=== PATIENT | female | born 1960 | race Asian ===

== ENCOUNTER 2016-08-25 12:58 | Emergency (ER) | payer OTHER ==
[2016-08-25] MEDS ORDERED: CEPHALEXIN 250 MG CAPSULE PO STA (17:08)
[2016-08-25] MEDS ORDERED: FUROSEMIDE 20 MG TABLET PO STA (17:08)
[2016-08-25] MEDS ORDERED: FUROSEMIDE 20 MG TABLET ONE (17:15)
[2016-08-25] MEDS ORDERED: CEPHALEXIN 250 MG CAPSULE PO ONE (17:15)
== END 2016-08-25 17:25 | disposition home or self-care (01) ==
DX: R60.0 Localized edema (principal); L03.116 Cellulitis of left lower limb; I10 Essential (primary) hypertension; E11.9 Type 2 diabetes mellitus without complications; Z79.84 Long term (current) use of oral hypoglycemic drugs; F17.200 Nicotine dependence, unspecified, uncomplicated; E78.00 Pure hypercholesterolemia, unspecified
CPT/HCPCS: 36415; 80048; 85025; 93005; 93010; 99283; 99284; A9270

== ENCOUNTER 2017-08-19 11:49 | Outpatient (CLI) | payer OTHER | END 2017-08-19 11:50 | disposition EMS.NT | LOC: EMS 11:49 | PROVIDERS: ATTEND Surgery | DX: M25.552 Pain in left hip (principal); W01.0XXA Fall on same level from slipping, tripping and stumbling without subsequent striking against object, initial encounter; Y92.511 Restaurant or cafe as the place of occurrence of the external cause ==

== ENCOUNTER 2017-08-19 12:34 | Emergency (ER) | payer OTHER ==
--- NOTE | 2017-08-19 14:49 | ED Physician Documentation ---
PD HPI BACK INJURY - Stated complaint Stated Complaint: BACK PAIN - History obtained from History obtained from: Patient (slipped and fell on floor going into local store and landed on her buttocks, with pain in upper lumbar area. Pain with ROM. No weakness nor numbness in legs. No abd pain. Did not strike head.), Friend - History of Present Illness Location: Lower Type of injury: Fall Where injury occurred: Other (local store) Timing - onset: Today Timing - details: Abrupt onset, Still present Quality: Pain, Aching. No: Spasm Worsened by: Moving. No: Palpating Associated symptoms: No: Weakness, Numbness, Incontinent of urine Contributing factors: No: Work related Similar symptoms before: Has not had sx before Recently seen: Not recently seen Review of Systems Constitutional: denies: Fever, Chills Nose: denies: Rhinorrhea / runny nose, Congestion Throat: denies: Sore throat Respiratory: denies: Cough GI: denies: Abdominal Pain, Nausea, Vomiting : denies: Incontinent Neurologic: denies: Focal weakness, Numbness, Headache, Head injury PD PAST MEDICAL HISTORY - Past Medical History Cardiovascular: Hypertension, High cholesterol Endocrine/Autoimmune: Type 2 diabetes - Past Surgical History Past Surgical History: No - Present Medications Home Medications: Ambulatory Orders Medication Instructions Recorded Confirmed Simvastatin 40 mg PO DAILY 08/25/16 08/19/17 Telmisartan 20 mg PO DAILY 08/25/16 08/19/17 hydroCHLOROthiazide 25 mg PO DAILY 08/25/16 08/19/17 [Hydrochlorothiazide] metFORMIN [Glucophage] 1,000 mg PO DAILY 08/25/16 08/19/17 Calcitonin [Fortical] 1 sprays BRAULIO DAILY #1 bottle 08/19/17 Docusate Sodium 100 mg PO DAILY #30 capsule 08/19/17 HYDROcod/ACETAM 5/325 [[place] 5/325] 1 tab PO Q6H PRN #25 tablet 08/19/17 Naproxen 375 mg PO BID #20 tablet 08/19/17 - Allergies Allergies/Adverse Reactions: Allergies Allergy/AdvReac Type Severity Reaction Status Date / Time No Known Drug Allergies Allergy Verified 08/25/16 13:12 - Social History Does the pt smoke?: Yes Smoking Status: Current every day smoker Does the pt drink ETOH?: No Does the pt have substance abuse?: No PD ED PE NORMAL - Vitals Vital signs reviewed: Yes - General General: Alert and oriented X 3, Well developed/nourished, Other (appears uncomfortable with ROM of the lower back. ) - HEENT HEENT: Atraumatic - Neck Neck: Supple, no meningeal sign, No bony TTP, No adenopathy - Cardiac Cardiac: RRR, No murmur - Respiratory Respiratory: Clear bilaterally - Abdomen Abdomen: Soft, Non tender - Back Back: No CVA TTP, Other (tenderness over thoracolumbar area of spine to percussion and palpation. Mild gluteal area tenderness of soft tissue. Not tender at coccyx itself. ) - Derm Derm: Normal color, Warm and dry - Extremities Extremities: No tenderness to palpate, Normal ROM s pain - Neuro Neuro: Alert and oriented X 3, No motor deficit, No sensory deficit, Other ( normal reflexes at the knees. ) Eye Opening: Spontaneous Motor: Obeys Commands Verbal: Oriented GCS Score: 15 - Psych Psych: Normal mood, Normal affect Results - Vitals Vitals: Oxygen O2 Source Room air - Rads (name of study) lumbar CT Radiology: Prelim report reviewed (new 2 column burst fracture at T 12 with mild posterior displacement and about 20% loss of height. Old compressive deformity L1.) PD MEDICAL DECISION MAKING - ED course Complexity details: reviewed results ([facility] reading as 2 column burst fracture with mild posterior displacement. I felt Spine consult appropriate. Some prolonging of ER visit for report initially, pushing images then getting Spine consult. Pateint kept updated on delays.), re-evaluated patient (improved pain with meds in ED. ), considered differential, d/w patient, d/w advertising consultant (Spine surgeon accountant controller at [facility] - characterized it as compression fracture and said no need for TLSO brace or such. Symptoms treatment and primary care follow up. ) Departure - Departure Disposition: 01 Home, Self Care Clinical Impression: Compression fracture of body of thoracic vertebra Fall from slip, trip, or stumble Qualifiers: Encounter type: initial encounter Qualified Code(s): W01.0XXA - Fall on same level from slipping, tripping and stumbling without subsequent striking against object, initial encounter Condition: Stable Record reviewed to determine appropriate education?: Yes Instructions: ED Fx Comp Vertebral Prescriptions: Calcitonin [Fortical] 1 sprays BRAULIO DAILY #1 bottle Docusate Sodium 100 mg PO DAILY #30 capsule HYDROcod/ACETAM 5/325 [[place] 5/325] 1 tab PO Q6H PRN #25 tablet PRN Reason: Pain Naproxen 375 mg PO BID #20 tablet Comments: Very light lifting and limited bending for the first 10 days or so. Then progress lifting and bending as tolerated based on comfort. This will likely take about a month to heal up. Use the calcitonin nasal spray daily in alternating nostrils to help speed the healing of this. Naproxen twice daily for 10 days for inflammation. Add Tylenol or hydrocodone if needed for pain. Use a daily stool softener for the next month to prevent constipation from the medications and from the injury. Drink lots of fluids. Follow-up with your primary care in about 2 weeks to assess the progression of healing and motion. Forms: Activity restrictions Discharge Date/Time: 08/19/17 18:23
[2017-08-19] MEDS ORDERED: IBUPROFEN 600 MG TABLET PO STA (15:04)
[2017-08-19] MEDS ORDERED: traMADol 50 MG TABLET PO STA (15:04)
[2017-08-19] MEDS ORDERED: METHOCARBAMOL 500 MG TABLET PO STA (15:04)
--- NOTE | 2017-08-19 16:52 | CT Report ---
EXAM: CT LUMBAR SPINE WITHOUT CONTRAST EXAM DATE: 08/19/2017 04:19 PM. CLINICAL HISTORY: Low back pain. Fall on slippery floor. Landed on buttock/side. COMPARISONS: None. TECHNIQUE: Thin-section axial images were acquired of the lumbar spine from T12 to S1 without contras t. Post-processing: Coronal and sagittal reformats. Other: None. In accordance with CT protocol optimization, one or more of the following dose reduction techniques w ere utilized for this exam: automated exposure control, adjustment of mA and/or KV based on patient s ize, or use of iterative reconstructive technique. FINDINGS: Alignment: No scoliosis or spondylolisthesis. Bones: Five [id number] lumbar vertebral bodies are present. 2 column burst fracture at T12 with roughly 20% loss of height anteriorly and minimal loss of height posteriorly with minimal retropulsio n. Similar to colon burst fracture at L1 with roughly 50% loss of height anteriorly and minimal loss of height posteriorly with minimal retropulsion. Disk Levels/Facets: T12-L1: Unremarkable. L1-L2: Unremarkable. L2-L3: Unremarkable. L3-L4: Unremarkable. L4-L5: Advanced degenerative disk space narrowing, right worse than left, with endplate spurring. Mil d posterior disk/osteophyte protrusion. L5-S1: Unremarkable. Musculature: Normal. No fatty atrophy. Other: There are degenerative changes of both sacroiliac joints. IMPRESSION: 1. 2 column burst fractures with mild anterior wedging and minimal superior endplate retropulsion at T12 and L1. 2. Advanced degenerative disk disease at L4-L5. [facility] Referring Provider Line: [phone] SITE ID: [id number]
[2017-08-19 17:37] VITALS: BP 153/87
== END 2017-08-19 18:23 | disposition home or self-care (01) ==
LOC: ED 12:34
DX: S22.081A Stable burst fracture of T11-T12 vertebra, initial encounter for closed fracture (principal); W01.0XXA Fall on same level from slipping, tripping and stumbling without subsequent striking against object, initial encounter; Y92.512 Supermarket, store or market as the place of occurrence of the external cause; E78.00 Pure hypercholesterolemia, unspecified; E11.9 Type 2 diabetes mellitus without complications; I10 Essential (primary) hypertension; F17.200 Nicotine dependence, unspecified, uncomplicated; Z79.84 Long term (current) use of oral hypoglycemic drugs
CPT/HCPCS: 72131; 99283; 99284; A9270

== ENCOUNTER 2019-06-25 09:40 | Emergency (ER) | payer OTHER ==
[2019-06-25 09:50] VITALS: BP 148/79
--- NOTE | 2019-06-25 11:20 | ED Physician Documentation ---
PD HPI WOUND RECHECK - Stated complaint Stated Complaint: LT LEG PX - Chief complaint Chief Complaint: Wound - Histroy obtained from History obtained from: Patient - History of Present Illness Location: Right Lower Extremity Timing - onset: How many weeks ago (4) Pain level max: 0 Pain level now: 0 Associated symptoms: Redness, Swelling, Drainage Recently seen: Not recently seen - Additional information Additional information: states wound to the R bryant for 1 month. Now draining purulent material. Has been followed by her PCP for this. Review of Systems Constitutional: denies: Fever, Chills Respiratory: denies: Cough Skin: denies: Rash Musculoskeletal: denies: Neck pain, Back pain Neurologic: denies: Headache PD PAST MEDICAL HISTORY - Past Medical History Cardiovascular: Hypertension, High cholesterol Endocrine/Autoimmune: Type 2 diabetes - Past Surgical History Past Surgical History: No - Present Medications Home Medications: Ambulatory Orders Medication Instructions Recorded Confirmed Simvastatin 20 mg PO DAILY 08/25/16 09/07/18 Telmisartan 40 mg PO DAILY 08/25/16 09/07/18 hydroCHLOROthiazide 25 mg PO DAILY 08/25/16 09/07/18 [Hydrochlorothiazide] metFORMIN [Glucophage] 1,000 mg PO DAILY 08/25/16 09/07/18 Calcium Carbonate/Vitamin D3 1 tab PO DAILY 09/07/18 09/07/18 [Calcium 250-D Tablet] Multivitamin [Multiple Vitamins] 1 tab PO DAILY 09/07/18 09/07/18 Clindamycin HCl [Clindamycin 300MG 300 mg PO Q6H #28 capsule 06/25/19 CAP] - Allergies Allergies/Adverse Reactions: Allergies Allergy/AdvReac Type Severity Reaction Status Date / Time No Known Drug Allergies Allergy Verified 09/07/18 13:14 - Social History Does the pt smoke?: Yes Smoking Status: Current every day smoker Does the pt drink ETOH?: No Does the pt have substance abuse?: No - Immunizations Immunizations are current?: Yes PD ED PE NORMAL - Vitals Vital signs reviewed: Yes - General General: Alert and oriented X 3, No acute distress - HEENT HEENT: Moist mucous membranes - Derm Derm: Warm and dry - Extremities Extremities: Other (RLE - 1x3m open wound with drainage. minimal surrounding erythema. NVI.) Results - Vitals Vitals: Vital Signs - 24 hr 06/25/19 09:47 Temperature 37 C Heart Rate 99 Respiratory 18 Rate Blood Pressure 148/79 H O2 Saturation 99 Oxygen O2 Source Room air PD MEDICAL DECISION MAKING - ED course Complexity details: considered differential, d/w patient ED course: Wound culture obtained. We will place on antibiotics for home. She is well- appearing, nontoxic. Afebrile. No evidence of osteomyelitis. Patient counseled regarding signs and symptoms for which I believe and urgent re- evaluation would be necessary. Patient with good understanding of and agreement to plan and is comfortable going home at this time This document was made in part using voice recognition software. While efforts are made to proofread this document, sound alike and grammatical errors may occur. Departure - Departure Disposition: 01 Home, Self Care Clinical Impression: Cellulitis Qualifiers: Site of cellulitis: extremity Site of cellulitis of extremity: lower extremity Laterality: right Qualified Code(s): L03.115 - Cellulitis of right lower limb Condition: Good Instructions: ED Infec Skin Cellulitis Follow-Up: JUSTIN GLOVER [Primary Care Provider] - Within 1 week Prescriptions: Clindamycin HCl [Clindamycin 300MG CAP] 300 mg PO Q6H #28 capsule Comments: Take all antibiotics until gone. Your doctor may refer you to wound care to help this wound heal. Return if you worsen.
== END 2019-06-25 12:26 | disposition home or self-care (01) ==
LOC: ED 09:40
DX: L03.115 Cellulitis of right lower limb (principal); S81.801A Unspecified open wound, right lower leg, initial encounter; W19.XXXA Unspecified fall, initial encounter; I10 Essential (primary) hypertension; E11.9 Type 2 diabetes mellitus without complications; Z79.84 Long term (current) use of oral hypoglycemic drugs; F17.200 Nicotine dependence, unspecified, uncomplicated
CPT/HCPCS: 87070; 87077; 87181; 87205; 99283

== ENCOUNTER 2019-08-06 15:50 | Outpatient (CLI) | payer OTHER | END 2019-08-06 15:51 | disposition critical access hospital (66) | LOC: EMS 15:50 | PROVIDERS: ATTEND Surgery | DX: R53.1 Weakness (principal); R53.81 Other malaise; R22.0 Localized swelling, mass and lump, head; R00.8 Other abnormalities of heart beat | CPT/HCPCS: A0425; A0429 ==

== ENCOUNTER 2019-08-06 16:05 | Inpatient (IN) | payer OTHER ==
--- NOTE | 2019-08-06 16:36 | ED Physician Documentation ---
History of Present Illness - Stated complaint Stated Complaint: MATY CELAYA - Chief complaint Chief Complaint: Neuro - History obtained from History obtained from: Patient, EMS - History of Present Illness Timing: Today Pain level max: 0 Pain level now: 0 - Additonal information Additional information: 58-year-old female states that she feels generally weak today. No focal neurological deficit. She states that her arms and legs are weak. She could not get up off the toilet today at the grocery store. No injuries. She states she recently increased her blood pressure medication, telmisartan. No blood in the stool. No chest pain. No shortness of breath. No fevers. No illness. Review of Systems Ten Systems: 10 systems reviewed and negative Constitutional: denies: Fever, Chills Throat: denies: Sore throat Cardiac: denies: Chest pain / pressure, Palpitations Respiratory: denies: Dyspnea, Cough GI: denies: Abdominal Pain, Nausea, Vomiting, Diarrhea Skin: denies: Rash Musculoskeletal: denies: Neck pain, Back pain Neurologic: denies: Headache PD PAST MEDICAL HISTORY - Past Medical History Cardiovascular: Hypertension, High cholesterol Endocrine/Autoimmune: Type 2 diabetes - Past Surgical History Past Surgical History: No - Present Medications Home Medications: Ambulatory Orders Medication Instructions Recorded Confirmed Simvastatin 20 mg PO DAILY 08/25/16 07/23/19 Telmisartan 40 mg PO DAILY 08/25/16 07/23/19 hydroCHLOROthiazide 25 mg PO DAILY 08/25/16 07/23/19 [Hydrochlorothiazide] metFORMIN [Glucophage] 1,000 mg PO DAILY 08/25/16 07/23/19 - Allergies Allergies/Adverse Reactions: Allergies Allergy/AdvReac Type Severity Reaction Status Date / Time No Known Drug Allergies Allergy Verified 07/23/19 11:29 - Social History Does the pt smoke?: Yes Smoking Status: Current every day smoker Does the pt drink ETOH?: No Does the pt have substance abuse?: No - Immunizations Immunizations are current?: Yes PD ED PE NORMAL - Vitals Vital signs reviewed: Yes - General General: Alert and oriented X 3, No acute distress, Well developed/nourished - HEENT HEENT: Moist mucous membranes - Neck Neck: Supple, no meningeal sign - Cardiac Cardiac: RRR, Strong equal pulses - Respiratory Respiratory: No respiratory distress, Clear bilaterally - Abdomen Abdomen: Soft, Non tender, Non distended - Derm Derm: Warm and dry - Extremities Extremities: No edema, No calf tenderness / cord - Neuro Neuro: Alert and oriented X 3, 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 2-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, No motor deficit, No sensory deficit, Normal speech - Psych Psych: Normal mood, Normal affect Results - Vitals Vitals: Vital Signs - 24 hr 08/06/19 16:12 Temperature 36.8 C Heart Rate 93 Respiratory 18 Rate Blood Pressure 146/82 H O2 Saturation 99 Oxygen O2 Source Room air - Labs Labs: Laboratory Tests 08/06/19 08/06/19 08/06/19 16:34 16:34 16:34 WBC 6.7 RBC 3.40 L Hgb 6.3 L* Hct 23.9 L MCV 70.3 L MCH 18.5 L MCHC 26.4 L RDW 21.1 H Plt Count 420 MPV 8.6 Neut # (Auto) 5.3 Lymph # (Auto) 0.8 L [place] # (Auto) 0.4 Eos # (Auto) 0.0 Baso # (Auto) 0.0 Absolute Nucleated RBC 0.04 Nucleated RBC % 0.6 Manual Slide Review Indicated WBC Morphology NORMAL APPEARANCE Platelet Estimate INCREASED (>450,000) Platelet Morphology NORMAL APPEARANCE RBC Morph Micro Appear 1+ POLYCHROMASIA Sodium 142 Potassium 3.1 L Chloride 105 Carbon Dioxide 29 Anion Gap 8.0 BUN 36 H Creatinine 0.4 Estimated GFR (MDRD) 165 Glucose 204 H Glycated Hemoglobin Estim Average Glucose Calcium 8.3 L Phosphorus 3.1 Magnesium 2.0 Iron 10 L TIBC 385 % Saturation 3 L Transferrin 275 Total Bilirubin 0.4 AST 35 ALT 50 Alkaline Phosphatase 69 Total Creatine Kinase 83 Total Protein 5.3 L Albumin 3.1 L Globulin 2.2 Albumin/Globulin Ratio 1.4 Lipase 40 Blood Type Blood Type Recheck Antibody Screen Crossmatch IS Only 08/06/19 08/06/19 08/06/19 16:34 16:34 16:34 WBC RBC Hgb Hct MCV MCH MCHC RDW Plt Count MPV Neut # (Auto) Lymph # (Auto) [place] # (Auto) Eos # (Auto) Baso # (Auto) Absolute Nucleated RBC Nucleated RBC % Manual Slide Review WBC Morphology Platelet Estimate Platelet Morphology RBC Morph Micro Appear Sodium Potassium Chloride Carbon Dioxide Anion Gap BUN Creatinine Estimated GFR (MDRD) Glucose Glycated Hemoglobin 8.6 H Estim Average Glucose 200 H Calcium Phosphorus Magnesium Iron TIBC % Saturation Transferrin Total Bilirubin AST ALT Alkaline Phosphatase Total Creatine Kinase Total Protein Albumin Globulin Albumin/Globulin Ratio Lipase Blood Type Blood Type Recheck Cancelled B POSITIVE Antibody Screen Crossmatch IS Only 08/06/19 08/06/19 17:04 17:04 WBC RBC Hgb Hct MCV MCH MCHC RDW Plt Count MPV Neut # (Auto) Lymph # (Auto) [place] # (Auto) Eos # (Auto) Baso # (Auto) Absolute Nucleated RBC Nucleated RBC % Manual Slide Review WBC Morphology Platelet Estimate Platelet Morphology RBC Morph Micro Appear Sodium Potassium Chloride Carbon Dioxide Anion Gap BUN Creatinine Estimated GFR (MDRD) Glucose Glycated Hemoglobin Estim Average Glucose Calcium Phosphorus Magnesium Iron TIBC % Saturation Transferrin Total Bilirubin AST ALT Alkaline Phosphatase Total Creatine Kinase Total Protein Albumin Globulin Albumin/Globulin Ratio Lipase Blood Type Cancelled B POSITIVE Blood Type Recheck Antibody Screen Cancelled NEGATIVE Crossmatch IS Only See Detail PD MEDICAL DECISION MAKING - ED course Complexity details: reviewed results, re-evaluated patient, considered differential, d/w patient, d/w financial services consultant ED course: Patient with significant weakness. Likely secondary to anemia. She is very iron deficient. A rectal exam was unable to be performed in the emergency department as she was in a hallway bed. Discussed this with the hospitalist and they will perform the rectal exam when she is on the med surg floor. She has had a colonoscopy several years ago. She has not noted any rectal bleeding. As she was too weak to get off of the toilet today, she is symptomatic and will need a blood transfusion and further evaluation. Discussed the case with Dr. Mckee, hospitalist who accepts This document was made in part using voice recognition software. While efforts are made to proofread this document, sound alike and grammatical errors may occur. Departure - Departure Disposition: [facility] DC/[facility] Clinical Impression: Symptomatic anemia Condition: Stable Discharge Date/Time: 08/06/19 17:49
[2019-08-06 16:45] LABS: BASOPHILS % (AUTO) 0.6 %; EOSINOPHILS % (AUTO) 0.4 %; LYMPHOCYTES # (AUTO) 0.8 10^3/uL (1.5-3.5); LYMPHOCYTES % (AUTO) 12.5 %; MEAN CORPUSCULAR HEMOGLOBIN 18.5 pg (27.0-31.0); MEAN CORPUSCULAR HGB CONC 26.4 g/dL (32.0-36.0); MEAN CORPUSCULAR VOLUME 70.3 fL (81.0-99.0); MEAN PLATELET VOLUME 8.6 fL (7.9-10.8); MONOCYTES # (AUTO) 0.4 10^3/uL (0.0-1.0); MONOCYTES % (AUTO) 5.6 %; NEUTROPHILS # (AUTO) 5.3 10^3/uL (1.5-6.6); NEUTROPHILS % (AUTO) 78.8 %; PLT - PLATELET COUNT 420 10^3/uL (130-450); RED CELL DISTRIBUTION WIDTH 21.1 % (12.0-15.0); WHITE BLOOD COUNT 6.7 x10^3/uL (4.8-10.8)
[2019-08-06 16:51] LABS: HGB - HEMOGLOBIN 6.3 g/dL (12.0-16.0)
[2019-08-06 16:58] LABS: ALBUMIN 3.1 g/dL (3.2-5.5); ALBUMIN/GLOBULIN RATIO 1.4 (1.0-2.2); BILIRUBIN,TOTAL 0.4 mg/dL (0.2-1.0); CALCIUM 8.3 mg/dL (8.5-10.3); CREATININE 0.4 mg/dL (0.4-1.0); PHOSPHORUS 3.1 mg/dL (2.5-4.6); TOTAL PROTEIN 5.3 g/dL (6.7-8.2)
[2019-08-06 17:00] LABS: PLATELET ESTIMATE, MANUAL INCREASED (>450,000) (NORMAL); PLATELET MORPHOLOGY NORMAL APPEARANCE (NORMAL)
[2019-08-06] MEDS ORDERED: ACETAMINOPHEN 325 MG TABLET PO PRN (17:21)
[2019-08-06] MEDS ORDERED: ZOLPIDEM 5 MG TABLET PO PRN (17:21)
[2019-08-06] MEDS ORDERED: ONDANSETRON 4 MG/2 ML VIAL IVP PRN (17:21)
[2019-08-06 17:28] LABS: % IRON SATURATION 3 % (20-50); IRON 10 ug/dL (28-170); TOTAL IRON BINDING CAPACITY 385 ug/dL (250-450); TRANSFERRIN 275 mg/dL (192-382)
[2019-08-06] MEDS ORDERED: POTASSIUM CHLORIDE 20 MEQ TABLET PO STA (17:31)
[2019-08-06] MEDS ORDERED: hydrALAZINE INJ 20 MG/ML VIAL IVP PRN (17:35)
[2019-08-06] MEDS ORDERED: FERRIC GLUCONATE 125 MG in SODIUM CHLORIDE 0.9% 100ML 100 ML IV ONE (17:38)
--- NOTE | 2019-08-06 17:47 | HISTORY & PHYSICAL EXAMINATION ---
Chief Complaint - Chief Complaint Chief Complaint: weakness History of Present Illness - History of Present Illness HPI Comment/Other: Pt is a 58-year-old female with a PMH significant for DM2, HTN, HLD, who present ER states that she feels generally weak today. She state she is so weak today even she can not stand up from toilet at the grocery store. She states that her arms and legs are weak. she report she never had like this before. she denies p re-syncope or syncope or fall. She denies chest pain, fever, chill, shortness of breath, abdominal pain, nausea, vomiting or diarrhea. She also denies focal neurological deficit, vision change, headache. she denies bloody or dark stool. she report she had colonoscopy about 7 yrs ago which was normal. She denies taking any blood thinner or NSAIDs. In route lab test in ER, pt has HGB 6.3, it was normal about two yrs ago. Pt is afebrile and hemodynamic stable. pt is admitted in observation unit for above medical reason. History - Past Medical History Cardiovascular: reports: Hypertension, High cholesterol Endocrine/Autoimmune: reports: Type 2 diabetes MRSA Hx?: No - Family & Social History Family History: Mother: (both were no siginificant medical problem), Father: Family History Comment/Other: pt report her parents both did not have significant medical problem. Social History Notes: pt report she is current cigarette smoker, denies alcohol and drug issue. she is living at [facility] Status: Full Code Meds/Allgy - Home Medications Home Medications: Ambulatory Orders Medication Instructions Recorded Confirmed Simvastatin 20 mg PO DAILY 08/25/16 07/23/19 Telmisartan 40 mg PO DAILY 08/25/16 07/23/19 hydroCHLOROthiazide 25 mg PO DAILY 08/25/16 07/23/19 [Hydrochlorothiazide] metFORMIN [Glucophage] 1,000 mg PO DAILY 08/25/16 07/23/19 - Allergies Allergies/Adverse Reactions: Allergies Allergy/AdvReac Type Severity Reaction Status Date / Time No Known Drug Allergies Allergy Verified 07/23/19 11:29 Review of Systems - Constitutional Constitutional: reports: Weakness. denies: Fatigue, Fever, Chills, Malaise, Poor appetite, Diaphoresis, Night sweats - Eyes Eyes: denies: Pain, Irritation, Amaurosis, Blurred vision, Spots in vision, Field loss, Vision loss, Dipolpia - Ears, Nose & Throat Ears, Nose & Throat: denies: Ear pain, Hearing loss, Hearing aids, Tinnitus, Vertigo, Nasal pain, Nasal discharge, Nosebleeds, Nasal obstruction, Postnasal drainage, Dentures, Sore throat, Hoarseness, Mouth lesions, Bleeding gums - Cardiovascular Cariovascular: denies: Irregular heart rate, Palpitations, Chest pain, Edema, Lightheadedness, Syncope, Exertional dyspnea, Decr. exercise tolerance - Respiratory Respiratory: denies: Cough, Sputum production, Wheezing, Snoring, Hemoptysis, Orthopnea, SOB at rest, SOB with exertion, Apnea - Gastrointestinal Gastrointestinal: denies: Abdominal pain, Abdominal distention, Constipation, Diarrhea, Change in bowel habits, Rectal bleeding, Black stools, Bloody stools, Nausea, Vomiting, Bile emesis, Isra blood emesis, Coffee grounds emesis, Reflux/heartburn - Genitourinary Genitourinary: denies: Dysuria, Frequency, Urgency, Hematuria, Incontinence, Flank pain, Nocturia, Urethral discharge - Musculoskeletal Musculoskeletal: denies: Muscle pain, Back pain, Muscle aches, Stiffness, Limited range of motion, Muscle weakness, Gout, Joint pain - Integumentary Integumentary: denies: Rash, Lesions, Dryness, Lumps, Acne, Pigment changes, Nail changes - Neurological Neurological: reports: General weakness. denies: Focal weakness, Headache, Dizziness, Numbness, Memory problems, Pre-existing deficit, Abnormal gait, Seizures, Incoordination, Slurred speech - Psychiatric Psychiatric: denies: Depression, Anxiety, Suicidal, Delusions, Hallucinations, Homicidal - Endocrine Endocrine: denies: Polyuria, Polydypsia, Polyphagia, Intolerance to cold - Hematologic/Lymphatic Hematologic/Lymphatic: denies: Anemia, Bruising, Petechiae, Blood clots, Lymphadenopathy, Bleeding tendencies Exam - Vital Signs Reviewed Vital Signs: Yes Vital Signs: Vital Signs x48h Temp Pulse Resp BP Pulse Ox 08/06/19 16:12 36.8 C 93 18 146/82 H 99 - Physical Exam General Appearance: positive: No acute distress, Alert. negative: Lethargic Eyes Bilateral: positive: Normal inspection, PERRL, EOMI, No lid inflammation ENT: positive: ENT inspection nml, Pharynx nml, No signs of dehydration. negative: Purulent nasal drainage Neck: positive: Nml inspection, Thyroid nml, No JVD, Trachea midline. negative: Thyromegaly, Lymphadenopathy (R), Lymphadenopathy (L), Stiff neck, Tracheal deviation Respiratory: positive: Chest non-tender, No respiratory distress, Breath sounds nml. negative: Wheezes, Rales, Rhonchi Cardiovascular: positive: Regular rate & rhythm, No murmur, No gallop. negative: Irregularly irregular, Extrasystoles, Tachycardia, Bradycardia, JVD present, Systolic murmur, Diastolic murmur Peripheral Pulses: positive: 2+ Abdomen: positive: Non-tender, No organomegaly, Nml bowel sounds, No distention. negative: Tenderness, Guarding, Rebound Back: positive: Nml inspection. negative: CVA tenderness (R), CVA tenderness (L) Skin: positive: Color nml, No rash, Warm, Dry. negative: Cyanosis, Diaphoresis, Pallor, Skin rash Extremities: positive: Non-tender, Full ROM, Nml appearance. negative: Calf tenderness, Lizzeth's sign/cords Neurologic/Psychiatric: positive: Oriented x3, Motor nml, Sensation nml, Mood/affect nml. negative: Weakness, Sensory loss, Facial droop, Slurred/abnml speech, Depressed mood/affect Sepsis Event Note (H) - Evaluation Current Stage of Sepsis: Ruled out Conclusion/Plan - Problem List (1) Symptomatic anemia Conclusion/Plan: pt has HGB 6.3, she can not standup from toilet. but pt denies black or bloody stool. ER did not finish occult test, it is unknown if pt has GI bleed. but iron study reveals pt has significant iron deficiency, and MCV at 70. transfusion two unit blood, recheck CBC order occult blood test, if positive, pt need consulted with GI surgeon pt present iron deficiency anemia, order IVF of ferric glycognate and PO iron (2) Weakness generalized Conclusion/Plan: pt report she can not standup from toilet, report generalized weakness. pt has significant anemia now. we will transfuse blood for pt's anemia consult with PT/OT (3) Diabetes Conclusion/Plan: pt has hx of DM2, glucose is 204. pt took metformin at home order slide scale, ACHS and start hypoglycemia protocol and check A1C (4) Hypertension Conclusion/Plan: stable now, will resume home after verification, add PRN hydralazine Qualifiers: Hypertension type: essential hypertension Qualified Code(s): I10 - Essential (primary) hypertension (5) Hypokalemia Conclusion/Plan: potassium is 3.1 today, replacement, and lab recheck (6) Dehydration Conclusion/Plan: pt has elevated BUN which could be caused by upper GI bleeding but pt has no test to be confirmed for GI bleed yet. order IV of protonic, and occult stool test. It can also be caused dehydration. pt clinic present some dehydration as well. Start IVF of NS, and lab monitor (7) Full code status Conclusion/Plan: pt request full code - Lab Results Fish Bones: 08/06/19 16:34 08/06/19 16:34 Core Measures - Anticipated LOS I expect patient to be DC'd or transferred within 96 hours.: Yes - DVT/VTE - Prophylaxis VTE/DVT Device ordered at admit?: Yes VTE/DVT Prophylaxis med ordered at admit?: Yes
--- NOTE | 2019-08-06 17:50 | PHARMACY PROGRESS NOTE ---
- Best Possible Medication History Admit Date and Time: 08/06/19 1721 Processed by: Pharmacy Medication History completed: In progress (patient not yet available for interview) Secondary Source(s): Previous admit records (med list confirmed 2 weeks ago) As the person ultimately responsible for medication therapy, providers are able to order a medication from an existing home medication list in [facility] via the "Reconcile Routine" prior to Confirmation of that medication by business support specialist. Such practice is discouraged except when the physician, in their clinical judgment, deems that a medical need exists for a medication without regard to previous use.
[2019-08-06 18:18] LABS: HB2 TOTAL 6.4 g/dL; HEMOGLOBIN A1C 0.45 g/dL; HEMOGLOBIN A1C % 8.6 % (4.6-6.2)
[2019-08-06] MEDS: SODIUM CHLORIDE FLUSH 0.9% 10 ML SYRINGE IVP PRN (18:19)
[2019-08-06] MEDS ORDERED: SODIUM CHLORIDE 0.9% 1,000 ML IV SCH (19:00)
[2019-08-06] MEDS: PANTOPRAZOLE 40 MG VIAL IVP SCH (20:05)
[2019-08-06] MEDS ORDERED: INSULIN ASPART 300 UNIT/3 ML PEN SUBQ SCH (21:00)
[2019-08-06] MEDS ORDERED: FUROSEMIDE 40 MG/4 ML VIAL IVP STA (23:54)
[2019-08-07] MEDS ORDERED: IPRATROPIUM/ALBUTEROL 3 ML NEB INH STA (00:07)
--- NOTE | 2019-08-07 00:12 | XRAY Report ---
Reason: Hypoxia. Blood tranfusion. Procedure Date: 08/06/2019 Accession Number: [id number] / [id number] Procedure: XR - Chest 1 View X-Ray CPT Code: 39180 Final Report FULL RESULT: EXAM: CHEST RADIOGRAPHY EXAM DATE: 08/06/2019 11:59 PM. CLINICAL HISTORY: Hypoxia. Blood transfusion. COMPARISON: None. TECHNIQUE: 1 view. FINDINGS: Lungs/Pleura: Perihilar opacities and interstitial thickening in the lungs bilaterally. No pleural effusion or pneumothorax. Mediastinum: Mild enlargement of cardiac silhouette. Other: None. IMPRESSION: 1. Perihilar opacities and interstitial thickening. In the setting of recent blood transfusion, consider transfusion-related acute lung injury or transfusion-associated circulatory overload. Other etiologies are not excluded. 2. Mild cardiomegaly. RADIA
[2019-08-07 00:15] LABS: ABG PH 7.21 (7.35-7.45)
[2019-08-07 00:16] LABS: ABG HCO3 23.1 mmol/L (22.0-26.0); ABG PCO2 57 mmHg (34-45); ABG PO2 63 mmHg (80-100); ALLEN TEST POSITIVE
[2019-08-07 00:20] LABS: ABG OXYGEN SATURATION 86 % (94-98)
[2019-08-07 00:23] LABS: BASOPHILS # (AUTO) 0.1 10^3/uL (0.0-0.1); BASOPHILS % (AUTO) 0.7 %; EOSINOPHILS # (AUTO) 0.1 10^3/uL (0.0-0.7); EOSINOPHILS % (AUTO) 0.5 %; HGB - HEMOGLOBIN 11.2 g/dL (12.0-16.0); LYMPHOCYTES # (AUTO) 4.6 10^3/uL (1.5-3.5); LYMPHOCYTES % (AUTO) 42.1 %; MEAN CORPUSCULAR HEMOGLOBIN 21.1 pg (27.0-31.0); MEAN CORPUSCULAR HGB CONC 27.7 g/dL (32.0-36.0); MEAN CORPUSCULAR VOLUME 76.1 fL (81.0-99.0); MEAN PLATELET VOLUME 9.5 fL (7.9-10.8); NEUTROPHILS % (AUTO) 46.3 %; PLT - PLATELET COUNT 481 10^3/uL (130-450); RED BLOOD COUNT 5.32 10^6/uL (4.20-5.40); RED CELL DISTRIBUTION WIDTH 23.2 % (12.0-15.0); WHITE BLOOD COUNT 10.8 x10^3/uL (4.8-10.8)
[2019-08-07] MEDS ORDERED: PROPOFOL 200 MG/20 ML VIAL IVP ONE (00:34)
[2019-08-07 00:41] LABS: BILIRUBIN,DIRECT 0.2 mg/dL (0.1-0.5); BILIRUBIN,INDIRECT 0.9 mg/dL; BILIRUBIN,TOTAL 1.1 mg/dL (0.2-1.0); CALCIUM 8.1 mg/dL (8.5-10.3); CREATININE 0.4 mg/dL (0.4-1.0); MAGNESIUM 2.5 mg/dL (1.7-2.8); PHOSPHORUS 4.7 mg/dL (2.5-4.6)
[2019-08-07] MEDS ORDERED: fentaNYL 100 MCG/2 ML VIAL IVP PRN (00:47)
[2019-08-07 01:01] LABS: PLATELET ESTIMATE, MANUAL INCREASED (>450,000) (NORMAL); PLATELET MORPHOLOGY NORMAL APPEARANCE (NORMAL)
[2019-08-07] MEDS ORDERED: SODIUM CHLORIDE 0.9% 500 ML ONE (01:07)
[2019-08-07] MEDS: PROPOFOL 1000 MG/100 ML 100 ML IV SCH ×4 (01:09→08:51)
--- NOTE | 2019-08-07 01:27 | PROVIDER PROGRESS NOTE ---
Commissions Coordinator Note - Commissions Coordinator Note Commissions Coordinator Note: Was called to bedside at around 11:30 PM as the patient was complaining of worsening shortness of breath about assisted through her second blood transfusion. Her blood transfusion was stopped and upon assessment at bedside, the patient was found to be tachycardic with a heart rate in the 130s and hypoxic saturating low 80s on 10 L oxygen via nasal cannula. She was afebrile with a temperature of 36.3 and hypertensive with a systolic blood pressure of 203 a diastolic blood pressure of 140. She did appear diaphoretic and cyanotic. She had crackles present bilaterally on lung auscultation. She was switched to a nonrebreather mask at 15 L/min but her oxygen saturations remained in the low 80s. Given the concern for TRALI/TACO, a chest x-ray was immediately obtained. She does appear to have bilateral infiltrates. There is no recent chest x-ray to compare to. She was given 40 mg of Lasix intravenously without improvement in her hypoxia or symptoms. An ABG was obtained which showed a pH 7.21 along with a PCO2 of 57 and a PO2 of 63 on 15 L nonrebreather. A decision was made to transfer the patient to the intensive care unit for intubation. Repeat blood work has been drawn including CBC, BMP, troponin, lactic acid, direct Ree, haptoglobin, bilirubin. The blood bank was notified of the reaction to transfusion. I did attempt to call the patient's but there was no answer. The patient is now in the intensive care unit and she is saturating 93% on SIMV with an FiO2 of 100% and a PEEP of 10. We will repeat an ABG 1 hour after intubation.
[2019-08-07] MEDS: SODIUM CHLORIDE FLUSH 0.9% 10 ML SYRINGE IVP SCH ×2 (01:37→10:05)
[2019-08-07] MEDS ORDERED: SODIUM CHLORIDE 0.9% 500 ML IV PRN (01:38)
--- NOTE | 2019-08-07 01:59 | XRAY Report ---
Reason: Hypoxia. Post intubation. Procedure Date: 08/07/2019 Accession Number: [id number] / [id number] Procedure: XR - Chest for Line Placement CPT Code: Final Report FULL RESULT: EXAM: CHEST RADIOGRAPHY EXAM DATE: 08/07/2019 01:50 AM. CLINICAL HISTORY: Hypoxia. Post intubation. COMPARISON: CHEST 1 VIEW 08/06/2019 11:38 PM. TECHNIQUE: 1 view. FINDINGS: Lungs/Pleura: Persistent bilateral pulmonary opacities. Small right pleural effusion. No pneumothorax. Mediastinum: Within exam limitations, heart size is normal to upper normal. Other: Endotracheal tube is in place with the tip 6.2 cm above the andrea. Enteric tube extends beyond the gastroesophageal junction. IMPRESSION: 1. Bilateral pulmonary opacities and small right pleural effusion. 2. ETT 6.2 cm above the andrea. Enteric tube extends into the stomach. RADIA
[2019-08-07 02:03] LABS: BILIRUBIN,URINE NEGATIVE (NEGATIVE); GLUCOSE, URINE (UA) NEGATIVE (NEGATIVE); KETONES,URINE (UA) NEGATIVE (NEGATIVE); LEUKOCYTE ESTERASE, URINE NEGATIVE (NEGATIVE); NITRITE,URINE NEGATIVE (NEGATIVE); OCCULT BLOOD,URINE NEGATIVE (NEGATIVE); PH,URINE 6.5 PH (5.0-7.5); PROTEIN,URINE NEGATIVE (NEGATIVE); UROBILINOGEN,URINE 0.2 (NORMAL) E.U./dL (NORMAL)
[2019-08-07 02:04] LABS: CLARITY,URINE CLEAR (CLEAR)
[2019-08-07 02:15] LABS: ABG BASE EXCESS 0.5 mmol/L (-2.0-3.0); ABG HCO3 24.8 mmol/L (22.0-26.0); ABG OXYGEN SATURATION 98 % (94-98); ABG PCO2 39 mmHg (34-45); ABG PH 7.42 (7.35-7.45); ALLEN TEST POSITIVE
[2019-08-07 02:16] LABS: ABG PO2 153 mmHg (80-100)
--- NOTE | 2019-08-07 02:21 | MISCELLANEOUS PROVIDER NOTE ---
Miscellaneous Provider Note - - Note: I was called to the ICU to help with intubation for patient in acute respiratory distress. She had a facemask on with oxygenation prior to my arrival. She is able to follow commands and open her mouth widely and stick her tongue out well. There are no dentures seen. IV access was in place. The patient did not have any known allergies. Her blood pressure was adequate if somewhat elevated. Respiratory therapy was present and appropriate preprocedure oxygenation was being done. Suction and a bag valve mask were present at bedside. Using the glide scope I was able to place a 7.5 endotracheal tube through the vocal cords in good position without any complications. It was placed at 24 cm at the teeth. Breath sounds were symmetric though coarse as they had been prior to the intubation. The end-tidal CO2 monitor was showing proper location. Chest x-ray will be obtained. The tube was secured in place by RT. Care was continued by Dr. Salazar in the ICU.
[2019-08-07 05:33] LABS: BASOPHILS % (AUTO) 0.3 %; EOSINOPHILS % (AUTO) 0.1 %; HGB - HEMOGLOBIN 9.8 g/dL (12.0-16.0); LYMPHOCYTES # (AUTO) 0.7 10^3/uL (1.5-3.5); LYMPHOCYTES % (AUTO) 5.4 %; MEAN CORPUSCULAR HEMOGLOBIN 20.8 pg (27.0-31.0); MEAN CORPUSCULAR HGB CONC 29.2 g/dL (32.0-36.0); MEAN CORPUSCULAR VOLUME 71.3 fL (81.0-99.0); MEAN PLATELET VOLUME 8.9 fL (7.9-10.8); MONOCYTES # (AUTO) 0.5 10^3/uL (0.0-1.0); MONOCYTES % (AUTO) 4.2 %; NEUTROPHILS # (AUTO) 10.7 10^3/uL (1.5-6.6); NEUTROPHILS % (AUTO) 89.2 %; PLT - PLATELET COUNT 422 10^3/uL (130-450); RED BLOOD COUNT 4.71 10^6/uL (4.20-5.40); RED CELL DISTRIBUTION WIDTH 22.5 % (12.0-15.0); WHITE BLOOD COUNT 11.9 x10^3/uL (4.8-10.8)
[2019-08-07 05:46] LABS: CALCIUM 7.7 mg/dL (8.5-10.3); CREATININE 0.3 mg/dL (0.4-1.0); MAGNESIUM 1.9 mg/dL (1.7-2.8)
[2019-08-07] MEDS ORDERED: POTASSIUM CHLOR 10 MEQ/100 ML 10 MEQ/100 ML BAG IV SCH (06:00)
[2019-08-07] MEDS ORDERED: ASPIRIN CHEW 81 MG TABLET NG STA (06:06)
[2019-08-07] MEDS: INSULIN REGULAR HUMAN 300 UNIT/3 ML VIAL SUBQ SCH ×2 (06:20→12:10)
[2019-08-07] MEDS: PANTOPRAZOLE 40 MG VIAL IVP SCH (06:30)
[2019-08-07] MEDS: SODIUM CHLORIDE FLUSH 0.9% 10 ML SYRINGE IVP PRN (06:30)
[2019-08-07] MEDS: POTASSIUM CHLOR 10 MEQ/100 ML 10 MEQ/100 ML BAG IV SCH ×4 (06:31→09:54)
[2019-08-07] MEDS ORDERED: POTASSIUM CHLORIDE 20 MEQ/15 ML UDC NG SCH (07:00)
[2019-08-07 07:31] LABS: ABG HCO3 26.8 mmol/L (22.0-26.0); ABG PCO2 35 mmHg (34-45); ABG PH 7.51 (7.35-7.45); ABG TCO2 27.8 MMOL/L (21.0-29.0)
[2019-08-07 07:32] LABS: ABG BASE EXCESS 3.8 mmol/L (-2.0-3.0); ABG OXYGEN SATURATION 98 % (94-98); ALLEN TEST POSITIVE
[2019-08-07 07:35] LABS: ABG PO2 202 mmHg (80-100)
[2019-08-07] MEDS ORDERED: FERROUS SULFATE 325 MG TABLET PO SCH (08:00)
[2019-08-07] MEDS ORDERED: INSULIN GLARGINE 300 UNIT/3 ML PEN SUBQ SCH (08:00)
[2019-08-07] MEDS ORDERED: FERROUS SULFATE 300 MG/5 ML UDC NG SCH (08:00)
[2019-08-07] MEDS ORDERED: ENOXAPARIN 80 MG/0.8 ML SYRINGE SUBQ SCH (09:00)
[2019-08-07] MEDS ORDERED: FUROSEMIDE 40 MG/4 ML VIAL IVP SCH (09:00)
[2019-08-07] MEDS ORDERED: LOSARTAN 50 MG TABLET PO SCH (09:00)
[2019-08-07] MEDS ORDERED: METOPROLOL 5 MG/5 ML VIAL IVP SCH (10:20)
[2019-08-07] MEDS ORDERED: NITROGLYCERIN 2% PASTE TOP SCH (11:00)
--- NOTE | 2019-08-07 11:04 | Discharge Plan ---
Discharge Plan Problem Reviewed?: Yes Disposition: 02 Transfer Acute Care Hosp Condition: Serious No Smoking: If you smoke, Please STOP! Call for help. Follow-up with: MARÍA PERRY MD [Primary Care Provider] -
--- NOTE | 2019-08-07 11:06 | DISCHARGE SUMMARY ---
Discharge Summary Admit Date: 08/06/19 Discharge Date: 08/07/19 Discharging Provider: Dr Love Mckee Primary Care Provider: Dr Luís Mcmullen, [place] Code Status: Attempt Resuscitation Condition at Discharge: Serious Discharge Disposition: 02 Transfer Acute Care Hosp Discharge Facility [facility]: [facility] - DIAGNOSES Admission Diagnoses: 1) Iron deficiency anemia 2) Near-syncope 3) NIDDM 4) Smoker 5) Hx HTN 6) Hx Hyperlipidemia Discharge Diagnoses with Status of Each Condition: See below - HPI History of Present Illness: From the admission H&P of Ted Lau NP: Pt is a 58-year-old female with a PMH significant for NIDDM, HTN, Hyperlipidemia, is a smoker, who presented to the ER stating that she feels gen erally weak today. She stated she is so weak today she can not even stand up from the toilet. She stated that her arms and legs are weak and reported she has never had symptoms like this before. She denied pre-syncope or syncope or fall. She denied chest pain, fever, chills, shortness of breath, abdominal pain, nausea, vomiting or diarrhea. She also denied focal neurological deficit, vision change, or headache. She denied bloody or dark stools and reported she had a colonoscopy about 7 yrs ago which was normal. She denied taking any blood thinner, aspirin or NSAIDs. Lab test in ER: pt had Hgb of 6.3, it was normal about two yrs ago. She is afebrile and hemodynamically stable. A rectal exam was unable to be performed in the emergency department as she was in a hallway bed, with no privacy. She is being placed in Observation status for blood transfusion due to symptomatic anemia. - HOSPITAL COURSE Hospital Course: 1) Falsh pulmonary edema Patient started to get blood transfusions. On unit #2, she got suddenly short of breath and was noted to have severe air hunger. Her BP kerry to 204/140 and HR 120-140. She required supplemental oxygen, ABG showed pH 7.21/PCO2 57/PO2 63 and she needed intubation. She was admitted to Inpatient status, placed on a ventilator, moved into the ICU, started on a Propofol drip for sedation. The blood transfusion was stopped, the blood bank was contacted, a Pathologist was made aware in order to check the donors HLA etc, in case this was transient acute lung injury. STAT labs were checked that showed rising troponins (see below) and a BNP of 1555 (there was no prior BNP for comparison). A chest x-ray showed new bilateral opacities, suggestive of pulmonary edema. She received Lasix 40 mg iv and had a diuresis and O2 settings could be decreased from an FIO2 of 100% to 50% on the vent. 2) Acute NSTEMI Her high sensitivity-troponin at time of transfer into the ICU was 48. The next hs-troponins increased to 274 then 410. An EKG during the event showed sinus tachycardia at 144, QS waves were present in V2 and V3. There was no prior EKG available for comparison. A f/u EKG the next morning showed NSR at 97, prolonged QTc of 512, and new diffuse T wave flattening. She was started on aspirin and statin per ng tube, Lovenox 1 mg/kg sq q12h, iv Metoprolol and topical NTPaste. Her VS improved: BP 115/75 , HR 90. Her arrived and gave more history: the patient has been trying high-fat, low-carb diets on her own, she continues to chain-smoke despite years of being urged to stop, she has never had a cardiac history, never needed an EKG or any stress testing that he new of. Because of ruling in for an NSTEMI, this Hospitalist reached out to have her transferred to a hospital with higher level of care and a [employer] Worker, and she was kindly accepted by the Content Publisher at the [facility] ICU, where she was transferred by ambulance. 3) Iron deficiency anemia Her admission hemoglobin/Hct was 6.3/23.9, with MCV of 70. A rectal exam was unable to be performed in the emergency department as she was in a hallway bed. A stool sample occult blood test was positive, the stool color was brown. Iron studies the next morning showed low serum Iron of 10, low %sat of 3, normal TIBC of 385 and Transferrin of 275. After the 1 and 1/2 units of blood transfused, the hemoglobin increased to 11.2 with hematocrit 40. The Lovenox was dosed x1 as above, since the acute benefit outweighed the risk. 4) Near-syncope The presumed etiology was her marked anemia. Orthostatic VS were not done however. There was no significant dysrhythmia, except sinus tachycardia, noted on telemetry while she was here. An Echo was ordered but not done (we do not have Echo available currently at this critical access hospital until 08/12/2019). 5) NIDDM She was only on Metformin at home and was trying various diets for diabetic control, according to the . The A1c at admission was 8.6. The Metformin was not used while here, she was on sliding scale Regular Insulin coverage. 6) Hx HTN She apparently had a recent increase in her Telmisartan dose according to records. 7) Smoker He was apparently a heavy smoker, according to the history we received from the . 8) Hyperlipidemia She was on a statin before admission. Compliance is unknown; the said he and the "co-habitate" but live their own lives, and do not really communicate, so he does not know specifics. 9) Hypokalemia She presented with a serum potassium of 3.1, follow-up potassium was 3.4, the next morning K was 2.1 and she received IV potassium runners for replacement. - ALLERGIES Allergies/Adverse Reactions: Allergies Allergy/AdvReac Type Severity Reaction Status Date / Time No Known Drug Allergies Allergy Verified 07/23/19 11:29 - MEDICATIONS Home Medications: Ambulatory Orders Medication Instructions Recorded Confirmed Simvastatin 20 mg PO DAILY 08/25/16 08/07/19 Telmisartan 40 mg PO DAILY 08/25/16 08/07/19 hydroCHLOROthiazide 25 mg PO DAILY 08/25/16 08/07/19 [Hydrochlorothiazide] metFORMIN [Glucophage] 1,000 mg PO DAILY 08/25/16 07/23/19 - PHYSICAL EXAM AT DISCHARGE General Appearance: positive: Other (Sedated) ENT: positive: Other (ET tube intubated) Neck: positive: No JVD Respiratory: positive: Other (On the vent) Cardiovascular: positive: Regular rate & rhythm Abdomen: positive: No distention Skin: positive: Color nml, Warm Neurologic/Psychiatric: positive: Other (Sedated) - LABS Result Diagrams: 08/07/19 05:15 08/07/19 12:09 - DIAGNOSTIC IMAGING Diagnostic Imaging Results: Final report reviewed - FOLLOW UP Follow Up: This will be determined after her hospitalization at [facility]. - TIME SPENT Time Spent in Discharge (Minutes): 60
[2019-08-07 12:25] LABS: CALCIUM 7.8 mg/dL (8.5-10.3); CREATININE 0.4 mg/dL (0.4-1.0)
[2019-08-07] MEDS ORDERED: ATORVASTATIN 40 MG TABLET NG ONE (12:41)
[2019-08-07 14:42] VITALS: BP 112/78
[2019-08-07] MEDS ORDERED: ATORVASTATIN 40 MG TABLET PO SCH (21:00)
== END 2019-08-07 13:10 | disposition short-term general hospital (02) | DRG 208 ==
LOC: EDUNIT# → ED 16:05 → MS2 17:21 → ICU 08-07 00:30 → OBSVTOIN 08-07 08:14
PROVIDERS: ADMIT Nurse Practitioner Gerontology; ATTEND Internal Medicine
PROC: 5A1935Z Respiratory Ventilation, Less than 24 Consecutive Hours (ICD-10-PCS; principal; 2019-08-07)
DX: J95.84 Transfusion-related acute lung injury (TRALI) (principal); J96.01 Acute respiratory failure with hypoxia; J81.0 Acute pulmonary edema; I21.4 Non-ST elevation (NSTEMI) myocardial infarction; E87.71 Transfusion associated circulatory overload; Y84.8 Other medical procedures as the cause of abnormal reaction of the patient, or of later complication, without mention of misadventure at the time of the procedure; Y92.230 Patient room in hospital as the place of occurrence of the external cause; D50.9 Iron deficiency anemia, unspecified; R55 Syncope and collapse; E87.6 Hypokalemia; E86.0 Dehydration; E11.9 Type 2 diabetes mellitus without complications; I10 Essential (primary) hypertension; E78.5 Hyperlipidemia, unspecified; F17.210 Nicotine dependence, cigarettes, uncomplicated; Z78.1 Physical restraint status; Z79.84 Long term (current) use of oral hypoglycemic drugs; Z79.899 Other long term (current) drug therapy
CPT/HCPCS: 36415; 36600; 71045; 80048; 80053; 81003; 82040; 82247; 82248; 82274; 82550; 82607; 82746; 82803; 83010; 83036; 83540; 83605; 83690; 83735; 83880; 84100; 84466; 84484; 85025; 86850; 86880; 86900; 86901; 86920; 87150; 93005; 94002; 94640; A9270; G0378; J1650; J1815; J2916; P9016; 31500; 36430; 81001; 87086; 99284

== ENCOUNTER 2019-09-14 07:38 | Outpatient (CLI) | payer OTHER | END 2019-09-14 07:39 | disposition home or self-care (01) | LOC: DI 07:38 | PROVIDERS: ATTEND Internal Medicine Hematology & Oncology | DX: C16.9 Malignant neoplasm of stomach, unspecified (principal); I51.7 Cardiomegaly; I34.0 Nonrheumatic mitral (valve) insufficiency | CPT/HCPCS: 93306 ==

== ENCOUNTER 2019-09-18 11:44 | Outpatient (CLI) | payer OTHER ==
[2019-09-18 12:05] LABS: INR 1.1 (0.8-1.2)
[2019-09-18 12:13] LABS: PARTIAL THROMBOPLASTIN TIME 26.2 secs (24.9-33.3)
== END 2019-09-18 11:45 | disposition home or self-care (01) ==
LOC: LAB 11:44
PROVIDERS: ATTEND Internal Medicine Hematology & Oncology
DX: C16.9 Malignant neoplasm of stomach, unspecified (principal); E11.9 Type 2 diabetes mellitus without complications
CPT/HCPCS: 36415; 85610; 85730

== ENCOUNTER 2019-09-21 07:06 | Day surgery (SDC) | payer OTHER ==
[2019-09-21] MEDS ORDERED: MIDAZOLAM 2 MG/2 ML VIAL IVP ONE (07:07)
[2019-09-21] MEDS ORDERED: KETAMINE 500 MG/10 ML VIAL IVP ONE (07:07)
[2019-09-21] MEDS ORDERED: fentaNYL 100 MCG/2 ML VIAL IVP ONE (07:07)
[2019-09-21] MEDS ORDERED: LIDOCAINE-MPF 2% 5 ML VIAL IM ONE (07:07)
[2019-09-21] MEDS ORDERED: PROPOFOL 200 MG/20 ML VIAL IVP ONE (07:07)
--- NOTE | 2019-09-21 07:23 | ANESTHESIA ---
Pre-Anesthesia VS, & Labs - Diagnosis Gastric cancer - Procedure Portacath placement Height 5 ft 8 in Body Mass Index 20.9 - NPO Other (Water at 0530) - Is Patient ?: No - Lab Results Lab results reviewed: Yes Home Medications and Allergies metFORMIN [Glucophage] 1,000 mg PO BID 08/25/16 Atorvastatin [Lipitor] 40 mg PO DAILY 09/06/19 Carvedilol 6.25 mg PO BID 09/06/19 Ferrous Sulfate 325 mg PO DAILY 09/06/19 Pantoprazole [Protonix] 40 mg PO DAILY 09/06/19 Potassium Chloride 20 meq PO BID 09/06/19 Spironolactone 25 mg PO DAILY 09/06/19 Telmisartan 40 mg PO DAILY 09/06/19 Allergies/Adverse Reactions: Allergies Allergy/AdvReac Type Severity Reaction Status Date / Time No Known Drug Allergies Allergy Verified 07/23/19 11:29 Anes History & Medical History - Anesthetic History Anesthesia Complications: reports: No previous complications Family history of Anesthesia Complications: Denies Family history of Malignant Hyperthermia: Denies (Exercise tolerance limited) - Medical History Cardiovascular: reports: Congestive heart failure, Hypertension, High cholesterol, IA, Other Pulmonary: reports: None Gastrointestinal: reports: Hepatitis, Other (Gastric cancer) Urinary: reports: None Neuro: reports: None Musculoskeletal: reports: None Endocrine/Autoimmune: reports: Type 2 diabetes Blood Disorders: reports: None Skin: reports: None Smoking Status: Former smoker Psychosocial: reports: No issues indicated - Surgical History General: Colonoscopy, EGD Results - EKG Results EKG Comparison: Reviewed EKG - Echo Results Echo Results: Report reviewed Exam General: Alert, Oriented x3, Cooperative Dental: WNL Mouth Opening: Greater than 4 Fingerbreadths Neck Mobility: Normal Mallampati classification: I Thyromental Distance: greater than 6 cm Respiratory: Lungs clear Cardiovascular: Regular rate Neurological: Normal speech Mental/Cognitive Status: Alert/Oriented X3 Cognitive Status: Within normal limits Plan Anesthesia Type: MAC Consent for Procedure(s) Verified and Reviewed: Yes Code Status: Attempt Resuscitation ASA classification: 3-Severe systemic disease Is this case an emergency?: No
[2019-09-21] MEDS ORDERED: BUPIVACAINE 0.25% PF 30 ML VIAL ONE (07:31)
[2019-09-21] MEDS ORDERED: LACTATED RINGERS 1,000 ML IV ONE (07:32)
[2019-09-21] MEDS ORDERED: LIDOCAINE 1%-EPI 1:100000 20 ML MDV ONE (07:32)
[2019-09-21] MEDS ORDERED: HYDROmorphone 0.5 MG/0.5 ML SYRINGE IVP PRN (08:31)
[2019-09-21] MEDS ORDERED: ONDANSETRON 4 MG/2 ML VIAL IVP PRN (08:31)
[2019-09-21] MEDS ORDERED: oxyCODONE 5 MG TABLET PO PRN (08:31)
[2019-09-21] MEDS ORDERED: BUPIVACAINE 0.25% PF 30 ML VIAL SUBQ ONE ×2 (08:54)
[2019-09-21] MEDS ORDERED: LIDOCAINE 1%-EPI 1:100000 20 ML MDV SUBQ ONE ×2 (08:55)
[2019-09-21 10:25] VITALS: BP 153/95
--- NOTE | 2019-09-21 12:29 | XRAY Report ---
Reason: portacath placement Procedure Date: 09/21/2019 Accession Number: [id number] / [id number] Procedure: FL - OR C-Arm Procedure CPT Code: Final Report FULL RESULT: EXAM: FLUOROSCOPIC GUIDANCE EXAM DATE: 09/21/2019 09:17 AM. CLINICAL HISTORY: Portacath placement. COMPARISON: CHEST 1 VIEW 08/07/2019 1:17 AM. FINDINGS: A single fluoroscopic spot image shows a right IJ implanted central venous catheter with tip in the lower third of the SVC. Please see operative report for details. IMPRESSION: Fluoroscopic guidance provided for Dr. Allie Pascual. Total fluoroscopy time: 3 minutes. Number of images: 1. RADIA
--- NOTE | 2019-09-21 14:26 | OPERATIVE REPORT ---
Operative Report - General Procedure Date: 09/21/19 Pre-Op Diagnosis: Gastric Cancer Procedure Performed: 1. Port-a-cath placement using fluoroscopic guidance 2. Ultrasound guided access of right internal jugular vein Post Op Diagnosis: same - Procedure Note Primary Surgeon: Tristian Pascual MD Anesthesia Provider: MONICA Anesthesia Technique: MAC Estimated Blood Loss (mL): 10 Indications: 59yo F with gastric adenocarcinoma and need for urgent chemotherapy. Informed consent discussed and pt wishes to proceed. Findings: flushes and draws readily Complications: none - Other Other Information/Narrative: The patient was taken to the operating room and placed in the on the operating table in supine position. Anesthesia was induced without complications. The right neck and chest was prepped and draped in the usual sterile fashion. Using ultrasound guidance, the right internal jugular vein was accessed with an 18 gauge access needle. The guidewire was then placed through the needle and advanced under fluoroscopic guidance; it had a tendency to curling at the level of the clavicle and several attempts were needed to get appropriate positioning. Using an 11 blade scalpel, a small incision was made in the skin over the needle and the needle was removed. At this point, we turned our attention to creation of a subcutaneous pocket for the port. This was done over the deltopectoral groove on the right chest. The catheter was then attached to the tunneling device and this was tunneled from the port site to the access site. The tunneling device was removed. The sheath and inner dilator were placed over the guidewire and advanced under fluoroscopic guidance. The wire was removed. The catheter was then placed in the sheath and advanced under fluoroscopic guidance until it appeared to sit near the atriocaval junction. The sheath was then removed. The catheter was then attached to the port and secured into place. Two 2-Prolene sutures were placed through the deep subcutaneous tissues and the port sat nicely in place in the subcutaneous pocket. One last picture was taken with fluoroscopy which showed the catheter to be in good position above the atriocaval junction. The catheter was checked to ensure that it flushes and draws readily. It is heparin-locked. 3-0 Vicryl was used to re-approximate the deep subcutaneous tissues in an interrupted fashion. The skin was closed using 4-0 Monocryl in a running subcuticular fashion. The area was cleaned and dried. Dermabond was placed over the incision and the access site. The patient tolerated the procedure well. The patient was awakened and extubated and taken to the PACU in stable condition. All counts were correct at the end of the procedure. An xray was ordered to be performed in the PACU prior to discharge.
--- NOTE | 2019-09-22 08:08 | XRAY Report ---
Reason: post port placement Procedure Date: 09/21/2019 Accession Number: [id number] / [id number] Procedure: XR - Post Port Placement 1V CXR CPT Code: 00173 Final Report FULL RESULT: EXAM: CHEST RADIOGRAPHY EXAM DATE: 09/21/2019 09:37 AM. CLINICAL HISTORY: Post port placement. COMPARISON: CHEST 1 VIEW 08/07/2019 1:17 AM. TECHNIQUE: 1 view. FINDINGS: Lungs/Pleura: No focal opacities evident. No pleural effusion. No pneumothorax. Mediastinum: There is cardiomegaly. Other: None. IMPRESSION: 1. Right Port-A-Cath tip projects over the mid SVC. 2. There is cardiomegaly. 3. No evidence of focal infiltrate or pneumothorax. RADIA
== END 2019-09-21 07:07 | disposition home or self-care (01) ==
LOC: SDS 07:06
PROVIDERS: ATTEND Surgery
DX: C16.9 Malignant neoplasm of stomach, unspecified (principal); E11.9 Type 2 diabetes mellitus without complications; Z79.84 Long term (current) use of oral hypoglycemic drugs; I11.0 Hypertensive heart disease with heart failure; I50.9 Heart failure, unspecified; D64.9 Anemia, unspecified; Z87.891 Personal history of nicotine dependence
CPT/HCPCS: 36561; C1788; J7120; 71045

== ENCOUNTER 2019-10-10 04:30 | Emergency (ER) | payer OTHER ==
[2019-10-10] MEDS ORDERED: ASPIRIN CHEW 81 MG TABLET PO STA (04:43)
[2019-10-10] MEDS ORDERED: ASPIRIN CHEW 81 MG TABLET ONE (04:45)
--- NOTE | 2019-10-10 04:59 | XRAY Report ---
Reason: Chest pain Procedure Date: 10/10/2019 Accession Number: [id number] / [id number] Procedure: XR - Chest 1 View X-Ray CPT Code: 05229 Final Report FULL RESULT: EXAM: CHEST RADIOGRAPHY EXAM DATE: 10/10/2019 04:35 AM. CLINICAL HISTORY: Chest pain. COMPARISON: POST PORT PLACEMENT 1V CXR 09/21/2019 9:37 AM. TECHNIQUE: 1 view. FINDINGS: Lungs/Pleura: Compared to the prior study bilateral pulmonary vascular congestion and early interstitial edema has developed. There are no pleural effusions. Mediastinum: The heart is borderline enlarged. Right-sided central line is unchanged with the tip in the superior vena cava. Other: None. IMPRESSION: 1. Pulmonary vascular congestion and early interstitial edema/fluid overload. RADIA
[2019-10-10 05:12] LABS: BASOPHILS % (AUTO) 0.2 %; HGB - HEMOGLOBIN 10.3 g/dL (12.0-16.0); LYMPHOCYTES % (AUTO) 4.4 %; MEAN CORPUSCULAR HEMOGLOBIN 26.8 pg (27.0-31.0); MEAN CORPUSCULAR HGB CONC 29.6 g/dL (32.0-36.0); MEAN CORPUSCULAR VOLUME 90.6 fL (81.0-99.0); MEAN PLATELET VOLUME 10.2 fL (7.9-10.8); MONOCYTES % (AUTO) 3.4 %; NEUTROPHILS % (AUTO) 84.6 %; PLT - PLATELET COUNT 163 10^3/uL (130-450); RED BLOOD COUNT 3.84 10^6/uL (4.20-5.40); RED CELL DISTRIBUTION WIDTH 20.5 % (12.0-15.0); WHITE BLOOD COUNT 23.7 x10^3/uL (4.8-10.8)
--- NOTE | 2019-10-10 05:19 | ED Physician Documentation ---
History of Present Illness - Stated complaint Stated Complaint: CP/PORT - Chief complaint Chief Complaint: Cardiac - History obtained from History obtained from: Patient, Family - History of Present Illness Timing: Last night - Additonal information Additional information: Patient comes emergency department complaining of shortness of breath and a substernal chest pain which started around 2300 tonight. Patient states that she was feeling reasonably well yesterday, though she has been tired. Pt reports she did not sleep the night before. Patient states she really has not been able to sleep tonight, secondary to the discomfort. She states it feels worse if she lays down and that she has to lean forward sitting up in order to previous. Patient denies any fevers or chills. She states she has noticed swelling in her left lower extremity that she did not notice before today. She has a diabetic ulcer on the other leg, But no swelling. Patient is currently being treated for gastric cancer. She does not have any lung metastases from this. She has gone through 1 round of chemotherapy and recently had a PET scan demonstrating according to the , gastric cancer with some localized lymph node involvement. Patient states that right now, her chest pain is about the same as when it first started. She states that she feels mildly short of breath sitting in the bed. Review of Systems Ten Systems: 10 systems reviewed and negative Constitutional: reports: Reviewed and negative Eyes: reports: Reviewed and negative Ears: reports: Reviewed and negative Nose: reports: Reviewed and negative Throat: reports: Reviewed and negative Cardiac: reports: Chest pain / pressure, Pedal edema Respiratory: reports: Dyspnea, Cough GI: reports: Reviewed and negative : reports: Reviewed and negative Skin: reports: Reviewed and negative Musculoskeletal: reports: Reviewed and negative Neurologic: reports: Generalized weakness Psychiatric: reports: Reviewed and negative Endocrine: reports: Reviewed and negative Immunocompromised: reports: Reviewed and negative PD PAST MEDICAL HISTORY - Past Medical History Cardiovascular: Congestive heart failure, Hypertension, High cholesterol, MT, Other Respiratory: None Neuro: None Endocrine/Autoimmune: Type 2 diabetes GI: Hepatitis, Other (Gastric cancer) : None HEENT: Chronic vision loss Psych: None Musculoskeletal: None Derm: None - Past Surgical History Past Surgical History: No General: Colonoscopy, EGD - Present Medications Home Medications: Ambulatory Orders Medication Instructions Recorded Confirmed metFORMIN [Glucophage] 1,000 mg PO BID 08/25/16 10/04/19 Atorvastatin [Lipitor] 40 mg PO DAILY 09/06/19 10/04/19 Carvedilol 6.25 mg PO BID 09/06/19 10/04/19 Ferrous Sulfate 325 mg PO DAILY 09/06/19 10/04/19 Pantoprazole [Protonix] 40 mg PO DAILY 09/06/19 10/04/19 Potassium Chloride 20 meq PO BID 09/06/19 10/04/19 Spironolactone 25 mg PO DAILY 09/06/19 10/04/19 Telmisartan 40 mg PO DAILY 09/06/19 10/04/19 Ondansetron HCl [Zofran] 8 mg PO Q8HR PRN 09/23/19 10/04/19 Prochlorperazine Maleate 10 mg PO Q6HR PRN 09/23/19 10/04/19 [Compazine] - Allergies Allergies/Adverse Reactions: Allergies Allergy/AdvReac Type Severity Reaction Status Date / Time No Known Drug Allergies Allergy Verified 10/04/19 15:42 - Social History Does the pt smoke?: Yes Smoking Status: Former smoker Does the pt drink ETOH?: No Does the pt have substance abuse?: No - Immunizations Immunizations are current?: Yes - POLST POLST Status: Full Code PD ED PE NORMAL - Vitals Vital signs reviewed: Yes - General General: Alert and oriented X 3, Other (Patient is in very mild respiratory distress sitting in the bed.) - HEENT HEENT: PERRL - Neck Neck: Supple, no meningeal sign - Cardiac Cardiac: RRR, No murmur - Respiratory Respiratory: Clear bilaterally, Other (Patient is able to speak without difficulty, but in between, she is noted to breathe through pursed lips.) - Abdomen Abdomen: Soft, Non tender, Non distended - Back Back: No CVA TTP - Derm Derm: Warm and dry, Other (Patient has mild cyanosis of her lips.) - Extremities Extremities: No deformity, Other (Patient has marked pitting edema of the left lower extremity compared to the right.) - Neuro Neuro: Alert and oriented X 3 - Psych Psych: Normal mood, Normal affect Results - Vitals Vitals: Vital Signs - 24 hr 10/10/19 10/10/19 10/10/19 04:35 04:40 05:02 Temperature 36.4 C L Heart Rate 102 H Respiratory 22 Rate Blood Pressure 174/117 H Blood Pressure 174/117 H [Left] Blood Pressure 170/115 H [Right] O2 Saturation 92 79 L 10/10/19 10/10/19 10/10/19 05:31 06:50 07:20 Temperature Heart Rate 84 87 Respiratory 18 Rate Blood Pressure 109/74 Blood Pressure [Left] Blood Pressure [Right] O2 Saturation 98 96 10/10/19 10/10/19 10/10/19 07:25 07:30 07:35 Temperature Heart Rate 86 85 83 Respiratory 18 18 18 Rate Blood Pressure 106/74 97/71 97/70 Blood Pressure [Left] Blood Pressure [Right] O2 Saturation 96 96 96 10/10/19 10/10/19 10/10/19 07:40 07:45 08:05 Temperature Heart Rate 82 80 74 Respiratory 18 18 18 Rate Blood Pressure 93/68 87/67 L 84/64 L Blood Pressure [Left] Blood Pressure [Right] O2 Saturation 97 97 98 10/10/19 10/10/19 10/10/19 08:14 08:15 08:35 Temperature Heart Rate 74 71 72 Respiratory 18 18 Rate Blood Pressure 84/63 L 94/68 Blood Pressure [Left] Blood Pressure [Right] O2 Saturation 98 98 Oxygen O2 Source Mechanical ventilator - EKG (time done) 0437 Rate: Rate (enter#) (95) Rhythm: NSR, LAE [place]: Normal Intervals: Normal [place] QRS: LVH Ischemia: Normal ST segments - Labs Labs: Laboratory Tests 10/10/19 10/10/19 10/10/19 04:55 04:55 04:55 WBC 23.7 H RBC 3.84 L Hgb 10.3 L Hct 34.8 L MCV 90.6 MCH 26.8 L MCHC 29.6 L RDW 20.5 H Plt Count 163 MPV 10.2 Neut # (Auto) Not Reportable Lymph # (Auto) Not Reportable [place] # (Auto) Not Reportable Eos # (Auto) Not Reportable Baso # (Auto) Not Reportable Absolute Nucleated RBC Not Reportable Total Counted 100 Band Neuts % (Manual) 11 H Abnorm Lymph % (Manual) 0 Myelocytes % 10 H Nucleated RBC % Not Reportable Neutrophils # (Manual) 18.7 H Lymphocytes # (Manual) 1.4 L Monocytes # (Manual) 0.9 Eosinophils # (Manual) 0.0 Basophils # (Manual) 0.2 H Differential Comment MANUAL DIFFERENTIAL WBC Morphology NORMAL APPEARANCE Platelet Estimate NORMAL (130-450,000) Platelet Morphology NORMAL APPEARANCE RBC Morph Micro Appear 1+ POLYCHROMASIA PT INR D-Dimer Bld Gas Analysis Time Sample Site ABG pH ABG pCO2 ABG pO2 ABG HCO3 ABG Total CO2 ABG O2 Saturation ABG Base Excess [place] Test Respiration Rate O2 Delivery Device FiO2 Tidal Volume PEEP Pressure Support Vent Sodium 142 Potassium 3.6 Chloride 110 Carbon Dioxide 22 Anion Gap 10.0 BUN 29 H Creatinine 0.4 Estimated GFR (MDRD) 164 Glucose 204 H Calcium 8.4 L Total Bilirubin 0.6 AST 63 H ALT 78 H Alkaline Phosphatase 112 Troponin I High Sens 19.1 H* B-Natriuretic Peptide Total Protein 6.4 L Albumin 3.8 Globulin 2.6 Albumin/Globulin Ratio 1.5 Lipase 37 Urine Color Urine Clarity Urine pH Ur Specific [place] Urine Protein Urine Glucose (UA) Urine Ketones Urine Occult Blood Urine Nitrite Urine Bilirubin Urine Urobilinogen Ur Leukocyte Esterase Ur Microscopic Review Urine Culture Comments 10/10/19 10/10/19 10/10/19 04:55 04:55 05:00 WBC RBC Hgb Hct MCV MCH MCHC RDW Plt Count MPV Neut # (Auto) Lymph # (Auto) [place] # (Auto) Eos # (Auto) Baso # (Auto) Absolute Nucleated RBC Total Counted Band Neuts % (Manual) Abnorm Lymph % (Manual) Myelocytes % Nucleated RBC % Neutrophils # (Manual) Lymphocytes # (Manual) Monocytes # (Manual) Eosinophils # (Manual) Basophils # (Manual) Differential Comment WBC Morphology Platelet Estimate Platelet Morphology RBC Morph Micro Appear PT 11.6 INR 1.0 D-Dimer 435.8 H Bld Gas Analysis Time Sample Site ABG pH ABG pCO2 ABG pO2 ABG HCO3 ABG Total CO2 ABG O2 Saturation ABG Base Excess [place] Test Respiration Rate O2 Delivery Device FiO2 Tidal Volume PEEP Pressure Support Vent Sodium Potassium Chloride Carbon Dioxide Anion Gap BUN Creatinine Estimated GFR (MDRD) Glucose Calcium Total Bilirubin AST ALT Alkaline Phosphatase Troponin I High Sens B-Natriuretic Peptide 1820 H Total Protein Albumin Globulin Albumin/Globulin Ratio Lipase Urine Color Urine Clarity Urine pH Ur Specific [place] Urine Protein Urine Glucose (UA) Urine Ketones Urine Occult Blood Urine Nitrite Urine Bilirubin Urine Urobilinogen Ur Leukocyte Esterase Ur Microscopic Review Urine Culture Comments 10/10/19 10/10/19 06:35 07:04 WBC RBC Hgb Hct MCV MCH MCHC RDW Plt Count MPV Neut # (Auto) Lymph # (Auto) [place] # (Auto) Eos # (Auto) Baso # (Auto) Absolute Nucleated RBC Total Counted Band Neuts % (Manual) Abnorm Lymph % (Manual) Myelocytes % Nucleated RBC % Neutrophils # (Manual) Lymphocytes # (Manual) Monocytes # (Manual) Eosinophils # (Manual) Basophils # (Manual) Differential Comment WBC Morphology Platelet Estimate Platelet Morphology RBC Morph Micro Appear PT INR D-Dimer Bld Gas Analysis Time 0711 Sample Site RIGHT RADIAL ABG pH 7.17 L* ABG pCO2 63 H* ABG pO2 73 L ABG HCO3 22.7 ABG Total CO2 24.7 ABG O2 Saturation 88 L ABG Base Excess -6.4 L [place] Test POSITIVE Respiration Rate 12 O2 Delivery Device VENTILATOR FiO2 100.00 Tidal Volume 500 PEEP 8 Pressure Support Vent 10 Sodium Potassium Chloride Carbon Dioxide Anion Gap BUN Creatinine Estimated GFR (MDRD) Glucose Calcium Total Bilirubin AST ALT Alkaline Phosphatase Troponin I High Sens B-Natriuretic Peptide Total Protein Albumin Globulin Albumin/Globulin Ratio Lipase Urine Color YELLOW Urine Clarity CLEAR Urine pH 5.5 Ur Specific [place] 1.015 Urine Protein TRACE Urine Glucose (UA) NEGATIVE Urine Ketones NEGATIVE Urine Occult Blood TRACE-INTA Urine Nitrite NEGATIVE Urine Bilirubin NEGATIVE Urine Urobilinogen 0.2 (NORMAL) Ur Leukocyte Esterase NEGATIVE Ur Microscopic Review NOT INDICATED Urine Culture Comments NOT INDICATED Procedures - Intubation Provider: Emergency physician Medications: Etomidate, Succinylcholine Blade: [place] (3) Tube: Size-enter number (7.5), Cuffed, Marked at lips-enter cm (23) Route: Oral Confirmation: Direct visualization, Bilateral breath sounds, No abdominal breath sound, End tidal CO2, Pulse ox, Chest xray Complications: No compications PD MEDICAL DECISION MAKING - ED course Complexity details: reviewed old records, reviewed results, re-evaluated patient, considered differential, d/w patient, d/w family, d/w senior analytic consultant ED course: Patient was placed on oxygen immediately upon arrival in the emergency department, as her oxygen saturation was found to be in the 70s. She was worked up with labs, EKG, chest x-ray, ultrasound of the left lower extremity and ultimately, CT angiogram of the chest.The patient initially was in mild respiratory distress, but was able to maintain his oxygen saturation in the mid to upper 90s on 2 to 4 L of oxygen per nasal cannula. Just prior to going to CT scan, she was found to desaturate slightly, and so was switched to a Ventimask. She was given Lasix 80mg IV. The patient underwent CT angiogram of the chest, but upon completion of the procedure, was found to be becoming increasingly agitated and increasingly in respiratory distress. The patient was also found to be desaturating into the upper 80s, so was placed on a nonrebreather mask 100%. The patient then became severely agitated, gasping and trying to tear the mask off her face. Respiratory therapist had been called for a stat intubation and preparations were made to intubate the patient, who was rapidly deteriorating. We did assist respirations with the Ambu bag and intubation was performed as noted above, with success. The patient's oxygen saturation was found to immediately come up to 100% on FiO2 100% with bagging and patient's heart rate did begin to come down. However, patient was noted to have very high blood pressure at 270/130. She was given etomidate 20 mg and started on a propofol drip, which was titrated. She was also given morphine 10 mg IV in addition to the Lasix 80 mg IV she had received before intubation. 2 inches of nitroglycerin paste were placed on her chest, and she was given Cardizem 25 mg IV. BP did improve greatly after these interventions. The patient's oxygen saturation on the vent later was found to drop into the low 90s to upper 80s with ventilator settings of tidal volume 500, SIMV, PEEP 5, FiO2 60% and respiratory rate of 12. We did titrate her FiO2 back up, ultimately, to 100%, but sats improved only mildly. The patient's ABG initially showed a pH of 7.172, PCO2 of 63.4, and PO2 of 73.3. We did adjust her settings to a PEEP of 8 and respiratory rate of 18, at continued FiO2 of 100%. The patient was found to have a drop in her CO2 on the monitor from 50 to 34. Her blood pressure ultimately improved to the low 100s/70s. Her heart rate also improved to the 80s to 90s. O2 saturation did improve to the mid-90's. The patient did show slight movement voluntarily, and so her propofol drip did continue to be titrated. She also had received several doses of rocuronium to keep her relaxed and from fighting the vent until we were able to get her sedation up. The patient's repeat chest x-ray had shown good placement of the endotracheal tube, with significant increase intervally in her pulmonary edema. She was now, however, putting out urine from her Trammell catheter, with a total of 750 cc out. Her lung sounds did demonstrate mild improvement with change of ventilator settings and Lasix.The patient had previously been seen At [facility] in [place] for her anemia, MT, and cancer diagnosis, and I felt this would be the most appropriate place for her to be transferred. We did first attempt to get a hold of food service aide at [facility] at 0710. However, the food service aide was unavailable and at this time, at 0858, I still have not been able to talk to her. The patient will be signed out to Dr. Ojeda pending accepting physician in transfer to intensive care unit at [facility].We have been assured by nursing melter supervisor oxygen furnace there that the patient has been assigned a bed pending acceptance by on-call food service aide. - Critical Care Time(min): 90 Comments: Critical care time was necessary secondary to hypertensive emergency, flash pulmonary edema, and respiratory failure with hypoxia and hypercapnia. Critical care was necessary to prevent imminent life-threatening decline and . Time Includes: Direct patient care, Review records, Reassess patient, Document care, Coordinate care, Medical consult, Family consult for tx dec, See progress note Data interpretation: Labs, Pulse ox, ABG, CXR, Prior EKG, Cardiac output, See progress note Procedures included in critical care time: Ventilator mgmt, See progress note Procedures excluded from critical care time: Intubation, EKG, See progress note Departure - Departure Disposition: 02 Transfer Acute Care Hosp Clinical Impression: Flash pulmonary edema, Hypertensive emergency Respiratory failure Qualifiers: Chronicity: acute Respiratory failure complication: hypoxia and hypercapnia Qualified Code(s): J96.01 - Acute respiratory failure with hypoxia Congestive heart failure Qualifiers: Heart failure type: unspecified Heart failure chronicity: acute Qualified Code(s): I50.9 - Heart failure, unspecified
[2019-10-10 05:21] LABS: ABNORMAL LYMPHS % (MANUAL) 0 %; ALBUMIN 3.8 g/dL (3.2-5.5); ALBUMIN/GLOBULIN RATIO 1.5 (1.0-2.2); BILIRUBIN,TOTAL 0.6 mg/dL (0.2-1.0); CALCIUM 8.4 mg/dL (8.5-10.3); CREATININE 0.4 mg/dL (0.4-1.0); TOTAL PROTEIN 6.4 g/dL (6.7-8.2)
[2019-10-10] MEDS ORDERED: IOVERSOL 320 100 ML VIAL IVP ONE ×2 (05:30→06:00)
[2019-10-10] MEDS ORDERED: FUROSEMIDE 40 MG/4 ML VIAL IVP STA (05:58)
[2019-10-10 06:07] LABS: PT - PROTHROMBIN TIME 11.6 secs (9.9-12.6)
[2019-10-10] MEDS ORDERED: SUCCINYLCHOLINE 200 MG/10 ML VIAL ONE (06:09)
[2019-10-10] MEDS ORDERED: MIDAZOLAM 2 MG/2 ML VIAL ONE (06:15)
[2019-10-10] MEDS ORDERED: ETOMIDATE 40 MG/20 ML VIAL IVP ONE (06:15)
[2019-10-10] MEDS ORDERED: KETAMINE 500 MG/10 ML VIAL ONE (06:15)
--- NOTE | 2019-10-10 06:15 | CT Report ---
Reason: chest pain/SOB/hypoxia Procedure Date: 10/10/2019 Accession Number: [id number] / [id number] Procedure: CT - ANGIO CHEST W/WO CPT Code: Final Report FULL RESULT: EXAM: CT ANGIOGRAM CHEST EXAM DATE: 10/10/2019 05:57 AM. CLINICAL HISTORY: Chest pain/SOB/hypoxia. COMPARISON: None. TECHNIQUE: Routine helical imaging was performed through the chest in the pulmonary arterial phase. IV Contrast: OPTIRAY 320. Reconstructions: Coronal 3-D MIP reconstructions. Sagittal and coronal. In accordance with CT protocol optimization, one or more of the following dose reduction techniques were utilized for this exam: automated exposure control, adjustment of mA and/or KV based on patient size, or use of iterative reconstructive technique. FINDINGS: Pulmonary Arteries: Diagnostic quality: Adequate through the segmental arteries. No evidence for acute or chronic pulmonary emboli. RV/LV is within normal limits. There is no interventricular septal bowing. There is no reflux of contrast material in the IVC. Lungs/Pleura: There are patchy bilateral subsegmental infiltrates scattered throughout the lungs including interstitial infiltration. There is also peribronchial cuffing bilaterally. There is small bilateral pleural effusions. Mediastinum: The heart is enlarged. There is no mediastinal or hilar lymphadenopathy. Thoracic Aorta: Unremarkable. Upper Abdomen: Unremarkable. Other: None. IMPRESSION: 1. No evidence for pulmonary emboli. 2. Very prominent bilateral patchy subsegmental infiltrates throughout the lungs as well as interstitial infiltration. Very prominent bilateral peribronchial cuffing. 3. Small bibasilar pleural effusions. 4. Cardiomegaly. RADIA
[2019-10-10] MEDS ORDERED: ROCURONIUM 50 MG/5 ML VIAL IVP ONE (06:16)
[2019-10-10] MEDS ORDERED: PROPOFOL 1000 MG/100 ML 100 ML IV ONE (06:16)
[2019-10-10] MEDS ORDERED: PROPOFOL 200 MG/20 ML VIAL IVP ONE (06:16)
[2019-10-10 06:25] LABS: BAND NEUTROPHILS % (MANUAL) 11 %; BASOPHILS # (MANUAL) 0.2 10^3/uL (0-0.1); BASOPHILS % (MANUAL) 1 %; LYMPHOCYTES # (MANUAL) 1.4 10^3/uL (1.5-3.5); LYMPHOCYTES % (MANUAL) 6 %; MONOCYTES # (MANUAL) 0.9 10^3/uL (0.0-1.0); MYELOCYTES % (MANUAL) 10 %
[2019-10-10 06:29] LABS: DIFFERENTIAL COMMENT MANUAL DIFFERENTIAL; PLATELET ESTIMATE, MANUAL NORMAL (130-450,000) (NORMAL); PLATELET MORPHOLOGY NORMAL APPEARANCE (NORMAL)
[2019-10-10] MEDS ORDERED: PROPOFOL 1000 MG/100 ML 100 ML IV STA ×2 (06:33→06:42)
[2019-10-10] MEDS ORDERED: ETOMIDATE 40 MG/20 ML VIAL IVP STA (06:33)
[2019-10-10] MEDS ORDERED: SUCCINYLCHOLINE 200 MG/10 ML VIAL IVP STA (06:33)
[2019-10-10] MEDS ORDERED: ROCURONIUM 50 MG/5 ML VIAL IVP STA ×2 (06:33→06:50)
[2019-10-10] MEDS ORDERED: MORPHINE 10 MG/ML VIAL IVP STA (06:41)
[2019-10-10] MEDS ORDERED: NITROGLYCERIN 2% PASTE TOP STA (06:41)
[2019-10-10] MEDS ORDERED: diltiaZEM INJ 5 MG/ML VIAL IVP STA (06:43)
[2019-10-10 07:00] LABS: BILIRUBIN,URINE NEGATIVE (NEGATIVE); GLUCOSE, URINE (UA) NEGATIVE (NEGATIVE); KETONES,URINE (UA) NEGATIVE (NEGATIVE); LEUKOCYTE ESTERASE, URINE NEGATIVE (NEGATIVE); NITRITE,URINE NEGATIVE (NEGATIVE); OCCULT BLOOD,URINE TRACE-INTA (NEGATIVE); PH,URINE 5.5 PH (5.0-7.5); PROTEIN,URINE TRACE mg/dL (NEGATIVE); UROBILINOGEN,URINE 0.2 (NORMAL) E.U./dL (NORMAL)
[2019-10-10 07:03] LABS: CLARITY,URINE CLEAR (CLEAR)
--- NOTE | 2019-10-10 07:07 | XRAY Report ---
Reason: line placement/intubation Procedure Date: 10/10/2019 Accession Number: [id number] / [id number] Procedure: XR - Chest for Line Placement CPT Code: Final Report FULL RESULT: EXAM: CHEST RADIOGRAPHY EXAM DATE: 10/10/2019 06:58 AM. CLINICAL HISTORY: Line placement/intubation. COMPARISON: CHEST 1 VIEW 10/10/2019 4:35 AM CHEST ANGIO 10/10/2019 5:52 AM. TECHNIQUE: 1 view. FINDINGS: Lines/Tubes: Endotracheal tube tip 3.4 cm above andrea in satisfactory position. Enteric tube courses below the diaphragm into the region of the stomach with tip off the confines of the film. Stable right chest Port-A-Cath with tip in SVC. Lungs/Pleura: Increasing opacities throughout the bilateral lungs, most prominent in right mid and lower lung. Suspect small pleural effusions. No pneumothorax. Mediastinum: Mild enlargement of cardiac silhouette, similar to prior. Other: None. IMPRESSION: 1. Interval intubation with satisfactory position of ETT. 2. Enteric tube courses below diaphragm, tip not included on image. 3. Prominent bilateral airspace opacities and suspected small pleural effusions. Findings could represent pulmonary edema and/or infection. Correlate clinically. 4. Mild cardiac silhouette enlargement. RADIA
[2019-10-10] MEDS ORDERED: SODIUM CHLORIDE FLUSH 0.9% 10 ML SYRINGE IVP PRN (07:13)
[2019-10-10 07:14] LABS: ABG BASE EXCESS -6.4 mmol/L (-2.0-3.0); ABG HCO3 22.7 mmol/L (22.0-26.0); ABG PO2 73 mmHg (80-100); ABG TCO2 24.7 MMOL/L (21.0-29.0)
[2019-10-10 07:15] LABS: ABG OXYGEN SATURATION 88 % (94-98); ALLEN TEST POSITIVE
[2019-10-10 07:16] LABS: ABG PCO2 63 mmHg (34-45); ABG PH 7.17 (7.35-7.45)
[2019-10-10] MEDS ORDERED: cefTRIAXone 2 GM in SODIUM CHLORIDE 0.9% MINIBAG 100 ML IV STA (08:42)
--- NOTE | 2019-10-10 10:12 | Ultrasound Report ---
Reason: swelling, cancer Procedure Date: 10/10/2019 Accession Number: [id number] / [id number] Procedure: US - Duplex Ext Veins Bilateral CPT Code: Final Report FULL RESULT: EXAM: BILATERAL LOWER EXTREMITY VENOUS ULTRASOUND EXAM DATE: 10/10/2019 09:30 AM. CLINICAL HISTORY: Swelling and pain, cancer. COMPARISON: None. TECHNIQUE: Real-time sonographic vascular imaging was performed by the fingerprint classifier through the lower extremities utilizing both color-flow and Doppler spectral analysis. Multiple retail field representative static images were saved for review. FINDINGS: Right: Common Femoral Vein (CFV): Normal. CFV-GSV Junction: Normal. Profunda Femoral Vein (PFV): Normal. Femoral Vein (FV) Prox: Normal. Femoral Vein (FV) Mid: Normal. Femoral Vein (FV) Dist: Normal. Popliteal Vein: Normal. Posterior Tibial Veins: Limited assessment, although no definite acute DVT. Peroneal Veins: Limited assessment, although no definite acute DVT. Left: Common Femoral Vein (CFV): Normal. CFV-GSV Junction: Normal. Profunda Femoral Vein (PFV): Normal. Femoral Vein (FV) Prox: Normal. Femoral Vein (FV) Mid: Normal. Femoral Vein (FV) Dist: Normal. Popliteal Vein: Normal. Posterior Tibial Veins: Limited assessment, although no definite acute DVT. Peroneal Veins: Limited assessment, although no definite acute DVT. Possible small amount of eccentric, chronic appearing, and possibly calcified nonocclusive thrombus. Other: None. IMPRESSION: 1. Limited assessment of the posterior tibial and peroneal veins bilaterally. Although, no definite acute DVT identified bilaterally in the lower extremities. 2. Possible small amount of chronic appearing, eccentric and possibly partially calcified nonocclusive thrombus at the left peroneal vein. RADIA
[2019-10-10 10:15] VITALS: BP 105/73
== END 2019-10-10 10:09 | disposition short-term general hospital (02) ==
LOC: ED 04:30
DX: J96.01 Acute respiratory failure with hypoxia (principal); J96.02 Acute respiratory failure with hypercapnia; I11.0 Hypertensive heart disease with heart failure; I50.1 Left ventricular failure, unspecified; C16.9 Malignant neoplasm of stomach, unspecified; C77.2 Secondary and unspecified malignant neoplasm of intra-abdominal lymph nodes; E11.622 Type 2 diabetes mellitus with other skin ulcer; L98.499 Non-pressure chronic ulcer of skin of other sites with unspecified severity; Z79.84 Long term (current) use of oral hypoglycemic drugs; D64.9 Anemia, unspecified; I25.2 Old myocardial infarction; Z87.891 Personal history of nicotine dependence
CPT/HCPCS: 31500; 36415; 71045; 71275; 80053; 81003; 82803; 83690; 83880; 84484; 85025; 85379; 85610; 93005; 93970; 96374; 96375; 99291; 99292; A9270; J0330; Q9967; 81001; 87086; 94770

== ENCOUNTER 2019-10-22 11:01 | Outpatient (CLI) | payer OTHER ==
--- NOTE | 2019-10-22 12:42 | CONSULTATION NOTE ---
Palliative Care Follow Up - Referral Referring Provider: Dr. Gayle Ashley Time of Visit: Referral setting: [facility] [place] Reason: Gastric Cancer - Information Sources Records reviewed: Previous records reviewed History/Review of Systems obtained from: Patient, Family Exam limitations: No limitations - History of Present Illness Update Brief HPI Update: This is a [place] 59-year-old woman, who presented with worsening weakness to the emergency room at [facility] on 08/06 2019. 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 On admit to the hospital, during a transfusion she had acute flash pulmonary edema, and a stay in ICU. She was transferred to [facility] in [place], for an acute non-ST elevated myocardial infarction. She was found at that time to have severe global LV dysfunction ejection fraction of 30%. She also had a CT scan of the abdomen and pelvis, that revealed bilateral moderate pleural effusion without liver, spleen pancreas or kidney abnormalities, but in work-up for her anemia was found on 08/10, to have moderately differentiated adenocarcinoma. She was discharged from [facility] on 08/15/2019. She She was then referred to [facility] in [place], with a another biopsy confirming moderately differentiated adenocarcinoma expanding into the lamina propria, she was also noted to have a left adrenal mass,. She did see Dr. Gresham on 09/06/2019, with the goal for neoadjuvant chemotherapy, followed by surgery, and then follow-up with chemotherapy. They were trying to complete staging, and unfortunately yesterday they were only able to get a fine-needle aspiration of the adrenal gland, they are hoping it will still be enough to inform her treatment plan. She would not be a candidate for surgery if she were presenting with metastatic disease stage IV. She did receive chemotherapy on 09/27, with Taxol 5-FU and leucovorin. On 1 she had another episode of pulmonary flash edema, and presented with chest pain, and was transferred again up to [facility], during this admission her echocardiogram showed an EF that dropped to 15 to 20%, and had actually been intubated. She did see Dr. Laquita Youssef MD of palliative care at [facility], they did have a goals of care discussion at that point in time, where Janett had expressed she would like to be treated aggressively as long as the doctors felt it would be of benefit, including surgery, and chemotherapy. They did come to an agreement though they would accept a pulsed saying DNR, but would alban full treatment as she would want intubation short-term but not long-term, as well as antibiotics prolong life and tube feeding to be decided on a [id number] basis. They do not have a copy of the POLST with him, but will bring it in on their next visit. Patient's past medical history includes diabetes, cardiomyopathy, acute respiratory failure with hypoxia, has had an EGD 08/10/2019, cardiac catheterization 08/10/2019, and repeat EGD 08/12/2019 She is here today to establish with palliative care, though she does not have high symptom burden, she still is awaiting final staging of her cancer. Her does present with caregiver fatigue and being somewhat overwhelmed, patient herself is quite delightful and easy to engage. Family history includes her father who is 90+ still in [facility], going quite strong. He is planning to participate and attend the [employer]. Her mother 82 of a stroke. Her sister is age 54 and has stomach cancer, but was treated with surgery and continues to do well. Patient does not drink, she was a smoker previously, is currently not smoking. Social History - Living Situation Living arrangement: At home Living Situation: With spouse/s.o., With family Support System: Patient is to Leonardo, her of 31 years. They met in [facility], Leonardo has been in the most of that time, they have 2 children Jake who lives with them, and a daughter Queta who lives in [place]. 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 She is hoping to return back to work, but did initiate conversation regarding possible SSI disability.They are stressed financially, that is currently retired, and has his own health issues. Medications/Allergies - Medications Home Medications: Ambulatory Orders Medication Instructions Recorded Confirmed metFORMIN [Glucophage] 1,000 mg PO BID 08/25/16 10/24/19 Atorvastatin [Lipitor] 40 mg PO DAILY 09/06/19 10/24/19 Carvedilol 12.5 mg PO BID 09/06/19 10/24/19 Ferrous Sulfate 325 mg PO DAILY 09/06/19 10/24/19 Pantoprazole [Protonix] 40 mg PO BID 09/06/19 10/24/19 Potassium Chloride 20 meq PO DAILY 09/06/19 10/24/19 Spironolactone 50 mg PO DAILY 09/06/19 10/24/19 Ondansetron HCl [Zofran] 8 mg PO Q8HR PRN 09/23/19 10/24/19 Prochlorperazine Maleate 10 mg PO Q6HR PRN 09/23/19 10/24/19 [Compazine] Ascorbic Acid [Vitamin C with Maria G 1,000 mg PO DAILY 10/24/19 10/24/19 Hips] Aspirin [Adult Aspirin Regimen] 81 mg PO DAILY 10/24/19 10/24/19 Furosemide 20 mg PO DAILY 10/24/19 10/24/19 Sacubitril/Valsartan [Entresto 49 1 tab PO BID 10/24/19 10/24/19 mg-51 mg Tablet] - Allergies Allergies/Adverse Reactions: Allergies Allergy/AdvReac Type Severity Reaction Status Date / Time No Known Drug Allergies Allergy Verified 10/04/19 15:42 Review of Systems - Constitutional Constitutional: reports: Fatigue (improved), Weakness, Weight stable. denies: Fever, Chills - Cardiovascular Cardiovascular: reports: Decr. exercise tolerance. denies: Palpitations, Chest pain, Edema, Lightheadedness - Respiratory Respiratory: denies: Cough, SOB at rest - Gastrointestinal Gastrointestinal: reports: Good appetite. denies: Constipation, Nausea, Reflux/heartburn - Genitourinary Genitourinary: reports: Frequency - Musculoskeletal Musculoskeletal: reports: Muscle weakness - Integumentary Integumentary: reports: Dryness - Neurological Neurological: reports: General weakness - Psychiatric Psychiatric: denies: Depression, Anxiety - Endocrine Endocrine: reports: Diabetes type 2 - Hematologic/Lymphatic Hematologic/Lymphatic: reports: Anemia - All Other Systems All Other Systems: reports: Reviewed and negative Physical Exam - Vital Signs Temperature: 36.6 C Pulse Rate: 73 Respiratory Rate: 18 Blood Pressure: 127/53 - Physical Exam General Appearance: positive: No acute distress, Alert Eyes Bilateral: positive: Normal inspection ENT: positive: No signs of dehydration Neck: positive: No JVD, Trachea midline Cardiovascular: positive: Regular rate & rhythm Respiratory: positive: No respiratory distress, Diminished in bases. negative: Wheezes, Rales, Rhonchi Abdomen: positive: Non-tender, Soft, Nml bowel sounds. negative: Distended, Taut Skin: positive: Pallor, Dryness Extremities: positive: Pedal edema (trace pedal edema; has compression stockings on) Neurologic/Psychiatric: positive: Oriented x3, Mood/affect nml Palliative Care - POLST Patient has POLST: Yes POLST Status: DNR (Full treatment; would accept intubation short term; has had with pulmonary edema) Pain: Location (at port site from procedure yesterday) Tiredness/Fatigue: None Drowsiness/Sedation: None Nausea: None Anorexia: None Dyspnea: None Depression: None Anxiety: None Feelings of wellbeing/Perceived Quality of Life: Good, Acceptable, Improved Sleep: Sleeps well Constipation: No Performance Status: Patient does feel she has improved as far as her functional status she is independent in her ADLs. She is feeling less fatigued, though she is not driving at this point. She does purposely walk around her house, and is doing laps. She does small weights, she is focused on getting better. - Palliative Care Discussion: Who is present, patient myself and . We did discuss at this point, the hope is that she does not have stage IV cancer, has been was quite frustrated possibility of not having a good specimen is stage for her gastric cancer. They did do a fine-needle aspirate of her adrenal gland, but was unable to go through her lung. This is a long day for them, has been multiple and fragmented care, she has received some care at [facility], some at [facility], at [place] with [facility]. She is due to see Dr. Davenport the hardboard press operator on 10/25. We discussed in the context of not having this available, as well is pending cardiac appointment given her worsening cardiomyopathy, it would make sense to await all the pieces of information before meeting with oncology. Did reach out to Dr. Davis, he is in agreement, patient has been rescheduled for the , and is if to continue therapy, chemo is scheduled for . This was much more helpful for them as they have are trying to manage her care. They are also remodeling, house and disarray, multiple pressures particular around finances. Did introduce the concept of possibly assess I disagree ability, as patient is still up working age. 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 feels like patient "hates change", and this is been somewhat of their issues between the 2 of them, that she likes to do things her way. She is experiencing some side effects from the chemo, hair loss, dry and itchy skin, but otherwise has done fairly well. Leonardo does share though it was quite upsetting for the son who found patient in severe respiratory distress the second time. There has been a long time of uncertainty, it does sound like they do have the application in for DSHS, but patient not only has the fragility of her gastric cancer, but also concern regarding her nonischemic cardiomyopathy. Results - Lab Results Lab results reviewed: Yes Impression and Recommendations - Palliative Care Impression: This is a 59-year-old woman who presents with newly diagnosed gastric cancer status post first chemotherapy 09/27, now being worked up for adrenal mets, recently admitted for second round of flash pulmonary edema, this time requiring intubation. She does have nonischemic cardiomyopathy with a decline in her ejection fraction down to 15 to 20% on discharge from [facility]. Patient presents to establish with palliative care, in the setting of rapport, patient at this point in time has low symptom burden and has completed most of advanced care planning documents that are now reflective of her current wishes Recommendations/Counseling Done: 1. Gastric cancer, moderately differentiated. Currently on sarah-adjuvant FL OT chemotherapy, awaiting outcome of adrenal biopsy for staging. Coordination with oncologist, regarding follow-up visit, does see cardiology 10/25 and awaiting outcome of fine-needle biopsy. Will reschedule for 10/[address] Davis, Update given regarding most recent hospitalization and pending biopsy. 2. Fatigue. This is multifactorial in origin, patient is doing much better, encouraged to continue with her current activity program program. She is walking short distances, and doing light weights. Patient has been somewhat sedentary, but is feeling better and wanting to increase activity. Counseling provided regarding energy conservation balance with improving endurance. Patient may benefit from cardiac rehab at some point after the acuity of her current situation is resolved. 3. Caregiver fatigue. Patient does have somewhat fragmented care, with multiple referrals and specialists in different systems. Has been somewhat overwhelming to keep it all together, did encourage help and support for himself, and follow-up on medical concerns. Offered palliative care social group worker, declined at this point in time. 4. Advanced care planning. Patient does have D POA established with her 's primary, and son secondary. Patient also has a POLST with DNA R and full treatment as is willing to be intubated short-term. Requested copy of this for MarinaDavidson as she would be coming here for stabilization first most likely. They are awaiting outcome of her staging, recognizing this will impact her prognosis and treatment plan in the future. Patient long-term goal is to return back to work, and her "normal life". Counseling provided regarding the role of palliative care as a layer of support, patient with low symptom burden currently, will await outcome of biopsy and provide support accordingly. Time Spent: 75 minutes with greater than 50% of this done in counseling regarding anticipatory guidance, advanced care planning, coordination of care and role of palliative care as well as establishing rapport
== END 2019-10-22 11:02 | disposition home or self-care (01) ==
LOC: PC 11:01
PROVIDERS: ATTEND Nurse Practitioner Adult Health
DX: Z51.5 Encounter for palliative care (principal); C16.9 Malignant neoplasm of stomach, unspecified; R53.83 Other fatigue; I42.8 Other cardiomyopathies; Z79.899 Other long term (current) drug therapy; Z66 Do not resuscitate
CPT/HCPCS: 99205

== ENCOUNTER 2019-12-15 07:46 | Outpatient (CLI) | payer OTHER | END 2019-12-15 07:47 | disposition home or self-care (01) | LOC: DI 07:46 | PROVIDERS: ATTEND Nurse Practitioner | DX: C16.9 Malignant neoplasm of stomach, unspecified (principal); R18.8 Other ascites; I11.9 Hypertensive heart disease without heart failure | CPT/HCPCS: 93306 ==

== ENCOUNTER 2020-01-14 15:27 | Outpatient (CLI) | payer OTHER | END 2020-01-14 15:28 | disposition home or self-care (01) | LOC: LAB 15:27 | PROVIDERS: ATTEND Surgery | DX: C16.2 Malignant neoplasm of body of stomach (principal); Z11.59 Encounter for screening for other viral diseases | CPT/HCPCS: 81599 ==

== ENCOUNTER 2020-02-11 08:32 | Outpatient (CLI) | payer OTHER | END 2020-02-11 08:33 | disposition home or self-care (01) | LOC: LAB 08:32 | PROVIDERS: ATTEND Surgery | DX: Z01.812 Encounter for preprocedural laboratory examination (principal); Z20.828 Contact with and (suspected) exposure to other viral communicable diseases | CPT/HCPCS: 81599 ==

== ENCOUNTER 2020-03-01 10:29 | Outpatient (CLI) | payer OTHER ==
[2020-03-01 10:47] LABS: HGB - HEMOGLOBIN 10.8 g/dL (12.0-16.0); MEAN CORPUSCULAR HEMOGLOBIN 29.6 pg (27.0-31.0); MEAN CORPUSCULAR HGB CONC 30.6 g/dL (32.0-36.0); MEAN CORPUSCULAR VOLUME 96.7 fL (81.0-99.0); MEAN PLATELET VOLUME 8.6 fL (7.9-10.8); RED BLOOD COUNT 3.65 10^6/uL (4.20-5.40); RED CELL DISTRIBUTION WIDTH 23.5 % (12.0-15.0); WHITE BLOOD COUNT 14.1 x10^3/uL (4.8-10.8)
[2020-03-01 11:05] LABS: CALCIUM 9.3 mg/dL (8.5-10.3); CREATININE 0.5 mg/dL (0.4-1.0); MAGNESIUM 2.4 mg/dL (1.7-2.8); PHOSPHORUS 5.9 mg/dL (2.5-4.6)
== END 2020-03-01 10:30 | disposition home or self-care (01) ==
LOC: LAB 10:29
PROVIDERS: ATTEND Surgery
DX: C16.9 Malignant neoplasm of stomach, unspecified (principal)
CPT/HCPCS: 36415; 80048; 83735; 84100; 85027

== ENCOUNTER 2020-03-01 15:18 | Outpatient (CLI) | payer OTHER ==
--- NOTE | 2020-03-01 17:08 | XRAY Report ---
PROCEDURE: Chest 2 View X-Ray INDICATIONS: STOMACH CA TECHNIQUE: 2 view(s) of the chest. COMPARISON: Chest x-ray 10/10/2019 FINDINGS: Surgical changes and devices: Right Port-A-Cath is present with distal tip projecting over the proxim al SVC. Upper abdomen clips are noted. Lungs and pleura: Mild left effusion. Previous areas of interstitial opacity on prior exam have reso lved. Mediastinum: Mediastinal contours are normal. Heart size is normal. Bones and chest wall: No suspicious bony abnormalities. Soft tissues appear unremarkable. IMPRESSION: Mild left effusion. Recommend continued interval follow-up as underlying area of mass le linwood of noninfectious or noninflammatory etiology cannot be excluded. Reviewed by: Yelena Lim MD on 03/01/2020 5:07 PM PDT Approved by: Yelena Lim MD on 03/01/2020 5:07 PM PDT Station ID: [id number]
== END 2020-03-01 15:19 | disposition home or self-care (01) ==
LOC: DI 15:18
PROVIDERS: ATTEND Registered Nurse
DX: J90 Pleural effusion, not elsewhere classified (principal); C16.9 Malignant neoplasm of stomach, unspecified
CPT/HCPCS: 36415; 71046; 80048; 83735; 84100; 85027

== ENCOUNTER 2020-03-22 08:54 | Outpatient (CLI) | payer OTHER ==
[2020-03-22 09:33] LABS: CREATININE 0.7 mg/dL (0.4-1.0)
== END 2020-03-22 08:55 | disposition home or self-care (01) ==
LOC: LAB 08:54
PROVIDERS: ATTEND Internal Medicine
DX: I50.22 Chronic systolic (congestive) heart failure (principal)
CPT/HCPCS: 36415; 80048

== ENCOUNTER 2020-03-22 11:15 | Observation (INO) | payer OTHER ==
--- NOTE | 2020-03-22 11:39 | ED Physician Documentation ---
History of Present Illness - Stated complaint Stated Complaint: ABNORMAL LABS - Chief complaint Chief Complaint: General - History obtained from History obtained from: Patient - History of Present Illness Timing: How many weeks ago (The patient was noted to have an elevated calcium level. First noted on a blood test a week ago and then rechecked 2 days ago and today showed it to be elevated more at 12.0. Referred to the ER for further evaluation by oncology Dr. Davis) Quality: she has had feling of general weakness. No numbness nor cramps. No new abd cramps. Review of Systems Constitutional: reports: Fatigue, Weight Loss. denies: Fever, Myalgias Nose: denies: Rhinorrhea / runny nose, Congestion Throat: denies: Sore throat Respiratory: denies: Cough GI: denies: Abdominal Pain, Vomiting, Diarrhea : denies: Dysuria Skin: denies: Rash Neurologic: reports: Generalized weakness. denies: Focal weakness, Numbness, Difficulty speaking, Altered mental status, Headache, Head injury PD PAST MEDICAL HISTORY - Past Medical History Cardiovascular: Congestive heart failure, Hypertension, High cholesterol, [place], Other Respiratory: None Neuro: None Endocrine/Autoimmune: Type 2 diabetes GI: Hepatitis, Other : None HEENT: Chronic vision loss Psych: None Musculoskeletal: None Derm: None - Past Surgical History Past Surgical History: No General: Colonoscopy, EGD - Present Medications Home Medications: Ambulatory Orders Medication Instructions Recorded Confirmed metFORMIN [Glucophage] 1,000 mg PO BID 08/25/16 03/20/20 Atorvastatin [Lipitor] 40 mg PO DAILY 09/06/19 03/20/20 Carvedilol 18 mg PO BID 09/06/19 03/20/20 Ferrous Sulfate 325 mg PO DAILY 09/06/19 03/20/20 Pantoprazole [Protonix] 40 mg PO BID 09/06/19 03/20/20 Spironolactone 50 mg PO DAILY 09/06/19 03/20/20 Ondansetron HCl [Zofran] 8 mg PO Q8HR PRN 09/23/19 03/20/20 Prochlorperazine Maleate 10 mg PO Q6HR PRN 09/23/19 03/20/20 [Compazine] Ascorbic Acid [Vitamin C with Maria G 1,000 mg PO DAILY 10/24/19 03/20/20 Hips] Furosemide 20 mg PO DAILY 10/24/19 03/20/20 Sacubitril/Valsartan [Entresto 49 1 tab PO BID 10/24/19 03/20/20 mg-51 mg Tablet] - Allergies Allergies/Adverse Reactions: Allergies Allergy/AdvReac Type Severity Reaction Status Date / Time No Known Drug Allergies Allergy Verified 03/22/20 11:35 - Social History Does the pt smoke?: Yes Smoking Status: Current every day smoker Does the pt drink ETOH?: No Does the pt have substance abuse?: No - Immunizations Immunizations are current?: Yes - POLST Patient has POLST: Yes POLST Status: Full Code PD ED PE NORMAL - Vitals Vital signs reviewed: Yes - General General: Alert and oriented X 3, No acute distress, Well developed/nourished - HEENT HEENT: Pharynx benign. No: Moist mucous membranes - Neck Neck: Supple, no meningeal sign, No adenopathy - Cardiac Cardiac: RRR, No murmur - Respiratory Respiratory: No respiratory distress, Clear bilaterally - Abdomen Abdomen: Soft, Non tender, Other (healing abd surgery scar without infection. Feeding tube site without infection. ). No: Normal bowel sounds (diminished) - Female Female : Deferred - Rectal Rectal: Deferred - Back Back: No CVA TTP - Derm Derm: Normal color, Warm and dry - Extremities Extremities: No tenderness to palpate, Normal ROM s pain, No edema, No calf tenderness / cord - Neuro Neuro: Alert and oriented X 3, dryer feeder 2-12 intact, No motor deficit Eye Opening: Spontaneous Motor: Obeys Commands Verbal: Oriented GCS Score: 15 - Psych Psych: Normal mood Results - Vitals Vitals: Vital Signs - 24 hr 03/22/20 03/22/20 03/22/20 11:31 13:38 15:00 Temperature 35.9 C L 36.7 C Heart Rate 78 76 77 Respiratory 18 16 18 Rate Blood Pressure 110/55 L 114/71 127/67 O2 Saturation 99 94 99 Oxygen O2 Source Room air - Labs Labs: Laboratory Tests 03/22/20 03/22/20 03/22/20 12:37 12:37 12:37 WBC 7.6 RBC 3.36 L Hgb 10.1 L Hct 31.8 L MCV 94.6 MCH 30.1 MCHC 31.8 L RDW 19.6 H Plt Count 305 MPV 10.2 Neut # (Auto) 6.0 Lymph # (Auto) 1.0 L [place] # (Auto) 0.4 Eos # (Auto) 0.1 Baso # (Auto) 0.0 Absolute Nucleated RBC 0.00 Nucleated RBC % 0.0 VBG pH 7.378 Ionized Calcium 1.39 H Sodium 133 L Potassium 4.1 Chloride 95 L Carbon Dioxide 27 Anion Gap 11.0 BUN 33 H Creatinine 0.6 Estimated GFR (MDRD) 103 Glucose 156 H Calcium 11.5 H Phosphorus 4.8 H Magnesium 1.9 Total Bilirubin 0.4 AST 35 ALT 36 Alkaline Phosphatase 103 Total Protein 6.7 Albumin 3.5 Globulin 3.2 Albumin/Globulin Ratio 1.1 Lipase 39 PTH Intact 03/22/20 12:37 WBC RBC Hgb Hct MCV MCH MCHC RDW Plt Count MPV Neut # (Auto) Lymph # (Auto) [place] # (Auto) Eos # (Auto) Baso # (Auto) Absolute Nucleated RBC Nucleated RBC % VBG pH Ionized Calcium Sodium Potassium Chloride Carbon Dioxide Anion Gap BUN Creatinine Estimated GFR (MDRD) Glucose Calcium Phosphorus Magnesium Total Bilirubin AST ALT Alkaline Phosphatase Total Protein Albumin Globulin Albumin/Globulin Ratio Lipase PTH Intact 5 L - Rads (name of study) chest xray Radiology: Prelim report reviewed (small left effusion. No infiltrates. ), See rad report PD MEDICAL DECISION MAKING - ED course Complexity details: reviewed old records, reviewed results, considered differen tial (elevated calcium - consider dietary but no supplements nor Vit D. Getting feedings per J-tube so eval Ca amount in feedings. Otherwise get PTH and eval for Ca, bone lesions, other causes. ), d/w patient, d/w family (spouse), d/w client consultant (Dr. Davis, Oncology, who felt pt to be treated for elevated calcium with fluids/diuretics and eval for causes. Refers to our Hospitalist.) Departure - Departure Disposition: ED Place in Observation Clinical Impression: Hypercalcemia Condition: Stable Record reviewed to determine appropriate education?: Yes Discharge Date/Time: 03/22/20 17:51
[2020-03-22] MEDS ORDERED: SODIUM CHLORIDE 0.9% 1,000 ML IV STA ×2 (12:13→14:08)
[2020-03-22 12:47] LABS: VBG PH 7.378 (7.31-7.41)
[2020-03-22 12:49] LABS: BASOPHILS % (AUTO) 0.5 %; EOSINOPHILS # (AUTO) 0.1 10^3/uL (0.0-0.7); EOSINOPHILS % (AUTO) 1.9 %; HGB - HEMOGLOBIN 10.1 g/dL (12.0-16.0); LYMPHOCYTES % (AUTO) 12.6 %; MEAN CORPUSCULAR HEMOGLOBIN 30.1 pg (27.0-31.0); MEAN CORPUSCULAR HGB CONC 31.8 g/dL (32.0-36.0); MEAN CORPUSCULAR VOLUME 94.6 fL (81.0-99.0); MEAN PLATELET VOLUME 10.2 fL (7.9-10.8); MONOCYTES # (AUTO) 0.4 10^3/uL (0.0-1.0); MONOCYTES % (AUTO) 5.3 %; NEUTROPHILS % (AUTO) 78.8 %; PLT - PLATELET COUNT 305 10^3/uL (130-450); RED BLOOD COUNT 3.36 10^6/uL (4.20-5.40); RED CELL DISTRIBUTION WIDTH 19.6 % (12.0-15.0); WHITE BLOOD COUNT 7.6 x10^3/uL (4.8-10.8)
[2020-03-22 13:00] LABS: ALBUMIN 3.5 g/dL (3.2-5.5); ALBUMIN/GLOBULIN RATIO 1.1 (1.0-2.2); BILIRUBIN,TOTAL 0.4 mg/dL (0.2-1.0); CALCIUM 11.5 mg/dL (8.5-10.3); CREATININE 0.6 mg/dL (0.4-1.0); MAGNESIUM 1.9 mg/dL (1.7-2.8); PHOSPHORUS 4.8 mg/dL (2.5-4.6); TOTAL PROTEIN 6.7 g/dL (6.7-8.2)
[2020-03-22] MEDS ORDERED: FUROSEMIDE 20 MG/2 ML VIAL IVP STA (14:09)
[2020-03-22] MEDS ORDERED: SODIUM CHLORIDE FLUSH 0.9% 10 ML SYRINGE IVP PRN (16:25)
[2020-03-22] MEDS ORDERED: SODIUM CHLORIDE 0.9% 1,000 ML IV SCH (17:00)
--- NOTE | 2020-03-22 17:13 | XRAY Report ---
PROCEDURE: Chest 1 View X-Ray INDICATIONS: Hx CHF, fluid bolused TECHNIQUE: One view of the chest was acquired. COMPARISON: 03/01/2020 FINDINGS: Surgical changes and devices: Right chest wall Port-A-Cath tip is in SVC. Lungs and pleura: There is blunting of left costophrenic angle consistent with small left pleural eff usion. No definite focal infiltrate. No gross pneumothorax. Mediastinum: Mediastinal contours appear normal. Heart size is normal. Bones and chest wall: No suspicious bony lesions. Overlying soft tissues appear unremarkable. IMPRESSION: Small left pleural effusion. No focal infiltrate or pneumothorax. Reviewed by: Gabriel Bolivar MD on 03/22/2020 4:12 PM AKDT Approved by: Gabriel Bolivar MD on 03/22/2020 4:12 PM AKDT Station ID: [id number]
[2020-03-22] MEDS ORDERED: PROCHLORPERAZINE 5 MG TABLET PO PRN (17:25)
--- NOTE | 2020-03-22 19:53 | HISTORY & PHYSICAL EXAMINATION ---
Chief Complaint - Chief Complaint Chief Complaint: Abnormal labs: Hypercalcemia History of Present Illness - Admitted From Admitted From:: [facility] ED - History Obtained From Records Reviewed: yes History obtained from: patient - History of Present Illness HPI Comment/Other: Patient is a 59-year-old female with history of stomach cancer on chemotherapy managed by Dr. Davis's. She underwent surgery about 2 months ago for the stomach cancer and currently has a G-tube for feeding at night while she attempts eating by mouth during the day. She also had a left adrenalectomy at the time of that surgery. She presented to the ED today after she got a call from Dr. Davis's office.She had routine labs done the previous day and her calcium level was found to be 11.1. Previous lab draw on March 18, 2020 showed a calcium level of 12. Patient was at her baseline at home prior to the call. She denied any chest pain, palpitations, dyspnea, abdominal pain, nausea, vomiting, fever or chills. History - Past Medical History Cardiovascular: reports: Congestive heart failure, Hypertension, High cholesterol, CT, Other Respiratory: reports: None Neuro: reports: None Endocrine/Autoimmune: reports: Type 2 diabetes GI: reports: Hepatitis, Other : reports: None HEENT: reports: Chronic vision loss Psych: reports: None Musculoskeletal: reports: None Derm: reports: None MRSA Hx?: No Other Past Medical History: J tube to R abdomen, stomach cancer - Past Surgical History General: reports: Gastric surgery, Colonoscopy, EGD, Other (Left adrenalectomy) - Family & Social History Family History: Mother: (both were no siginificant medical problem), Father: Family History Comment/Other: pt reports her parents both did not have any significant medical problem. Social History Notes: According to records, the patient reports current cigarette smoking, denies alcohol and drug issue. she lives in [facility] on [facility] - POLST Patient has POLST: Yes POLST Status: Full Code Meds/Allgy - Home Medications Home Medications: Ambulatory Orders Medication Instructions Recorded Confirmed metFORMIN [Glucophage] 1,000 mg PO BID 08/25/16 03/20/20 Atorvastatin [Lipitor] 40 mg PO DAILY 09/06/19 03/20/20 Carvedilol 18 mg PO BID 09/06/19 03/20/20 Ferrous Sulfate 325 mg PO DAILY 09/06/19 03/20/20 Pantoprazole [Protonix] 40 mg PO BID 09/06/19 03/20/20 Spironolactone 50 mg PO DAILY 09/06/19 03/20/20 Ondansetron HCl [Zofran] 8 mg PO Q8HR PRN 09/23/19 03/20/20 Prochlorperazine Maleate 10 mg PO Q6HR PRN 09/23/19 03/20/20 [Compazine] Ascorbic Acid [Vitamin C with Maria G 1,000 mg PO DAILY 10/24/19 03/20/20 Hips] Furosemide 20 mg PO DAILY 10/24/19 03/20/20 Sacubitril/Valsartan [Entresto 49 1 tab PO BID 10/24/19 03/20/20 mg-51 mg Tablet] - Allergies Allergies/Adverse Reactions: Allergies Allergy/AdvReac Type Severity Reaction Status Date / Time No Known Drug Allergies Allergy Verified 03/22/20 11:35 Review of Systems - Constitutional Constitutional: denies: Fatigue, Fever, Chills - Eyes Eyes: denies: Pain - Ears, Nose & Throat Ears, Nose & Throat: denies: Ear pain - Cardiovascular Cariovascular: denies: Irregular heart rate, Palpitations, Chest pain, Edema, Lightheadedness, Syncope, Exertional dyspnea - Respiratory Respiratory: denies: Cough, Sputum production, Wheezing, SOB at rest, SOB with exertion - Gastrointestinal Gastrointestinal: denies: Abdominal pain, Abdominal distention, Nausea, Coffee grounds emesis, Reflux/heartburn - Genitourinary Genitourinary: denies: Dysuria, Frequency, Urgency - Musculoskeletal Musculoskeletal: denies: Muscle pain, Back pain - Integumentary Integumentary: denies: Rash, Pruritis, Lesions - Neurological Neurological: denies: Focal weakness - Psychiatric Psychiatric: denies: Depression, Anxiety - Endocrine Endocrine: denies: Polyuria, Polydypsia - Hematologic/Lymphatic Hematologic/Lymphatic: denies: Anemia, Bruising Prior Level of Functionality: Patient is independent of activities of daily living Exam - Vital Signs Vital Signs: Vital Signs x48h Temp Pulse Resp BP Pulse Ox 03/22/20 17:40 70 18 132/74 H 94 03/22/20 17:00 75 17 125/52 L 95 03/22/20 15:00 77 18 127/67 99 03/22/20 13:38 36.7 C 76 16 114/71 94 - Physical Exam General Appearance: positive: No acute distress, Alert Eyes Bilateral: positive: PERRL, EOMI ENT: positive: No signs of dehydration Neck: positive: No JVD, Trachea midline Respiratory: positive: Chest non-tender, No respiratory distress, Breath sounds nml. negative: Wheezes, Rales, Rhonchi Cardiovascular: positive: Regular rate & rhythm Abdomen: positive: Non-tender, No distention, Other (J tube on right side of abdomen). negative: Guarding, Rebound Back: positive: Nml inspection Skin: positive: Color nml, No rash, Warm, Dry Extremities: positive: Non-tender, Full ROM, Pedal edema (trace edema) Neurologic/Psychiatric: positive: Oriented x3, Mood/affect nml Conclusion/Plan - Problem List (1) Hypercalcemia Conclusion/Plan: Patient given 2 L of normal saline and lasix 20mg IV X1 in the ED . Gentle IV hydration at 60 mils per hour only due to Hx of HF Will recheck calcium level in the morning. If worsening levels, will consider calcitonin (2) Congestive heart failure Conclusion/Plan: Not in exacerbation. We will continue metoprolol succinate 25 mg every morning, baby aspirin. Patient may use her own Entresto once verified by pharmacy Qualifiers: Heart failure type: unspecified Heart failure chronicity: acute Qualified Code(s): I50.9 - Heart failure, unspecified (3) Coronary artery disease Conclusion/Plan: Patient is on baby aspirin, metoprolol succinate, atorvastatin and Entresto (4) Hyperlipidemia Conclusion/Plan: On atorvastatin (5) Diabetes Conclusion/Plan: On glimepiride Qualifiers: Diabetes mellitus type: type 2 - Lab Results Fish Bones: 03/22/20 12:37 03/22/20 12:37 Core Measures - Anticipated LOS I expect patient to be DC'd or transferred within 96 hours.: Yes - DVT/VTE - Prophylaxis VTE/DVT Device ordered at admit?: Yes
[2020-03-22] MEDS: SODIUM CHLORIDE FLUSH 0.9% 10 ML SYRINGE IVP SCH (20:30)
[2020-03-22] MEDS ORDERED: ATORVASTATIN 40 MG TABLET PO SCH (21:00)
[2020-03-22] MEDS ORDERED: carvediloL 3.125 MG TABLET PO SCH (21:00)
[2020-03-22] MEDS ORDERED: carvediloL 12.5 MG TABLET PO SCH (21:00)
[2020-03-22] MEDS: VALSARTAN PO SCH (21:19)
[2020-03-22] MEDS: SACUBITRIL PO SCH (21:19)
[2020-03-23] MEDS: SODIUM CHLORIDE FLUSH 0.9% 10 ML SYRINGE IVP SCH ×2 (00:12→08:41)
[2020-03-23 05:35] LABS: BASOPHILS # (AUTO) 0.1 10^3/uL (0.0-0.1); EOSINOPHILS # (AUTO) 0.2 10^3/uL (0.0-0.7); EOSINOPHILS % (AUTO) 4.6 %; HGB - HEMOGLOBIN 9.2 g/dL (12.0-16.0); LYMPHOCYTES # (AUTO) 1.3 10^3/uL (1.5-3.5); LYMPHOCYTES % (AUTO) 24.4 %; MEAN CORPUSCULAR HEMOGLOBIN 29.8 pg (27.0-31.0); MEAN CORPUSCULAR HGB CONC 31.5 g/dL (32.0-36.0); MEAN CORPUSCULAR VOLUME 94.5 fL (81.0-99.0); MEAN PLATELET VOLUME 9.9 fL (7.9-10.8); MONOCYTES # (AUTO) 0.5 10^3/uL (0.0-1.0); MONOCYTES % (AUTO) 9.5 %; NEUTROPHILS # (AUTO) 3.1 10^3/uL (1.5-6.6); NEUTROPHILS % (AUTO) 59.5 %; PLT - PLATELET COUNT 269 10^3/uL (130-450); RED BLOOD COUNT 3.09 10^6/uL (4.20-5.40); RED CELL DISTRIBUTION WIDTH 19.7 % (12.0-15.0); WHITE BLOOD COUNT 5.2 x10^3/uL (4.8-10.8)
[2020-03-23 05:42] LABS: CREATININE 0.5 mg/dL (0.4-1.0)
[2020-03-23 06:18] LABS: CALCIUM 11.1 mg/dL (8.5-10.3)
[2020-03-23] MEDS ORDERED: PANTOPRAZOLE 40 MG VIAL IVP SCH (07:00)
[2020-03-23] MEDS: POTASSIUM CHLOR 10 MEQ/100 ML 10 MEQ/100 ML BAG IV SCH ×4 (07:48→11:45)
[2020-03-23] MEDS: SACUBITRIL PO SCH (08:40)
[2020-03-23] MEDS: VALSARTAN PO SCH (08:40)
[2020-03-23] MEDS ORDERED: FERROUS SULFATE 325 MG TABLET PO SCH (09:00)
[2020-03-23] MEDS ORDERED: METOPROLOL SUCCINATE 25 MG TABLET PO SCH (09:00)
[2020-03-23] MEDS ORDERED: SPIRONOLACTONE 25 MG TABLET PO SCH (09:00)
[2020-03-23 09:32] VITALS: BP 113/62
[2020-03-23] MEDS ORDERED: HYDROCORTISONE 10 MG TABLET PO SCH (11:37)
--- NOTE | 2020-03-23 11:46 | Discharge Plan ---
Discharge Plan Problem Reviewed?: Yes Disposition: 06 Home Health Service Condition: Stable Diet: Low Sodium (Low calcium diet and nutrition infusions should continue, but the type needs to be changed.) Activity Restrictions: Activity as Tolerated Shower Restrictions: No Instruction Topics: Hypercalcemia Dc Health Concerns: You were in Observation status to manage the high blood calcium level with giving you iv fluids, while preventing fluid overload, since you have heart disease. I spoke to both your Oncologist, Dr Davis, and Corporate General Manager, Dr Hale. You are being discharged and need follow-up soon with Oncology, Dr Davis, for getting more outpatient work-up of the high calcium level. No new medications for this are being ordered yet. Please resume all your pre-hospital medications at the same doses you were taking. Stay well hydrated with fluids like Gatorade. Eat a diet that has low calcium. Plan of Treatment: As above. Keep the [facility] Oncology appointment on 03/27/20. Care Goals: Improvement in symptoms and stabilization are the goals. Assessment: The instructions were given to the patient and . No Smoking: If you smoke, Please STOP! Call for help. Follow-up with: JUSTIN GLOVER [Primary Care Provider] -
--- NOTE | 2020-03-23 12:01 | DISCHARGE SUMMARY ---
Discharge Summary Admit Date: 03/22/20 Discharge Date: 03/23/20 Discharging Provider: Dr Love Mckee Primary Care Provider: Dr Gayle Ashley Code Status: Attempt Resuscitation Condition at Discharge: Stable Discharge Disposition: [facility] History of Present Illness: From the admission H&P of Dr Jeni Roman: Patient is a 59-year-old female with history of CAD, systolic heart failure, diabetes mellitus, adrenal insufficiency and stomach cancer on chemotherapy managed by Dr. Davis's. She underwent abdominal surgery (gastrectomy and hemicolectomy) at [facility] about 2 months ago for the stomach cancer and currently has a J-tube for feeding at night while she attempts eating by mouth during the day. She also had a left adrenalectomy at the time of that surgery. She presented to the ED today after she got a call from Dr. Davis's office. She had routine labs done the previous day and her calcium level was found to be 12. Previous lab draw on March 18, 2020 showed a calcium level of 11.7. In the ER today, the calcium level is 12. Patient was at her baseline at home prior to the call. She denied any chest pain, palpitations, dyspnea, abdominal pain, nausea, vomiting, fever or chills. She is being placed in Observation status to manage the high calcium with iv saline and to watch for pulmonary edema. - HOSPITAL COURSE Hospital Course: (1) Hypercalcemia Patient was given a total 2 L of normal saline and also Lasix 20mg IV X1 in the ED. Gentle IV hydration was continued at 60 ml per hour only, due to history of CHF. The serum calcium level was followed and dropped to 11.5 and on repeat it remained 11.1. Our RD motor patrol operator evaluated her nutrition infusion which does contain calcium and phosphorus, and it will need changes and management with the clinical specialist vascular of the [employer] infusion [facility]pper. Her PTH level returned low at 5, ruling out hyperparathyroidism as the cause. I spoke to her Household Appliances Salesperson, Dr Hale, who advised that the Hydrocortisone dose could be unchanged. I spoke to her Oncologist, Dr Davis, who advised getting a blood PTH-RP level, to determine if it is abnormal from malignancy and that an outpatient nuclear bone scan would be arranged. She was discharged and advised a low calcium-containing diet and hydration with Gatorade. (2) Congestive heart failure She was in Observation status to watch for pulmonary edema, since she was requiring iv fluids to manage the hypercalcemia. She did not have an exacerbation. She is to continue all her usual cardiac meds. (3) Coronary artery disease Continue on baby aspirin, Metoprolol succinate, Atorvastatin, Spironolactone and Entresto. (4) Hyperlipidemia She was continued on Atorvastatin. (5) Diabetes She may continue her previous management. (6) Adrenal insufficiency after adrenalectomy. As above in #1. (7) S/P gastrectomy She needs some meds adjusted since she has no stomach for absorption (like B12), or needs F/U with GI surgery for management. At the [facility], a referral to Nutrionist would also be helpful. - ALLERGIES Allergies/Adverse Reactions: Allergies Allergy/AdvReac Type Severity Reaction Status Date / Time No Known Drug Allergies Allergy Verified 03/22/20 11:35 - MEDICATIONS Home Medications: Ambulatory Orders Medication Instructions Recorded Confirmed metFORMIN [Glucophage] 1,000 mg PO BID 08/25/16 03/20/20 Atorvastatin [Lipitor] 40 mg PO DAILY 09/06/19 03/20/20 Carvedilol 18 mg PO BID 09/06/19 03/20/20 Ferrous Sulfate 325 mg PO DAILY 09/06/19 03/20/20 Pantoprazole [Protonix] 40 mg PO BID 09/06/19 03/20/20 Spironolactone 50 mg PO DAILY 09/06/19 03/20/20 Ondansetron HCl [Zofran] 8 mg PO Q8HR PRN 09/23/19 03/20/20 Prochlorperazine Maleate 10 mg PO Q6HR PRN 09/23/19 03/20/20 [Compazine] Ascorbic Acid [Vitamin C with Maria G 1,000 mg PO DAILY 10/24/19 03/20/20 Hips] Furosemide 20 mg PO DAILY 10/24/19 03/20/20 Sacubitril/Valsartan [Entresto 49 1 tab PO BID 10/24/19 03/20/20 mg-51 mg Tablet] Cyanocobalamin (Vitamin B-12) 1,000 mcg PO DAILY 03/23/20 [Vitamin B-12] Glimepiride [Amaryl] 2 mg PO DAILY 03/23/20 Hydrocortisone 15 mg PO DAILY #0 03/23/20 Potassium Chloride 10 meq PO DAILY 03/23/20 - PHYSICAL EXAM AT DISCHARGE General Appearance: positive: No acute distress, Alert Eyes Bilateral: positive: Normal inspection, EOMI ENT: positive: ENT inspection nml, No signs of dehydration Neck: positive: Nml inspection Respiratory: positive: No respiratory distress Cardiovascular: positive: Regular rate & rhythm Abdomen: positive: Non-tender Skin: positive: Color nml Extremities: positive: No pedal edema Neurologic/Psychiatric: positive: Oriented x3, Other (Grossly intact) - LABS Result Diagrams: 03/23/20 04:55 03/23/20 04:55 - DIAGNOSTIC IMAGING Diagnostic Imaging Results: Final report reviewed - FOLLOW UP Follow Up: [facility] Oncology appointment on 03/27/20. - TIME SPENT Time Spent in Discharge (Minutes): 45
[2020-03-23 13:31] LABS: CALCIUM 11.1 mg/dL (8.5-10.3)
== END 2020-03-23 14:27 | disposition home health service (06) ==
LOC: ED 11:15 → MS2 16:23
PROVIDERS: ADMIT Internal Medicine; ATTEND Internal Medicine
DX: E83.52 Hypercalcemia (principal); C16.9 Malignant neoplasm of stomach, unspecified; I50.20 Unspecified systolic (congestive) heart failure; E11.9 Type 2 diabetes mellitus without complications; F17.210 Nicotine dependence, cigarettes, uncomplicated; Z93.4 Other artificial openings of gastrointestinal tract status; E78.5 Hyperlipidemia, unspecified; I25.10 Atherosclerotic heart disease of native coronary artery without angina pectoris; H54.7 Unspecified visual loss; Z90.3 Acquired absence of stomach [part of]; Z90.49 Acquired absence of other specified parts of digestive tract; E89.6 Postprocedural adrenocortical (-medullary) hypofunction; Z79.84 Long term (current) use of oral hypoglycemic drugs; Z79.899 Other long term (current) drug therapy; I25.2 Old myocardial infarction
CPT/HCPCS: 36415; 71045; 80048; 80053; 82310; 82330; 83519; 83690; 83735; 83970; 84100; 84132; 85025; 96361; 96365; 96366; 96375; 99284; 99285; A9270; G0378

== ENCOUNTER 2020-04-05 08:37 | Outpatient (CLI) | payer OTHER ==
[2020-04-05 09:37] LABS: CALCIUM 9.6 mg/dL (8.5-10.3); CREATININE 0.5 mg/dL (0.4-1.0)
== END 2020-04-05 08:38 | disposition home or self-care (01) ==
LOC: LAB 08:37
PROVIDERS: ATTEND Internal Medicine
DX: I50.22 Chronic systolic (congestive) heart failure (principal)
CPT/HCPCS: 36415; 80048

== ENCOUNTER 2020-04-19 09:01 | Outpatient (CLI) | payer OTHER ==
[2020-04-19 09:50] LABS: CALCIUM 8.9 mg/dL (8.5-10.3); CREATININE 0.5 mg/dL (0.4-1.0)
== END 2020-04-19 09:02 | disposition home or self-care (01) ==
LOC: LAB 09:01
PROVIDERS: ATTEND Internal Medicine
DX: I50.22 Chronic systolic (congestive) heart failure (principal)
CPT/HCPCS: 36415; 80048

== ENCOUNTER 2020-05-03 09:37 | Outpatient (CLI) | payer OTHER ==
[2020-05-03 09:59] LABS: CALCIUM 8.7 mg/dL (8.5-10.3); CREATININE 0.6 mg/dL (0.4-1.0)
== END 2020-05-03 09:38 | disposition home or self-care (01) ==
LOC: LAB 09:37
PROVIDERS: ATTEND Internal Medicine
DX: I50.22 Chronic systolic (congestive) heart failure (principal)
CPT/HCPCS: 36415; 80048

== ENCOUNTER 2020-05-05 11:57 | Outpatient (CLI) | payer OTHER ==
[2020-05-05 12:15] LABS: CALCIUM 8.9 mg/dL (8.5-10.3); CREATININE 0.6 mg/dL (0.4-1.0)
== END 2020-05-05 11:58 | disposition home or self-care (01) ==
LOC: LAB 11:57
PROVIDERS: ATTEND Internal Medicine
DX: I50.22 Chronic systolic (congestive) heart failure (principal)
CPT/HCPCS: 36415; 80048

== ENCOUNTER 2020-05-17 09:50 | Outpatient (CLI) | payer OTHER ==
[2020-05-17 10:17] LABS: CREATININE 0.5 mg/dL (0.4-1.0)
== END 2020-05-17 09:51 | disposition home or self-care (01) ==
LOC: LAB 09:50
PROVIDERS: ATTEND Internal Medicine
DX: I50.22 Chronic systolic (congestive) heart failure (principal)
CPT/HCPCS: 36415; 80048

== ENCOUNTER 2020-05-31 10:46 | Outpatient (CLI) | payer OTHER ==
[2020-05-31 11:17] LABS: CALCIUM 8.7 mg/dL (8.5-10.3); CREATININE 0.5 mg/dL (0.4-1.0)
== END 2020-05-31 10:47 | disposition home or self-care (01) ==
LOC: LAB 10:46
PROVIDERS: ATTEND Internal Medicine
DX: I50.22 Chronic systolic (congestive) heart failure (principal)
CPT/HCPCS: 36415; 80048

== ENCOUNTER 2020-06-12 11:00 | Outpatient (CLI) | payer OTHER ==
[2020-06-12] MEDS ORDERED: IOVERSOL 320 100 ML VIAL IVP ONE ×2 (11:12→16:01)
[2020-06-12] MEDS ORDERED: IOVERSOL 320 50 ML VIAL ONE (11:12)
[2020-06-12] MEDS ORDERED: IOVERSOL 320 50 ML VIAL PO ONE (16:01)
--- NOTE | 2020-06-12 16:48 | CT Report ---
PROCEDURE: Abdomen/Pelvis W INDICATIONS: STOMACH CA CONTRAST: IV CONTRAST: Optiray 320 ml: 100 PO CONTRAST: Optiray 320 ml50 TECHNIQUE: After the administration of contrast, 5 mm thick sections acquired from the diaphragms to the sym physis. 5 mm thick coronal and sagittal reformats were acquired. For radiation dose reduction, the following was used: automated exposure control, adjustment of mA and/or kV according to patient size . COMPARISON: 03/22/2020 chest plain film, 10/10/[address] FINDINGS: Image quality: Excellent. ABDOMEN: Lung bases: Lung bases are clear except for compressive atelectasis associated with bilateral pleura l effusions, slightly greater on the left than the right.. Heart size is normal. Solid organs: Liver and spleen are normal in size and enhancement except for the presence of several small hypodensities within the liver parenchyma near the liver dome which are subcentimeter in size and not accurately evaluated by CT scanning due to volume averaging. More inferiorly in the right pos terior hepatic segment a small hemangioma or cyst is present, seen on CT series 3 image 19. No solid hepatic mass lesion is found. Note is made of a lentiform hypodensity at the splenic capsule border s uperiorly, possibly a small splenic infarction. No solid mass lesion within the spleen is seen.. Gal lbladder appears normal Biliary system is non dilated. Pancreas enhances normally. No adrenal nodu les. Kidneys demonstrate normal size and enhancement, without hydronephrosis. Peritoneum and bowel: Bowel loops demonstrate normal wall thickness and caliber. No free fluid or a ir. Postsurgical changes of what appears to be complete gastrectomy are noted, without operative com plication. What appears to be a enteric feeding tube traverses from the right upper quadrant body wal l into small bowel and thereafter more distally in the small bowel lumen. No intestinal obstruction i s found. Nodes and vessels: No retroperitoneal or mesenteric adenopathy by size criteria. Aorta and inferior vena cava are normal in size. Miscellaneous: No ventral hernias. PELVIS: Genitourinary: Bladder wall thickness is normal. Miscellaneous: No inguinal hernias or adenopathy. Bones: No suspicious bony lesions. No vertebral body compression fractures. IMPRESSION: 1. Pleural fluid bilaterally with compressive atelectasis is mild to moderate in overall severity at the lung bases. No definite pulmonary masses are found. 2. Several scattered hepatic hypodensities are present 2 small to accurately characterize but likely cysts. A slightly larger right posterior hepatic segment hypodensity could represent a cyst or germain ioma but does not appear to represent a solid mass. 3. Hypodensity at the subcapsular margin of the superior spleen, near the operative bed. A small sple david infarction likely explains this appearance. 4. Expected postoperative appearance of gastrectomy. Enteric feeding tube in place, no operative comp lication seen. No adenopathy found, no distant metastatic disease is identified. Reviewed by: Terrance Mehta MD on 06/12/2020 4:46 PM PST Approved by: Terrance Mehta MD on 06/12/2020 4:46 PM PST Station ID: [id number]
--- NOTE | 2020-06-12 16:52 | CT Report ---
PROCEDURE: CHEST W INDICATIONS: STOMACH CA CONTRAST: IV CONTRAST: Optiray 320 ml: 100 PO CONTRAST: Optiray 320 ml50 TECHNIQUE: After the administration of intravenous contrast, 5 mm thick sections acquired from the pulmonary api ramiro to the posterior costophrenic angles. 7 mm thick coronal MIP reformats were acquired. For radia tion dose reduction, the following was used: automated exposure control, adjustment of mA and/or kV according to patient size. COMPARISON: Abdomen/pelvis same day reviewed. Prior chest CT dated 10/10/2019 reviewed. FINDINGS: Image quality: Excellent. Lungs and pleura: No acute air space opacities are seen but there is compressive atelectasis associa gutierrez with small to moderate asymmetric left greater than right pleural effusions. These effusions show no definite associated mass lesions within. They appear transudative in etiology.. No pleural effus ions or pneumothorax. Central and peripheral airways are patent and normal in caliber. Mediastinum: Heart size is normal. No pericardial effusion. No mediastinal or hilar adenopathy by size criteria. Thoracic aorta and central pulmonary arteries are normal in size. Esophagus is sammi l in caliber. No hiatal hernia. Port-A-Cath from a right-sided approach extends into the superior v reji cava near the azygos arch level. Bones and chest wall: No suspicious bony lesions. No vertebral body compression fractures. No axil mitchell or supraclavicular adenopathy by size criteria. Thyroid gland appears normal where well seen. Abdomen: Visualized upper abdominal solid organs appear normal. Upper abdominal bowel loops are nor mal in caliber. Postoperative changes of gastrectomy appear present, no adenopathy is found. A previ ously identified subcapsular hypodensity within the superior medial border of the spleen is likely a small focus of splenic infarction. IMPRESSION: Expected postsurgical appearance after complete gastrectomy. No pulmonary metastatic disease is seen. Bilateral water density pleural effusions are present with secondary atelectasis involving each lung , left greater than right. These pleural effusions likely are transudative rather than exudative give n the absence of identifiable mass lesion within. Reviewed by: Terrance Mehta MD on 06/12/2020 4:50 PM PST Approved by: Terrance Mehta MD on 06/12/2020 4:50 PM PST Station ID: [id number]
== END 2020-06-12 11:01 | disposition home or self-care (01) ==
LOC: DI 11:00
PROVIDERS: ATTEND Internal Medicine Hematology & Oncology
DX: Z08 Encounter for follow-up examination after completed treatment for malignant neoplasm (principal); J90 Pleural effusion, not elsewhere classified; J98.11 Atelectasis; R93.2 Abnormal findings on diagnostic imaging of liver and biliary tract; R93.5 Abnormal findings on diagnostic imaging of other abdominal regions, including retroperitoneum; Z85.028 Personal history of other malignant neoplasm of stomach; Z90.3 Acquired absence of stomach [part of]; Z93.1 Gastrostomy status
CPT/HCPCS: 71260; 74177; Q9967

== ENCOUNTER 2020-06-14 09:17 | Outpatient (CLI) | payer OTHER ==
[2020-06-14 09:59] LABS: CALCIUM 8.4 mg/dL (8.5-10.3); CREATININE 0.7 mg/dL (0.4-1.0)
== END 2020-06-14 09:18 | disposition home or self-care (01) ==
LOC: LAB 09:17
PROVIDERS: ATTEND Internal Medicine
DX: I50.22 Chronic systolic (congestive) heart failure (principal)
CPT/HCPCS: 36415; 80048

== ENCOUNTER 2020-06-28 14:15 | Outpatient (CLI) | payer OTHER ==
[2020-06-28 15:14] LABS: CALCIUM 9.1 mg/dL (8.5-10.3); CREATININE 0.5 mg/dL (0.4-1.0)
== END 2020-06-28 14:16 | disposition home or self-care (01) ==
LOC: LAB 14:15
PROVIDERS: ATTEND Internal Medicine
DX: I50.22 Chronic systolic (congestive) heart failure (principal)
CPT/HCPCS: 36415; 80048

== ENCOUNTER 2020-07-12 10:32 | Outpatient (CLI) | payer OTHER ==
[2020-07-12 11:14] LABS: CALCIUM 9.1 mg/dL (8.5-10.3); CREATININE 0.6 mg/dL (0.4-1.0)
== END 2020-07-12 10:33 | disposition home or self-care (01) ==
LOC: LAB 10:32
PROVIDERS: ATTEND Internal Medicine
DX: I50.22 Chronic systolic (congestive) heart failure (principal)
CPT/HCPCS: 36415; 80048

== ENCOUNTER 2020-07-26 10:37 | Outpatient (CLI) | payer OTHER ==
[2020-07-26 11:03] LABS: CREATININE 0.6 mg/dL (0.4-1.0)
== END 2020-07-26 10:38 | disposition home or self-care (01) ==
LOC: LAB 10:37
PROVIDERS: ATTEND Internal Medicine
DX: I50.22 Chronic systolic (congestive) heart failure (principal)
CPT/HCPCS: 36415; 80048

== ENCOUNTER 2020-08-09 12:06 | Outpatient (CLI) | payer OTHER ==
[2020-08-09 12:46] LABS: CALCIUM 9.2 mg/dL (8.5-10.3); CREATININE 0.7 mg/dL (0.4-1.0)
== END 2020-08-09 12:07 | disposition home or self-care (01) ==
LOC: LAB 12:06
PROVIDERS: ATTEND Internal Medicine
DX: I50.22 Chronic systolic (congestive) heart failure (principal)
CPT/HCPCS: 36415; 80048

== ENCOUNTER 2020-08-23 11:31 | Outpatient (CLI) | payer OTHER ==
--- OUTSIDE RECORDS SUMMARY | 2020-08-23 11:34 | EXTERNAL MEDICAL SUMMARY RPT | Continuity of Care Document ---
:1960 Demographics Phone Unavailable Preferred Language Malay Marital Status Unknown Jewish Affiliation Unknown Race Unknown Ethnic Group Unknown Author Organization [place] Address [address] [phone] Phone Care Team Providers Name Role Phone ADALBERTO Unavailable Unavailable Unavailable Unavailable JOSE Unavailable Unavailable Problems date description facility 2020-02-15 10:05 MALIGNANT NEOPLASM OF STOMACH, [facility] UNSPECIFIED 2020-02-15 10:05 BENIGN NEOPLASM OF LEFT ADRENAL [facility]AND 2020-02-15 10:05 IRON DEFICIENCY ANEMIA, [facility] UNSPECIFIED 2020-02-15 10:05 ELEVATED WHITE BLOOD CELL COUNT, [facility] UNSPECIFIED 2020-02-15 10:05 DRUG-INDUCED POLYNEUROPATHY [facility] 2020-02-15 10:05 HYPERTENSIVE HEART DISEASE WITH [facility] HEART FAILURE 2020-02-15 10:05 CARDIOMYOPATHY, UNSPECIFIED [facility] 2020-02-15 10:05 HEART FAILURE, UNSPECIFIED [facility] 2020-02-15 10:05 ADVERSE EFFECT OF ANTINEOPLASTIC [facility] AND IMMUNOSUP DRUGS, INIT 2020-02-15 10:05 ENCOUNTER FOR ANTINEOPLASTIC [facility] CHEMOTHERAPY 2020-02-15 10:05 OTHER JAIL (CURRENT) DRUG [facility] THERAPY 2020-02-15 10:05 FAMILY HISTORY OF MALIGNANT [facility] NEOPLASM OF DIGESTIVE ORGANS 2020-02-15 10:05 PRSNL HISTORY OF DIS OF THE [facility] BLD/BLD-FORM ORG/IMMUN MECHNSM 2020-02-15 10:05 PERSONAL HISTORY OF OTHER DISEASES [facility] OF THE RESPIRATORY SYSTEM 2020-02-15 10:05 PRESENCE OF OTHER VASCULAR [facility] IMPLANTS AND GRAFTS 2020-05-23 11:00 MALIGNANT NEOPLASM OF STOMACH, [facility] UNSPECIFIED 2020-05-23 11:00 IRON DEFICIENCY ANEMIA, [facility] UNSPECIFIED 2020-05-23 11:00 ELEVATED WHITE BLOOD CELL COUNT, [facility] UNSPECIFIED 2020-05-23 11:00 DEFICIENCY OF OTHER SPECIFIED B [facility] GROUP VITAMINS 2020-05-23 11:00 OTHER DISORDERS OF PHOSPHORUS [facility] METABOLISM 2020-05-23 11:00 HYPERCALCEMIA [facility] 2020-05-23 11:00 HYPERKALEMIA [facility] 2020-05-23 11:00 POSTPROCEDURAL ADRENOCORTICAL [facility] HYPOFUNCTION 2020-05-23 11:00 HYPERTENSIVE HEART DISEASE WITH [facility] HEART FAILURE 2020-05-23 11:00 OLD MYOCARDIAL INFARCTION [facility] 2020-05-23 11:00 CARDIOMYOPATHY, UNSPECIFIED [facility] 2020-05-23 11:00 HEART FAILURE, UNSPECIFIED [facility] 2020-05-23 11:00 HYPOTENSION, UNSPECIFIED [facility] 2020-05-23 11:00 NAUSEA [facility] 2020-05-23 11:00 WEAKNESS [facility] 2020-05-23 11:00 OTHER FATIGUE [facility] 2020-05-23 11:00 ANOREXIA [facility] 2020-05-23 11:00 ADVERSE EFFECT OF ANTINEOPLASTIC [facility] AND IMMUNOSUP DRUGS, INIT 2020-05-23 11:00 ENCOUNTER FOR ANTINEOPLASTIC [facility] CHEMOTHERAPY 2020-05-23 11:00 VEGETABLE INSPECTOR (CURRENT) USE OF [facility] SYSTEMIC STEROIDS 2020-05-23 11:00 VEGETABLE INSPECTOR (CURRENT) USE OF OPIATE [facility] ANALGESIC 2020-05-23 11:00 OTHER JAIL (CURRENT) DRUG [facility] THERAPY 2020-05-23 11:00 FAMILY HISTORY OF MALIGNANT [facility] NEOPLASM OF DIGESTIVE ORGANS 2020-05-23 11:00 PRSNL HISTORY OF DIS OF THE [facility] BLD/BLD-FORM ORG/IMMUN MECHNSM 2020-05-23 11:00 PERSONAL HISTORY OF OTHER DISEASES i [facility] OF THE RESPIRATORY SYSTEM 2020-05-23 11:00 ACQUIRED ABSENCE OF STOMACH [PART [facility] OF] 2020-05-23 11:00 ACQUIRED ABSENCE OF OTHER [facility] SPECIFIED PARTS OF DIGESTIVE TRACT 2020-05-23 11:00 GASTROSTOMY STATUS [facility] 2020-05-23 11:00 PRESENCE OF OTHER VASCULAR [facility] IMPLANTS AND GRAFTS 2020-05-31 10:46 CHRONIC SYSTOLIC (CONGESTIVE) [facility] HEART FAILURE 2020-06-19 00:00 CHRONIC SYSTOLIC (CONGESTIVE) [facility] HEART FAILURE 2020-06-19 11:06 MALIGNANT NEOPLASM OF STOMACH, [facility] UNSPECIFIED 2020-06-19 11:06 IRON DEFICIENCY ANEMIA, [facility] UNSPECIFIED 2020-06-19 11:06 ELEVATED WHITE BLOOD CELL COUNT, [facility] UNSPECIFIED 2020-06-19 11:06 UNSPECIFIED ADRENOCORTICAL [facility] INSUFFICIENCY 2020-06-19 11:06 DEFICIENCY OF OTHER SPECIFIED B [facility] GROUP VITAMINS 2020-06-19 11:06 OTHER DISORDERS OF PHOSPHORUS [facility] METABOLISM 2020-06-19 11:06 HYPERCALCEMIA [facility] 2020-06-19 11:06 HYPERKALEMIA [facility] 2020-06-19 11:06 POSTPROCEDURAL ADRENOCORTICAL [facility]) HYPOFUNCTION 2020-06-19 11:06 ESSENTIAL (PRIMARY) HYPERTENSION [facility] 2020-06-19 11:06 HYPERTENSIVE HEART DISEASE WITH [facility] HEART FAILURE 2020-06-19 11:06 OLD MYOCARDIAL INFARCTION [facility] 2020-06-19 11:06 CARDIOMYOPATHY, UNSPECIFIED [facility] 2020-06-19 11:06 HEART FAILURE, UNSPECIFIED [facility] 2020-06-19 11:06 HYPOTENSION, UNSPECIFIED [facility] 2020-06-19 11:06 PLEURAL EFFUSION, NOT ELSEWHERE [facility] CLASSIFIED 2020-06-19 11:06 NAUSEA [facility] 2020-06-19 11:06 WEAKNESS [facility] 2020-06-19 11:06 OTHER FATIGUE [facility] 2020-06-19 11:06 ANOREXIA [facility] 2020-06-19 11:06 ADVERSE EFFECT OF ANTINEOPLASTIC [facility] AND IMMUNOSUP DRUGS, INIT 2020-06-19 11:06 ENCOUNTER FOR ANTINEOPLASTIC [facility] CHEMOTHERAPY 2020-06-19 11:06 JAIL (CURRENT) USE OF [facility] SYSTEMIC STEROIDS 2020-06-19 11:06 VEGETABLE INSPECTOR (CURRENT) USE OF OPI[facility] ANALGESIC 2020-06-19 11:06 OTHER JAIL (CURRENT) DRUG [facility] THERAPY 2020-06-19 11:06 FAMILY HISTORY OF MALIGNANT [facility] NEOPLASM OF DIGESTIVE ORGANS 2020-06-19 11:06 PRSNL HISTORY OF DIS OF THE [facility] BLD/BLD-FORM ORG/IMMUN MECHNSM 2020-06-19 11:06 PERSONAL HISTORY OF OTHER DISEASES [facility] OF THE RESPIRATORY SYSTEM 2020-06-19 11:06 ACQUIRED ABSENCE OF STOMACH [PART [facility] OF] 2020-06-19 11:06 ACQUIRED ABSENCE OF OTHER [facility] SPECIFIED PARTS OF DIGESTIVE TRACT 2020-06-19 11:06 PERSONAL HISTORY OF ANTINEOPLASTIC [facility] CHEMOTHERAPY 2020-06-19 11:06 GASTROSTOMY STATUS [facility] 2020-06-19 11:06 PRESENCE OF OTHER VASCULAR [facility] IMPLANTS AND GRAFTS 2020-06-19 14:00 MALIGNANT NEOPLASM OF STOMACH, [facility] UNSPECIFIED 2020-06-19 14:00 IRON DEFICIENCY ANEMIA, [facility] UNSPECIFIED 2020-06-19 14:00 ELEVATED WHITE BLOOD CELL COUNT, [facility] UNSPECIFIED 2020-06-19 14:00 DEFICIENCY OF OTHER SPECIFIED B [facility] GROUP VITAMINS 2020-06-19 14:00 OTHER DISORDERS OF PHOSPHORUS [facility] METABOLISM 2020-06-19 14:00 HYPERCALCEMIA [facility] 2020-06-19 14:00 HYPERKALEMIA [facility] 2020-06-19 14:00 POSTPROCEDURAL ADRENOCORTICAL [facility]) HYPOFUNCTION 2020-06-19 14:00 HYPERTENSIVE HEART DISEASE WITH [facility] HEART FAILURE 2020-06-19 14:00 OLD MYOCARDIAL INFARCTION [facility] 2020-06-19 14:00 CARDIOMYOPATHY, UNSPECIFIED [facility] 2020-06-19 14:00 HEART FAILURE, UNSPECIFIED [facility] 2020-06-19 14:00 HYPOTENSION, UNSPECIFIED [facility] 2020-06-19 14:00 NAUSEA [facility] 2020-06-19 14:00 WEAKNESS [facility] 2020-06-19 14:00 OTHER FATIGUE [facility] 2020-06-19 14:00 ANOREXIA [facility] 2020-06-19 14:00 ADVERSE EFFECT OF ANTINEOPLASTIC [facility] AND IMMUNOSUP DRUGS, INIT 2020-06-19 14:00 ENCOUNTER FOR ANTINEOPLASTIC [facility] CHEMOTHERAPY 2020-06-19 14:00 VEGETABLE INSPECTOR (CURRENT) USE OF [facility] SYSTEMIC STEROIDS 2020-06-19 14:00 JAIL (CURRENT) USE OF OPIATE [facility] ANALGESIC 2020-06-19 14:00 OTHER VEGETABLE INSPECTOR (CURRENT) DRUG [facility] THERAPY 2020-06-19 14:00 FAMILY HISTORY OF MALIGNANT [facility] NEOPLASM OF DIGESTIVE ORGANS 2020-06-19 14:00 PRSNL HISTORY OF DIS OF THE [facility] BLD/BLD-FORM ORG/IMMUN MECHNSM 2020-06-19 14:00 PERSONAL HISTORY OF OTHER DISEASES [facility] OF THE RESPIRATORY SYSTEM 2020-06-19 14:00 ACQUIRED ABSENCE OF STOMACH [PART [facility] OF] 2020-06-19 14:00 ACQUIRED ABSENCE OF OTHER [facility] SPECIFIED PARTS OF DIGESTIVE TRACT 2020-06-19 14:00 GASTROSTOMY STATUS [facility] 2020-06-19 14:00 PRESENCE OF OTHER VASCULAR [facility] IMPLANTS AND GRAFTS 2020-06-28 14:15 CHRONIC SYSTOLIC (CONGESTIVE) [facility] HEART FAILURE 2020-07-17 14:15 MALIGNANT NEOPLASM OF STOMACH, [facility] UNSPECIFIED 2020-07-17 14:15 UNSPECIFIED ADRENOCORTICAL [facility] INSUFFICIENCY 2020-07-17 14:15 DEFICIENCY OF OTHER SPECIFIED B [facility] GROUP VITAMINS 2020-07-17 14:15 ESSENTIAL (PRIMARY) HYPERTENSION [facility] 2020-07-17 14:15 CARDIOMYOPATHY, UNSPECIFIED [facility] 2020-07-17 14:15 PLEURAL EFFUSION, NOT ELSEWHERE [facility] CLASSIFIED 2020-07-17 14:15 VEGETABLE INSPECTOR (CURRENT) USE OF [facility] SYSTEMIC STEROIDS 2020-07-17 14:15 OTHER JAIL (CURRENT) DRUG [facility] THERAPY 2020-07-17 14:15 FAMILY HISTORY OF MALIGNANT [facility] NEOPLASM OF DIGESTIVE ORGANS 2020-07-17 14:15 PRSNL HISTORY OF DIS OF THE [facility] BLD/BLD-FORM ORG/IMMUN MECHNSM 2020-07-17 14:15 PERSONAL HISTORY OF OTHER DISEASES [facility] OF THE RESPIRATORY SYSTEM 2020-07-17 14:15 ACQUIRED ABSENCE OF STOMACH [PART [facility] OF] 2020-07-17 14:15 ACQUIRED ABSENCE OF OTHER [facility] SPECIFIED PARTS OF DIGESTIVE TRACT 2020-07-17 14:15 PERSONAL HISTORY OF ANTINEOPLASTIC [facility] CHEMOTHERAPY 2020-07-17 14:15 GASTROSTOMY STATUS [facility] 2020-07-17 14:15 PRESENCE OF OTHER VASCULAR [facility] IMPLANTS AND GRAFTS 2020-08-14 14:00 MALIGNANT NEOPLASM OF STOMACH, [facility] UNSPECIFIED 2020-08-14 14:00 UNSPECIFIED ADRENOCORTICAL [facility] INSUFFICIENCY 2020-08-14 14:00 DEFICIENCY OF OTHER SPECIFIED B [facility] GROUP VITAMINS 2020-08-14 14:00 ESSENTIAL (PRIMARY) HYPERTENSION [facility] 2020-08-14 14:00 CARDIOMYOPATHY, UNSPECIFIED [facility] 2020-08-14 14:00 PLEURAL EFFUSION, NOT ELSEWHERE [facility] CLASSIFIED 2020-08-14 14:00 VEGETABLE INSPECTOR (CURRENT) USE OF [facility] SYSTEMIC STEROIDS 2020-08-14 14:00 OTHER JAIL (CURRENT) DRUG [facility] THERAPY 2020-08-14 14:00 FAMILY HISTORY OF MALIGNANT [facility] NEOPLASM OF DIGESTIVE ORGANS 2020-08-14 14:00 PRSNL HISTORY OF DIS OF THE [facility] BLD/BLD-FORM ORG/IMMUN MECHNSM 2020-08-14 14:00 PERSONAL HISTORY OF OTHER DISEASES [facility] OF THE RESPIRATORY SYSTEM 2020-08-14 14:00 ACQUIRED ABSENCE OF STOMACH [PART [facility] OF] 2020-08-14 14:00 ACQUIRED ABSENCE OF OTHER [facility] SPECIFIED PARTS OF DIGESTIVE TRACT 2020-08-14 14:00 PERSONAL HISTORY OF ANTINEOPLASTIC [facility] CHEMOTHERAPY 2020-08-14 14:00 GASTROSTOMY STATUS [facility] 2020-08-14 14:00 PRESENCE OF OTHER VASCULAR [facility] IMPLANTS AND GRAFTS 2020-08-14 14:12 MALIGNANT NEOPLASM OF STOMACH, [facility] UNSPECIFIED 2020-08-14 14:12 UNSPECIFIED ADRENOCORTICAL [facility] INSUFFICIENCY 2020-08-14 14:12 DEFICIENCY OF OTHER SPECIFIED B [facility] GROUP VITAMINS 2020-08-14 14:12 ESSENTIAL (PRIMARY) HYPERTENSION [facility] 2020-08-14 14:12 CARDIOMYOPATHY, UNSPECIFIED [facility] 2020-08-14 14:12 PLEURAL EFFUSION, NOT ELSEWHERE [facility] CLASSIFIED 2020-08-14 14:12 JAIL (CURRENT) USE OF [facility] SYSTEMIC STEROIDS 2020-08-14 14:12 OTHER VEGETABLE INSPECTOR (CURRENT) DRUG [facility] THERAPY 2020-08-14 14:12 FAMILY HISTORY OF MALIGNANT [facility] NEOPLASM OF DIGESTIVE ORGANS 2020-08-14 14:12 PRSNL HISTORY OF DIS OF THE [facility] BLD/BLD-FORM ORG/IMMUN MECHNSM 2020-08-14 14:12 PERSONAL HISTORY OF OTHER DISEASES [facility] OF THE RESPIRATORY SYSTEM 2020-08-14 14:12 ACQUIRED ABSENCE OF STOMACH [PART [facility] OF] 2020-08-14 14:12 ACQUIRED ABSENCE OF OTHER [facility] SPECIFIED PARTS OF DIGESTIVE TRACT 2020-08-14 14:12 PERSONAL HISTORY OF ANTINEOPLASTIC [facility] CHEMOTHERAPY 2020-08-14 14:12 GASTROSTOMY STATUS [facility] 2020-08-14 14:12 PRESENCE OF OTHER VASCULAR [facility] IMPLANTS AND GRAFTS Allergies date description facility ADHESIVE \T\ TAPE [facility] AMIT[facility]IPTYLINE HCL [facility] CODEINE SULFATE [facility] EPINEPHRINE [facility] GABAPENTIN [facility] DABIGATRAN ETEXILATE MESYLATE [facility] NO KNOWN ENVIRONMENTAL ALLERGIES [facility] SULFA ANTIBIOTICS [facility] NO KNOWN ALLERGIES [facility] No Known Drug Allergies [facility] NO KNOWN ENVIRONMENTAL ALLERGIES [facility] ADHESIVE \T\ TAPE [facility] CODEINE [facility] FL[facility]CONAZOLE [facility] HYDROCODONE [facility] LEVOFLOXACIN [facility] LOSARTAN [facility] MORPHINE [facility] OXYCODONE [facility] PRAVASTATIN [facility] TRAMADOL [facility] TRAZODONE [facility] HYDROCODONE-ACETAMINOPHEN [facility] NO KNOWN ALLERGIES [facility] ROSUVASTATIN CALCIUM [facility] NO KNOWN ENVIRONMENTAL ALLERGIES idb [facility] PENICILLINS [facility] STATINS [facility] SULFA ANTIBIOTICS [facility] Statin Drugs [facility] OTHER [facility] CLINDAMYCIN [facility] CODEINE-GUAIFENESIN [facility] GLIPIZIDE [facility] LIDOCAINE [facility] OXYCODONE (BULK) [facility] PENICILLIN [facility] PENICILLINS [facility] SPIRONOLACTONE [facility] SULFACETAMIDE SODIUM [facility] SULFANILAMIDE [facility] NO KNOWN ALLERGIES [facility] IODINE AND IODIDE CONTAINING PRODUCTS [facility] GLUTEN PROTEIN [facility] PENICILLINS [facility] SULFA (SULFONAMIDE ANTIBIOTICS) [facility] [place] LATEX, NATURAL RUBBER [facility] MILK CONTAINING PRODUCTS [facility] FISH OIL [facility] LACTASE [facility] VARENICLINE [facility] MORPHINE [facility] CODEINE [facility] ACETAMINOPHEN [facility] METHOCARBAMOL [facility] METOCLOPRAMIDE HCL [facility] HYDROCORTISONE [facility] IBUPROFEN [facility] POLLEN EXTRACTS [facility] TRAMADOL [facility] ENOXAPARIN [facility] METFORMIN [facility] PROCAINE [facility] VANCOMYCIN [facility] CELIS FLAVOR [facility] RASPBERRY [facility] STRAWBERRY [facility] sulfa drugs [facility] No Known Drug Allergies [facility] [place] naproxen [facility] bee pollen [facility] Procedures date description facility 2020-07-05 00:00:00 [place] [facility] date description facility 2020-07-05 00:00:00 [facility] Results Social History date description facility [id number]
[2020-08-23 11:52] LABS: CALCIUM 9.2 mg/dL (8.5-10.3); CREATININE 0.6 mg/dL (0.4-1.0)
== END 2020-08-23 11:32 | disposition home or self-care (01) ==
LOC: LAB 11:31
PROVIDERS: ATTEND Internal Medicine
DX: I50.22 Chronic systolic (congestive) heart failure (principal)
CPT/HCPCS: 36415; 80048

== ENCOUNTER 2020-09-06 11:32 | Outpatient (CLI) | payer OTHER ==
[2020-09-06 12:24] LABS: CALCIUM 9.1 mg/dL (8.5-10.3); CREATININE 0.5 mg/dL (0.4-1.0)
== END 2020-09-06 11:33 | disposition home or self-care (01) ==
LOC: LAB 11:32
PROVIDERS: ATTEND Internal Medicine
DX: I50.22 Chronic systolic (congestive) heart failure (principal)
CPT/HCPCS: 36415; 80048

== ENCOUNTER 2020-10-04 13:28 | Outpatient (CLI) | payer OTHER ==
[2020-10-04 13:49] LABS: CALCIUM 9.1 mg/dL (8.5-10.3); CREATININE 0.6 mg/dL (0.4-1.0)
== END 2020-10-04 13:29 | disposition home or self-care (01) ==
LOC: LAB 13:28
PROVIDERS: ATTEND Internal Medicine
DX: I50.22 Chronic systolic (congestive) heart failure (principal)
CPT/HCPCS: 36415; 80048

== ENCOUNTER 2020-10-11 11:22 | Outpatient (CLI) | payer OTHER ==
[2020-10-11 11:48] LABS: CALCIUM 9.4 mg/dL (8.5-10.3); CREATININE 0.6 mg/dL (0.4-1.0); POTASSIUM 4.2 mmol/L (3.5-5.0)
== END 2020-10-11 11:23 | disposition home or self-care (01) ==
LOC: LAB 11:22
PROVIDERS: ATTEND Internal Medicine
DX: I50.22 Chronic systolic (congestive) heart failure (principal)
CPT/HCPCS: 36415; 80048

== ENCOUNTER 2020-10-24 08:46 | Emergency (ER) | payer OTHER ==
[2020-10-24] MEDS ORDERED: ONDANSETRON 4 MG/2 ML VIAL IVP STA ×2 (09:03→15:52)
[2020-10-24] MEDS ORDERED: SODIUM CHLORIDE 0.9% 1,000 ML IV STA (09:03)
[2020-10-24] MEDS ORDERED: HYDROCORTISONE SUCCINATE 100 MG/2 ML VIAL IVP STA (09:03)
[2020-10-24] MEDS ORDERED: HYDROmorphone 1 MG/ML CARPUJECT IVP STA (09:03)
--- NOTE | 2020-10-24 09:06 | ED Physician Documentation ---
PD HPI ABD PAIN - Stated complaint Stated Complaint: ABD PX - Chief complaint Chief Complaint: Abd Pain - History obtained from History obtained from: Patient - Additional information Additional information: 60-year-old woman with history of gastric cancer status post total gastrectomy, partial colectomy, left adrenalectomy in February 2020. Subsequent completion of chemotherapy in May 2020 and had a port and PEG tube which were subsequently removed. She has had 4 to 5 days of epigastric and right lower quadrant pain worse after eating. She has had nausea. States her bowel movements have been normal. She still has her gallbladder and appendix. Denies fevers. She has adrenal insufficiency and recent change in hydrocortisone dosing from 15 mg twice daily to 10 mg twice daily. Review of Systems Ten Systems: 10 systems reviewed and negative Constitutional: denies: Fever, Chills Eyes: reports: Reviewed and negative Ears: reports: Reviewed and negative Nose: reports: Reviewed and negative Throat: reports: Reviewed and negative Cardiac: reports: Reviewed and negative Respiratory: reports: Reviewed and negative PD PAST MEDICAL HISTORY - Past Medical History Cardiovascular: Congestive heart failure, Hypertension, High cholesterol, MS, Other Respiratory: None Neuro: None Endocrine/Autoimmune: Type 2 diabetes GI: Hepatitis, Other : None HEENT: Chronic vision loss Psych: None Musculoskeletal: None Derm: None - Past Surgical History Past Surgical History: No General: Gastric surgery, Colonoscopy, EGD, Other (Left adrenalectomy) - Present Medications Home Medications: Ambulatory Orders Medication Instructions Recorded Confirmed Atorvastatin [Lipitor] 40 mg PO DAILY 09/06/19 10/24/20 Ferrous Sulfate 325 mg PO DAILY 09/06/19 10/24/20 Furosemide 20 mg PO DAILY 10/24/19 10/24/20 Sacubitril/Valsartan [Entresto 49 1 tab PO BID 10/24/19 10/24/20 mg-51 mg Tablet] Metoprolol Tartrate 25 mg PO DAILY 04/25/20 10/24/20 Potassium Chloride 20 ml PO DAILY 05/09/20 10/24/20 Aspirin [Aspirin EC] 1 tab PO DAILY 05/24/20 10/24/20 Hydrocortisone 5 - 10 mg PO DAILY 05/24/20 09/18/20 - Allergies Allergies/Adverse Reactions: Allergies Allergy/AdvReac Type Severity Reaction Status Date / Time No Known Drug Allergies Allergy Verified 10/24/20 08:49 - Social History Does the pt smoke?: Yes Smoking Status: Current every day smoker Does the pt drink ETOH?: No Does the pt have substance abuse?: No - Immunizations Immunizations are current?: Yes - POLST Patient has POLST: Yes POLST Status: Full Code PD ED PE NORMAL - Vitals Vital signs reviewed: Yes - General General: Alert and oriented X 3, Other (Appears uncomfortable) - HEENT HEENT: PERRL, EOMI - Neck Neck: Supple, no meningeal sign, No bony TTP - Cardiac Cardiac: RRR, No murmur - Respiratory Respiratory: No respiratory distress, Clear bilaterally - Abdomen Abdomen: Other (Thin, hyperactive bowel tones, tender in the right mid abdomen without surgical signs.) - Back Back: No CVA TTP, No spinal TTP - Derm Derm: Normal color, Warm and dry - Extremities Extremities: No edema, No calf tenderness / cord - Neuro Neuro: Alert and oriented X 3, Normal speech Results - Vitals Vitals: Vital Signs - 24 hr 10/24/20 10/24/20 10/24/20 08:49 10:47 12:08 Temperature 37.4 C 36.4 C L Heart Rate 86 72 77 Respiratory 22 14 16 Rate Blood Pressure 105/61 115/58 L 96/56 L O2 Saturation 97 98 98 10/24/20 14:03 Temperature Heart Rate Respiratory 15 Rate Blood Pressure 97/61 O2 Saturation 97 Oxygen O2 Source Room air - Labs Labs: Laboratory Tests 10/24/20 10/24/20 10/24/20 09:20 09:20 11:48 WBC 5.4 RBC 3.88 L Hgb 12.2 Hct 37.2 MCV 95.9 MCH 31.4 H MCHC 32.8 RDW 14.4 Plt Count 203 MPV 10.0 Neut # (Auto) 3.7 Lymph # (Auto) 1.2 L [place] # (Auto) 0.4 Eos # (Auto) 0.1 Baso # (Auto) 0.0 Absolute Nucleated RBC 0.00 Nucleated RBC % 0.0 Sodium 132 L Potassium 3.9 Chloride 94 L Carbon Dioxide 24 Anion Gap 14.0 H BUN 22 H Creatinine 0.8 Estimated GFR (MDRD) 73 L Glucose 135 H Calcium 9.2 Total Bilirubin 1.2 H AST 135 H ALT 109 H Alkaline Phosphatase 113 Total Protein 7.0 Albumin 3.8 Globulin 3.2 Albumin/Globulin Ratio 1.2 Lipase 32 Urine Color YELLOW Urine Clarity CLEAR Urine pH 6.0 Ur Specific [place] 1.010 Urine Protein NEGATIVE Urine Glucose (UA) NEGATIVE Urine Ketones NEGATIVE Urine Occult Blood TRACE-INTA Urine Nitrite NEGATIVE Urine Bilirubin NEGATIVE Urine Urobilinogen 0.2 (NORMAL) Ur Leukocyte Esterase NEGATIVE Ur Microscopic Review NOT INDICATED Urine Culture Comments NOT INDICATED - Rads (name of study) Ct Chest Radiology: EMP read contemporaneously (unchanged) CT A/P Radiology: EMP read contemporaneously (Distended GB with thick wall.) PD MEDICAL DECISION MAKING - ED course ED course: 60-year-old woman with extensive abdominal surgery history presents with right- sided abdominal pain and work-up is suggestive of cholecystitis. She was feeling better but not pain-free after some IV Dilaudid. Spoke with Dr. Bradley our surgeon who will see her after his current operative case. Agrees with Mariana in the interim. However, after Dr. Bradley evaluated the patient, looked at her history and examined her felt she should probably go back to [facility] [place] feeling that if there was a complication with the bile duct, only few places could handle that and [facility] [place] is 1, he also felt that they may wish to temporize her with cholecystostomy instead of cholecystectomy. She was accepted by Dr Suman Kilpatrick to [facility] at 1409 and [place] are completed. Departure - Departure Disposition: 02 Transfer Acute Care Hosp Clinical Impression: Cholecystitis, Adrenal insufficiency Condition: Stable
[2020-10-24] MEDS ORDERED: IOVERSOL 320 100 ML VIAL IVP ONE ×2 (09:30→12:21)
[2020-10-24] MEDS ORDERED: IOPAMIDOL-300 50 ML VIAL ONE (09:30)
[2020-10-24 09:31] LABS: BASOPHILS % (AUTO) 0.4 %; EOSINOPHILS # (AUTO) 0.1 10^3/uL (0.0-0.7); EOSINOPHILS % (AUTO) 1.1 %; HCT - HEMATOCRIT 37.2 % (37.0-47.0); HGB - HEMOGLOBIN 12.2 g/dL (12.0-16.0); LYMPHOCYTES # (AUTO) 1.2 10^3/uL (1.5-3.5); LYMPHOCYTES % (AUTO) 22.4 %; MEAN CORPUSCULAR HEMOGLOBIN 31.4 pg (27.0-31.0); MEAN CORPUSCULAR HGB CONC 32.8 g/dL (32.0-36.0); MEAN CORPUSCULAR VOLUME 95.9 fL (81.0-99.0); MONOCYTES # (AUTO) 0.4 10^3/uL (0.0-1.0); MONOCYTES % (AUTO) 6.5 %; NEUTROPHILS # (AUTO) 3.7 10^3/uL (1.5-6.6); NEUTROPHILS % (AUTO) 69.2 %; PLT - PLATELET COUNT 203 10^3/uL (130-450); RED BLOOD COUNT 3.88 10^6/uL (4.20-5.40); RED CELL DISTRIBUTION WIDTH 14.4 % (12.0-15.0); WHITE BLOOD COUNT 5.4 x10^3/uL (4.8-10.8)
[2020-10-24 09:48] LABS: ALBUMIN 3.8 g/dL (3.2-5.5); ALBUMIN/GLOBULIN RATIO 1.2 (1.0-2.2); BILIRUBIN,TOTAL 1.2 mg/dL (0.2-1.0); CALCIUM 9.2 mg/dL (8.5-10.3); CREATININE 0.8 mg/dL (0.4-1.0); POTASSIUM 3.9 mmol/L (3.5-5.0)
--- NOTE | 2020-10-24 11:30 | CT Report ---
PROCEDURE: Abdomen/Pelvis W INDICATIONS: IV and PO, R abd pain CONTRAST: IV CONTRAST: Isovue 370 ml: 100 PO CONTRAST: Isovue 300 ml50 TECHNIQUE: After the administration of IV contrast, 5 mm thick sections acquired from the diaphragms to the symp hysis. 5 mm thick coronal and sagittal reformats were acquired. For radiation dose reduction, the f ollowing was used: automated exposure control, adjustment of mA and/or kV according to patient size. COMPARISON: 06/30/2020 CT abdomen pelvis FINDINGS: Image quality: Excellent. ABDOMEN: Lung bases: Lung bases are clear. Heart size is normal. Solid organs: Spleen unremarkable except for a nonspecific 5 mm hypodensity in the posterior segment. Hepatic foci statistically representing cysts although technically indeterminate due to small size. These appear unchanged.. Gallbladder appears dilated, and there is diffuse gallbladder wall thickeni ng. No radiopaque calculi seen. No pericholecystic inflammation identified. Biliary system is non dilated. Pancreas enhances normally. No adrenal nodules. Kidneys demonstr ate normal size and enhancement, without hydronephrosis. Peritoneum and bowel: Postsurgical changes related to partial gastrectomy. No evidence of bowel obst ruction or specific transition point. The appendix is not clearly identified however no suspicious in flammatory changes in the right lower quadrant. No free fluid or air. Nodes and vessels: No retroperitoneal or mesenteric adenopathy by size criteria. Aorta and inferior vena cava are normal in size. Miscellaneous: No ventral hernias. PELVIS: Genitourinary: Bladder wall thickness is normal. Miscellaneous: No inguinal hernias or adenopathy. T12-L1 compression fracture although grossly unchanged appearance since 06-30. IMPRESSION: Distended appearance of the gallbladder with gallbladder wall thickening. However no other pericholec ystic inflammatory changes. No radiopaque calculi. Recommend close clinical correlation and with LFTs to exclude acute cholecystitis. Differential includes chronic/acalculous cholecystitis. If needed, d edicated ultrasound and/or HIDA scan could be considered. Elsewhere, no acute abnormality Additional chronic and incidental findings as above. Reviewed by: Cam Aguayo MD on 10/24/2020 11:28 AM PDT Approved by: Cam Aguayo MD on 10/24/2020 11:28 AM PDT Station ID: [id number]
--- NOTE | 2020-10-24 11:42 | CT Report ---
PROCEDURE: CHEST W INDICATIONS: Gastric cancer CONTRAST: IV CONTRAST: Optiray 320 ml: 100 PO CONTRAST: Isovue 300 ml50 TECHNIQUE: After the administration of intravenous contrast, 5 mm thick sections acquired from the pulmonary api ramiro to the posterior costophrenic angles. 7 mm thick coronal MIP reformats were acquired. For radia tion dose reduction, the following was used: automated exposure control, adjustment of mA and/or kV according to patient size. COMPARISON: CT chest 10/10/2019, 06/12/2020 FINDINGS: Image quality: Excellent. Lungs and pleura: No acute air space opacities. No pleural effusions or pneumothorax. Central and peripheral airways are patent and normal in caliber. Unchanged 2 mm nodular opacity posterior to the right major fissure on series 3 image 150. Mediastinum: Heart size is normal. No pericardial effusion. No mediastinal or hilar adenopathy by size criteria. Thoracic aorta and central pulmonary arteries are normal in size. Esophagus is fluid -filled with contrast extending to the thoracic esophagus. Postsurgical changes reflecting gastrectom y. Bones and chest wall: No suspicious bony lesions. No vertebral body compression fractures. No axil mitchell or supraclavicular adenopathy by size criteria. Thyroid gland is unremarkable. Abdomen: There are scattered low-attenuation hepatic and splenic foci, unchanged. There is a hyperde nse lesion in the lateral aspect of the right hepatic lobe on series 2 image 50, also unchanged. Gall bladder demonstrates an appearance of thickened wall versus pericholecystic fluid. No stones are iden tified. IMPRESSION: 1. Nonspecific, unchanged 2 mm nodular opacity within the right lower lobe as above. 2. Surgical gastrectomy changes with fluid-filled esophagus. 3. Unchanged hepatic and splenic hypoattenuation foci. Reviewed by: Yelena Lim MD on 10/24/2020 11:41 AM PDT Approved by: Yelena Lim MD on 10/24/2020 11:41 AM PDT Station ID: [id number]
[2020-10-24] MEDS ORDERED: PIPERACILLIN/TAZOBACTAM 3.375 GM in SODIUM CHLORIDE 0.9% MINIBAG 100 ML IV STA (11:56)
[2020-10-24 11:58] LABS: BILIRUBIN,URINE NEGATIVE (NEGATIVE); GLUCOSE, URINE (UA) NEGATIVE (NEGATIVE); KETONES,URINE (UA) NEGATIVE (NEGATIVE); LEUKOCYTE ESTERASE, URINE NEGATIVE (NEGATIVE); NITRITE,URINE NEGATIVE (NEGATIVE); OCCULT BLOOD,URINE TRACE-INTA (NEGATIVE); PROTEIN,URINE NEGATIVE (NEGATIVE); UROBILINOGEN,URINE 0.2 (NORMAL) E.U./dL (NORMAL)
[2020-10-24 12:01] LABS: CLARITY,URINE CLEAR (CLEAR)
--- NOTE | 2020-10-24 13:35 | PROVIDER PROGRESS NOTE ---
Progress Note 60-year-old female with admission for abdominal pain who is notable for history of gastric cancer, unknown stage, status post total laparoscopic gastrectomy with presumptive Tennille-en-Y reconstruction in February 2020. Patient completed chemotherapy in May 2020. At that time the patient had already undergone above-stated gastrectomy, with presumptive Tennille-en-Y reconstruction, at which time she also went partial colectomy by report as well as left adrenalectomy. Patient is adrenally suppressed with the insufficient function in the remnant right adrenal gland and the is on steroid supplementation. Patient also is notable for a history of, per , "cardiac arrest" in July 2019 at which time she was transferred from [facility] to [place] where she was ultimately diagnosed with gastric mass in the setting of known anemia. There are multiple concerns here as it relates to the patient's presenting symptomatology however with regard to her need for higher level of care these are my thoughts: 1. If this were to be concerning for a recurrence we are not suited to either temporarily drain through percutaneous transhepatic cholecystostomy or any other intervention. 2. The patient does have elevated bilirubin and we are unable able to perform MRCP and if necessary for ERCP this is an exceedingly difficult candidate for endoscopic decompression given her postoperative anatomy. 3. We neither have cardiology nor endocrinology in-house given the patient's known comorbid states. 4. Even if we were to have all the records for review, the extent of her historic resection and its recency behooves us to defer to the historic operating team as far as insight input and decision making as this will nonetheless be a challenging case. I have discussed this at length with the patient and with Dr. Mays from the emergency room and we have agreed that the patient would be best served returning to [facility] where she has had all her care which is best for this patient at this time. Please note that voice recognition software was used to transcribe this note and inadvertent errors might persist in spite of review and editing. I am obliged to you for your attention. I am thankful to you for allowing me to participate with you in this care of this patient.
[2020-10-24] MEDS ORDERED: HYDROCORTISONE SUCCINATE 100 MG/2 ML VIAL IVP SCH (14:00)
[2020-10-24] MEDS ORDERED: DEXTROSE 5%-LACTATED RINGERS 1,000 ML IV SCH (15:00)
[2020-10-24 15:20] LABS: B. PARAPERTUSSIS- RESP PCR PAN NOT DETECTED; B. PERTUSSIS- RESP PCR PANEL NOT DETECTED; C. PNEUMONIAE- RESP PCR PANEL NOT DETECTED; CORONAVIRUS 229E-RESP PCR NOT DETECTED; CORONAVIRUS HKU1-RESP PCR NOT DETECTED; CORONAVIRUS NL63-RESP PCR NOT DETECTED; CORONAVIRUS OC43-RESP PCR NOT DETECTED; HUMAN METAPNEUMOVIRUS NOT DETECTED; INFLUENZA A- RESP PCR PANEL NOT DETECTED; INFLUENZA B - RESP PCR PANEL NOT DETECTED; M. PNEUMONIAE- RESP PCR PANEL NOT DETECTED; PARAINFLUENZA VIRUS 1 NOT DETECTED; PARAINFLUENZA VIRUS 2 NOT DETECTED; PARAINFLUENZA VIRUS 3 NOT DETECTED; PARAINFLUENZA VIRUS 4 NOT DETECTED; RHINOVIRUS/ENTEROVIRUS NOT DETECTED; RSV- RESP PCR PANEL NOT DETECTED; SARS-CoV-2 -RESP PCR PANEL NOT DETECTED
[2020-10-24 16:13] VITALS: BP 91/58
== END 2020-10-24 16:12 | disposition short-term general hospital (02) ==
LOC: ED 08:46
DX: K81.9 Cholecystitis, unspecified (principal); E27.40 Unspecified adrenocortical insufficiency; Z85.028 Personal history of other malignant neoplasm of stomach; Z90.3 Acquired absence of stomach [part of]; Z90.49 Acquired absence of other specified parts of digestive tract; Z20.822 Contact with and (suspected) exposure to COVID-19; I10 Essential (primary) hypertension; E11.9 Type 2 diabetes mellitus without complications; Z79.82 Long term (current) use of aspirin; F17.200 Nicotine dependence, unspecified, uncomplicated
CPT/HCPCS: 0202U; 36415; 71260; 74177; 80053; 81003; 83690; 85025; 96361; 96365; 96375; 96376; 99285; J1170; Q9967; 81001; 87086

== ENCOUNTER 2020-10-24 16:06 | Outpatient (CLI) | payer OTHER | END 2020-10-24 16:07 | disposition short-term general hospital (02) | LOC: EMS 16:06 | PROVIDERS: ATTEND Emergency Medicine | DX: K81.9 Cholecystitis, unspecified (principal); E27.40 Unspecified adrenocortical insufficiency | CPT/HCPCS: A0425; A0426 ==

== ENCOUNTER 2020-11-08 08:00 | Outpatient (CLI) | payer OTHER ==
[2020-11-08 15:03] LABS: CALCIUM 9.5 mg/dL (8.5-10.3); CREATININE 0.6 mg/dL (0.4-1.0); POTASSIUM 4.4 mmol/L (3.5-5.0)
== END 2020-11-08 23:59 | disposition home or self-care (01) ==
LOC: LAB 08:00
PROVIDERS: ATTEND Internal Medicine
DX: I50.22 Chronic systolic (congestive) heart failure (principal)
CPT/HCPCS: 36415; 80048

== ENCOUNTER 2020-11-22 13:03 | Outpatient (CLI) | payer OTHER ==
[2020-11-22 13:25] LABS: CREATININE 0.6 mg/dL (0.4-1.0); POTASSIUM 4.1 mmol/L (3.5-5.0)
== END 2020-11-22 13:04 | disposition home or self-care (01) ==
LOC: LAB 13:03
PROVIDERS: ATTEND Internal Medicine
DX: I50.22 Chronic systolic (congestive) heart failure (principal)
CPT/HCPCS: 36415; 80048

== ENCOUNTER 2020-12-06 13:29 | Outpatient (CLI) | payer OTHER ==
[2020-12-06 14:02] LABS: CREATININE 0.6 mg/dL (0.4-1.0); POTASSIUM 4.7 mmol/L (3.5-5.0)
== END 2020-12-06 13:30 | disposition home or self-care (01) ==
LOC: LAB 13:29
PROVIDERS: ATTEND Internal Medicine
DX: I50.22 Chronic systolic (congestive) heart failure (principal)
CPT/HCPCS: 36415; 80048

== ENCOUNTER 2020-12-13 12:30 | Inpatient (IN) | payer OTHER ==
--- OUTSIDE RECORDS SUMMARY | 2020-12-13 12:33 | EXTERNAL MEDICAL SUMMARY RPT | Continuity of Care Document ---
:1960 Demographics Phone Unavailable Preferred Language Unknown Marital Status Unknown Taoism Affiliation Unknown Race Unknown Ethnic Group Unknown Author Organization [facility] Address [address] [phone] Phone Problems date description facility [id number] Cholecystit[facility]
--- OUTSIDE RECORDS SUMMARY | 2020-12-13 13:08 | EXTERNAL MEDICAL SUMMARY RPT | Continuity of Care Document ---
:1960 Demographics Phone Unavailable Preferred Language Unknown Marital Status Unknown Protestant Affiliation Unknown Race Unknown Ethnic Group Unknown Author Organization [facility] Address [address] [phone] Phone Problems date description facility [id number] Cholecystitis [facility]
[2020-12-13] MEDS ORDERED: HYDROCORTISONE SUCCINATE 100 MG/2 ML VIAL IVP STA (13:10)
[2020-12-13] MEDS ORDERED: SODIUM CHLORIDE 0.9% 1,000 ML IV STA ×2 (13:10→14:18)
--- NOTE | 2020-12-13 13:23 | ED Physician Documentation ---
History of Present Illness - Stated complaint Stated Complaint: COLD, WEAK, VOMITING - Chief complaint Chief Complaint: Neuro - History obtained from History obtained from: Patient, Family - History of Present Illness Timing: Today Pain level max: 3 Pain level now: 3 Improved by: nothing Worsened by: eating - Additonal information Additional information: Patient is a 60-year-old female who presents to the emergency department with abdominal pain and vomiting this morning. History of gastric cancer that was resected in February 2020. Had 4 sessions of chemotherapy and was told that she is "cancer free". 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 She is on hydrocortisone daily. She did not take it this morning. She is approximately 2 months status post a cholecystectomy. Has had no complications from this. She does occasionally get abdominal cramping, but the vomiting is unusual. She also felt cold to the touch. No fevers. No urinary symptoms. No diarrhea. No headache. No Covid exposure. Has not had her Covid vaccination. Review of Systems Ten Systems: 10 systems reviewed and negative Constitutional: reports: Chills. denies: Fever Nose: denies: Rhinorrhea / runny nose, Congestion Respiratory: denies: Cough GI: reports: Abdominal Pain, Vomiting Musculoskeletal: denies: Neck pain, Back pain Neurologic: denies: Headache PD PAST MEDICAL HISTORY - Past Medical History Past Medical History: Yes Cardiovascular: Congestive heart failure, Hypertension, High cholesterol, DE, Other Respiratory: None Neuro: None Endocrine/Autoimmune: Type 2 diabetes GI: Hepatitis, Other : None HEENT: Chronic vision loss Psych: None Musculoskeletal: None Derm: None - Past Surgical History Past Surgical History: Yes General: Cholecystectomy, Gastric surgery, Colonoscopy, EGD, Other - Present Medications Home Medications: Ambulatory Orders Medication Instructions Recorded Confirmed Atorvastatin [Lipitor] 40 mg PO DAILY 09/06/19 10/24/20 Ferrous Sulfate 325 mg PO DAILY 09/06/19 10/24/20 Furosemide 20 mg PO DAILY 10/24/19 10/24/20 Sacubitril/Valsartan [Entresto 49 1 tab PO BID 10/24/19 10/24/20 mg-51 mg Tablet] Metoprolol Tartrate 25 mg PO DAILY 04/25/20 10/24/20 Potassium Chloride 20 ml PO DAILY 05/09/20 10/24/20 Aspirin [Aspirin EC] 1 tab PO DAILY 05/24/20 10/24/20 Hydrocortisone 5 - 10 mg PO DAILY 05/24/20 09/18/20 - Allergies Allergies/Adverse Reactions: Allergies Allergy/AdvReac Type Severity Reaction Status Date / Time No Known Drug Allergies Allergy Verified 12/13/20 12:49 - Social History Does the pt smoke?: Yes Smoking Status: Current every day smoker Does the pt drink ETOH?: No Does the pt have substance abuse?: No - Immunizations Immunizations are current?: Yes - POLST Patient has POLST: Yes POLST Status: Full Code PD ED PE NORMAL - Vitals Vital signs reviewed: Yes - General General: Alert and oriented X 3, No acute distress, Well developed/nourished - HEENT HEENT: PERRL, Moist mucous membranes - Neck Neck: Supple, no meningeal sign - Cardiac Cardiac: RRR, Strong equal pulses - Respiratory Respiratory: No respiratory distress, Clear bilaterally - Abdomen Abdomen: Soft, Non tender, Non distended, Other (incisions are CDI) - Derm Derm: Warm and dry - Extremities Extremities: No edema, No calf tenderness / cord - Neuro Neuro: Alert and oriented X 3 - Psych Psych: Normal mood, Normal affect Results - Vitals Vitals: Vital Signs - 24 hr 12/13/20 12/13/20 12/13/20 12:45 13:11 13:34 Temperature 34.2 C L Heart Rate 69 62 69 Respiratory 19 11 L 16 Rate Blood Pressure 85/42 L 102/67 96/60 O2 Saturation 100 100 100 12/13/20 12/13/20 12/13/20 14:05 14:39 15:13 Temperature 36.4 C L Heart Rate 58 L 61 66 Respiratory 14 13 16 Rate Blood Pressure 95/61 109/60 118/60 O2 Saturation 100 100 100 12/13/20 12/13/20 12/13/20 15:52 16:10 16:33 Temperature Heart Rate 77 76 78 Respiratory 139 H 15 14 Rate Blood Pressure 98/61 97/64 101/62 O2 Saturation 99 99 97 12/13/20 16:50 Temperature 36.2 C L Heart Rate 78 Respiratory 13 Rate Blood Pressure 103/63 O2 Saturation 96 Oxygen O2 Source Room air - Labs Labs: Laboratory Tests 12/13/20 12/13/20 12/13/20 13:40 13:40 16:02 WBC 4.1 L RBC 5.76 H Hgb 17.8 H Hct 56.6 H MCV 98.3 MCH 30.9 MCHC 31.4 L RDW 14.1 Plt Count 113 L MPV 9.8 Neut # (Auto) 2.8 Lymph # (Auto) 1.1 L [place] # (Auto) 0.1 Eos # (Auto) 0.1 Baso # (Auto) 0.0 Absolute Nucleated RBC 0.00 Nucleated RBC % 0.0 Sodium 138 Potassium 4.2 Chloride 102 Carbon Dioxide 23 Anion Gap 13.0 BUN 29 H Creatinine 0.8 Estimated GFR (MDRD) 73 L Glucose 151 H Calcium 9.6 Total Bilirubin 0.7 AST 618 H ALT 525 H Alkaline Phosphatase 168 H Total Protein 7.3 Albumin 4.4 Globulin 2.9 Albumin/Globulin Ratio 1.5 Lipase 48 Nasal Adenovirus (PCR) NOT DETECTED Nasal B. parapertussis DNA (PCR) NOT DETECTED Nasal Coronavir 229E PCR NOT DETECTED Nasal Coronavir HKU1 PCR NOT DETECTED Nasal Coronavir NL63 PCR NOT DETECTED Nasal Coronavir OC43 PCR NOT DETECTED Nasal Enterovir/Rhinovir PCR NOT DETECTED Nasal Influenza B PCR NOT DETECTED Nasal Influenza A PCR NOT DETECTED Nasal Parainfluen 1 PCR NOT DETECTED Nasal Parainfluen 2 PCR NOT DETECTED Nasal Parainfluen 3 PCR NOT DETECTED Nasal Parainfluen 4 PCR NOT DETECTED Nasal RSV (PCR) NOT DETECTED Nasal B.pertussis DNA PCR NOT DETECTED Nasal C.pneumoniae (PCR) NOT DETECTED Bharat Human Metapneumo PCR NOT DETECTED Nasal M.pneumoniae (PCR) NOT DETECTED Nasal SARS-CoV-2 (PCR) NOT DETECTED - Rads (name of study) CT abd/pelvis Radiology: Prelim report reviewed, EMP read contemporaneously, See rad report PD MEDICAL DECISION MAKING - ED course Complexity details: reviewed results, re-evaluated patient, considered differential, d/w patient ED course: 60-year-old female with abdominal pain for pain improved. No abnormal fluid collection in the gallbladder fossa on CT. She does have a small bowel obstruction, transition zone is not definitively identified on CT. She has elevations of her LFTs as well, though no ductal dilatation or evidence of retained stone. Normal bilirubin. As she is not vomiting and pain is well controlled, we will hold an NG tube at this time. Discussed the case with Dr. Fischer, general surgery on-call who will follow along as consult. Discussed the case with Dr. Roman, hospitalist who accepts. This document was made in part using voice recognition software. While efforts are made to proofread this document, sound alike and grammatical errors may occur. IMPRESSION: 1. Interval cholecystectomy with surgical clips seen in gallbladder fossa. No abnormal fluid collection seen within gallbladder fossa. 2. Extensive postsurgical changes from prior partial bowel resection and gastrectomy. Fluid distended small bowel loops throughout abdomen suggestive of high-grade distal small bowel obstruction. Exact zone of transition is not definitively identified. No peritoneal free air is seen. No significant abdominal or pelvic fluid. 3. Mild bibasilar dependent atelectasis. Departure - Departure Disposition: 66 [facility] DC/Xfer Clinical Impression: Small bowel obstruction, Elevated LFTs, Adrenal insufficiency Condition: Stable
[2020-12-13 14:09] LABS: HCT - HEMATOCRIT 56.6 % (37.0-47.0); HGB - HEMOGLOBIN 17.8 g/dL (12.0-16.0); RED BLOOD COUNT 5.76 10^6/uL (4.20-5.40); WHITE BLOOD COUNT 4.1 x10^3/uL (4.8-10.8)
[2020-12-13 14:10] LABS: BASOPHILS % (AUTO) 0.2 %; EOSINOPHILS % (AUTO) 2.2 %; LYMPHOCYTES % (AUTO) 25.6 %; MEAN CORPUSCULAR HEMOGLOBIN 30.9 pg (27.0-31.0); MEAN CORPUSCULAR HGB CONC 31.4 g/dL (32.0-36.0); MEAN CORPUSCULAR VOLUME 98.3 fL (81.0-99.0); MEAN PLATELET VOLUME 9.8 fL (7.9-10.8); MONOCYTES % (AUTO) 2.9 %; NEUTROPHILS % (AUTO) 68.4 %; PLT - PLATELET COUNT 113 10^3/uL (130-450); RED CELL DISTRIBUTION WIDTH 14.1 % (12.0-15.0)
[2020-12-13 14:11] LABS: EOSINOPHILS # (AUTO) 0.1 10^3/uL (0.0-0.7); LYMPHOCYTES # (AUTO) 1.1 10^3/uL (1.5-3.5); MONOCYTES # (AUTO) 0.1 10^3/uL (0.0-1.0); NEUTROPHILS # (AUTO) 2.8 10^3/uL (1.5-6.6)
[2020-12-13 14:15] LABS: POTASSIUM 4.2 mmol/L (3.5-5.0)
[2020-12-13 14:33] LABS: ALBUMIN 4.4 g/dL (3.2-5.5); ALBUMIN/GLOBULIN RATIO 1.5 (1.0-2.2); BILIRUBIN,TOTAL 0.7 mg/dL (0.2-1.0); CALCIUM 9.6 mg/dL (8.5-10.3); CREATININE 0.8 mg/dL (0.4-1.0); TOTAL PROTEIN 7.3 g/dL (6.7-8.2)
[2020-12-13] MEDS ORDERED: IOPAMIDOL-300 100 ML VIAL ONE (14:46)
--- NOTE | 2020-12-13 15:44 | CT Report ---
PROCEDURE: Abdomen/Pelvis W INDICATIONS: RUQ abd pain, 2 months s/p CCY CONTRAST: IV CONTRAST: Isovue 300 ml: 80 PO CONTRAST: *NO PO CONTRAST TECHNIQUE: After the administration of IV contrast, 5 mm thick sections acquired from the diaphragms to the symp hysis. 5 mm thick coronal and sagittal reformats were acquired. For radiation dose reduction, the f ollowing was used: automated exposure control, adjustment of mA and/or kV according to patient size. COMPARISON: 10/24/2020. FINDINGS: Image quality: Excellent. ABDOMEN: Lung bases: Bibasilar dependent atelectasis is seen posteriorly. Heart size is normal. Solid organs: Liver and spleen are normal in size and enhancement. Gallbladder is surgically absent . Biliary system is non dilated. Pancreas enhances normally. No adrenal nodules. Kidneys demonstr ate normal size and enhancement, without hydronephrosis. Peritoneum and bowel: Again noted is prior gastrectomy with postsurgical changes seen in epigastric r egion. There is also suggestion of partial bowel resection in right side of abdomen with surgical cli ps and sutures seen. Similar postsurgical changes are also noted in left upper quadrant abdomen. Flui d distended small bowel loops are noted throughout abdomen with a few air-fluid levels measures up to 3.9 cm in diameter. Transverse colon and proximal descending colon is decompressed with fecal matter distending mid to distal descending colon and sigmoid colon extending to the rectum. There is no abs cess collection. No obvious bowel wall thickening or gross peritoneal free air. No peritoneal free fl uid. No definite zone of transition is identified on this study. Nodes and vessels: No retroperitoneal or mesenteric adenopathy by size criteria. Aorta and inferior vena cava are normal in size. Miscellaneous: No ventral hernias. PELVIS: Genitourinary: Bladder wall thickness is normal. Miscellaneous: No inguinal hernias or adenopathy. Bones: No suspicious bony lesions. No vertebral body compression fractures. IMPRESSION: 1. Interval cholecystectomy with surgical clips seen in gallbladder fossa. No abnormal fluid collecti on seen within gallbladder fossa. 2. Extensive postsurgical changes from prior partial bowel resection and gastrectomy. Fluid distended small bowel loops throughout abdomen suggestive of high-grade distal small bowel obstruction. Exact zone of transition is not definitively identified. No peritoneal free air is seen. No significant abd ominal or pelvic fluid. 3. Mild bibasilar dependent atelectasis. Reviewed by: Gabriel Bolivar MD on 12/13/2020 3:42 PM PDT Approved by: Gabriel Bolivar MD on 12/13/2020 3:42 PM PDT Station ID: [id number]
[2020-12-13] MEDS ORDERED: SODIUM CHLORIDE FLUSH 0.9% 10 ML SYRINGE IVP PRN (16:59)
[2020-12-13] MEDS ORDERED: ONDANSETRON 4 MG/2 ML VIAL IVP PRN (16:59)
[2020-12-13] MEDS ORDERED: HYDROmorphone 0.5 MG/0.5 ML SYRINGE IVP PRN (16:59)
[2020-12-13 17:02] LABS: B. PARAPERTUSSIS- RESP PCR PAN NOT DETECTED; B. PERTUSSIS- RESP PCR PANEL NOT DETECTED; C. PNEUMONIAE- RESP PCR PANEL NOT DETECTED; CORONAVIRUS 229E-RESP PCR NOT DETECTED; CORONAVIRUS HKU1-RESP PCR NOT DETECTED; CORONAVIRUS NL63-RESP PCR NOT DETECTED; CORONAVIRUS OC43-RESP PCR NOT DETECTED; HUMAN METAPNEUMOVIRUS NOT DETECTED; INFLUENZA A- RESP PCR PANEL NOT DETECTED; INFLUENZA B - RESP PCR PANEL NOT DETECTED; M. PNEUMONIAE- RESP PCR PANEL NOT DETECTED; PARAINFLUENZA VIRUS 1 NOT DETECTED; PARAINFLUENZA VIRUS 2 NOT DETECTED; PARAINFLUENZA VIRUS 3 NOT DETECTED; PARAINFLUENZA VIRUS 4 NOT DETECTED; RHINOVIRUS/ENTEROVIRUS NOT DETECTED; RSV- RESP PCR PANEL NOT DETECTED; SARS-CoV-2 -RESP PCR PANEL NOT DETECTED
[2020-12-13] MEDS ORDERED: IOPAMIDOL-300 100 ML VIAL IVP ONE (17:05)
--- NOTE | 2020-12-13 17:07 | HISTORY & PHYSICAL EXAMINATION ---
Chief Complaint - Chief Complaint Chief Complaint: nausea, vomiting, abdominal pain History of Present Illness - Admitted From Admitted From:: [facility] ED - History Obtained From Records Reviewed: yes History obtained from: patient - History of Present Illness HPI Comment/Other: Patient is a 60-year-old female with history of stomach cancer s/p gastric surgery and chemotherapy which was managed by Dr. Davis. She has since then also undergone a cholecystectomy. She presented to the ED today with complaint of abdominal pain, nausea and vomiting which started today after breakfast. She had strawberry jelly sandwich, broccoli, yogurt, miso soup and sweet potatoes for breakfast. At the worse her abdominal pain was 8 out of 10. At the time of my evaluation she denied any abdominal pain. She denies chest pain, dyspnea, fever. However it appears she was very cold and had several blankets on. Work-up in the ED included a CT of the abdomen/pelvis which showed a bowel obstruction. As a result she was presented for admission for further management. History - Past Medical History Cardiovascular: reports: Congestive heart failure, Hypertension, High cholesterol, [place], Other Respiratory: reports: None Neuro: reports: None Endocrine/Autoimmune: reports: Type 2 diabetes GI: reports: Hepatitis, Other : reports: None HEENT: reports: Chronic vision loss Psych: reports: None Musculoskeletal: reports: None Derm: reports: None MRSA Hx?: No - Past Surgical History General: reports: Cholecystectomy, Gastric surgery, Colonoscopy, EGD, Other - Family & Social History Family History: Mother: (both were no siginificant medical problem), Father: Family History Comment/Other: pt reports her parents both did not have any significant medical problem. Social History Notes: According to records, the patient reports current cigarette smoking, denies alcohol and drug issue. she lives in [facility] - POLST Patient has POLST: Yes POLST Status: Full Code Meds/Allgy - Home Medications Home Medications: Ambulatory Orders Medication Instructions Recorded Confirmed Atorvastatin [Lipitor] 40 mg PO DAILY 09/06/19 10/24/20 Ferrous Sulfate 325 mg PO DAILY 09/06/19 10/24/20 Furosemide 20 mg PO DAILY 10/24/19 10/24/20 Sacubitril/Valsartan [Entresto 49 1 tab PO BID 10/24/19 10/24/20 mg-51 mg Tablet] Metoprolol Tartrate 25 mg PO DAILY 04/25/20 10/24/20 Potassium Chloride 20 ml PO DAILY 05/09/20 10/24/20 Aspirin [Aspirin EC] 1 tab PO DAILY 05/24/20 10/24/20 Hydrocortisone 5 - 10 mg PO DAILY 05/24/20 09/18/20 - Allergies Allergies/Adverse Reactions: Allergies Allergy/AdvReac Type Severity Reaction Status Date / Time No Known Drug Allergies Allergy Verified 12/13/20 12:49 Review of Systems - Constitutional Constitutional: reports: Chills. denies: Fatigue, Fever - Eyes Eyes: denies: Pain, Dipolpia - Ears, Nose & Throat Ears, Nose & Throat: denies: Ear pain - Cardiovascular Cariovascular: denies: Irregular heart rate, Palpitations, Chest pain, Edema, Lightheadedness, Syncope, Exertional dyspnea - Respiratory Respiratory: denies: Wheezing, SOB at rest, SOB with exertion - Gastrointestinal Gastrointestinal: reports: Abdominal pain, Nausea, Vomiting, Bloating. denies: Constipation, Coffee grounds emesis, Reflux/heartburn - Genitourinary Genitourinary: denies: Dysuria, Frequency, Urgency, Incontinence, Flank pain - Musculoskeletal Musculoskeletal: denies: Muscle pain, Back pain, Muscle aches - Integumentary Integumentary: denies: Rash, Pruritis - Neurological Neurological: denies: General weakness, Headache, Dizziness - Psychiatric Psychiatric: denies: Depression, Anxiety - Endocrine Endocrine: denies: Polyuria, Polydypsia - Hematologic/Lymphatic Hematologic/Lymphatic: denies: Anemia, Bruising, Petechiae Prior Level of Functionality: She is normally independent of activities of daily living Exam - Vital Signs Vital Signs: Vital Signs x48h Temp Pulse Resp BP Pulse Ox 12/13/20 16:50 36.2 C L 78 13 103/63 96 12/13/20 16:33 78 14 101/62 97 12/13/20 16:10 76 15 97/64 99 12/13/20 15:52 77 139 H 98/61 99 12/13/20 15:13 66 16 118/60 100 12/13/20 14:39 36.4 C L 61 13 109/60 100 12/13/20 14:05 58 L 14 95/61 100 12/13/20 13:34 69 16 96/60 100 12/13/20 13:11 62 11 L 102/67 100 12/13/20 12:45 34.2 C L 69 19 85/42 L 100 - Physical Exam General Appearance: positive: No acute distress, Alert Eyes Bilateral: positive: PERRL, EOMI ENT: positive: Dry mucous membranes Neck: positive: No JVD, Trachea midline Respiratory: positive: Chest non-tender, No respiratory distress, Breath sounds nml. negative: Wheezes, Rales, Rhonchi Cardiovascular: positive: Regular rate & rhythm, No murmur Abdomen: positive: Non-tender, No distention, Abnml bowel sounds (decreased), Other. negative: Guarding, Rebound Back: positive: Nml inspection Skin: positive: Color nml, No rash, Warm, Dry. negative: Cyanosis Extremities: positive: Non-tender, Full ROM, No pedal edema Neurologic/Psychiatric: positive: Oriented x3, Mood/affect nml Conclusion/Plan - Problem List (1) Small bowel obstruction Conclusion/Plan: Patient made n.p.o. except for meds. Patient currently does not have any abdominal pain and is not actively vomiting. Consequently we would hold off on an NG placement. IV hydration with normal saline 125ml/hr. Zofran ordered as needed for nausea. Dr. Fischer with general surgery consulted. He was also contacted by the ED and is aware of the patient's presence in the hospital. (2) Elevated LFTs Conclusion/Plan: Etiology undetermined ?2/2 (ischemic hepatopathy)low blood pressure. Will also check acetaminophen and salicylates IV hydration. Trend LFTS (3) Congestive heart failure Conclusion/Plan: We will continue patient's metoprolol tartrate and Entresto. We will hold patient's furosemide while hydrating the patient with normal saline. Qualifiers: Heart failure type: unspecified Heart failure chronicity: acute Qualified Code(s): I50.9 - Heart failure, unspecified (4) Coronary artery disease Conclusion/Plan: On a baby aspirin daily. On atorvastatin 10 mg p.o. nightly. On metoprolol tartrate. (5) Hyperlipidemia Conclusion/Plan: On atorvastatin 10 mg p.o. nightly. (6) Adrenal insufficiency Conclusion/Plan: Was given a dose of hydrocortisone IV in the ED. We will continue patient's hydrocortisone at home dose of 5 mg po once verified. - Lab Results Fish Bones: 12/13/20 13:40 12/13/20 13:40 Core Measures - Anticipated LOS I expect patient to be DC'd or transferred within 96 hours.: Yes - DVT/VTE - Prophylaxis VTE/DVT Device ordered at admit?: Yes VTE/DVT Prophylaxis med ordered at admit?: Yes
--- OUTSIDE RECORDS SUMMARY | 2020-12-13 17:23 | EXTERNAL MEDICAL SUMMARY RPT | Continuity of Care Document ---
:1960 Demographics Phone Unavailable Preferred Language Unknown Marital Status Unknown Confucianism Affiliation Unknown Race Unknown Ethnic Group Unknown Author Organization [place] Address [address] [place] [address] Phone Problems date description facility [id number] Cholecystitis [facility]
[2020-12-13] MEDS: SODIUM CHLORIDE FLUSH 0.9% 10 ML SYRINGE IVP SCH (18:46)
[2020-12-13 22:54] LABS: BILIRUBIN,URINE NEGATIVE (NEGATIVE); GLUCOSE, URINE (UA) NEGATIVE (NEGATIVE); KETONES,URINE (UA) TRACE mg/dL (NEGATIVE); LEUKOCYTE ESTERASE, URINE NEGATIVE (NEGATIVE); NITRITE,URINE NEGATIVE (NEGATIVE); OCCULT BLOOD,URINE NEGATIVE (NEGATIVE); PROTEIN,URINE NEGATIVE (NEGATIVE); UROBILINOGEN,URINE 0.2 (NORMAL) E.U./dL (NORMAL)
[2020-12-13 22:55] LABS: CLARITY,URINE CLEAR (CLEAR)
[2020-12-13] MEDS: SODIUM CHLORIDE 0.9% 1,000 ML IV SCH (23:04)
[2020-12-14 05:17] LABS: BASOPHILS % (AUTO) 0.5 %; EOSINOPHILS % (AUTO) 1.1 %; HCT - HEMATOCRIT 28.4 % (37.0-47.0); HGB - HEMOGLOBIN 9.1 g/dL (12.0-16.0); LYMPHOCYTES # (AUTO) 1.2 10^3/uL (1.5-3.5); LYMPHOCYTES % (AUTO) 32.3 %; MEAN CORPUSCULAR HEMOGLOBIN 31.2 pg (27.0-31.0); MEAN CORPUSCULAR VOLUME 97.3 fL (81.0-99.0); MEAN PLATELET VOLUME 9.4 fL (7.9-10.8); MONOCYTES # (AUTO) 0.3 10^3/uL (0.0-1.0); NEUTROPHILS # (AUTO) 2.2 10^3/uL (1.5-6.6); NEUTROPHILS % (AUTO) 58.8 %; PLT - PLATELET COUNT 164 10^3/uL (130-450); RED BLOOD COUNT 2.92 10^6/uL (4.20-5.40); RED CELL DISTRIBUTION WIDTH 14.3 % (12.0-15.0); WHITE BLOOD COUNT 3.7 x10^3/uL (4.8-10.8)
[2020-12-14 05:28] LABS: ALBUMIN/GLOBULIN RATIO 1.4 (1.0-2.2); BILIRUBIN,TOTAL 0.8 mg/dL (0.2-1.0); CALCIUM 8.6 mg/dL (8.5-10.3); CREATININE 0.5 mg/dL (0.4-1.0); TOTAL PROTEIN 5.2 g/dL (6.7-8.2)
[2020-12-14] MEDS: SODIUM CHLORIDE FLUSH 0.9% 10 ML SYRINGE IVP SCH ×4 (06:19→23:36)
[2020-12-14] MEDS: SODIUM CHLORIDE 0.9% 1,000 ML IV SCH ×4 (06:37→23:35)
--- NOTE | 2020-12-14 08:01 | PROVIDER PROGRESS NOTE ---
Assessment/Plan - Problem List (1) Small bowel obstruction Assessment/Plan: Patient's diet advanced to clear liquids. Continue IV hydration with normal saline. Pain management and nausea management as indicated General surgery following. (2) Elevated LFTs Assessment/Plan: Likely due to low blood pressure. Patient's liver function tests has significantly improved today compared to the previous day. We will continue to trend. (3) Congestive heart failure Qualifiers: Heart failure type: unspecified Heart failure chronicity: acute Qualified Code(s): I50.9 - Heart failure, unspecified Assessment/Plan: On metoprolol tartrate and Entresto. We will continue to hold furosemide. (4) Coronary artery disease Assessment/Plan: On a baby aspirin daily. On atorvastatin 10 mg p.o. nightly. On metoprolol tartrate. (5) Hyperlipidemia Assessment/Plan: On atorvastatin 10 mg p.o. nightly. (6) Adrenal insufficiency Assessment/Plan: On hydrocortisone 5 mg p.o. daily. - Current Meds Current Meds: Current Medications Generic Name Dose Route Start Last Admin Trade Name Freq PRN Reason Stop Dose Admin Sodium Chloride 1,000 mls @ 125 mls/hr 12/13/20 17:00 12/14/20 06:37 Normal Saline 0.9% IV 125 mls/hr .Q8H DILAN Administration Sodium Chloride 10 ml 12/13/20 17:00 12/14/20 06:19 Sodium Chloride Flush 0.9% 10 Ml Syringe IVP Not Given 0100,0900,1700 DILAN - Lab Result Fish Bone Diagrams: 12/14/20 04:25 12/14/20 04:25 - Additional Planning My Orders: My Active Orders 12/13/20 16:59 Activity Orders [RC] Q2HR IO [RC] IOSHIFT Initiate Bowel Care Protocol [RC] .protocol Initiate Line Care Protocol [RC] QSHIFT Initiate Personal Care Protoco [RC] .protocol Telemetry- [RC] Q4HR Vital Signs [RC] Q4H HYDROmorphone 0.5MG SYRINGE [Dilaudid Inj Syringe] 0.5 mg IVP Q2H PRN Ondansetron Inj [Zofran Inj] 4 mg IVP Q6HR PRN Sodium Chloride Flush 0.9% [Normal Saline Flush 0.9%] 10 ml IVP PRN PRN Code Status [OTHERS] Routine Condition of Patient [OTHERS] Routine DVT Prophylaxis [OTHERS] Routine 12/13/20 17:00 Sodium Chloride 0.9% [Normal Saline 0.9%] 1,000 ml IV 125 mls/hr Sodium Chloride Flush 0.9% [Normal Saline Flush 0.9%] 10 ml IVP 0100,0900,1700 12/13/20 17:04 NPO except Meds [DIET] 12/13/20 17:05 SCDs [RC] QSHIFT 12/13/20 17:06 General Surgery Consult [CONS] Routine 12/14/20 09:00 Enoxaparin [Lovenox] 40 mg SUBQ DAILY 12/15/20 05:00 CBC - COMP BLD CT W/AUTO DIFF [HEME] DAILYLAB COMPREHENSIVE METABOLIC PANEL [CHEM] DAILYLAB 12/16/20 05:00 CBC - COMP BLD CT W/AUTO DIFF [HEME] DAILYLAB COMPREHENSIVE METABOLIC PANEL [CHEM] DAILYLAB 12/17/20 05:00 CBC - COMP BLD CT W/AUTO DIFF [HEME] DAILYLAB 12/18/20 05:00 CBC - COMP BLD CT W/AUTO DIFF [HEME] DAILYLAB Subjective - Subjective Patient Reports: Other (Resting comfortably in bed. She denied abdominal pain, nausea or vomiting. She has not yet had a bowel movement. Reported smallflatulence) Objective Vital Signs: Vital Signs - 24 hr 12/13/20 12/13/20 12/13/20 12:45 13:11 13:34 Temperature 34.2 C L Heart Rate 69 62 69 Heart Rate [ Monitoring electrodes] Respiratory 19 11 L 16 Rate Blood Pressure 85/42 L 102/67 96/60 Blood Pressure [Left Brachial artery] O2 Saturation 100 100 100 12/13/20 12/13/20 12/13/20 14:05 14:39 15:13 Temperature 36.4 C L Heart Rate 58 L 61 66 Heart Rate [ Monitoring electrodes] Respiratory 14 13 16 Rate Blood Pressure 95/61 109/60 118/60 Blood Pressure [Left Brachial artery] O2 Saturation 100 100 100 12/13/20 12/13/20 12/13/20 15:52 16:10 16:33 Temperature Heart Rate 77 76 78 Heart Rate [ Monitoring electrodes] Respiratory 139 H 15 14 Rate Blood Pressure 98/61 97/64 101/62 Blood Pressure [Left Brachial artery] O2 Saturation 99 99 97 12/13/20 12/13/20 12/13/20 16:50 17:50 18:00 Temperature 36.2 C L 37.3 C Heart Rate 78 78 76 Heart Rate [ Monitoring electrodes] Respiratory 13 13 11 L Rate Blood Pressure 103/63 104/64 99/62 Blood Pressure [Left Brachial artery] O2 Saturation 96 96 98 12/13/20 12/13/20 12/14/20 18:15 23:15 03:00 Temperature 37.3 C 37.1 C 36.9 C Heart Rate Heart Rate [ 81 63 72 Monitoring electrodes] Respiratory 18 16 18 Rate Blood Pressure Blood Pressure 109/31 L 107/58 L 123/60 [Left Brachial artery] O2 Saturation 94 97 98 12/14/20 07:21 Temperature 37.1 C Heart Rate Heart Rate [ 69 Monitoring electrodes] Respiratory 17 Rate Blood Pressure Blood Pressure 127/54 L [Left Brachial artery] O2 Saturation 97 Oxygen O2 Source Room air I&O (Last 24 Hrs): Intake and Output Totals x24h 12/12/20 12/13/20 12/14/20 23:59 23:59 23:59 Intake Total 1999 943.75 Balance 1999 943.75 General: Alert, Oriented x3, Cooperative, No acute distress HEENT: Atraumatic, PERRLA, EOMI Neck: Supple, No JVD Neuro: Alert, Non Focal, Oriented Times 3 Cardiovascular: Regular rate Respiratory: Chest non-tender, No respiratory distress, Breath sounds nml Abdomen: Normal bowel sounds, Soft, No tenderness Extremities: No clubbing, No cyanosis, No edema Skin: No rashes, No breakdown, No significant lesion - Results Results: Laboratory Results WBC 3.7 x10^3/uL (4.8-10.8) L 12/14/20 04:25 RBC 2.92 10^6/uL (4.20-5.40) L 12/14/20 04:25 Hgb 9.1 g/dL (12.0-16.0) L 12/14/20 04:25 Hct 28.4 % (37.0-47.0) L 12/14/20 04:25 MCV 97.3 fL (81.0-99.0) 12/14/20 04:25 MCH 31.2 pg (27.0-31.0) H 12/14/20 04:25 MCHC 32.0 g/dL (32.0-36.0) 12/14/20 04:25 RDW 14.3 % (12.0-15.0) 12/14/20 04:25 Plt Count 164 10^3/uL (130-450) 12/14/20 04:25 MPV 9.4 fL (7.9-10.8) 12/14/20 04:25 Neut # (Auto) 2.2 10^3/uL (1.5-6.6) 12/14/20 04:25 Lymph # (Auto) 1.2 10^3/uL (1.5-3.5) L 12/14/20 04:25 [place] # (Auto) 0.3 10^3/uL (0.0-1.0) 12/14/20 04:25 Eos # (Auto) 0.0 10^3/uL (0.0-0.7) 12/14/20 04:25 Baso # (Auto) 0.0 10^3/uL (0.0-0.1) 12/14/20 04:25 Absolute Nucleated RBC 0.00 x10^3/uL 12/14/20 04:25 Nucleated RBC % 0.0 /100WBC 12/14/20 04:25 Sodium 140 mmol/L (135-145) 12/14/20 04:25 Potassium 4.0 mmol/L (3.5-5.0) 12/14/20 04:25 Chloride 109 mmol/L (101-111) 12/14/20 04:25 Carbon Dioxide 24 mmol/L (21-32) 12/14/20 04:25 Anion Gap 7.0 (6-13) 12/14/20 04:25 BUN 18 mg/dL (6-20) 12/14/20 04:25 Creatinine 0.5 mg/dL (0.4-1.0) 12/14/20 04:25 Estimated GFR (MDRD) 126 (>89) 12/14/20 04:25 Glucose 91 mg/dL (70-100) 12/14/20 04:25 Calcium 8.6 mg/dL (8.5-10.3) 12/14/20 04:25 Total Bilirubin 0.8 mg/dL (0.2-1.0) 12/14/20 04:25 AST 190 IU/L (10-42) H 12/14/20 04:25 ALT 267 IU/L (10-60) H 12/14/20 04:25 Alkaline Phosphatase 115 IU/L (42-121) 12/14/20 04:25 Total Protein 5.2 g/dL (6.7-8.2) L 12/14/20 04:25 Albumin 3.0 g/dL (3.2-5.5) L 12/14/20 04:25 Globulin 2.2 g/dL (2.1-4.2) 12/14/20 04:25 Albumin/Globulin Ratio 1.4 (1.0-2.2) 12/14/20 04:25 Lipase 48 U/L (22-51) 12/13/20 13:40 Urine Color YELLOW 12/13/20 21:00 Urine Clarity CLEAR (CLEAR) 12/13/20 21:00 Urine pH 5.0 PH (5.0-7.5) 12/13/20 21:00 Ur Specific [place] 1.015 (1.002-1.030) 12/13/20 21:00 Urine Protein NEGATIVE mg/dL (NEGATIVE) 12/13/20 21:00 Urine Glucose (UA) NEGATIVE mg/dL (NEGATIVE) 12/13/20 21:00 Urine Ketones TRACE mg/dL (NEGATIVE) 12/13/20 21:00 Urine Occult Blood NEGATIVE (NEGATIVE) 12/13/20 21:00 Urine Nitrite NEGATIVE (NEGATIVE) 12/13/20 21:00 Urine Bilirubin NEGATIVE (NEGATIVE) 12/13/20 21:00 Urine Urobilinogen 0.2 (NORMAL) E.U./dL (NORMAL) 12/13/20 21:00 Ur Leukocyte Esterase NEGATIVE (NEGATIVE) 12/13/20 21:00 Ur Microscopic Review NOT INDICATED 12/13/20 21:00 Urine Culture Comments NOT INDICATED 12/13/20 21:00 Nasal Adenovirus (PCR) NOT DETECTED 12/13/20 16:02 Nasal B. parapertussis DNA (PCR) NOT DETECTED 12/13/20 16:02 Nasal Coronavir 229E PCR NOT DETECTED 12/13/20 16:02 Nasal Coronavir HKU1 PCR NOT DETECTED 12/13/20 16:02 Nasal Coronavir NL63 PCR NOT DETECTED 12/13/20 16:02 Nasal Coronavir OC43 PCR NOT DETECTED 12/13/20 16:02 Nasal Enterovir/Rhinovir PCR NOT DETECTED 12/13/20 16:02 Nasal Influenza B PCR NOT DETECTED 12/13/20 16:02 Nasal Influenza A PCR NOT DETECTED 12/13/20 16:02 Nasal Parainfluen 1 PCR NOT DETECTED 12/13/20 16:02 Nasal Parainfluen 2 PCR NOT DETECTED 12/13/20 16:02 Nasal Parainfluen 3 PCR NOT DETECTED 12/13/20 16:02 Nasal Parainfluen 4 PCR NOT DETECTED 12/13/20 16:02 Nasal RSV (PCR) NOT DETECTED 12/13/20 16:02 Nasal B.pertussis DNA PCR NOT DETECTED 12/13/20 16:02 Nasal C.pneumoniae (PCR) NOT DETECTED 12/13/20 16:02 Bharat Human Metapneumo PCR NOT DETECTED 12/13/20 16:02 Nasal M.pneumoniae (PCR) NOT DETECTED 12/13/20 16:02 Nasal SARS-CoV-2 (PCR) NOT DETECTED 12/13/20 16:02 Salicylates < 6.0 mg/dL 12/13/20 13:40 Acetaminophen < 10 ug/mL (10-30) L 12/13/20 13:40 - Procedures Procedures: Procedures RESPIRATORY VENTILATION, LESS THAN 24 CONSECUTIVE HOURS (08/07/19) ABX Reporting Has patient been on IV antibiotics over the past 48 hours?: No
--- NOTE | 2020-12-14 08:42 | HISTORY & PHYSICAL EXAMINATION ---
Chief Complaint - Chief Complaint Chief Complaint: Nausea, vomiting, abdominal pain yesterday History of Present Illness - History Obtained From Records Reviewed: yes History obtained from: Pt Exam Limitations: none - History of Present Illness HPI Comment/Other: She has history total gastrectomy and chemotherapy for gastric cancer. This was followed by cholecystectomy for gallstones and biliary cholic. Yesterday she had nausea and vomiting and abdominal pain and was admitted through the ED. Work up revealed diffusely distended small bowel and elevated ast and alt. She denies abdominal pain and nausea this am. She feels she could drink liquids well and is hopeful she can go home later today or tomorrow. History - Past Medical History Cardiovascular: reports: Congestive heart failure, Hypertension, High cholesterol, [place], Other Respiratory: reports: None Neuro: reports: None Endocrine/Autoimmune: reports: Type 2 diabetes GI: reports: Hepatitis, Other : reports: None HEENT: reports: Chronic vision loss Psych: reports: None Musculoskeletal: reports: None Derm: reports: None MRSA Hx?: No - Past Surgical History General: reports: Cholecystectomy, Gastric surgery, Colonoscopy, EGD, Other - Family & Social History Family History: Mother: (both were no siginificant medical problem), Father: Family History Comment/Other: pt reports her parents both did not have any significant medical problem. Social History Notes: According to records, the patient reports current cigarette smoking, denies alcohol and drug issue. she lives in [facility] - POLST Patient has POLST: Yes POLST Status: Full Code Meds/Allgy - Home Medications Home Medications: Ambulatory Orders Medication Instructions Recorded Confirmed Atorvastatin [Lipitor] 40 mg PO DAILY 09/06/19 10/24/20 Ferrous Sulfate 325 mg PO DAILY 09/06/19 10/24/20 Furosemide 20 mg PO DAILY 10/24/19 10/24/20 Sacubitril/Valsartan [Entresto 49 1 tab PO BID 10/24/19 10/24/20 mg-51 mg Tablet] Potassium Chloride 20 ml PO DAILY 05/09/20 10/24/20 Aspirin [Aspirin EC] 1 tab PO DAILY 05/24/20 10/24/20 Hydrocortisone 5 - 10 mg PO DAILY 05/24/20 09/18/20 Metoprolol Succinate [Toprol Xl] 25 mg PO DAILY 12/14/20 - Allergies Allergies/Adverse Reactions: Allergies Allergy/AdvReac Type Severity Reaction Status Date / Time No Known Drug Allergies Allergy Verified 12/13/20 12:49 Review of Systems - Constitutional Constitutional: reports: Fatigue (10 pt ros as above otherwise unremarkable) Exam - Vital Signs Vital Signs: Vital Signs x48h Temp Pulse Resp BP Pulse Ox 12/14/20 07:21 37.1 C 69 17 127/54 L 97 12/14/20 03:00 36.9 C 72 18 123/60 98 - Physical Exam General Appearance: positive: No acute distress, Alert Eyes Bilateral: positive: EOMI ENT: positive: No signs of dehydration Neck: positive: No JVD Respiratory: positive: No respiratory distress Abdomen: positive: Non-tender, No distention Neurologic/Psychiatric: positive: Oriented x3 Conclusion/Plan - Problem List (1) Elevated LFTs Conclusion/Plan: Abdominal pain and nausea and vomiting yesterday. She is much improved today. ? passed common bile duct stone and had ileus. She feels she can take liquids this am and is hopeful she will be able to go home soon. She had a total gastrectomy. May advance to 5 small meals per day as tolerated with head of bed elevated or up in chair. - Lab Results Fish Bones: 12/14/20 04:25 12/14/20 04:25
[2020-12-14] MEDS: ENOXAPARIN 40 MG/0.4 ML SYRINGE SUBQ SCH (09:52)
--- NOTE | 2020-12-14 11:08 | PHARMACY PROGRESS NOTE ---
- Best Possible Medication History Admit Date and Time: 12/13/20 6591 Processed by: Pharmacy Medication History completed: Yes Patient Interview: Completed Secondary Source(s): Spouse/Significant other, Insurance records, Previous admit records Patient called her while I was in the room with her since he is more familiar with her medications. Both participated in the medication history interview. Patient reports taking a probiotic, vitamin D and calcium daily but is unsure of specific strengths of these supplements. As the person ultimately responsible for medication therapy, providers are able to order a medication from an existing home medication list in [facility] via the "Reconcile Routine" prior to Confirmation of that medication by behavior support specialist. Such practice is discouraged except when the physician, in their clinical judg ment, deems that a medical need exists for a medication without regard to previous use.
[2020-12-14] MEDS ORDERED: CYANOCOBALAMIN 1,000 MCG/ML VIAL IM SCH (19:00)
[2020-12-14] MEDS ORDERED: ATORVASTATIN 40 MG TABLET PO SCH (21:00)
[2020-12-15 05:02] LABS: BASOPHILS % (AUTO) 0.7 %; EOSINOPHILS % (AUTO) 4.4 %; HCT - HEMATOCRIT 29.8 % (37.0-47.0); HGB - HEMOGLOBIN 9.5 g/dL (12.0-16.0); LYMPHOCYTES % (AUTO) 40.1 %; MEAN CORPUSCULAR HEMOGLOBIN 31.3 pg (27.0-31.0); MEAN CORPUSCULAR HGB CONC 31.9 g/dL (32.0-36.0); MEAN PLATELET VOLUME 9.6 fL (7.9-10.8); MONOCYTES % (AUTO) 7.1 %; NEUTROPHILS % (AUTO) 47.7 %; PLT - PLATELET COUNT 148 10^3/uL (130-450); RED BLOOD COUNT 3.04 10^6/uL (4.20-5.40); RED CELL DISTRIBUTION WIDTH 14.1 % (12.0-15.0)
[2020-12-15 05:08] LABS: ABNORMAL LYMPHS % (MANUAL) 0 %; BAND NEUTROPHILS % (MANUAL) 0 %
[2020-12-15 05:17] LABS: ALBUMIN 3.1 g/dL (3.2-5.5); ALBUMIN/GLOBULIN RATIO 1.6 (1.0-2.2); BILIRUBIN,TOTAL 0.8 mg/dL (0.2-1.0); CALCIUM 8.5 mg/dL (8.5-10.3); CREATININE 0.5 mg/dL (0.4-1.0); POTASSIUM 3.5 mmol/L (3.5-5.0); TOTAL PROTEIN 5.1 g/dL (6.7-8.2)
[2020-12-15 05:53] LABS: EOSINOPHILS # (MANUAL) 0.1 10^3/uL (0-0.7); LYMPHOCYTES # (MANUAL) 1.2 10^3/uL (1.5-3.5); LYMPHOCYTES % (MANUAL) 39 %; MONOCYTES # (MANUAL) 0.2 10^3/uL (0.0-1.0); NEUTROPHILS # (MANUAL) 1.5 10^3/uL (1.5-6.6)
[2020-12-15 05:54] LABS: DIFFERENTIAL COMMENT MANUAL DIFFERENTIAL; PLATELET ESTIMATE, MANUAL NORMAL (130-450,000) (NORMAL); PLATELET MORPHOLOGY NORMAL APPEARANCE (NORMAL); RBC MORPHOLOGY (MULTIPLE) NORMAL APPEARANCE (NORMAL); WBC MORPHOLOGY (MULTIPLE) NORMAL APPEARANCE (NORMAL)
[2020-12-15] MEDS: ENOXAPARIN 40 MG/0.4 ML SYRINGE SUBQ SCH (08:24)
[2020-12-15] MEDS: SODIUM CHLORIDE FLUSH 0.9% 10 ML SYRINGE IVP SCH (08:25)
[2020-12-15] MEDS ORDERED: ASPIRIN EC 81 MG TABLET PO SCH (09:00)
[2020-12-15] MEDS ORDERED: FERROUS SULFATE 325 MG TABLET PO SCH (09:00)
[2020-12-15] MEDS ORDERED: CALCIUM CARBONATE CHEW 500 MG TABLET PO SCH (09:00)
[2020-12-15] MEDS ORDERED: CHOLECALCIFEROL 25 MCG TABLET PO SCH (09:00)
[2020-12-15] MEDS ORDERED: HYDROCORTISONE 10 MG TABLET PO SCH ×2 (10:00→14:00)
--- NOTE | 2020-12-15 11:05 | PROVIDER PROGRESS NOTE ---
Assessment/Plan - Problem List (1) Small bowel obstruction Assessment/Plan: Patient reports flatulence but no bowel movement yet. She tolerated a clear liquid diet well so she was advanced to full liquid diet which she tolerated well. She is currently on a mechanical soft diet. She was seen by nutrition and advised to do small frequent soft meals. She was also given prune juice. Patient could potentially be discharged later today after bowel movement. (2) Elevated LFTs Assessment/Plan: Likely due to low blood pressure. Patient's liver function tests continue to improve daily. (3) Congestive heart failure Qualifiers: Heart failure type: unspecified Heart failure chronicity: acute Qualified Code(s): I50.9 - Heart failure, unspecified Assessment/Plan: On metoprolol tartrate and Entresto. We will continue to hold furosemide. (4) Coronary artery disease Assessment/Plan: On a baby aspirin daily. On atorvastatin 10 mg p.o. nightly. On metoprolol tartrate. (5) Hyperlipidemia Assessment/Plan: On atorvastatin 10 mg p.o. nightly. (6) Adrenal insufficiency Assessment/Plan: On hydrocortisone 5 mg p.o. daily. - Current Meds Current Meds: Current Medications Generic Name Dose Route Start Last Admin Trade Name Freq PRN Reason Stop Dose Admin Aspirin 81 mg 12/15/20 09:00 12/15/20 08:24 Aspirin Ec 81 Mg Tablet PO 81 mg DAILY DILAN Administration Atorvastatin Calcium 40 mg 12/14/20 21:00 12/14/20 21:09 Atorvastatin 40 Mg Tablet PO 40 mg QPM DILAN Administration Calcium Carbonate/Glycine 500 mg 12/15/20 09:00 12/15/20 08:24 Calcium Carbonate Chew 500 Mg Tablet PO 500 mg DAILY DILAN Administration Cholecalciferol 25 mcg 12/15/20 09:00 12/15/20 08:24 Cholecalciferol 25 Mcg Tablet PO 25 mcg DAILY DILAN Administration Enoxaparin Sodium 40 mg 12/14/20 09:00 12/15/20 08:24 Enoxaparin 40 Mg/0.4 Ml Syringe SUBQ 40 mg DAILY DILAN Administration Ferrous Sulfate 325 mg 12/15/20 09:00 12/15/20 08:24 Ferrous Sulfate 325 Mg Tablet PO 325 mg DAILY DILAN Administration Hydrocortisone 10 mg 12/15/20 10:00 12/15/20 10:35 Hydrocortisone 10 Mg Tablet PO 10 mg 1000 DILAN Administration Sodium Chloride 10 ml 12/13/20 17:00 12/15/20 08:25 Sodium Chloride Flush 0.9% 10 Ml Syringe IVP 10 ml 0100,0900,1700 DILAN Administration - Lab Result Fish Bone Diagrams: 12/15/20 04:10 12/15/20 04:10 - Additional Planning My Orders: My Active Orders 12/14/20 21:00 Atorvastatin [Lipitor] 40 mg PO QPM 12/15/20 Breakfast Full Liquid Diet [DIET] 12/15/20 09:00 Aspirin EC [Ecotrin] 81 mg PO DAILY Calcium Carbonate [Tums] 500 mg PO DAILY Cholecalciferol [Vitamin D3] 25 mcg PO DAILY Ferrous Sulfate [Feosol] 325 mg PO DAILY 12/15/20 10:00 Hydrocortisone [Cortef] 10 mg PO 1000 12/15/20 Lunch Soft Mechanical Diet [DIET] 12/15/20 14:00 Hydrocortisone [Cortef] 5 mg PO 1400 12/16/20 05:00 CBC - COMP BLD CT W/AUTO DIFF [HEME] DAILYLAB COMPREHENSIVE METABOLIC PANEL [CHEM] DAILYLAB 12/17/20 05:00 CBC - COMP BLD CT W/AUTO DIFF [HEME] DAILYLAB 12/18/20 05:00 CBC - COMP BLD CT W/AUTO DIFF [HEME] DAILYLAB Subjective - Subjective Patient Reports: Other (Patient seated in bedside chair at time of exam. She appears comfortable. She has been ambulating around the [facility] floor without any difficulties. She tolerated a liquid diet well.) Objective Vital Signs: Vital Signs - 24 hr 12/14/20 12/14/20 12/14/20 15:00 19:00 23:32 Temperature 36.4 C L 36.6 C 36.5 C Heart Rate [ 62 64 56 L Monitoring electrodes] Respiratory 17 18 16 Rate Blood Pressure 129/56 L 124/68 138/66 H [Left Brachial artery] O2 Saturation 100 99 99 12/15/20 12/15/20 03:28 07:50 Temperature 36.9 C 36.9 C Heart Rate [ 60 58 L Monitoring electrodes] Respiratory 16 18 Rate Blood Pressure 147/65 H 135/67 H [Left Brachial artery] O2 Saturation 97 100 Oxygen O2 Source Room air I&O (Last 24 Hrs): Intake and Output Totals x24h 12/13/20 12/14/2012/15/21 23:59 23:59 23:59 Intake Total 1999 4215.833 1500 Balance 1999 4215.833 1500 General: Alert, Oriented x3, Cooperative, No acute distress HEENT: PERRLA, EOMI Neck: Supple, No JVD Neuro: Alert, Non Focal Cardiovascular: Regular rate, No murmurs Respiratory: Chest non-tender, No respiratory distress, Breath sounds nml Abdomen: Normal bowel sounds, Soft, No tenderness Extremities: No clubbing, No cyanosis, No edema Skin: No rashes, No breakdown - Results Results: Laboratory Results WBC 3.0 x10^3/uL (4.8-10.8) L 12/15/20 04:10 RBC 3.04 10^6/uL (4.20-5.40) L 12/15/20 04:10 Hgb 9.5 g/dL (12.0-16.0) L 12/15/20 04:10 Hct 29.8 % (37.0-47.0) L 12/15/20 04:10 MCV 98.0 fL (81.0-99.0) 12/15/20 04:10 MCH 31.3 pg (27.0-31.0) H 12/15/20 04:10 MCHC 31.9 g/dL (32.0-36.0) L 12/15/20 04:10 RDW 14.1 % (12.0-15.0) 12/15/20 04:10 Plt Count 148 10^3/uL (130-450) 12/15/20 04:10 MPV 9.6 fL (7.9-10.8) 12/15/20 04:10 Neut # (Auto) Not Reportable 12/15/20 04:10 Lymph # (Auto) Not Reportable 12/15/20 04:10 [place] # (Auto) Not Reportable 12/15/20 04:10 Eos # (Auto) Not Reportable 12/15/20 04:10 Baso # (Auto) Not Reportable 12/15/20 04:10 Absolute Nucleated RBC Not Reportable 12/15/20 04:10 Total Counted 100 12/15/20 04:10 Band Neuts % (Manual) 0 % (0-10) 12/15/20 04:10 Abnorm Lymph % (Manual) 0 % 12/15/20 04:10 Nucleated RBC % Not Reportable 12/15/20 04:10 Neutrophils # (Manual) 1.5 10^3/uL (1.5-6.6) 12/15/20 04:10 Lymphocytes # (Manual) 1.2 10^3/uL (1.5-3.5) L 12/15/20 04:10 Monocytes # (Manual) 0.2 10^3/uL (0.0-1.0) 12/15/20 04:10 Eosinophils # (Manual) 0.1 10^3/uL (0-0.7) 12/15/20 04:10 Basophils # (Manual) 0.0 10^3/uL (0-0.1) 12/15/20 04:10 Differential Comment MANUAL DIFFERENTIAL 12/15/20 04:10 WBC Morphology NORMAL APPEARANCE (NORMAL) 12/15/20 04:10 Platelet Estimate NORMAL (130-450,000) (NORMAL) 12/15/20 04:10 Platelet Morphology NORMAL APPEARANCE (NORMAL) 12/15/20 04:10 RBC Morph Micro Appear NORMAL APPEARANCE (NORMAL) 12/15/20 04:10 Sodium 142 mmol/L (135-145) 12/15/20 04:10 Potassium 3.5 mmol/L (3.5-5.0) 12/15/20 04:10 Chloride 112 mmol/L (101-111) H 12/15/20 04:10 Carbon Dioxide 23 mmol/L (21-32) 12/15/20 04:10 Anion Gap 7.0 (6-13) 12/15/20 04:10 BUN 11 mg/dL (6-20) 12/15/20 04:10 Creatinine 0.5 mg/dL (0.4-1.0) 12/15/20 04:10 Estimated GFR (MDRD) 126 (>89) 12/15/20 04:10 Glucose 83 mg/dL (70-100) 12/15/20 04:10 Calcium 8.5 mg/dL (8.5-10.3) 12/15/20 04:10 Total Bilirubin 0.8 mg/dL (0.2-1.0) 12/15/20 04:10 AST 104 IU/L (10-42) H 12/15/20 04:10 ALT 193 IU/L (10-60) H 12/15/20 04:10 Alkaline Phosphatase 105 IU/L (42-121) 12/15/20 04:10 Total Protein 5.1 g/dL (6.7-8.2) L 12/15/20 04:10 Albumin 3.1 g/dL (3.2-5.5) L 12/15/20 04:10 Globulin 2.0 g/dL (2.1-4.2) L 12/15/20 04:10 Albumin/Globulin Ratio 1.6 (1.0-2.2) 12/15/20 04:10 Lipase 48 U/L (22-51) 12/13/20 13:40 Urine Color YELLOW 12/13/20 21:00 Urine Clarity CLEAR (CLEAR) 12/13/20 21:00 Urine pH 5.0 PH (5.0-7.5) 12/13/20 21:00 Ur Specific [place] 1.015 (1.002-1.030) 12/13/20 21:00 Urine Protein NEGATIVE mg/dL (NEGATIVE) 12/13/20 21:00 Urine Glucose (UA) NEGATIVE mg/dL (NEGATIVE) 12/13/20 21:00 Urine Ketones TRACE mg/dL (NEGATIVE) 12/13/20 21:00 Urine Occult Blood NEGATIVE (NEGATIVE) 12/13/20 21:00 Urine Nitrite NEGATIVE (NEGATIVE) 12/13/20 21:00 Urine Bilirubin NEGATIVE (NEGATIVE) 12/13/20 21:00 Urine Urobilinogen 0.2 (NORMAL) E.U./dL (NORMAL) 12/13/20 21:00 Ur Leukocyte Esterase NEGATIVE (NEGATIVE) 12/13/20 21:00 Ur Microscopic Review NOT INDICATED 12/13/20 21:00 Urine Culture Comments NOT INDICATED 12/13/20 21:00 Nasal Adenovirus (PCR) NOT DETECTED 12/13/20 16:02 Nasal B. parapertussis DNA (PCR) NOT DETECTED 12/13/20 16:02 Nasal Coronavir 229E PCR NOT DETECTED 12/13/20 16:02 Nasal Coronavir HKU1 PCR NOT DETECTED 12/13/20 16:02 Nasal Coronavir NL63 PCR NOT DETECTED 12/13/20 16:02 Nasal Coronavir OC43 PCR NOT DETECTED 12/13/20 16:02 Nasal Enterovir/Rhinovir PCR NOT DETECTED 12/13/20 16:02 Nasal Influenza B PCR NOT DETECTED 12/13/20 16:02 Nasal Influenza A PCR NOT DETECTED 12/13/20 16:02 Nasal Parainfluen 1 PCR NOT DETECTED 12/13/20 16:02 Nasal Parainfluen 2 PCR NOT DETECTED 12/13/20 16:02 Nasal Parainfluen 3 PCR NOT DETECTED 12/13/20 16:02 Nasal Parainfluen 4 PCR NOT DETECTED 12/13/20 16:02 Nasal RSV (PCR) NOT DETECTED 12/13/20 16:02 Nasal B.pertussis DNA PCR NOT DETECTED 12/13/20 16:02 Nasal C.pneumoniae (PCR) NOT DETECTED 12/13/20 16:02 Bharat Human Metapneumo PCR NOT DETECTED 12/13/20 16:02 Nasal M.pneumoniae (PCR) NOT DETECTED 12/13/20 16:02 Nasal SARS-CoV-2 (PCR) NOT DETECTED 12/13/20 16:02 Salicylates < 6.0 mg/dL 12/13/20 13:40 Acetaminophen < 10 ug/mL (10-30) L 12/13/20 13:40 - Procedures Procedures: Procedures RESPIRATORY VENTILATION, LESS THAN 24 CONSECUTIVE HOURS (08/07/19) ABX Reporting Has patient been on IV antibiotics over the past 48 hours?: No
--- NOTE | 2020-12-15 15:22 | DISCHARGE SUMMARY ---
Discharge Summary Admit Date: 12/13/20 Discharge Date: 12/15/20 Discharging Provider: Jeni Roman Primary Care Provider: Alisa Ro Code Status: Attempt Resuscitation Condition at Discharge: Stable Discharge Disposition: 01 Home, Self Care - DIAGNOSES Admission Diagnoses: Small Bowel obstruction Elevated LFTs Congestive heart failure Coronary disease Hyperlipidemia Adrenal insufficiency Discharge Diagnoses with Status of Each Condition: Small Bowel obstruction: Acute. Resolved Elevated LFTs: Acute. Imroving/ Resolved Congestive heart failure: Chronic. Stable Coronary artery disease: Chronic. Stable Hyperlipidemia: Chronic Stable Adrenal insufficiency: Chronic - HPI History of Present Illness: Patient is a 60-year-old female with history of stomach cancer s/p gastric sharon hazle and chemotherapy which was managed by Dr. Davis. She has since then also undergone a cholecystectomy. She presented to the ED today with complaint of abdominal pain, nausea and vomiting which started today after breakfast. She had strawberry jelly sandwich, broccoli, yogurt, miso soup and sweet potatoes for breakfast. At the worse her abdominal pain was 8 out of 10. At the time of my evaluation she denied any abdominal pain. She denies chest pain, dyspnea, fever. However it appears she was very cold and had several blankets on. Work-up in the ED included a CT of the abdomen/pelvis which showed a bowel obstruction. As a result she was presented for admission for further management. Conservative management was initiated. The patient was made n.p.o. with IV hydration. By the second day she reported flatulence as a result she was started on clear liquid diet. This was advanced as tolerated to a soft mechanical diet. She also ambulated significantly around the hospital floor. She tolerated soft diet well and had a bowel movement. As a result she was discharged shortly after. She was seen by nutrition. She was educated on eating small amounts of soft meals more frequently. She was advised to avoid hard foods but to chew them well if she was to have hard food. Her liver function this is a Test which was elevated at time of admission with thought to be due to low blood pressure. This steadily improved to resolution by the time of discharge. The patient's white blood cell count was 3.0 at the time of discharge. However she has not been febrile and there is no notable source of infection. She may follow-up with her primary care physician within 1 week or as needed. - ALLERGIES Allergies/Adverse Reactions: Allergies Allergy/AdvReac Type Severity Reaction Status Date / Time No Known Drug Allergies Allergy Verified 12/13/20 12:49 - MEDICATIONS Home Medications: Ambulatory Orders Medication Instructions Recorded Confirmed Atorvastatin [Lipitor] 40 mg PO QPM 09/06/19 12/14/20 Ferrous Sulfate 325 mg PO DAILY 09/06/19 12/14/20 Furosemide 20 mg PO .QOD 10/24/19 12/14/20 Sacubitril/Valsartan [Entresto 49 0.5 tab PO BID 10/24/19 12/14/20 mg-51 mg Tablet] Potassium Chloride 20 meq PO DAILY 05/09/20 12/14/20 Aspirin [Aspirin EC] 1 tab PO DAILY 05/24/20 12/14/20 Hydrocortisone 5 - 10 mg PO BID 05/24/20 12/14/20 Calcium Carbonate 1 tab PO DAILY 12/14/20 12/14/20 Cholecalciferol [Vitamin D3] 1 tab PO DAILY 12/14/20 12/14/20 Cyanocobalamin [Vitamin B-12] 1,000 mcg IM .MONTHLY 12/14/20 12/14/20 L.acid/L.casei/B.bif/B.taniya/Fos 1 cap PO DAILY 12/14/20 12/14/20 [Probiotic Blend Capsule] Metoprolol Succinate [Toprol Xl] 25 mg PO DAILY 12/14/20 12/14/20 - PHYSICAL EXAM AT DISCHARGE General Appearance: positive: No acute distress, Alert Eyes Bilateral: positive: PERRL, EOMI ENT: positive: No signs of dehydration Neck: positive: No JVD, Trachea midline Respiratory: positive: Chest non-tender, No respiratory distress, Breath sounds nml. negative: Wheezes, Rales, Rhonchi Cardiovascular: positive: Regular rate & rhythm, No murmur Abdomen: positive: Non-tender, Nml bowel sounds, No distention. negative: Guarding, Rebound Back: positive: Nml inspection Skin: positive: Color nml, No rash, Warm, Dry Neurologic/Psychiatric: positive: Oriented x3, Mood/affect nml - LABS Result Diagrams: 12/15/20 04:10 12/15/20 04:10 - TIME SPENT Time Spent in Discharge (Minutes): 20
--- NOTE | 2020-12-15 15:24 | Discharge Plan ---
Discharge Plan Problem Reviewed?: Yes Disposition: 01 Home, Self Care Condition: Stable Diet: Soft Activity Restrictions: Activity as Tolerated Health Concerns: You presented to the hospital with abdominal pain, nausea and vomiting. Work-up in the ED included CT of the abdomen which showed that you had small bowel obstruction. You were admitted and conservative management was initiated. This involved keeping you n.p.o. and giving you IV hydration. Your nausea vomiting and abdominal pain improved during your hospital stay. You with started on a clear liquid diet which was advanced to a mechanical soft diet as tolerated. You continue to tolerate this well. You have been able to pass gas and have a bowel movement while in the hospital here. As a result you are being discharged home. You have been advised to mainly have soft foods. Also to eat small amounts and more frequently. If you are to eat something hard then remember to chew it very well and drink fluids with it. You expressed understanding to this instructions thus you are being discharged home in stable condition. Plan of Treatment: You presented to the hospital with abdominal pain, nausea and vomiting. Work-up in the ED included CT of the abdomen which showed that you had small bowel obstruction. You were admitted and conservative management was initiated. This involved keeping you n.p.o. and giving you IV hydration. Your nausea vomiting and abdominal pain improved during your hospital stay. You with started on a clear liquid diet which was advanced to a mechanical soft diet as tolerated. You continue to tolerate this well. You have been able to pass gas and have a bowel movement while in the hospital here. As a result you are being discharged home. You have been advised to mainly have soft foods. Also to eat small amounts and more frequently. If you are to eat something hard then remember to chew it very well and drink fluids with it. You expressed understanding to this instructions thus you are being discharged home in stable condition. Care Goals: You presented to the hospital with abdominal pain, nausea and vomiting. Work-up in the ED included CT of the abdomen which showed that you had small bowel obstruction. You were admitted and conservative management was initiated. This involved keeping you n.p.o. and giving you IV hydration. Your nausea vomiting and abdominal pain improved during your hospital stay. You with started on a clear liquid diet which was advanced to a mechanical soft diet as tolerated. You continue to tolerate this well. You have been able to pass gas and have a bowel movement while in the hospital here. As a result you are being discharged home. You have been advised to mainly have soft foods. Also to eat small amounts and more frequently. If you are to eat something hard then remember to chew it very well and drink fluids with it. You expressed understanding to this instructions thus you are being discharged home in stable condition. Assessment: You presented to the hospital with abdominal pain, nausea and vomiting. Work-up in the ED included CT of the abdomen which showed that you had small bowel obstruction. You were admitted and conservative management was initiated. This involved keeping you n.p.o. and giving you IV hydration. Your nausea vomiting and abdominal pain improved during your hospital stay. You with started on a clear liquid diet which was advanced to a mechanical soft diet as tolerated. You continue to tolerate this well. You have been able to pass gas and have a bowel movement while in the hospital here. As a result you are being discharged home. You have been advised to mainly have soft foods. Also to eat small amounts and more frequently. If you are to eat something hard then remember to chew it very well and drink fluids with it. You expressed understanding to this instructions thus you are being discharged home in stable condition. No Smoking: If you smoke, Please STOP! Call for help. Follow-up with: Alisa Ro MD [Primary Care Provider] -
[2020-12-15 15:58] VITALS: BP 137/80
== END 2020-12-15 16:30 | disposition home or self-care (01) | DRG 389 ==
LOC: ED 12:30 → MS3 16:59
PROVIDERS: ADMIT Internal Medicine; ATTEND Internal Medicine
DX: K56.609 Unspecified intestinal obstruction, unspecified as to partial versus complete obstruction (principal); E27.40 Unspecified adrenocortical insufficiency; E89.6 Postprocedural adrenocortical (-medullary) hypofunction; R79.89 Other specified abnormal findings of blood chemistry; I50.9 Heart failure, unspecified; I25.10 Atherosclerotic heart disease of native coronary artery without angina pectoris; E78.5 Hyperlipidemia, unspecified; Z85.028 Personal history of other malignant neoplasm of stomach; Z90.49 Acquired absence of other specified parts of digestive tract; Z79.899 Other long term (current) drug therapy; Z92.21 Personal history of antineoplastic chemotherapy; F17.210 Nicotine dependence, cigarettes, uncomplicated; I25.2 Old myocardial infarction; E11.9 Type 2 diabetes mellitus without complications; Z90.3 Acquired absence of stomach [part of]; Z79.82 Long term (current) use of aspirin; Z20.822 Contact with and (suspected) exposure to COVID-19
CPT/HCPCS: 0202U; 36415; 74177; 80053; 80307; 80329; 81003; 83690; 85025; 96361; 96374; 99284; 99285; A9270; J1650; Q9967; 81001; 87086

== ENCOUNTER 2020-12-27 14:17 | Outpatient (CLI) | payer OTHER ==
[2020-12-27 14:47] LABS: CALCIUM 8.8 mg/dL (8.5-10.3); CREATININE 0.6 mg/dL (0.4-1.0); POTASSIUM 4.2 mmol/L (3.5-5.0)
== END 2020-12-27 14:18 | disposition home or self-care (01) ==
LOC: LAB 14:17
PROVIDERS: ATTEND Internal Medicine
DX: I50.22 Chronic systolic (congestive) heart failure (principal)
CPT/HCPCS: 36415; 80048

== ENCOUNTER 2021-01-17 10:23 | Outpatient (CLI) | payer OTHER ==
[2021-01-17 11:00] LABS: CREATININE 0.5 mg/dL (0.4-1.0); POTASSIUM 4.3 mmol/L (3.5-5.0)
== END 2021-01-17 10:24 | disposition home or self-care (01) ==
LOC: LAB 10:23
PROVIDERS: ATTEND Internal Medicine
DX: I50.22 Chronic systolic (congestive) heart failure (principal)
CPT/HCPCS: 36415; 80048

== ENCOUNTER 2021-01-31 10:51 | Outpatient (CLI) | payer OTHER ==
[2021-01-31 11:36] LABS: CALCIUM 8.7 mg/dL (8.5-10.3); CREATININE 0.7 mg/dL (0.4-1.0); POTASSIUM 3.7 mmol/L (3.5-5.0)
== END 2021-01-31 10:52 | disposition home or self-care (01) ==
LOC: LAB 10:51
PROVIDERS: ATTEND Internal Medicine
DX: I50.22 Chronic systolic (congestive) heart failure (principal)
CPT/HCPCS: 36415; 80048

== ENCOUNTER 2021-02-14 10:54 | Outpatient (CLI) | payer OTHER ==
[2021-02-14 11:28] LABS: CALCIUM 8.8 mg/dL (8.5-10.3); CREATININE 0.7 mg/dL (0.4-1.0); POTASSIUM 3.9 mmol/L (3.5-5.0)
== END 2021-02-14 10:55 | disposition home or self-care (01) ==
LOC: LAB 10:54
PROVIDERS: ATTEND Internal Medicine
DX: I50.22 Chronic systolic (congestive) heart failure (principal)
CPT/HCPCS: 36415; 80048

== ENCOUNTER 2021-02-28 12:07 | Outpatient (CLI) | payer OTHER ==
[2021-02-28 12:47] LABS: CALCIUM 8.6 mg/dL (8.5-10.3); CREATININE 0.6 mg/dL (0.4-1.0)
== END 2021-02-28 12:08 | disposition home or self-care (01) ==
LOC: LAB 12:07
PROVIDERS: ATTEND Internal Medicine
DX: I50.22 Chronic systolic (congestive) heart failure (principal)
CPT/HCPCS: 36415; 80048

== ENCOUNTER 2021-03-14 11:06 | Outpatient (CLI) | payer OTHER ==
[2021-03-14 11:44] LABS: CALCIUM 8.8 mg/dL (8.5-10.3); CREATININE 0.6 mg/dL (0.4-1.0); POTASSIUM 3.2 mmol/L (3.5-5.0)
--- NOTE | 2021-03-15 12:49 | Mammography Report ---
BILATERAL DIGITAL SCREENING MAMMOGRAM 3D/2D: 03/14/2021 CLINICAL: Routine screening. Comparison is made to exams dated: 08/24/2015 mammogram, 08/16/2014 mammogram, and 07/21/2013 mammogram - [facility]. There are scattered fibroglandular elements in both breasts. No significant masses, calcifications, or other findings are seen in either breast. There has been no significant interval change. IMPRESSION: NEGATIVE There is no mammographic evidence of malignancy. A 1 year screening mammogram is recommended. This exam was interpreted at Station ID: [id number]. NOTE: For mammograms, a report in lay terms will be sent to the patient. Approximately 15% of breast malignancies will not be visualized mammographically. In the management of a palpable breast mass, a negative mammogram must not discourage biopsy of a clinically suspicious lesion. Electronically Signed By: Avtar Lowry M.D. aty/penrad:03/14/2021 17:14:36 ACR BI-RADS Category 1: Negative [id number] PARENCHYMAL PATTERN: (A) - The breast(s) demonstrate(s) scattered fibroglandular densities. BI-RADS CATEGORY: (1) - 1 RECOMMENDATION: (ANNUAL) - Recommend routine annual screening mammography. [id number] 1 year screening LATERALITY: (B)
== END 2021-03-14 11:07 | disposition home or self-care (01) ==
LOC: DI 11:06
DX: Z12.31 Encounter for screening mammogram for malignant neoplasm of breast (principal); I50.22 Chronic systolic (congestive) heart failure
CPT/HCPCS: 36415; 80048

== ENCOUNTER 2021-03-22 17:47 | Inpatient (IN) | payer OTHER ==
[2021-03-22 18:50] LABS: BASOPHILS % (AUTO) 0.5 %; EOSINOPHILS # (AUTO) 0.1 10^3/uL (0.0-0.7); EOSINOPHILS % (AUTO) 1.4 %; HCT - HEMATOCRIT 36.3 % (37.0-47.0); HGB - HEMOGLOBIN 12.1 g/dL (12.0-16.0); LYMPHOCYTES # (AUTO) 1.6 10^3/uL (1.5-3.5); LYMPHOCYTES % (AUTO) 24.9 %; MEAN CORPUSCULAR HEMOGLOBIN 31.7 pg (27.0-31.0); MEAN CORPUSCULAR HGB CONC 33.3 g/dL (32.0-36.0); MEAN PLATELET VOLUME 9.5 fL (7.9-10.8); MONOCYTES # (AUTO) 0.3 10^3/uL (0.0-1.0); NEUTROPHILS # (AUTO) 4.4 10^3/uL (1.5-6.6); NEUTROPHILS % (AUTO) 67.7 %; PLT - PLATELET COUNT 208 10^3/uL (130-450); RED BLOOD COUNT 3.82 10^6/uL (4.20-5.40); RED CELL DISTRIBUTION WIDTH 12.9 % (12.0-15.0); WHITE BLOOD COUNT 6.4 x10^3/uL (4.8-10.8)
[2021-03-22 19:21] LABS: ALBUMIN 4.5 g/dL (3.2-5.5); ALBUMIN/GLOBULIN RATIO 1.6 (1.0-2.2); BILIRUBIN,TOTAL 1.1 mg/dL (0.2-1.0); CALCIUM 9.7 mg/dL (8.5-10.3); CREATININE 0.7 mg/dL (0.4-1.0); POTASSIUM 3.7 mmol/L (3.5-5.0); TOTAL PROTEIN 7.4 g/dL (6.7-8.2)
[2021-03-22] MEDS ORDERED: HYDROmorphone 1 MG/ML CARPUJECT IVP STA ×2 (21:01→22:55)
[2021-03-22] MEDS ORDERED: ONDANSETRON 4 MG/2 ML VIAL IVP STA (21:01)
--- NOTE | 2021-03-22 21:05 | ED Physician Documentation ---
PD HPI ABD PAIN - Stated complaint Stated Complaint: ABD PX - Chief complaint Chief Complaint: Abd Pain - History obtained from History obtained from: Patient, Family - Additional information Additional information: 60-year-old woman with history of gastric cancer status post total gastrectomy, right hemicolectomy, left adrenalectomy in February 2020 with adjuvant chemotherapy with poor tolerance. Had a PET/CT preop that was negative. Subsequently had a small bowel obstruction in December of this year with conservative management and had her gallbladder out at [facility] earlier this year. She presents with severe epigastric pain radiating to the mid back starting after a light breakfast of eggs and miso soup this morning. She has been burping but no vomiting. No fevers. They do state that this pain is similar to when she had a bowel obstruction in December of this year. Review of Systems Ten Systems: 10 systems reviewed and negative Constitutional: reports: Reviewed and negative Eyes: reports: Reviewed and negative Ears: reports: Reviewed and negative PD PAST MEDICAL HISTORY - Past Medical History Past Medical History: Yes Cardiovascular: Congestive heart failure, Hypertension, High cholesterol, [place], Other Respiratory: None Neuro: None Endocrine/Autoimmune: Type 2 diabetes GI: Hepatitis, Other : None HEENT: Chronic vision loss Psych: None Musculoskeletal: None Derm: None - Past Surgical History Past Surgical History: Yes General: Cholecystectomy, Gastric surgery, Colonoscopy, EGD, Other - Present Medications Home Medications: Ambulatory Orders Medication Instructions Recorded Confirmed Atorvastatin [Lipitor] 40 mg PO QPM 09/06/19 03/22/21 Ferrous Sulfate 325 mg PO DAILY 09/06/19 03/22/21 Furosemide 20 mg PO .QOD 10/24/19 03/22/21 Sacubitril/Valsartan [Entresto 49 0.5 tab PO BID 10/24/19 03/22/21 mg-51 mg Tablet] Potassium Chloride 20 meq PO DAILY 05/09/20 03/22/21 Aspirin [Aspirin EC] 1 tab PO DAILY 05/24/20 03/22/21 Hydrocortisone 5 - 10 mg PO BID 05/24/20 03/22/21 Calcium Carbonate 1 tab PO DAILY 12/14/20 03/22/21 Cholecalciferol [Vitamin D3] 1 tab PO DAILY 12/14/20 03/22/21 Cyanocobalamin [Vitamin B-12] 1,000 mcg IM .MONTHLY 12/14/20 03/22/21 L.acid/L.casei/B.bif/B.taniya/Fos 1 cap PO DAILY 12/14/20 03/22/21 [Probiotic Blend Capsule] Metoprolol Succinate [Toprol Xl] 25 mg PO DAILY 12/14/20 03/22/21 - Allergies Allergies/Adverse Reactions: Allergies Allergy/AdvReac Type Severity Reaction Status Date / Time No Known Drug Allergies Allergy Verified 03/22/21 18:13 - Social History Does the pt smoke?: Yes Smoking Status: Current every day smoker Does the pt drink ETOH?: No Does the pt have substance abuse?: No - Immunizations Immunizations are current?: Yes - POLST Patient has POLST: Yes POLST Status: Full Code PD ED PE NORMAL - Vitals Vital signs reviewed: Yes - General General: Alert and oriented X 3 (Appears uncomfortable and is clutching her upper abdomen.) - HEENT HEENT: PERRL, EOMI - Neck Neck: Supple, no meningeal sign, No bony TTP - Cardiac Cardiac: RRR, No murmur - Respiratory Respiratory: No respiratory distress, Clear bilaterally - Abdomen Abdomen: Soft, Non tender - Back Back: No CVA TTP, No spinal TTP - Derm Derm: Normal color, Warm and dry - Extremities Extremities: No edema, No calf tenderness / cord - Neuro Neuro: Alert and oriented X 3, Normal speech Results - Vitals Vitals: Vital Signs - 24 hr 03/22/21 03/22/21 03/22/21 18:09 20:51 21:32 Temperature 36.8 C 97.7 C H Heart Rate 78 69 60 Respiratory 15 18 15 Rate Blood Pressure 131/74 H 138/76 H 152/78 H O2 Saturation 99 100 99 03/22/21 22:18 Temperature 36.5 C Heart Rate 59 L Respiratory 15 Rate Blood Pressure 167/93 H O2 Saturation 100 Oxygen O2 Source Room air - Labs Labs: Laboratory Tests 03/22/21 03/22/21 03/22/21 18:39 18:39 22:20 WBC 6.4 RBC 3.82 L Hgb 12.1 Hct 36.3 L MCV 95.0 MCH 31.7 H MCHC 33.3 RDW 12.9 Plt Count 208 MPV 9.5 Neut # (Auto) 4.4 Lymph # (Auto) 1.6 [place] # (Auto) 0.3 Eos # (Auto) 0.1 Baso # (Auto) 0.0 Absolute Nucleated RBC 0.00 Nucleated RBC % 0.0 Sodium 142 Potassium 3.7 Chloride 103 Carbon Dioxide 26 Anion Gap 13.0 BUN 18 Creatinine 0.7 Estimated GFR (MDRD) 86 L Glucose 121 H Calcium 9.7 Total Bilirubin 1.1 H AST 69 H ALT 96 H Alkaline Phosphatase 109 Total Protein 7.4 Albumin 4.5 Globulin 2.9 Albumin/Globulin Ratio 1.6 Lipase 564 H Nasal Adenovirus (PCR) NOT DETECTED Nasal B. parapertussis DNA (PCR) NOT DETECTED Nasal Coronavir 229E PCR NOT DETECTED Nasal Coronavir HKU1 PCR NOT DETECTED Nasal Coronavir NL63 PCR NOT DETECTED Nasal Coronavir OC43 PCR NOT DETECTED Nasal Enterovir/Rhinovir PCR NOT DETECTED Nasal Influenza B PCR NOT DETECTED Nasal Influenza A PCR NOT DETECTED Nasal Parainfluen 1 PCR NOT DETECTED Nasal Parainfluen 2 PCR NOT DETECTED Nasal Parainfluen 3 PCR NOT DETECTED Nasal Parainfluen 4 PCR NOT DETECTED Nasal RSV (PCR) NOT DETECTED Nasal B.pertussis DNA PCR NOT DETECTED Nasal C.pneumoniae (PCR) NOT DETECTED Bharat Human Metapneumo PCR NOT DETECTED Nasal M.pneumoniae (PCR) NOT DETECTED Nasal SARS-CoV-2 (PCR) NOT DETECTED - Rads (name of study) CT abdomen pelvis with IV and some oral contrast demonstrates likely bowel obstruction with transition point in the right lower abdomen Radiology: EMP read contemporaneously PD MEDICAL DECISION MAKING - ED course ED course: Labs notable for elevated liver enzymes and lipase. Looks like in the past her liver enzymes have been modestly elevated in frankly the same range or sometimes even higher, that said the lipase elevation is new. CT with oral and IV contrast ordered. Patient was unable to tolerate oral contrast more than about 100 mL or so, so notified lawn and garden technician to scan with just IV contrast. 60-year-old woman has had extensive gastric surgery in the past presents with upper abdominal pain after breakfast this morning with vomiting and burping. This is similar to CT and presentation done in early December of this year with bowel obstruction which was treated conservatively and went home relatively rapidly. Discussed case by phone with Dr. Ken Fischer our on-call general surgeon who agrees with current management and will consult and spoke with Dr. Roman for admission. Departure - Departure Disposition: 66 [facility] DC/Xfer Clinical Impression: Small bowel obstruction, Pancreatitis Condition: Serious Discharge Date/Time: 03/22/21 23:10
[2021-03-22] MEDS ORDERED: IOVERSOL 320 50 ML VIAL ONE (21:10)
[2021-03-22] MEDS ORDERED: IOPAMIDOL-300 100 ML VIAL ONE (21:10)
[2021-03-22] MEDS ORDERED: METOCLOPRAMIDE 10 MG/2 ML VIAL IVP STA (22:25)
[2021-03-22] MEDS ORDERED: IOPAMIDOL-300 100 ML VIAL IVP ONE (22:27)
[2021-03-22] MEDS ORDERED: IOVERSOL 320 50 ML VIAL PO ONE (22:28)
[2021-03-22] MEDS ORDERED: SODIUM CHLORIDE FLUSH 0.9% 10 ML SYRINGE IVP PRN (22:39)
--- NOTE | 2021-03-22 22:45 | HISTORY & PHYSICAL EXAMINATION ---
Chief Complaint - Chief Complaint Chief Complaint: nausea, vomiting, abdominal pain History of Present Illness - Admitted From Admitted From:: [facility] ED - History Obtained From Records Reviewed: yes History obtained from: patient - History of Present Illness HPI Comment/Other: Patient is a 60-year-old female with history of stomach cancer status post gastric surgery and chemotherapy which was managed by Dr. Davis. She has since undergone cholecystectomy. She presented to the ED with complaint of abdominal pain which started this morning shortly after having breakfast. She had some oatmeal, eggs and a cup of fruit. She also reported experiencing nausea and vomiting. Currently at bedside she rates her pain 0 out of 10. She was given pain medication in the ED. She was last admitted in December 2020 for same reason. Work-up in the ED included a CT of the abdomen pelvis which showed small bowel obstruction. Further work-up included lipase which was 500. There was no evidence of pancreatitis on CT of the abdomen/pelvis. She reports flatulence. Her last bowel movement was this morning. She denies feeling bloated, abdominal distention, chest pain, dyspnea, fever or chills. She is being admitted for further management. History - Past Medical History Cardiovascular: reports: Congestive heart failure, Hypertension, High cholesterol, [place], Other Respiratory: reports: None Neuro: reports: None Endocrine/Autoimmune: reports: Type 2 diabetes GI: reports: Hepatitis, Other : reports: None HEENT: reports: Chronic vision loss Psych: reports: None Musculoskeletal: reports: None Derm: reports: None MRSA Hx?: No - Past Surgical History General: reports: Cholecystectomy, Gastric surgery, Colonoscopy, EGD, Other - Family & Social History Family History: Mother: (both had no siginificant medical problem), Father: Family History Comment/Other: pt reports her parents both did not have any sig nificant medical problem. Social History Notes: According to records, the patient reports current cigarette smoking, denies alcohol and drug issue. she lives in [facility] on [facility] - POLST Patient has POLST: Yes POLST Status: Full Code Meds/Allgy - Home Medications Home Medications: Ambulatory Orders Medication Instructions Recorded Confirmed Atorvastatin [Lipitor] 40 mg PO QPM 09/06/19 03/22/21 Ferrous Sulfate 325 mg PO DAILY 09/06/19 03/22/21 Furosemide 20 mg PO .QOD 10/24/19 03/22/21 Sacubitril/Valsartan [Entresto 49 0.5 tab PO BID 10/24/19 03/22/21 mg-51 mg Tablet] Potassium Chloride 20 meq PO DAILY 05/09/20 03/22/21 Aspirin [Aspirin EC] 1 tab PO DAILY 05/24/20 03/22/21 Hydrocortisone 5 - 10 mg PO BID 05/24/20 03/22/21 Calcium Carbonate 1 tab PO DAILY 12/14/20 03/22/21 Cholecalciferol [Vitamin D3] 1 tab PO DAILY 12/14/20 03/22/21 Cyanocobalamin [Vitamin B-12] 1,000 mcg IM .MONTHLY 12/14/20 03/22/21 L.acid/L.casei/B.bif/B.taniya/Fos 1 cap PO DAILY 12/14/20 03/22/21 [Probiotic Blend Capsule] Metoprolol Succinate [Toprol Xl] 25 mg PO DAILY 12/14/20 03/22/21 - Allergies Allergies/Adverse Reactions: Allergies Allergy/AdvReac Type Severity Reaction Status Date / Time No Known Drug Allergies Allergy Verified 03/22/21 18:13 Review of Systems - Constitutional Constitutional: denies: Fatigue, Fever, Chills - Eyes Eyes: denies: Pain, Dipolpia - Ears, Nose & Throat Ears, Nose & Throat: denies: Ear pain - Cardiovascular Cariovascular: denies: Irregular heart rate, Palpitations, Chest pain, Edema, Lightheadedness, Syncope, Exertional dyspnea - Respiratory Respiratory: denies: Cough, Wheezing, SOB at rest, SOB with exertion - Gastrointestinal Gastrointestinal: reports: Abdominal pain, Nausea, Vomiting. denies: Abdominal distention, Constipation, Coffee grounds emesis, Reflux/heartburn, Bloating - Genitourinary Genitourinary: denies: Dysuria, Frequency, Incontinence, Flank pain - Musculoskeletal Musculoskeletal: denies: Muscle pain, Back pain, Muscle aches - Neurological Neurological: denies: General weakness, Focal weakness, Headache, Dizziness - Psychiatric Psychiatric: denies: Depression, Anxiety - Endocrine Endocrine: denies: Polyuria, Polydypsia - Hematologic/Lymphatic Hematologic/Lymphatic: denies: Anemia, Bruising, Petechiae Prior Level of Functionality: She is normally independent of activities of daily living Exam - Vital Signs Vital Signs: Vital Signs x48h Temp Pulse Resp BP Pulse Ox 03/22/21 22:18 36.5 C 59 L 15 167/93 H 100 03/22/21 21:32 60 15 152/78 H 99 03/22/21 20:51 97.7 C H 69 18 138/76 H 100 03/22/21 18:09 36.8 C 78 15 131/74 H 99 - Physical Exam General Appearance: positive: No acute distress, Alert Eyes Bilateral: positive: PERRL, EOMI ENT: positive: Dry mucous membranes Neck: positive: No JVD, Trachea midline Respiratory: positive: Chest non-tender, No respiratory distress, Breath sounds nml. negative: Wheezes, Rales, Rhonchi Cardiovascular: positive: Regular rate & rhythm, No murmur Abdomen: positive: Non-tender, Nml bowel sounds, No distention. negative: Guarding, Rebound Back: positive: Nml inspection Skin: positive: Color nml, No rash, Warm, Dry Extremities: positive: Non-tender, Full ROM, No pedal edema Neurologic/Psychiatric: positive: Oriented x3, Mood/affect nml Conclusion/Plan - Problem List (1) Small bowel obstruction Conclusion/Plan: Patient made n.p.o. except for meds. She currently denies abdominal pain and is not actively vomiting. Consequently no NG tube was placed. She is receiving IV hydration with D5 plus half normal saline +20 mEq of potassium at 100 mL/h. Zofran ordered for nausea. Dr. Fischer with general surgery was contacted by the ED physician. He is aware of the patient's presence in the hospital. (2) Pancreatitis Conclusion/Plan: Her lipase level was 564. CT of the abdomen/pelvis did not show acute pancreatitis. Etiology undetermined We will trend lipase daily x3. Patient receiving IV hydration, pain management and Zofran for nausea. (3) Adrenal insufficiency Conclusion/Plan: We will continue the patient's hydrocortisone at home dose of 5 mg p.o. daily. (4) Congestive heart failure Conclusion/Plan: Continue patient's metoprolol tartrate and Entresto. We will hold furosemide while hydrating the patient Qualifiers: Heart failure type: unspecified Heart failure chronicity: acute Qualified Code(s): I50.9 - Heart failure, unspecified (5) Coronary artery disease Conclusion/Plan: On baby aspirin, atorvastatin 10 mg p.o. nightly and metoprolol tartrate. (6) Hyperlipidemia Conclusion/Plan: On atorvastatin 10 mg p.o. nightly. (7) Elevated LFTs Conclusion/Plan: Mildly elevated. Will monitor closely. - Lab Results Fish Bones: 03/22/21 18:39 03/22/21 18:39 Core Measures - Anticipated LOS I expect patient to be DC'd or transferred within 96 hours.: Yes - DVT/VTE - Prophylaxis VTE/DVT Device ordered at admit?: Yes VTE/DVT Prophylaxis med ordered at admit?: Yes
[2021-03-22 22:56] LABS: BILIRUBIN,URINE NEGATIVE (NEGATIVE); GLUCOSE, URINE (UA) NEGATIVE (NEGATIVE); KETONES,URINE (UA) TRACE mg/dL (NEGATIVE); LEUKOCYTE ESTERASE, URINE TRACE (NEGATIVE); NITRITE,URINE NEGATIVE (NEGATIVE); OCCULT BLOOD,URINE NEGATIVE (NEGATIVE); PH,URINE 6.5 PH (5.0-7.5); PROTEIN,URINE NEGATIVE (NEGATIVE); UROBILINOGEN,URINE 0.2 (NORMAL) E.U./dL (NORMAL)
[2021-03-22] MEDS ORDERED: D5.45NS W/20 MEQ KCL 1,000 ML IV SCH (23:00)
[2021-03-22] MEDS: D5.45NS W/20 MEQ KCL 1,000 ML IV SCH (23:03)
[2021-03-22 23:08] LABS: CLARITY,URINE CLEAR (CLEAR)
[2021-03-22 23:11] LABS: BACTERIA,URINE Rare /HPF (None Seen); RBC,URINE 0-5 /HPF (0-5); SQUAMOUS EPITHELIAL CELL,UR RARE Squamous (<= Few); WBC,URINE 0-3 /HPF (0-5)
[2021-03-22 23:37] LABS: B. PARAPERTUSSIS- RESP PCR PAN NOT DETECTED; B. PERTUSSIS- RESP PCR PANEL NOT DETECTED; C. PNEUMONIAE- RESP PCR PANEL NOT DETECTED; CORONAVIRUS 229E-RESP PCR NOT DETECTED; CORONAVIRUS HKU1-RESP PCR NOT DETECTED; CORONAVIRUS NL63-RESP PCR NOT DETECTED; CORONAVIRUS OC43-RESP PCR NOT DETECTED; HUMAN METAPNEUMOVIRUS NOT DETECTED; INFLUENZA A- RESP PCR PANEL NOT DETECTED; INFLUENZA B - RESP PCR PANEL NOT DETECTED; M. PNEUMONIAE- RESP PCR PANEL NOT DETECTED; PARAINFLUENZA VIRUS 1 NOT DETECTED; PARAINFLUENZA VIRUS 2 NOT DETECTED; PARAINFLUENZA VIRUS 3 NOT DETECTED; PARAINFLUENZA VIRUS 4 NOT DETECTED; RHINOVIRUS/ENTEROVIRUS NOT DETECTED; RSV- RESP PCR PANEL NOT DETECTED; SARS-CoV-2 -RESP PCR PANEL NOT DETECTED
[2021-03-22] MEDS: SODIUM CHLORIDE FLUSH 0.9% 10 ML SYRINGE IVP SCH (23:38)
[2021-03-23] MEDS: ONDANSETRON 4 MG/2 ML VIAL IVP PRN ×2 (00:54→09:47)
[2021-03-23] MEDS: HYDROmorphone 1 MG/ML CARPUJECT IVP PRN ×3 (00:54→07:24)
[2021-03-23] MEDS ORDERED: SODIUM CHLORIDE FLUSH 0.9% 10 ML SYRINGE IVP SCH (01:00)
[2021-03-23] MEDS: HYDROcod/ACETAM 5/325 MG TABLET PO PRN ×2 (01:18→05:34)
[2021-03-23] MEDS ORDERED: HYDROmorphone 1 MG/ML CARPUJECT IVP PRN (07:05)
[2021-03-23 07:37] LABS: ALBUMIN 4.3 g/dL (3.2-5.5); ALBUMIN/GLOBULIN RATIO 1.5 (1.0-2.2); BILIRUBIN,TOTAL 0.9 mg/dL (0.2-1.0); CALCIUM 9.5 mg/dL (8.5-10.3); CREATININE 0.7 mg/dL (0.4-1.0); POTASSIUM 3.7 mmol/L (3.5-5.0); TOTAL PROTEIN 7.1 g/dL (6.7-8.2)
[2021-03-23] MEDS: D5.45NS W/20 MEQ KCL 1,000 ML IV SCH ×4 (07:42→16:06)
[2021-03-23 07:44] LABS: BASOPHILS % (AUTO) 0.2 %; EOSINOPHILS % (AUTO) 0.7 %; HCT - HEMATOCRIT 40.4 % (37.0-47.0); HGB - HEMOGLOBIN 13.1 g/dL (12.0-16.0); LYMPHOCYTES # (AUTO) 0.9 10^3/uL (1.5-3.5); LYMPHOCYTES % (AUTO) 19.4 %; MEAN CORPUSCULAR HEMOGLOBIN 30.9 pg (27.0-31.0); MEAN CORPUSCULAR HGB CONC 32.4 g/dL (32.0-36.0); MEAN CORPUSCULAR VOLUME 95.3 fL (81.0-99.0); MEAN PLATELET VOLUME 9.7 fL (7.9-10.8); MONOCYTES # (AUTO) 0.4 10^3/uL (0.0-1.0); MONOCYTES % (AUTO) 8.6 %; NEUTROPHILS # (AUTO) 3.2 10^3/uL (1.5-6.6); NEUTROPHILS % (AUTO) 70.9 %; PLT - PLATELET COUNT 216 10^3/uL (130-450); RED BLOOD COUNT 4.24 10^6/uL (4.20-5.40); WHITE BLOOD COUNT 4.5 x10^3/uL (4.8-10.8)
[2021-03-23] MEDS ORDERED: CHOLECALCIFEROL 25 MCG TABLET PO SCH (09:00)
[2021-03-23] MEDS ORDERED: SACUBITRIL PO SCH (09:00)
[2021-03-23] MEDS ORDERED: POTASSIUM CHLORIDE 20 MEQ/15 ML UDC PO SCH (09:00)
[2021-03-23] MEDS ORDERED: VALSARTAN PO SCH (09:00)
[2021-03-23] MEDS ORDERED: CALCIUM CARBONATE CHEW 500 MG TABLET PO SCH (09:00)
[2021-03-23] MEDS ORDERED: ASPIRIN EC 81 MG TABLET PO SCH (09:00)
[2021-03-23] MEDS ORDERED: HYDROCORTISONE 10 MG TABLET PO SCH ×2 (09:00→14:00)
[2021-03-23] MEDS ORDERED: METOPROLOL SUCCINATE 25 MG TABLET PO SCH ×2 (09:00)
[2021-03-23] MEDS ORDERED: FERROUS SULFATE 325 MG TABLET PO SCH (09:00)
--- NOTE | 2021-03-23 09:27 | PHARMACY PROGRESS NOTE ---
- Best Possible Medication History Admit Date and Time: 03/22/21 2236 Processed by: Nursing Medication History completed: Yes Patient Interview: Completed (MED REC COMPLETED BY NURSING) As the person ultimately responsible for medication therapy, providers are able to order a medication from an existing home medication list in [facility] via the "Reconcile Routine" prior to Confirmation of that medication by ground support equipment fitter. Such practice is discouraged except when the physician, in their clinical judgment, deems that a medical need exists for a medication without regard to previous use.
--- NOTE | 2021-03-23 09:57 | CT Report ---
PROCEDURE: Abdomen/Pelvis W INDICATIONS: IV and PO, upper abd pain CONTRAST: IV CONTRAST: Isovue 300 ml: 100 PO CONTRAST: Optiray 320 ml- TECHNIQUE: After the administration of oral and IV contrast, 5 mm thick sections acquired from the diaphragms to the symphysis. 5 mm thick coronal and sagittal reformats were acquired. For radiation dose reducti on, the following was used: automated exposure control, adjustment of mA and/or kV according to xochilt ent size. COMPARISON: CT abdomen pelvis 12/13/2020 FINDINGS: Image quality: Excellent. ABDOMEN: Lung bases: Lung bases are clear. Heart size is normal. Solid organs: Liver and spleen are normal in size. Low-attenuation hepatic focus is stable. Unchange d low-attenuation splenic focus likely small cyst. Gallbladder has been removed Biliary system is no n dilated. Pancreas enhances normally. No adrenal nodules. Kidneys demonstrate normal size and enh ancement, without hydronephrosis. Peritoneum and bowel: There are markedly dilated fluid-filled loops of small bowel with the greatest AP dimension measuring 4.8 cm. While transition point is not clearly identified, it appears to be wit hin the right lower quadrant at the site of small bowel anastomosis. Overall appearance of small henrietta l dilation has mildly increased compared to prior exam with greatest AP dimension measuring 4.4 cm pr eviously. No free fluid or air. Nodes and vessels: No retroperitoneal or mesenteric adenopathy by size criteria. Aorta and inferior vena cava are normal in size. Miscellaneous: No ventral hernias. PELVIS: Genitourinary: Bladder wall thickness is normal. Miscellaneous: No inguinal hernias or adenopathy. Bones: No suspicious bony lesions. No acute vertebral body compression fractures. Old thoracolumba r compression deformities are stable. IMPRESSION: 1. Persistent appearance of prominent partial small bowel obstruction with transition point likely at the anastomotic site in the right abdomen. It is overall slightly more prominent when compared to pr ior exam. 2. Hepatic and splenic cysts. The above findings are concordant with preliminary report. Reviewed by: Yelena Lim MD on 03/23/2021 9:55 AM PDT Approved by: Yelena Lim MD on 03/23/2021 9:55 AM PDT Station ID: [id number]
[2021-03-23] MEDS: SODIUM CHLORIDE FLUSH 0.9% 10 ML SYRINGE IVP SCH ×2 (10:33→16:40)
[2021-03-23] MEDS ORDERED: METOPROLOL 5 MG/5 ML VIAL IVP SCH (10:37)
[2021-03-23] MEDS ORDERED: HYDROCORTISONE SUCCINATE 100 MG/2 ML VIAL IVP SCH (10:38)
--- NOTE | 2021-03-23 11:20 | XRAY Report ---
PROCEDURE: Chest for Line Placement INDICATIONS: ng tube placement TECHNIQUE: One view of the chest was acquired. COMPARISON: 03/22/2020 FINDINGS: Surgical changes and devices: NG tube projects across the GE junction with tip in the proximal stomac h and side-port in distal esophagus. NG tube should be advanced several centimeters. Cholecystectomy clips. Surgical clips in the left upper quadrant of the abdomen. Lungs and pleura: No pleural effusions or pneumothorax. Lungs are clear. Mediastinum: Mediastinal contours appear normal. Heart size is normal. Bones and chest wall: No suspicious bony lesions. Overlying soft tissues appear unremarkable. IMPRESSION: NG tube projects across the GE junction with side port projecting over the distal esophagus. NG tube should be advanced several centimeters. Reviewed by: Leigha Mcdaniel MD, PhD on 03/23/2021 11:19 AM PDT Approved by: Leigha Mcdaniel MD, PhD on 03/23/2021 11:19 AM PDT Station ID: [id number]
--- NOTE | 2021-03-23 11:39 | PROVIDER PROGRESS NOTE ---
Assessment/Plan - Problem List (1) Small bowel obstruction Assessment/Plan: Continue with bowel rest. Will plan NG tube insertion and to suction. Continue with IV fluids. Continue with as needed antiemetics and as needed pain meds. Appreciate general surgery following along with us (2) Pre-op evaluation Assessment/Plan: EKG (which I interpreted) shows NSR, rate 90, lateral ST depressions, which is similar to 10/2019 Because of increased PVCs on telemetry today, Troponins were run today and are 138 then 191, ruling her out for acute NJ Her revised cardiac risk index is 3 points, (class IV risk) which gives her a 15% 30-day risk of NJ or cardiac arrest. Her surgery planned for today is urgent/emergency per Dr Fischer initial impression this morning.>>> Subsequently, when bowel sounds were audible and her pain was controlled on narcotics, the surgery for today has been canceled (3) Adrenal insufficiency Assessment/Plan: Will start stress dose steroids for 48 to 72 hours using hydrocortisone 100 mg IV 3 times daily (4) Gastric cancer Assessment/Plan: She had most of her stomach removed and she had anastomosis of the bowel. The blockage is at the anastomosis site, as per the radiology impression. She is cachectic and would like to avoid further weight loss. We will order CVP line for TPN, start that now that she is npo (5) Congestive heart failure Qualifiers: Heart failure type: unspecified Heart failure chronicity: acute Qualified Code(s): I50.9 - Heart failure, unspecified Assessment/Plan: Her last echo from 2019 showed LVEF of 55%, improved from the previous year when it was 45% She is euvolemic and not having a CHF exacerbation. We will change all her p.o. medications to IV forms, due to NPO status for surgery and for bowel rest. IV Lopressor most importantly will be continued. The p.o. Entresto from home will await to be resumed We will hold furosemide while hydrating the patient Qualifiers: Heart failure type: unspecified Heart failure chronicity: acute Qualified Code(s): I50.9 - Heart failure, unspecified (6) Coronary artery disease Assessment/Plan: Will put on hold her baby aspirin, atorvastatin 10 mg p.o. nightly and metoprolol tartrate. Use iv B-nora now (7) Elevated LFTs Assessment/Plan: Mildly elevated. Will monitor closely. (8) Hyperlipidemia Assessment/Plan: Will put on hold her atorvastatin 10 mg p.o. nightly. (9) Elevated lipase Assessment/Plan: PAncreatitis has been ruled out. CT of the abdomen/pelvis did not show acute pancreatitis. Her lipase level was 564 and dropped to 38 today, therefor it was a phase reactant. - Current Meds Current Meds: Current Medications Generic Name Dose Route Start Last Admin Trade Name Freq PRN Reason Stop Dose Admin Hydromorphone HCl 1 mg 03/23/21 07:05 03/23/21 09:46 Hydromorphone 1 Mg/Ml Carpuject IVP 1 mg Q2HR PRN Administration PAIN Potassium Chloride/Dextrose/Sod Cl 1,000 mls @ 100 mls/hr 03/22/21 23:00 03/23/21 09:52 D5.45ns W/20 Meq Kcl IV 100 mls/hr .Q10H DILAN Administration Ondansetron HCl 4 mg 03/22/21 22:39 03/23/21 09:47 Ondansetron 4 Mg/2 Ml Vial IVP 4 mg Q6HR PRN Administration Nausea / Vomiting Sodium Chloride 10 ml 03/23/21 01:00 03/23/21 10:33 Sodium Chloride Flush 0.9% 10 Ml Syringe IVP Not Given 0100,0900,1700 DILAN - Lab Result Fish Bone Diagrams: 03/23/21 07:12 03/23/21 07:12 - Additional Planning My Orders: My Active Orders 03/23/21 09:59 NPO [DIET] 03/23/21 10:27 PICC Line Care [RC] Q4H PICC Line Insert [RC] .ONCE 03/23/21 11:09 TROPONIN I HIGH SENSITIVITY [IAI] Stat 03/23/21 22:00 Hydrocortisone Succinate [Solu-CORTEF] 100 mg IVP TID Metoprolol Inj [Lopressor Inj] 2.5 mg IVP Q8HR Subjective - Subjective Patient Reports: Abdominal Pain Objective Vital Signs: Vital Signs - 24 hr 03/22/21 03/22/21 03/22/21 18:09 20:51 21:32 Temperature 36.8 C 97.7 C H Heart Rate 78 69 60 Heart Rate [ Brachial] Respiratory 15 18 15 Rate Blood Pressure 131/74 H 138/76 H 152/78 H Blood Pressure [Left Brachial artery] O2 Saturation 99 100 99 03/22/21 03/22/21 03/22/21 22:18 23:05 23:15 Temperature 36.5 C 36.5 C Heart Rate 59 L 59 L Heart Rate [ 63 Brachial] Respiratory 15 12 16 Rate Blood Pressure 167/93 H 152/86 H Blood Pressure 134/92 H [Left Brachial artery] O2 Saturation 100 100 98 03/23/21 03/23/21 03/23/21 05:45 07:53 11:05 Temperature 36.4 C L 36.9 C Heart Rate Heart Rate [ 67 80 99 Brachial] Respiratory 18 18 16 Rate Blood Pressure 148/85 H Blood Pressure 154/88 H 139/82 H 148/85 H [Left Brachial artery] O2 Saturation 97 97 98 03/23/21 03/23/21 03/23/21 11:10 11:15 11:20 Temperature Heart Rate Heart Rate [ 86 86 80 Brachial] Respiratory 16 16 15 Rate Blood Pressure Blood Pressure 143/70 H 139/74 H 122/67 [Left Brachial artery] O2 Saturation 98 98 98 Oxygen O2 Source Room air I&O (Last 24 Hrs): Intake and Output Totals x24h 03/21/21 03/22/21 03/23/21 23:59 23:59 23:59 Intake Total 56.25 943.75 Output Total 400 900 Balance -343.75 43.75 General: Alert HEENT: Other (Oral mucosa is dry, patient is cachectic, Has temporal wasting) Neck: Supple, No JVD Neuro: Alert, Non Focal Cardiovascular: Regular rate, No murmurs Respiratory: No respiratory distress, Breath sounds nml, Other (Port present in the anterior thorax) Abdomen: No tenderness, Other (Not distended or hypertympanic, Bowel sounds are present in the left upper quadrant and she has a pinging) Extremities: No clubbing, No edema, Other (Muscle wasting of upper and lower extremities) - Results Results: Laboratory Results WBC 4.5 x10^3/uL (4.8-10.8) L 03/23/21 07:12 RBC 4.24 10^6/uL (4.20-5.40) 03/23/21 07:12 Hgb 13.1 g/dL (12.0-16.0) 03/23/21 07:12 Hct 40.4 % (37.0-47.0) 03/23/21 07:12 MCV 95.3 fL (81.0-99.0) 03/23/21 07:12 MCH 30.9 pg (27.0-31.0) 03/23/21 07:12 MCHC 32.4 g/dL (32.0-36.0) 03/23/21 07:12 RDW 13.0 % (12.0-15.0) 03/23/21 07:12 Plt Count 216 10^3/uL (130-450) 03/23/21 07:12 MPV 9.7 fL (7.9-10.8) 03/23/21 07:12 Neut # (Auto) 3.2 10^3/uL (1.5-6.6) 03/23/21 07:12 Lymph # (Auto) 0.9 10^3/uL (1.5-3.5) L 03/23/21 07:12 Tate # (Auto) 0.4 10^3/uL (0.0-1.0) 03/23/21 07:12 Eos # (Auto) 0.0 10^3/uL (0.0-0.7) 03/23/21 07:12 Baso # (Auto) 0.0 10^3/uL (0.0-0.1) 03/23/21 07:12 Absolute Nucleated RBC 0.00 x10^3/uL 03/23/21 07:12 Nucleated RBC % 0.0 /100WBC 03/23/21 07:12 Sodium 137 mmol/L (135-145) 03/23/21 07:12 Potassium 3.7 mmol/L (3.5-5.0) 03/23/21 07:12 Chloride 98 mmol/L (101-111) L 03/23/21 07:12 Carbon Dioxide 24 mmol/L (21-32) 03/23/21 07:12 Anion Gap 15.0 (6-13) H 03/23/21 07:12 BUN 14 mg/dL (6-20) 03/23/21 07:12 Creatinine 0.7 mg/dL (0.4-1.0) 03/23/21 07:12 Estimated GFR (MDRD) 86 (>89) L 03/23/21 07:12 Glucose 192 mg/dL (70-100) H 03/23/21 07:12 Lactic Acid 1.7 mmol/L (0.5-2.2) 03/23/21 07:12 Calcium 9.5 mg/dL (8.5-10.3) 03/23/21 07:12 Magnesium 2.0 mg/dL (1.7-2.8) 03/23/21 07:13 Total Bilirubin 0.9 mg/dL (0.2-1.0) 03/23/21 07:12 AST 48 IU/L (10-42) H 03/23/21 07:12 ALT 80 IU/L (10-60) H 03/23/21 07:12 Alkaline Phosphatase 104 IU/L (42-121) 03/23/21 07:12 Troponin I High Sens 138.8 ng/L (2.3-14.8) H* 03/23/21 07:13 Total Protein 7.1 g/dL (6.7-8.2) 03/23/21 07:12 Albumin 4.3 g/dL (3.2-5.5) 03/23/21 07:12 Globulin 2.8 g/dL (2.1-4.2) 03/23/21 07:12 Albumin/Globulin Ratio 1.5 (1.0-2.2) 03/23/21 07:12 Lipase 95 U/L (22-51) H 03/23/21 07:12 Urine Color YELLOW 03/22/21 22:40 Urine Clarity CLEAR (CLEAR) 03/22/21 22:40 Urine pH 6.5 PH (5.0-7.5) 03/22/21 22:40 Ur Specific [place] 1.010 (1.002-1.030) 03/22/21 22:40 Urine Protein NEGATIVE mg/dL (NEGATIVE) 03/22/21 22:40 Urine Glucose (UA) NEGATIVE mg/dL (NEGATIVE) 03/22/21 22:40 Urine Ketones TRACE mg/dL (NEGATIVE) 03/22/21 22:40 Urine Occult Blood NEGATIVE (NEGATIVE) 03/22/21 22:40 Urine Nitrite NEGATIVE (NEGATIVE) 03/22/21 22:40 Urine Bilirubin NEGATIVE (NEGATIVE) 03/22/21 22:40 Urine Urobilinogen 0.2 (NORMAL) E.U./dL (NORMAL) 03/22/21 22:40 Ur Leukocyte Esterase TRACE (NEGATIVE) H 03/22/21 22:40 Urine RBC 0-5 /HPF (0-5) 03/22/21 22:40 Urine WBC 0-3 /HPF (0-5) 03/22/21 22:40 Ur Squamous Epith Cells RARE Squamous (<= Few) 03/22/21 22:40 Urine Bacteria Rare /HPF (None Seen) 03/22/21 22:40 Ur Microscopic Review INDICATED 03/22/21 22:40 Urine Culture Comments INDICATED 03/22/21 22:40 Nasal Adenovirus (PCR) NOT DETECTED 03/22/21 22:20 Nasal B. parapertussis DNA (PCR) NOT DETECTED 03/22/21 22:20 Nasal Coronavir 229E PCR NOT DETECTED 03/22/21 22:20 Nasal Coronavir HKU1 PCR NOT DETECTED 03/22/21 22:20 Nasal Coronavir NL63 PCR NOT DETECTED 03/22/21 22:20 Nasal Coronavir OC43 PCR NOT DETECTED 03/22/21 22:20 Nasal Enterovir/Rhinovir PCR NOT DETECTED 03/22/21 22:20 Nasal Influenza B PCR NOT DETECTED 03/22/21 22:20 Nasal Influenza A PCR NOT DETECTED 03/22/21 22:20 Nasal Parainfluen 1 PCR NOT DETECTED 03/22/21 22:20 Nasal Parainfluen 2 PCR NOT DETECTED 03/22/21 22:20 Nasal Parainfluen 3 PCR NOT DETECTED 03/22/21 22:20 Nasal Parainfluen 4 PCR NOT DETECTED 03/22/21 22:20 Nasal RSV (PCR) NOT DETECTED 03/22/21 22:20 Nasal B.pertussis DNA PCR NOT DETECTED 03/22/21 22:20 Nasal C.pneumoniae (PCR) NOT DETECTED 03/22/21 22:20 Bharat Human Metapneumo PCR NOT DETECTED 03/22/21 22:20 Nasal M.pneumoniae (PCR) NOT DETECTED 03/22/21 22:20 Nasal SARS-CoV-2 (PCR) NOT DETECTED 03/22/21 22:20 - Procedures Procedures: Procedures RESPIRATORY VENTILATION, LESS THAN 24 CONSECUTIVE HOURS (08/07/19)
--- NOTE | 2021-03-23 13:19 | ANESTHESIA ---
Pre-Anesthesia VS, & Labs - Diagnosis bowel obstruction - Procedure expolratory laparotomy Vital Signs: Temp Pulse Resp BP Pulse Ox 37.2 C 87 18 130/70 98 03/23/21 12:38 03/23/21 12:38 03/23/21 12:38 03/23/21 12:38 03/23/21 12:38 Height: 5 ft 7 in Weight (kg): 53 kg Body Mass Index: 18.3 BMI Classification: Underweight - NPO >8 hours - Is Patient ?: No - Lab Results Current Lab Results: Laboratory Tests 03/23/21 11:09: Troponin I High Sens 191.1 H* 03/23/21 07:13: Troponin I High Sens 138.8 H* 03/23/21 07:13: Magnesium 2.0 03/23/21 07:12: Lactic Acid 1.7 03/23/21 07:12: Sodium 137, Potassium 3.7, Chloride 98 L, Carbon Dioxide 24, Anion Gap 15.0 H, BUN 14, Creatinine 0.7, Estimated GFR (MDRD) 86 L, Glucose 192 H, Calcium 9.5, Total Bilirubin 0.9, AST 48 H, ALT 80 H, Alkaline Phosphatase 104, Total Protein 7.1, Albumin 4.3, Globulin 2.8, Albumin/Globulin Ratio 1.5, Lipase 95 H 03/23/21 07:12: WBC 4.5 L, RBC 4.24, Hgb 13.1, Hct 40.4, MCV 95.3, MCH 30.9, MCHC 32.4, RDW 13.0, Plt Count 216, MPV 9.7, Neut # (Auto) 3.2, Lymph # (Auto) 0.9 L, Benson # (Auto) 0.4, Eos # (Auto) 0.0, Baso # (Auto) 0.0, Absolute Nucleated RBC 0.00, Nucleated RBC % 0.0 03/22/21 18:39: Sodium 142, Potassium 3.7, Chloride 103, Carbon Dioxide 26, Anion Gap 13.0, BUN 18, Creatinine 0.7, Estimated GFR (MDRD) 86 L, Glucose 121 H , Calcium 9.7, Total Bilirubin 1.1 H, AST 69 H, ALT 96 H, Alkaline Phosphatase 109, Total Protein 7.4, Albumin 4.5, Globulin 2.9, Albumin/Globulin Ratio 1.6, Lipase 564 H 03/22/21 18:39: WBC 6.4, RBC 3.82 L, Hgb 12.1, Hct 36.3 L, MCV 95.0, MCH 31.7 H, MCHC 33.3, RDW 12.9, Plt Count 208, MPV 9.5, Neut # (Auto) 4.4, Lymph # (Auto) 1.6, Benson # (Auto) 0.3, Eos # (Auto) 0.1, Baso # (Auto) 0.0, Absolute Nucleated RBC 0.00, Nucleated RBC % 0.0 Fish Bones: 03/23/21 07:12 03/23/21 07:12 Home Medications and Allergies Active Medications Cyanocobalamin (Cyanocobalamin 1,000 Mcg/Ml Vial) 1,000 mcg IM ONCE ONE Stop: 04/05/21 09:01 Hydrocortisone Sodium Succinate (Hydrocortisone Succinate 100 Mg/2 Ml Vial) 100 mg IVP TID DILAN Hydromorphone HCl (Hydromorphone 1 Mg/Ml Carpuject) 1 mg IVP Q2HR PRN PRN Reason: PAIN Last Admin: 03/23/21 09:46 Dose: 1 mg Documented by: Potassium Chloride/Dextrose/Sod Cl (D5.45ns W/20 Meq Kcl) 1,000 mls @ 100 mls/hr IV .Q10H [facility] Last Admin: 03/23/21 09:52 Dose: 100 mls/hr Documented by: Metoprolol Tartrate (Metoprolol 5 Mg/5 Ml Vial) 2.5 mg IVP Q8HR DILAN Ondansetron HCl (Ondansetron 4 Mg/2 Ml Vial) 4 mg IVP Q6HR PRN PRN Reason: Nausea / Vomiting Last Admin: 03/23/21 09:47 Dose: 4 mg Documented by: Sodium Chloride (Sodium Chloride Flush 0.9% 10 Ml Syringe) 10 ml IVP PRN PRN PRN Reason: NEEDED PER PROVIDER ORDERS Sodium Chloride (Sodium Chloride Flush 0.9% 10 Ml Syringe) 10 ml IVP 0100,0900,1700 [facility] Last Admin: 03/23/21 10:33 Dose: Not Given Documented by: Atorvastatin [Lipitor] 40 mg PO QPM 09/06/19 Ferrous Sulfate 325 mg PO DAILY 09/06/19 Furosemide 20 mg PO .QOD 10/24/19 Sacubitril/Valsartan [Entresto 49 mg-51 mg Tablet] 0.5 tab PO BID 10/24/19 Potassium Chloride 20 meq PO DAILY 05/09/20 Aspirin [Aspirin EC] 1 tab PO DAILY 05/24/20 Hydrocortisone 5 - 10 mg PO BID 05/24/20 Calcium Carbonate 1 tab PO DAILY 12/14/20 Cholecalciferol [Vitamin D3] 1 tab PO DAILY 12/14/20 Cyanocobalamin [Vitamin B-12] 1,000 mcg IM .MONTHLY 12/14/20 L.acid/L.casei/B.bif/B.taniya/Fos [Probiotic Blend Capsule] 1 cap PO DAILY 12/14/20 Metoprolol Succinate [Toprol Xl] 25 mg PO DAILY 12/14/20 Allergies/Adverse Reactions: Allergies Allergy/AdvReac Type Severity Reaction Status Date / Time No Known Drug Allergies Allergy Verified 03/22/21 18:13 Anes History & Medical History - Anesthetic History Anesthesia Complications: reports: No previous complications Family history of Anesthesia Complications: Denies Family history of Malignant Hyperthermia: Denies - Medical History Cardiovascular: reports: Congestive heart failure, Hypertension, High cholesterol, [place], Other Pulmonary: reports: None Gastrointestinal: reports: Hepatitis, Other Urinary: reports: None Neuro: reports: None Musculoskeletal: reports: None Endocrine/Autoimmune: reports: Type 2 diabetes Blood Disorders: reports: None Skin: reports: None Smoking Status: Former smoker Other Past Medical History: Stomach Cancer: Completed course of chemotherapy. - Surgical History General: reports: Cholecystectomy, Gastric surgery, Colonoscopy, EGD, Other Exam General: Alert, Oriented x3 Dental: WNL Mouth Openin Fingerbreadth Neck Mobility: Normal Mallampati classification: I Thyromental Distance: 4-6 cm Respiratory: Lungs clear Cardiovascular: Regular rate Plan Anesthesia Type: General Consent for Procedure(s) Verified and Reviewed: Yes Code Status: Attempt Resuscitation ASA classification: 3-Severe systemic disease Is this case an emergency?: No
[2021-03-23] MEDS ORDERED: HYDROmorphone 0.5 MG/0.5 ML SYRINGE IVP PRN (13:23)
[2021-03-23] MEDS ORDERED: ATROPINE ABBOJECT 1 MG/10 ML SYRINGE IVP PRN (13:23)
[2021-03-23] MEDS ORDERED: MORPHINE 2 MG/ML CARPUJECT IVP PRN (13:23)
[2021-03-23] MEDS ORDERED: METOCLOPRAMIDE 10 MG/2 ML VIAL IVP PRN (13:23)
[2021-03-23] MEDS ORDERED: ePHEDrine 50 MG/ML VIAL IVP PRN (13:23)
[2021-03-23] MEDS ORDERED: fentaNYL 100 MCG/2 ML VIAL IVP PRN (13:23)
[2021-03-23] MEDS ORDERED: NALOXONE 0.4 MG/ML VIAL IVP PRN (13:23)
[2021-03-23] MEDS ORDERED: ONDANSETRON 4 MG/2 ML VIAL IVP PRN (13:23)
[2021-03-23] MEDS ORDERED: LACTATED RINGERS 1,000 ML IV SCH (14:00)
--- NOTE | 2021-03-23 14:09 | HISTORY & PHYSICAL EXAMINATION ---
Chief Complaint - Chief Complaint Chief Complaint: inability to keep food down x 3 days History of Present Illness - Admitted From Admitted From:: ED - History Obtained From Records Reviewed: yes History obtained from: pt Exam Limitations: none - History of Present Illness HPI Comment/Other: Admitted last pm with 3 days of inability to keep food down. She had large emesis shortly after admission. She has history of total gastrectomy for cancer and [place]. She was seen 3 months ago for small bowel obstruction which improved without need for surgery. Ct scan shows mid abdomen high grade bowel obstruction. She was seen be me early this am. She was very uncomfortable. Surgery was recommended. Ngt has been placed. She feels much improved this afternoon. She has had further work up with high sensitivity troponins. History - Past Medical History Cardiovascular: reports: Congestive heart failure, Hypertension, High cholesterol, [place], Other Respiratory: reports: None Neuro: reports: None Endocrine/Autoimmune: reports: Type 2 diabetes GI: reports: Hepatitis, Other : reports: None HEENT: reports: Chronic vision loss Psych: reports: None Musculoskeletal: reports: None Derm: reports: None MRSA Hx?: No Other Past Medical History: Stomach Cancer: Completed course of chemotherapy. - Past Surgical History General: reports: Cholecystectomy, Gastric surgery, Colonoscopy, EGD, Other - Family & Social History Family History: Mother: (both had no siginificant medical problem), Father: Family History Comment/Other: pt reports her parents both did not have any significant medical problem. Social History Notes: According to records, the patient reports current cigarette smoking, denies alcohol and drug issue. she lives in [facility] - POLST Patient has POLST: Yes POLST Status: Full Code Meds/Allgy - Home Medications Home Medications: Ambulatory Orders Medication Instructions Recorded Confirmed Atorvastatin [Lipitor] 40 mg PO QPM 09/06/19 03/22/21 Ferrous Sulfate 325 mg PO DAILY 09/06/19 03/22/21 Furosemide 20 mg PO .QOD 10/24/19 03/22/21 Sacubitril/Valsartan [Entresto 49 0.5 tab PO BID 10/24/19 03/22/21 mg-51 mg Tablet] Potassium Chloride 20 meq PO DAILY 05/09/20 03/22/21 Aspirin [Aspirin EC] 1 tab PO DAILY 05/24/20 03/22/21 Hydrocortisone 5 - 10 mg PO BID 05/24/20 03/22/21 Calcium Carbonate 1 tab PO DAILY 12/14/20 03/22/21 Cholecalciferol [Vitamin D3] 1 tab PO DAILY 12/14/20 03/22/21 Cyanocobalamin [Vitamin B-12] 1,000 mcg IM .MONTHLY 12/14/20 03/22/21 L.acid/L.casei/B.bif/B.taniya/Fos 1 cap PO DAILY 12/14/20 03/22/21 [Probiotic Blend Capsule] Metoprolol Succinate [Toprol Xl] 25 mg PO DAILY 12/14/20 03/22/21 - Allergies Allergies/Adverse Reactions: Allergies Allergy/AdvReac Type Severity Reaction Status Date / Time No Known Drug Allergies Allergy Verified 03/22/21 18:13 Review of Systems - Other Findings Other Findings: 10 pt ros as above otherwise unremarkable Exam - Vital Signs Reviewed Vital Signs: Yes Vital Signs: Vital Signs x48h Temp Pulse Resp BP BP Pulse Ox 03/23/21 12:38 37.2 C 87 18 130/70 98 03/23/21 11:20 80 15 122/67 98 03/23/21 11:15 86 16 139/74 H 98 03/23/21 11:10 86 16 143/70 H 98 03/23/21 11:05 99 16 148/85 H 148/85 H 98 03/23/21 07:53 36.9 C 80 18 139/82 H 97 - Physical Exam General Appearance: positive: No acute distress, Other (she was in distress this am with diffuse abdominal pain. much improved now) Eyes Bilateral: positive: PERRL, EOMI, No scleral icterus ENT: positive: No signs of dehydration Neck: positive: No JVD, Trachea midline Respiratory: positive: No respiratory distress Abdomen: positive: Other (mild to moderate mild tenderness) Neurologic/Psychiatric: positive: Oriented x3 Conclusion/Plan - Lab Results Fish Bones: 03/23/21 07:12 03/23/21 07:12 - Diagnostic Imaging Results Diagnostic Imaging Results: positive: Read independently (mid abdomen high grade bowel obstruction) - Other Other Results/Comments: She has history of [place], total gastrectomy for cancer and right colectomy. She had a high grade mid abdomen small bowel obstruction on admit and considerable pain this am. She is improved this afternoon. This bowel obstruction may not clear without surgery. Agree with present care and picc line for tpn. Consider transfer to a facility that can offer a higher level of care at this time due to her cardiac history and likely need for surgery. If she cannot be transferred and her cardiac risk is considered low consider surgery here [place] if she is not improving.
--- NOTE | 2021-03-23 15:23 | XRAY Report ---
PROCEDURE: Chest for Line Placement INDICATIONS: PICC LINE PLACEMENT TECHNIQUE: One view of the chest was acquired. COMPARISON: Lung bases on CT abdomen and pelvis 03/22/2021. CT chest 10/24/2020. FINDINGS: Surgical changes and devices: Right-sided PICC line with the tip projecting over the lower third of t he SVC. Enteric tube with the tip coursing in the stomach. Multiple clips in the region of the proxim al stomach. Cholecystectomy clips. Lungs and pleura: No pleural effusions or pneumothorax. Lungs appear clear. The uppermost lung apic es are not included in the [id number]. Mediastinum: Mediastinal contours appear normal. Heart size is normal. Bones and chest wall: No suspicious bony lesions. Overlying soft tissues appear unremarkable. IMPRESSION: Right PICC line with the tip projecting over the lower third of the SVC in satisfactory position. Reviewed by: Walter Bradshaw MD on 03/23/2021 3:22 PM PDT Approved by: Walter Bradshaw MD on 03/23/2021 3:22 PM PDT Station ID: [id number]
--- NOTE | 2021-03-23 15:39 | ANESTHESIA PROCEDURE NOTE ---
Anesth Central Line Template - Central Line Central Line Preparation: Consent Obtained, Unable to obtain consent, Time out completed, Ultrasound used, Sterile prep and drape Central line location: Right Basilic Central line type: PICC Double Lumen Central line catheter tip site resides: Superior vena cava (SVC) Central line aftercare: Secured, Placement confirmed, No pneumothorax, No complications, Bundle checklist complete, Pt tolerated well
[2021-03-23] MEDS: FAT EMULSION 20% 250 ML IV SCH (19:03)
[2021-03-23] MEDS: TPN (CLINIMIX E 5/15) 2,000 ML with MULTIVITAMIN 10 ML, TRACE ELEMENTS 1 ML IV SCH ×3 (19:03)
[2021-03-23] MEDS ORDERED: ATORVASTATIN 10 MG TABLET PO SCH (21:00)
[2021-03-23] MEDS: METOPROLOL 5 MG/5 ML VIAL IVP SCH (22:20)
[2021-03-23] MEDS: HYDROCORTISONE SUCCINATE 100 MG/2 ML VIAL IVP SCH (22:21)
[2021-03-24] MEDS: SODIUM CHLORIDE FLUSH 0.9% 10 ML SYRINGE IVP SCH ×3 (00:11→16:43)
[2021-03-24] MEDS ORDERED: INSULIN REGULAR HUMAN 300 UNIT/3 ML VIAL SUBQ SCH (01:00)
[2021-03-24] MEDS: D5.45NS W/20 MEQ KCL 1,000 ML IV SCH (02:28)
[2021-03-24] MEDS: HYDROCORTISONE SUCCINATE 100 MG/2 ML VIAL IVP SCH ×3 (05:21→22:37)
[2021-03-24] MEDS: METOPROLOL 5 MG/5 ML VIAL IVP SCH ×3 (05:21→22:37)
[2021-03-24 05:26] LABS: BASOPHILS % (AUTO) 0.2 %; HGB - HEMOGLOBIN 11.2 g/dL (12.0-16.0); LYMPHOCYTES # (AUTO) 0.3 10^3/uL (1.5-3.5); LYMPHOCYTES % (AUTO) 6.2 %; MEAN CORPUSCULAR HEMOGLOBIN 31.9 pg (27.0-31.0); MEAN CORPUSCULAR HGB CONC 32.9 g/dL (32.0-36.0); MEAN CORPUSCULAR VOLUME 96.9 fL (81.0-99.0); MEAN PLATELET VOLUME 10.3 fL (7.9-10.8); MONOCYTES # (AUTO) 0.2 10^3/uL (0.0-1.0); MONOCYTES % (AUTO) 4.1 %; NEUTROPHILS # (AUTO) 4.8 10^3/uL (1.5-6.6); NEUTROPHILS % (AUTO) 89.5 %; PLT - PLATELET COUNT 174 10^3/uL (130-450); RED BLOOD COUNT 3.51 10^6/uL (4.20-5.40); RED CELL DISTRIBUTION WIDTH 12.9 % (12.0-15.0); WHITE BLOOD COUNT 5.3 x10^3/uL (4.8-10.8)
[2021-03-24 05:37] LABS: ALBUMIN 3.5 g/dL (3.2-5.5); ALBUMIN/GLOBULIN RATIO 1.3 (1.0-2.2); BILIRUBIN,TOTAL 0.7 mg/dL (0.2-1.0); CALCIUM 8.5 mg/dL (8.5-10.3); CREATININE 0.7 mg/dL (0.4-1.0); PHOSPHORUS 3.3 mg/dL (2.5-4.6); POTASSIUM 4.1 mmol/L (3.5-5.0); TOTAL PROTEIN 6.2 g/dL (6.7-8.2)
[2021-03-24] MEDS: INSULIN REGULAR HUMAN 300 UNIT/3 ML VIAL SUBQ SCH ×3 (05:59→18:15)
--- NOTE | 2021-03-24 12:15 | PROVIDER PROGRESS NOTE ---
Subjective - Prog Note Date Prog Note Date: 03/24/21 - Subjective Pt reports feeling: Improved (denies abdominal discmoft. past small flatus) Objective - Vital Signs/Intake & Output Reviewed Vital Signs: Yes Vital Signs: Vital Signs x48h Temp Pulse Resp BP BP Pulse Ox 03/24/21 11:56 36.6 C 71 17 127/70 98 03/24/21 08:01 36.5 C 70 18 124/70 96 03/24/21 06:25 69 122/66 03/24/21 06:10 64 120/66 03/24/21 05:55 70 128/64 03/24/21 05:40 73 119/66 03/24/21 05:35 69 117/55 L 03/24/21 05:30 74 122/58 L 03/24/21 05:21 122/58 L 03/24/21 05:20 36.6 C 71 18 119/64 97 Intake & Output: Intake & Output 03/21/21 03/22/21 03/23/21 03/24/21 23:59 23:59 23:59 23:59 Intake Total 56.25 6463.594 4335.900 Output Total 956 657 9144 Balance -343.75 791.706 8999.900 - Objective General Appearance: positive: No acute distress, Alert Eyes Bilateral: positive: PERRL, EOMI, No scleral icterus ENT: positive: Pharynx nml, No signs of dehydration Neck: positive: No JVD, Trachea midline Respiratory: positive: No respiratory distress Abdomen: positive: Non-tender, No distention Neurologic/Psychiatric: positive: Oriented x3 - Lab Results Fish Bones: 03/24/21 04:49 03/24/21 04:49 Other Labs: Lab Results x24hrs 03/24/21 03/24/21 03/24/21 Range/Units 11:36 05:32 04:49 WBC (4.8-10.8) x10^3/uL RBC (4.20-5.40) 10^6/uL Hgb (12.0-16.0) g/dL Hct (37.0-47.0) % MCV (81.0-99.0) fL MCH (27.0-31.0) pg MCHC (32.0-36.0) g/dL RDW (12.0-15.0) % Plt Count (130-450) 10^3/uL MPV (7.9-10.8) fL Neut # (Auto) (1.5-6.6) 10^3/uL Lymph # (Auto) (1.5-3.5) 10^3/uL [place] # (Auto) (0.0-1.0) 10^3/uL Eos # (Auto) (0.0-0.7) 10^3/uL Baso # (Auto) (0.0-0.1) 10^3/uL Absolute Nucleated RBC x10^3/uL Nucleated RBC % /100WBC Sodium 135 (135-145) mmol/L Potassium 4.1 (3.5-5.0) mmol/L Chloride 100 L (101-111) mmol/L Carbon Dioxide 24 (21-32) mmol/L Anion Gap 11.0 (6-13) BUN 12 (6-20) mg/dL Creatinine 0.7 (0.4-1.0) mg/dL Estimated GFR (MDRD) 86 L (>89) Glucose 312 H (70-100) mg/dL POC Whole Bld Glucose 246 H 277 H (70 - 100) mg/dL Calcium 8.5 (8.5-10.3) mg/dL Phosphorus 3.3 (2.5-4.6) mg/dL Magnesium 2.0 (1.7-2.8) mg/dL Total Bilirubin 0.7 (0.2-1.0) mg/dL AST 35 (10-42) IU/L ALT 61 H (10-60) IU/L Alkaline Phosphatase 83 (42-121) IU/L Total Protein 6.2 L (6.7-8.2) g/dL Albumin 3.5 (3.2-5.5) g/dL Globulin 2.7 (2.1-4.2) g/dL Albumin/Globulin Ratio 1.3 (1.0-2.2) Prealbumin 11 L (18-45) mg/dL Triglycerides 61 ( - 149) mg/dL Lipase 37 (22-51) U/L 03/24/21 03/24/21 03/23/21 Range/Units 04:49 00:16 17:51 WBC 5.3 (4.8-10.8) x10^3/uL RBC 3.51 L (4.20-5.40) 10^6/uL Hgb 11.2 L (12.0-16.0) g/dL Hct 34.0 L (37.0-47.0) % MCV 96.9 (81.0-99.0) fL MCH 31.9 H (27.0-31.0) pg MCHC 32.9 (32.0-36.0) g/dL RDW 12.9 (12.0-15.0) % Plt Count 174 (130-450) 10^3/uL MPV 10.3 (7.9-10.8) fL Neut # (Auto) 4.8 (1.5-6.6) 10^3/uL Lymph # (Auto) 0.3 L (1.5-3.5) 10^3/uL [place] # (Auto) 0.2 (0.0-1.0) 10^3/uL Eos # (Auto) 0.0 (0.0-0.7) 10^3/uL Baso # (Auto) 0.0 (0.0-0.1) 10^3/uL Absolute Nucleated RBC 0.00 x10^3/uL Nucleated RBC % 0.0 /100WBC Sodium (135-145) mmol/L Potassium (3.5-5.0) mmol/L Chloride (101-111) mmol/L Carbon Dioxide (21-32) mmol/L Anion Gap (6-13) BUN (6-20) mg/dL Creatinine (0.4-1.0) mg/dL Estimated GFR (MDRD) (>89) Glucose (70-100) mg/dL POC Whole Bld Glucose 213 H 183 H (70 - 100) mg/dL Calcium (8.5-10.3) mg/dL Phosphorus (2.5-4.6) mg/dL Magnesium (1.7-2.8) mg/dL Total Bilirubin (0.2-1.0) mg/dL AST (10-42) IU/L ALT (10-60) IU/L Alkaline Phosphatase (42-121) IU/L Total Protein (6.7-8.2) g/dL Albumin (3.2-5.5) g/dL Globulin (2.1-4.2) g/dL Albumin/Globulin Ratio (1.0-2.2) Prealbumin (18-45) mg/dL Triglycerides ( - 149) mg/dL Lipase (22-51) U/L - Diagnostic Imaging Diagnostic Imaging Results: positive: Read independently Assessment/Plan - Problem List (1) Small bowel obstruction Impression: She appears to be developing progressive mid abdominal small bowel obstruction. Anesthesia feels uncomfortable proving care here. She had significant pain yesterday and is now much improved. I have to agree given her cardiac history and surgical history best she have surgery at a hospital that can offer a higher level of care such as [facility] where she has had her gastrectomy, colectomy, and cholecystectomy. I believe she will do ok with tpn and little to no po intake. She may not be able to get adequate nutrition by mouth until after surgery. This has been discussed with her, her and nutrition. Ideally she should transfer to [facility] for further care. If this is not currently possible due to bed availability I suggest continue tpn, d/c ngt. I have written for this. Continue npo today. If doing ok perhaps clears tomorrow and perhaps home on tpn until She follows up with her surgeons at [facility].
--- NOTE | 2021-03-24 14:14 | PROVIDER PROGRESS NOTE ---
Assessment/Plan - Problem List (1) Small bowel obstruction Assessment/Plan: The gastric fluid output through the NG is decreasing. She is not nauseated. Her abdominal pain is controlled. She reports that she passed a little gas. Exam shows no bowel sounds today however but she is not tender and has no g uarding or rebound. Continue TPN for her hydration plus calories. Appreciate general surgery following along with us. The surgeon plans to DC the NG tube per his order and see how she does (2) Adrenal insufficiency Assessment/Plan: Since her p.o. meds were switched to IV, she was started on hydrocortisone 100 mg 3 times daily, stress doses for 48 to 72 hours (3) Gastric cancer Assessment/Plan: As per Hx (4) Congestive heart failure Qualifiers: Heart failure type: unspecified Assessment/Plan: She is currently euvolemic and not in a heart failure exacerbation. Her last echo showed EF of 55% which had improved from 45% the previous year. We will decrease her IV maintenance fluids so that overall rate is 60 to 80 cc/h while she is n.p.o., in order to avoid volume overload. She is getting IV B-nora, Lasix on hold (5) Coronary artery disease Assessment/Plan: As per Hx ASA on hold for poss surgery Statins and other medications that are not essential are also on hold (6) Elevated LFTs Assessment/Plan: Resolved. Etiology of why elevated is unclear (7) Hyperlipidemia Assessment/Plan: Statins are on hold since it is not essential, and currently she is on iv forms of meds (8) Elevated lipase Assessment/Plan: Resolved. This was a phase reactant. - Current Meds Current Meds: Current Medications Generic Name Dose Route Start Last Admin Trade Name Freq PRN Reason Stop Dose Admin Hydrocortisone Sodium Succinate 100 mg 03/23/21 22:00 03/24/21 13:35 Hydrocortisone Succinate 100 Mg/2 Ml Vial IVP 100 mg TID DILAN Administration Hydromorphone HCl 1 mg 03/23/21 07:05 03/23/21 09:46 Hydromorphone 1 Mg/Ml Carpuject IVP 1 mg Q2HR PRN Administration PAIN Potassium Chloride/Dextrose/Sod Cl 1,000 mls @ 100 mls/hr 03/22/21 23:00 03/24/21 10:23 D5.45ns W/20 Meq Kcl IV 18 mls/hr .Q10H DILAN Infusion Multivitamins 10 ml/ TRACE 2,011 mls @ 65 mls/hr 03/23/21 19:00 03/24/21 00:49 ELEMENTS 1 ml/ Amino Ac/ IV 65 mls/hr Electrol/Dextrose/Calcium 1900 [facility] Infusion Fat Emulsion Intravenous 250 mls @ 21 mls/hr 03/23/21 19:00 03/24/21 07:00 Intralipid 20% IV Infused 1900 [facility] Infusion Insulin Human Regular 1 - 9 unit 03/24/21 06:00 03/24/21 11:51 Insulin Regular Human 300 Unit/3 Ml Vial SUBQ 5 unit Q6HR [facility] Administration Protocol Metoprolol Tartrate 2.5 mg 03/23/21 22:00 03/24/21 13:39 Metoprolol 5 Mg/5 Ml Vial IVP 2.5 mg Q8HR DILAN Administration Ondansetron HCl 4 mg 03/22/21 22:39 03/23/21 09:47 Ondansetron 4 Mg/2 Ml Vial IVP 4 mg Q6HR PRN Administration Nausea / Vomiting Sodium Chloride 10 ml 03/23/21 01:00 03/24/21 08:32 Sodium Chloride Flush 0.9% 10 Ml Syringe IVP Not Given 0100,0900,1700 [facility] - Lab Result Fish Bone Diagrams: 03/24/21 04:49 03/24/21 04:49 - Additional Planning My Orders: My Active Orders 03/23/21 16:11 Blood Glucose Checks - NPO [RC] 0600,1200,1800,0000 Daily Weight [RC] DAILY 03/23/21 19:00 Fat Emulsion 20% [Intralipid 20%] 250 ml IV 190 Multivitamin [Infuvite] 10 ml Trace Elements [Tralement Vial] 1 ml TPN (Clinimix E 5/15) [Clinimix E 5%-15% Solution] 2,000 ml IV 1900 03/23/21 22:00 Hydrocortisone Succinate [Solu-CORTEF] 100 mg IVP TID Metoprolol Inj [Lopressor Inj] 2.5 mg IVP Q8HR 03/26/21 05:00 COMPREHENSIVE METABOLIC PANEL [CHEM] Routine MAGNESIUM [CHEM] Routine PHOSPHORUS [CHEM] Routine PREALBUMIN [CHEM] Routine TRIGLYCERIDES [CHEM] Routine 03/28/21 05:00 COMPREHENSIVE METABOLIC PANEL [CHEM] Routine MAGNESIUM [CHEM] Routine PHOSPHORUS [CHEM] Routine PREALBUMIN [CHEM] Routine TRIGLYCERIDES [CHEM] Routine 03/31/21 05:00 COMPREHENSIVE METABOLIC PANEL [CHEM] Routine MAGNESIUM [CHEM] Routine PHOSPHORUS [CHEM] Routine PREALBUMIN [CHEM] Routine TRIGLYCERIDES [CHEM] Routine Objective Vital Signs: Vital Signs - 24 hr 03/23/21 03/23/21 03/23/21 15:26 20:57 22:20 Temperature 37.5 C 36.8 C Heart Rate [ 84 77 Brachial] Respiratory 18 18 Rate Blood Pressure 120/69 Blood Pressure 120/62 120/69 [Left Brachial artery] O2 Saturation 93 100 03/23/21 03/23/21 03/23/21 22:26 22:35 22:50 Temperature Heart Rate [ Brachial] Respiratory Rate Blood Pressure Blood Pressure 111/59 L 106/57 L 101/59 L [Left Brachial artery] O2 Saturation 03/24/21 03/24/21 03/24/21 00:10 05:20 05:21 Temperature 36.6 C 36.6 C Heart Rate [ 75 71 Brachial] Respiratory 16 18 Rate Blood Pressure 122/58 L Blood Pressure 122/65 119/64 [Left Brachial artery] O2 Saturation 98 97 03/24/21 03/24/21 03/24/21 05:30 05:35 05:40 Temperature Heart Rate [ 74 69 73 Brachial] Respiratory Rate Blood Pressure Blood Pressure 122/58 L 117/55 L 119/66 [Left Brachial artery] O2 Saturation 03/24/21 03/24/21 03/24/21 05:55 06:10 06:25 Temperature Heart Rate [ 70 64 69 Brachial] Respiratory Rate Blood Pressure Blood Pressure 128/64 120/66 122/66 [Left Brachial artery] O2 Saturation 03/24/21 03/24/21 03/24/21 08:01 11:56 13:39 Temperature 36.5 C 36.6 C Heart Rate [ 70 71 Brachial] Respiratory 18 17 Rate Blood Pressure 119/67 Blood Pressure 124/70 127/70 [Left Brachial artery] O2 Saturation 96 98 Oxygen O2 Source Room air I&O (Last 24 Hrs): Intake and Output Totals x24h 03/22/21 03/23/21 03/24/21 23:59 23:59 23:59 Intake Total 56.25 0993.032 1311.900 Output Total 103 926 4678 Balance -343.75 082.490 1444.900 General: Alert, Oriented x3 HEENT: Mucous membr. moist/pink, Other (Cachnectic) Neck: Supple, No JVD Neuro: Alert, Non Focal Cardiovascular: Regular rate, No murmurs Respiratory: No respiratory distress, Breath sounds nml Abdomen: Soft, No tenderness, Other (No bowel soinds present) Extremities: No edema, No tenderness/swelling - Results Results: Laboratory Results WBC 5.3 x10^3/uL (4.8-10.8) 03/24/21 04:49 RBC 3.51 10^6/uL (4.20-5.40) L 03/24/21 04:49 Hgb 11.2 g/dL (12.0-16.0) L 03/24/21 04:49 Hct 34.0 % (37.0-47.0) L 03/24/21 04:49 MCV 96.9 fL (81.0-99.0) 03/24/21 04:49 MCH 31.9 pg (27.0-31.0) H 03/24/21 04:49 MCHC 32.9 g/dL (32.0-36.0) 03/24/21 04:49 RDW 12.9 % (12.0-15.0) 03/24/21 04:49 Plt Count 174 10^3/uL (130-450) 03/24/21 04:49 MPV 10.3 fL (7.9-10.8) 03/24/21 04:49 Neut # (Auto) 4.8 10^3/uL (1.5-6.6) 03/24/21 04:49 Lymph # (Auto) 0.3 10^3/uL (1.5-3.5) L 03/24/21 04:49 [place] # (Auto) 0.2 10^3/uL (0.0-1.0) 03/24/21 04:49 Eos # (Auto) 0.0 10^3/uL (0.0-0.7) 03/24/21 04:49 Baso # (Auto) 0.0 10^3/uL (0.0-0.1) 03/24/21 04:49 Absolute Nucleated RBC 0.00 x10^3/uL 03/24/21 04:49 Nucleated RBC % 0.0 /100WBC 03/24/21 04:49 Sodium 135 mmol/L (135-145) 03/24/21 04:49 Potassium 4.1 mmol/L (3.5-5.0) 03/24/21 04:49 Chloride 100 mmol/L (101-111) L 03/24/21 04:49 Carbon Dioxide 24 mmol/L (21-32) 03/24/21 04:49 Anion Gap 11.0 (6-13) 03/24/21 04:49 BUN 12 mg/dL (6-20) 03/24/21 04:49 Creatinine 0.7 mg/dL (0.4-1.0) 03/24/21 04:49 Estimated GFR (MDRD) 86 (>89) L 03/24/21 04:49 Glucose 312 mg/dL (70-100) H 03/24/21 04:49 POC Whole Bld Glucose 246 mg/dL (70 - 100) H 03/24/21 11:36 Lactic Acid 1.7 mmol/L (0.5-2.2) 03/23/21 07:12 Calcium 8.5 mg/dL (8.5-10.3) 03/24/21 04:49 Phosphorus 3.3 mg/dL (2.5-4.6) 03/24/21 04:49 Magnesium 2.0 mg/dL (1.7-2.8) 03/24/21 04:49 Total Bilirubin 0.7 mg/dL (0.2-1.0) 03/24/21 04:49 AST 35 IU/L (10-42) 03/24/21 04:49 ALT 61 IU/L (10-60) H 03/24/21 04:49 Alkaline Phosphatase 83 IU/L (42-121) 03/24/21 04:49 Troponin I High Sens 191.1 ng/L (2.3-14.8) H* 03/23/21 11:09 Total Protein 6.2 g/dL (6.7-8.2) L 03/24/21 04:49 Albumin 3.5 g/dL (3.2-5.5) 03/24/21 04:49 Globulin 2.7 g/dL (2.1-4.2) 03/24/21 04:49 Albumin/Globulin Ratio 1.3 (1.0-2.2) 03/24/21 04:49 Prealbumin 11 mg/dL (18-45) L 03/24/21 04:49 Triglycerides 61 mg/dL (-149) 03/24/21 04:49 Lipase 37 U/L (22-51) 03/24/21 04:49 Urine Color YELLOW 03/22/21 22:40 Urine Clarity CLEAR (CLEAR) 03/22/21 22:40 Urine pH 6.5 PH (5.0-7.5) 03/22/21 22:40 Ur Specific [place] 1.010 (1.002-1.030) 03/22/21 22:40 Urine Protein NEGATIVE mg/dL (NEGATIVE) 03/22/21 22:40 Urine Glucose (UA) NEGATIVE mg/dL (NEGATIVE) 03/22/21 22:40 Urine Ketones TRACE mg/dL (NEGATIVE) 03/22/21 22:40 Urine Occult Blood NEGATIVE (NEGATIVE) 03/22/21 22:40 Urine Nitrite NEGATIVE (NEGATIVE) 03/22/21 22:40 Urine Bilirubin NEGATIVE (NEGATIVE) 03/22/21 22:40 Urine Urobilinogen 0.2 (NORMAL) E.U./dL (NORMAL) 03/22/21 22:40 Ur Leukocyte Esterase TRACE (NEGATIVE) H 03/22/21 22:40 Urine RBC 0-5 /HPF (0-5) 03/22/21 22:40 Urine WBC 0-3 /HPF (0-5) 03/22/21 22:40 Ur Squamous Epith Cells RARE Squamous (<= Few) 03/22/21 22:40 Urine Bacteria Rare /HPF (None Seen) 03/22/21 22:40 Ur Microscopic Review INDICATED 03/22/21 22:40 Urine Culture Comments INDICATED 03/22/21 22:40 Nasal Adenovirus (PCR) NOT DETECTED 03/22/21 22:20 Nasal B. parapertussis DNA (PCR) NOT DETECTED 03/22/21 22:20 Nasal Coronavir 229E PCR NOT DETECTED 03/22/21 22:20 Nasal Coronavir HKU1 PCR NOT DETECTED 03/22/21 22:20 Nasal Coronavir NL63 PCR NOT DETECTED 03/22/21 22:20 Nasal Coronavir OC43 PCR NOT DETECTED 03/22/21 22:20 Nasal Enterovir/Rhinovir PCR NOT DETECTED 03/22/21 22:20 Nasal Influenza B PCR NOT DETECTED 03/22/21 22:20 Nasal Influenza A PCR NOT DETECTED 03/22/21 22:20 Nasal Parainfluen 1 PCR NOT DETECTED 03/22/21 22:20 Nasal Parainfluen 2 PCR NOT DETECTED 03/22/21 22:20 Nasal Parainfluen 3 PCR NOT DETECTED 03/22/21 22:20 Nasal Parainfluen 4 PCR NOT DETECTED 03/22/21 22:20 Nasal RSV (PCR) NOT DETECTED 03/22/21 22:20 Nasal B.pertussis DNA PCR NOT DETECTED 03/22/21 22:20 Nasal C.pneumoniae (PCR) NOT DETECTED 03/22/21 22:20 Bharat Human Metapneumo PCR NOT DETECTED 03/22/21 22:20 Nasal M.pneumoniae (PCR) NOT DETECTED 03/22/21 22:20 Nasal SARS-CoV-2 (PCR) NOT DETECTED 03/22/21 22:20 - Procedures Procedures: Procedures RESPIRATORY VENTILATION, LESS THAN 24 CONSECUTIVE HOURS (08/07/19)
[2021-03-24] MEDS: TPN (CLINIMIX E 5/15) 2,000 ML with MULTIVITAMIN 10 ML, TRACE ELEMENTS 1 ML IV SCH ×3 (18:55)
[2021-03-24] MEDS: FAT EMULSION 20% 250 ML IV SCH (18:55)
[2021-03-25] MEDS: INSULIN REGULAR HUMAN 300 UNIT/3 ML VIAL SUBQ SCH ×4 (00:03→16:49)
[2021-03-25] MEDS: D5.45NS W/20 MEQ KCL 1,000 ML IV SCH ×4 (00:09→11:17)
[2021-03-25] MEDS: SODIUM CHLORIDE FLUSH 0.9% 10 ML SYRINGE IVP SCH ×3 (00:09→17:20)
[2021-03-25] MEDS: HYDROCORTISONE SUCCINATE 100 MG/2 ML VIAL IVP SCH ×3 (05:36→21:40)
[2021-03-25] MEDS: METOPROLOL 5 MG/5 ML VIAL IVP SCH ×3 (05:38→21:28)
[2021-03-25 06:12] LABS: BASOPHILS % (AUTO) 0.2 %; HCT - HEMATOCRIT 31.2 % (37.0-47.0); HGB - HEMOGLOBIN 10.4 g/dL (12.0-16.0); MEAN CORPUSCULAR HEMOGLOBIN 32.1 pg (27.0-31.0); MEAN CORPUSCULAR HGB CONC 33.3 g/dL (32.0-36.0); MEAN CORPUSCULAR VOLUME 96.3 fL (81.0-99.0); MEAN PLATELET VOLUME 10.5 fL (7.9-10.8); MONOCYTES % (AUTO) 4.6 %; PLT - PLATELET COUNT 157 10^3/uL (130-450); RED BLOOD COUNT 3.24 10^6/uL (4.20-5.40); RED CELL DISTRIBUTION WIDTH 12.7 % (12.0-15.0)
[2021-03-25 06:14] LABS: ABNORMAL LYMPHS % (MANUAL) 0 %; BAND NEUTROPHILS % (MANUAL) 0 %
[2021-03-25 06:20] LABS: CALCIUM 8.6 mg/dL (8.5-10.3); CREATININE 0.5 mg/dL (0.4-1.0); POTASSIUM 3.8 mmol/L (3.5-5.0)
[2021-03-25 06:41] LABS: LYMPHOCYTES # (MANUAL) 0.6 10^3/uL (1.5-3.5); LYMPHOCYTES % (MANUAL) 11 %; NEUTROPHILS # (MANUAL) 4.5 10^3/uL (1.5-6.6); PLATELET ESTIMATE, MANUAL NORMAL (130-450,000) (NORMAL); PLATELET MORPHOLOGY NORMAL APPEARANCE (NORMAL); RBC MORPHOLOGY (MULTIPLE) NORMAL APPEARANCE (NORMAL); WBC MORPHOLOGY (MULTIPLE) NORMAL APPEARANCE (NORMAL)
[2021-03-25 06:42] LABS: DIFFERENTIAL COMMENT MANUAL DIFFERENTIAL
--- NOTE | 2021-03-25 12:08 | PROVIDER PROGRESS NOTE ---
Subjective - Prog Note Date Prog Note Date: 03/25/21 - Subjective Pt reports feeling: Improved (feels well. no abdominal pain) Objective - Vital Signs/Intake & Output Reviewed Vital Signs: Yes Vital Signs: Vital Signs x48h Temp Pulse Resp BP BP Pulse Ox 03/25/21 08:04 36.5 C 63 16 159/76 H 98 03/25/21 05:38 154/65 H 03/25/21 05:00 36.4 C L 62 18 154/65 H 97 Intake & Output: Intake & Output 03/22/21 03/23/21 03/24/21 03/25/21 23:59 23:59 23:59 23:59 Intake Total 56.25 6797.024 6207.733 450.4 Output Total 761 807 7181 Balance -343.75 080.293 6245.733 450.4 - Objective General Appearance: positive: No acute distress, Alert Eyes Bilateral: positive: PERRL, EOMI, No scleral icterus Neck: positive: No JVD Respiratory: positive: No respiratory distress Abdomen: positive: Non-tender, No distention Neurologic/Psychiatric: positive: Oriented x3 - Lab Results Fish Bones: 03/25/21 05:30 03/25/21 05:30 Other Labs: Lab Results x24hrs 03/25/21 03/25/21 03/25/21 Range/Units 11:26 05:34 05:30 WBC (4.8-10.8) x10^3/uL RBC (4.20-5.40) 10^6/uL Hgb (12.0-16.0) g/dL Hct (37.0-47.0) % MCV (81.0-99.0) fL MCH (27.0-31.0) pg MCHC (32.0-36.0) g/dL RDW (12.0-15.0) % Plt Count (130-450) 10^3/uL MPV (7.9-10.8) fL Neut # (Auto) Lymph # (Auto) [place] # (Auto) Eos # (Auto) Baso # (Auto) Absolute Nucleated RBC Total Counted Band Neuts % (Manual) (0 - 10) % Abnorm Lymph % (Manual) % Nucleated RBC % Neutrophils # (Manual) (1.5-6.6) 10^3/uL Lymphocytes # (Manual) (1.5-3.5) 10^3/uL Monocytes # (Manual) (0.0-1.0) 10^3/uL Eosinophils # (Manual) (0-0.7) 10^3/uL Basophils # (Manual) (0-0.1) 10^3/uL Differential Comment WBC Morphology (NORMAL) Platelet Estimate (NORMAL) Platelet Morphology (NORMAL) RBC Morph Micro Appear (NORMAL) Sodium 137 (135-145) mmol/L Potassium 3.8 (3.5-5.0) mmol/L Chloride 103 (101-111) mmol/L Carbon Dioxide 24 (21-32) mmol/L Anion Gap 10.0 (6-13) BUN 18 (6-20) mg/dL Creatinine 0.5 (0.4-1.0) mg/dL Estimated GFR (MDRD) 126 (>89) Glucose 255 H (70-100) mg/dL POC Whole Bld Glucose 222 H 200 H (70 - 100) mg/dL Calcium 8.6 (8.5-10.3) mg/dL Lipase 47 (22-51) U/L 03/25/21 03/24/21 03/24/21 Range/Units 05:30 23:58 18:13 WBC 5.0 (4.8-10.8) x10^3/uL RBC 3.24 L (4.20-5.40) 10^6/uL Hgb 10.4 L (12.0-16.0) g/dL Hct 31.2 L (37.0-47.0) % MCV 96.3 (81.0-99.0) fL MCH 32.1 H (27.0-31.0) pg MCHC 33.3 (32.0-36.0) g/dL RDW 12.7 (12.0-15.0) % Plt Count 157 (130-450) 10^3/uL MPV 10.5 (7.9-10.8) fL Neut # (Auto) Not Reportable Lymph # (Auto) Not Reportable [place] # (Auto) Not Reportable Eos # (Auto) Not Reportable Baso # (Auto) Not Reportable Absolute Nucleated RBC Not Reportable Total Counted 100 Band Neuts % (Manual) 0 (0 - 10) % Abnorm Lymph % (Manual) 0 % Nucleated RBC % Not Reportable Neutrophils # (Manual) 4.5 (1.5-6.6) 10^3/uL Lymphocytes # (Manual) 0.6 L (1.5-3.5) 10^3/uL Monocytes # (Manual) 0.0 (0.0-1.0) 10^3/uL Eosinophils # (Manual) 0.0 (0-0.7) 10^3/uL Basophils # (Manual) 0.0 (0-0.1) 10^3/uL Differential Comment MANUAL DIFFERENTIAL WBC Morphology NORMAL APPEARANCE (NORMAL) Platelet Estimate NORMAL (130-450,000) (NORMAL) Platelet Morphology NORMAL APPEARANCE (NORMAL) RBC Morph Micro Appear NORMAL APPEARANCE (NORMAL) Sodium (135-145) mmol/L Potassium (3.5-5.0) mmol/L Chloride (101-111) mmol/L Carbon Dioxide (21-32) mmol/L Anion Gap (6-13) BUN (6-20) mg/dL Creatinine (0.4-1.0) mg/dL Estimated GFR (MDRD) (>89) Glucose (70-100) mg/dL POC Whole Bld Glucose 244 H 233 H (70 - 100) mg/dL Calcium (8.5-10.3) mg/dL Lipase (22-51) U/L - Diagnostic Imaging Diagnostic Imaging Results: positive: Read independently Assessment/Plan - Problem List (1) Small bowel obstruction Impression: Agree with care and plan. To me she seems to be developing a progressive partial small bowel obstruction. We discussed she should try thin liquids for several days and then slowly advance her diet as tolerated. It is my feeling she likely will not be able to tolerate adequate nutrition by mouth without surgery. Agree with current care and plan for continued tpn and clear liquids. May go home on tpn and follow up with her surgeon at [facility]. [facility] anesthesia does not feel she is a candidate for surgery here.
--- NOTE | 2021-03-25 12:21 | PROVIDER PROGRESS NOTE ---
Assessment/Plan - Problem List (1) Small bowel obstruction Assessment/Plan: She is not in pain. She is able to ambulate which helped her relieve the partial bowel obstruction in the past. NG tube has been removed. We will start clear liquids. The general surgeon wants this done for several days. Continue with TPN for calories. The general surgeon recommends she go home with TPN. The general surgeon recommends she have surgery done at [facility] for her recirrent and progressive bowel obstruction (2) Adrenal insufficiency Assessment/Plan: She received several days doses of stress steroids. We will resume her usual p.o. management of daily Cortef (3) Gastric cancer Assessment/Plan: Her history. She has a presumed obstruction at the anastomosis site. She still has a port in her thorax (4) Congestive heart failure Qualifiers: Heart failure type: unspecified Assessment/Plan: She was on Toprol and Entresto and Lasix. The Lasix is on hold because she needed IV fluids. The Entresto was not carried here. The metoprolol was given IV. Tomorrow we will start to transition back to p.o. meds. We will decrease her IV rate down to TKO today and stop it after midnight. Will not resume her Lasix yet. (5) Coronary artery disease Assessment/Plan: Tomorrow we will start to transition back to some of her usual cardiac meds (6) Hyperlipidemia Assessment/Plan: Tomorrow we will start to transition back to her usual p.o. meds if clear liquid diet as tolerated today (7) Elevated lipase Assessment/Plan: Resolved. This was a phase reactant. (8) Elevated LFTs Assessment/Plan: Resolved. Etiology unknown - Current Meds Current Meds: Current Medications Generic Name Dose Route Start Last Admin Trade Name Freq PRN Reason Stop Dose Admin Hydrocortisone Sodium Succinate 100 mg 03/23/21 22:00 03/25/21 05:36 Hydrocortisone Succinate 100 Mg/2 Ml Vial IVP 100 mg TID DILAN Administration Hydromorphone HCl 1 mg 03/23/21 07:05 03/23/21 09:46 Hydromorphone 1 Mg/Ml Carpuject IVP 1 mg Q2HR PRN Administration PAIN Potassium Chloride/Dextrose/Sod Cl 1,000 mls @ 100 mls/hr 03/22/21 23:00 03/25/21 11:17 D5.45ns W/20 Meq Kcl IV 18 mls/hr .Q10H DILAN Administration Multivitamins 10 ml/ TRACE 2,011 mls @ 65 mls/hr 03/23/21 19:00 03/24/21 18:55 ELEMENTS 1 ml/ Amino Ac/ IV 65 mls/hr Electrol/Dextrose/Calcium 1900 DILAN Administration Fat Emulsion Intravenous 250 mls @ 21 mls/hr 03/23/21 19:00 03/25/21 07:23 Intralipid 20% IV Infused 1900 [facility] Infusion Insulin Human Regular 1 - 9 unit 03/24/21 06:00 03/25/21 11:34 Insulin Regular Human 300 Unit/3 Ml Vial SUBQ 3 unit Q6HR DILAN Administration Protocol Metoprolol Tartrate 2.5 mg 03/23/21 22:00 03/25/21 05:38 Metoprolol 5 Mg/5 Ml Vial IVP 2.5 mg Q8HR DILAN Administration Ondansetron HCl 4 mg 03/22/21 22:39 03/23/21 09:47 Ondansetron 4 Mg/2 Ml Vial IVP 4 mg Q6HR PRN Administration Nausea / Vomiting Sodium Chloride 10 ml 03/23/21 01:00 03/25/21 00:09 Sodium Chloride Flush 0.9% 10 Ml Syringe IVP Not Given 0100,0900,1700 [facility] - Lab Result Fish Bone Diagrams: 03/25/21 05:30 03/25/21 05:30 - Additional Planning My Orders: My Active Orders 03/25/21 Lunch Clear Liquid Diet [DIET] 03/26/21 05:00 COMPREHENSIVE METABOLIC PANEL [CHEM] Routine MAGNESIUM [CHEM] Routine PHOSPHORUS [CHEM] Routine PREALBUMIN [CHEM] Routine TRIGLYCERIDES [CHEM] Routine 03/28/21 05:00 COMPREHENSIVE METABOLIC PANEL [CHEM] Routine MAGNESIUM [CHEM] Routine PHOSPHORUS [CHEM] Routine PREALBUMIN [CHEM] Routine TRIGLYCERIDES [CHEM] Routine 03/31/21 05:00 COMPREHENSIVE METABOLIC PANEL [CHEM] Routine MAGNESIUM [CHEM] Routine PHOSPHORUS [CHEM] Routine PREALBUMIN [CHEM] Routine TRIGLYCERIDES [CHEM] Routine Subjective - Subjective Patient Reports: Feeling Better, Resting Comfortably, Other (Was amnbulating in hallway. Having gas, and had a "trikle of stool") Objective Vital Signs: Vital Signs - 24 hr 03/24/21 03/24/2103/25/21 13:39 16:06 00:11 Temperature 36.7 C 36.3 C L Heart Rate [ 62 64 Brachial] Respiratory 18 18 Rate Blood Pressure 119/67 Blood Pressure 129/69 149/78 H [Left Brachial artery] O2 Saturation 98 97 03/25/21 03/25/21 03/25/21 05:00 05:38 08:04 Temperature 36.4 C L 36.5 C Heart Rate [ 62 63 Brachial] Respiratory 18 16 Rate Blood Pressure 154/65 H Blood Pressure 154/65 H 159/76 H [Left Brachial artery] O2 Saturation 97 98 Oxygen O2 Source Room air I&O (Last 24 Hrs): Intake and Output Totals x24h 03/23/21 03/24/21 03/25/21 23:59 23:59 23:59 Intake Total 7741.792 4709.733 450.4 Output Total 900 1300 Balance 895.798 9167.733 450.4 General: Alert, Oriented x3 HEENT: Mucous membr. moist/pink, Other (CAchectic with temporal wasting) Neck: Supple, No JVD Neuro: Alert, Non Focal Cardiovascular: Regular rate, No murmurs Respiratory: No respiratory distress, Breath sounds nml Abdomen: Soft, No tenderness (Soft bowel sounds present only in the left upper quadrant and left lower quadrant) Extremities: No clubbing, No edema, Other (Muscle wasting of upper extremities noted, PICC line in place) - Results Results: Laboratory Results WBC 5.0 x10^3/uL (4.8-10.8) 03/25/21 05:30 RBC 3.24 10^6/uL (4.20-5.40) L 03/25/21 05:30 Hgb 10.4 g/dL (12.0-16.0) L 03/25/21 05:30 Hct 31.2 % (37.0-47.0) L 03/25/21 05:30 MCV 96.3 fL (81.0-99.0) 03/25/21 05:30 MCH 32.1 pg (27.0-31.0) H 03/25/21 05:30 MCHC 33.3 g/dL (32.0-36.0) 03/25/21 05:30 RDW 12.7 % (12.0-15.0) 03/25/21 05:30 Plt Count 157 10^3/uL (130-450) 03/25/21 05:30 MPV 10.5 fL (7.9-10.8) 03/25/21 05:30 Neut # (Auto) Not Reportable 03/25/21 05:30 Lymph # (Auto) Not Reportable 03/25/21 05:30 [place] # (Auto) Not Reportable 03/25/21 05:30 Eos # (Auto) Not Reportable 03/25/21 05:30 Baso # (Auto) Not Reportable 03/25/21 05:30 Absolute Nucleated RBC Not Reportable 03/25/21 05:30 Total Counted 100 03/25/21 05:30 Band Neuts % (Manual) 0 % (0-10) 03/25/21 05:30 Abnorm Lymph % (Manual) 0 % 03/25/21 05:30 Nucleated RBC % Not Reportable 03/25/21 05:30 Neutrophils # (Manual) 4.5 10^3/uL (1.5-6.6) 03/25/21 05:30 Lymphocytes # (Manual) 0.6 10^3/uL (1.5-3.5) L 03/25/21 05:30 Monocytes # (Manual) 0.0 10^3/uL (0.0-1.0) 03/25/21 05:30 Eosinophils # (Manual) 0.0 10^3/uL (0-0.7) 03/25/21 05:30 Basophils # (Manual) 0.0 10^3/uL (0-0.1) 03/25/21 05:30 Differential Comment MANUAL DIFFERENTIAL 03/25/21 05:30 WBC Morphology NORMAL APPEARANCE (NORMAL) 03/25/21 05:30 Platelet Estimate NORMAL (130-450,000) (NORMAL) 03/25/21 05:30 Platelet Morphology NORMAL APPEARANCE (NORMAL) 03/25/21 05:30 RBC Morph Micro Appear NORMAL APPEARANCE (NORMAL) 03/25/21 05:30 Sodium 137 mmol/L (135-145) 03/25/21 05:30 Potassium 3.8 mmol/L (3.5-5.0) 03/25/21 05:30 Chloride 103 mmol/L (101-111) 03/25/21 05:30 Carbon Dioxide 24 mmol/L (21-32) 03/25/21 05:30 Anion Gap 10.0 (6-13) 03/25/21 05:30 BUN 18 mg/dL (6-20) 03/25/21 05:30 Creatinine 0.5 mg/dL (0.4-1.0) 03/25/21 05:30 Estimated GFR (MDRD) 126 (>89) 03/25/21 05:30 Glucose 255 mg/dL (70-100) H 03/25/21 05:30 POC Whole Bld Glucose 222 mg/dL (70 - 100) H 03/25/21 11:26 Lactic Acid 1.7 mmol/L (0.5-2.2) 03/23/21 07:12 Calcium 8.6 mg/dL (8.5-10.3) 03/25/21 05:30 Phosphorus 3.3 mg/dL (2.5-4.6) 03/24/21 04:49 Magnesium 2.0 mg/dL (1.7-2.8) 03/24/21 04:49 Total Bilirubin 0.7 mg/dL (0.2-1.0) 03/24/21 04:49 AST 35 IU/L (10-42) 03/24/21 04:49 ALT 61 IU/L (10-60) H 03/24/21 04:49 Alkaline Phosphatase 83 IU/L (42-121) 03/24/21 04:49 Troponin I High Sens 191.1 ng/L (2.3-14.8) H* 03/23/21 11:09 Total Protein 6.2 g/dL (6.7-8.2) L 03/24/21 04:49 Albumin 3.5 g/dL (3.2-5.5) 03/24/21 04:49 Globulin 2.7 g/dL (2.1-4.2) 03/24/21 04:49 Albumin/Globulin Ratio 1.3 (1.0-2.2) 03/24/21 04:49 Prealbumin 11 mg/dL (18-45) L 03/24/21 04:49 Triglycerides 61 mg/dL (-149) 03/24/21 04:49 Lipase 47 U/L (22-51) 03/25/21 05:30 Urine Color YELLOW 08/12/21 22:40 Urine Clarity CLEAR (CLEAR) 03/22/21 22:40 Urine pH 6.5 PH (5.0-7.5) 03/22/21 22:40 Ur Specific [place] 1.010 (1.002-1.030) 03/22/21 22:40 Urine Protein NEGATIVE mg/dL (NEGATIVE) 03/22/21 22:40 Urine Glucose (UA) NEGATIVE mg/dL (NEGATIVE) 03/22/21 22:40 Urine Ketones TRACE mg/dL (NEGATIVE) 03/22/21 22:40 Urine Occult Blood NEGATIVE (NEGATIVE) 03/22/21 22:40 Urine Nitrite NEGATIVE (NEGATIVE) 03/22/21 22:40 Urine Bilirubin NEGATIVE (NEGATIVE) 03/22/21 22:40 Urine Urobilinogen 0.2 (NORMAL) E.U./dL (NORMAL) 03/22/21 22:40 Ur Leukocyte Esterase TRACE (NEGATIVE) H 03/22/21 22:40 Urine RBC 0-5 /HPF (0-5) 03/22/21 22:40 Urine WBC 0-3 /HPF (0-5) 03/22/21 22:40 Ur Squamous Epith Cells RARE Squamous (<= Few) 03/22/21 22:40 Urine Bacteria Rare /HPF (None Seen) 03/22/21 22:40 Ur Microscopic Review INDICATED 03/22/21 22:40 Urine Culture Comments INDICATED 03/22/21 22:40 Nasal Adenovirus (PCR) NOT DETECTED 03/22/21 22:20 Nasal B. parapertussis DNA (PCR) NOT DETECTED 03/22/21 22:20 Nasal Coronavir 229E PCR NOT DETECTED 03/22/21 22:20 Nasal Coronavir HKU1 PCR NOT DETECTED 03/22/21 22:20 Nasal Coronavir NL63 PCR NOT DETECTED 03/22/21 22:20 Nasal Coronavir OC43 PCR NOT DETECTED 03/22/21 22:20 Nasal Enterovir/Rhinovir PCR NOT DETECTED 03/22/21 22:20 Nasal Influenza B PCR NOT DETECTED 03/22/21 22:20 Nasal Influenza A PCR NOT DETECTED 03/22/21 22:20 Nasal Parainfluen 1 PCR NOT DETECTED 03/22/21 22:20 Nasal Parainfluen 2 PCR NOT DETECTED 03/22/21 22:20 Nasal Parainfluen 3 PCR NOT DETECTED 03/22/21 22:20 Nasal Parainfluen 4 PCR NOT DETECTED 03/22/21 22:20 Nasal RSV (PCR) NOT DETECTED 03/22/21 22:20 Nasal B.pertussis DNA PCR NOT DETECTED 03/22/21 22:20 Nasal C.pneumoniae (PCR) NOT DETECTED 03/22/21 22:20 Bharat Human Metapneumo PCR NOT DETECTED 03/22/21 22:20 Nasal M.pneumoniae (PCR) NOT DETECTED 03/22/21 22:20 Nasal SARS-CoV-2 (PCR) NOT DETECTED 03/22/21 22:20 - Procedures Procedures: Procedures RESPIRATORY VENTILATION, LESS THAN 24 CONSECUTIVE HOURS (08/07/19)
[2021-03-25] MEDS ORDERED: D5.45NS W/20 MEQ KCL 1,000 ML IV SCH (12:22)
[2021-03-25] MEDS: INSULIN ASPART 300 UNIT/3 ML PEN SUBQ SCH ×2 (17:39→21:40)
[2021-03-25] MEDS: FAT EMULSION 20% 250 ML IV SCH (19:36)
[2021-03-25] MEDS: TPN (CLINIMIX E 5/15) 2,000 ML with MULTIVITAMIN 10 ML, TRACE ELEMENTS 1 ML IV SCH ×3 (19:36)
[2021-03-26] MEDS: SODIUM CHLORIDE FLUSH 0.9% 10 ML SYRINGE IVP SCH ×3 (00:01→18:34)
[2021-03-26 06:06] LABS: BASOPHILS % (AUTO) 0.2 %; HCT - HEMATOCRIT 32.2 % (37.0-47.0); HGB - HEMOGLOBIN 10.6 g/dL (12.0-16.0); LYMPHOCYTES # (AUTO) 0.6 10^3/uL (1.5-3.5); LYMPHOCYTES % (AUTO) 12.4 %; MEAN CORPUSCULAR HEMOGLOBIN 31.6 pg (27.0-31.0); MEAN CORPUSCULAR HGB CONC 32.9 g/dL (32.0-36.0); MEAN CORPUSCULAR VOLUME 96.1 fL (81.0-99.0); MEAN PLATELET VOLUME 10.5 fL (7.9-10.8); MONOCYTES # (AUTO) 0.4 10^3/uL (0.0-1.0); MONOCYTES % (AUTO) 7.1 %; NEUTROPHILS # (AUTO) 4.1 10^3/uL (1.5-6.6); NEUTROPHILS % (AUTO) 79.9 %; PLT - PLATELET COUNT 181 10^3/uL (130-450); RED BLOOD COUNT 3.35 10^6/uL (4.20-5.40); RED CELL DISTRIBUTION WIDTH 12.6 % (12.0-15.0); WHITE BLOOD COUNT 5.1 x10^3/uL (4.8-10.8)
[2021-03-26 06:20] LABS: ALBUMIN 3.4 g/dL (3.2-5.5); ALBUMIN/GLOBULIN RATIO 1.4 (1.0-2.2); BILIRUBIN,TOTAL 0.4 mg/dL (0.2-1.0); CALCIUM 8.7 mg/dL (8.5-10.3); CREATININE 0.5 mg/dL (0.4-1.0); MAGNESIUM 2.2 mg/dL (1.7-2.8); PHOSPHORUS 3.3 mg/dL (2.5-4.6); POTASSIUM 3.4 mmol/L (3.5-5.0); TOTAL PROTEIN 5.9 g/dL (6.7-8.2)
[2021-03-26] MEDS: FERROUS SULFATE 300 MG/5 ML UDC PO SCH (08:30)
[2021-03-26] MEDS: HYDROCORTISONE 10 MG TABLET PO SCH (08:31)
[2021-03-26] MEDS: ASPIRIN EC 81 MG TABLET PO SCH (08:32)
[2021-03-26] MEDS: METOPROLOL TARTRATE 25 MG TABLET PO SCH ×2 (08:32→22:04)
[2021-03-26] MEDS: INSULIN ASPART 300 UNIT/3 ML PEN SUBQ SCH ×4 (08:33→20:34)
[2021-03-26] MEDS: INSULIN GLARGINE 300 UNIT/3 ML PEN SUBQ SCH (11:30)
--- NOTE | 2021-03-26 11:59 | PROVIDER PROGRESS NOTE ---
Subjective - Subjective Pt reports feeling: No change (small bm and small gas. she is hopeful she can eat and avoid tpn) Objective - Vital Signs/Intake & Output Reviewed Vital Signs: Yes Vital Signs: Vital Signs x48h Temp Pulse Pulse Resp BP BP BP 03/26/21 08:32 155/81 H 03/26/21 08:18 36.5 C 52 L 52 L 18 160/77 H 03/26/21 06:54 36.4 C L 59 L 16 155/81 H Pulse Ox 03/26/21 08:32 03/26/21 08:18 100 03/26/21 06:54 98 Intake & Output: Intake & Output 03/23/21 03/24/21 03/25/21 03/26/21 23:59 23:59 23:59 23:59 Intake Total 7971.920 5624.733 2728.517 990 Output Total 900 1300 700 Balance 447.929 8546.733 2028.517 990 - Objective General Appearance: positive: No acute distress, Alert Eyes Bilateral: positive: PERRL, EOMI ENT: positive: No signs of dehydration Neck: positive: No JVD Respiratory: positive: No respiratory distress Abdomen: positive: Non-tender, No distention Neurologic/Psychiatric: positive: Oriented x3 - Lab Results Fish Bones: 03/26/21 05:52 03/26/21 05:52 Other Labs: Lab Results x24hrs 03/26/21 03/26/21 03/26/21 Range/Units 08:16 05:52 05:52 WBC 5.1 (4.8-10.8) x10^3/uL RBC 3.35 L (4.20-5.40) 10^6/uL Hgb 10.6 L (12.0-16.0) g/dL Hct 32.2 L (37.0-47.0) % MCV 96.1 (81.0-99.0) fL MCH 31.6 H (27.0-31.0) pg MCHC 32.9 (32.0-36.0) g/dL RDW 12.6 (12.0-15.0) % Plt Count 181 (130-450) 10^3/uL MPV 10.5 (7.9-10.8) fL Neut # (Auto) 4.1 (1.5-6.6) 10^3/uL Lymph # (Auto) 0.6 L (1.5-3.5) 10^3/uL [place] # (Auto) 0.4 (0.0-1.0) 10^3/uL Eos # (Auto) 0.0 (0.0-0.7) 10^3/uL Baso # (Auto) 0.0 (0.0-0.1) 10^3/uL Absolute Nucleated RBC 0.00 x10^3/uL Nucleated RBC % 0.0 /100WBC Sodium 138 (135-145) mmol/L Potassium 3.4 L (3.5-5.0) mmol/L Chloride 103 (101-111) mmol/L Carbon Dioxide 25 (21-32) mmol/L Anion Gap 10.0 (6-13) BUN 19 (6-20) mg/dL Creatinine 0.5 (0.4-1.0) mg/dL Estimated GFR (MDRD) 126 (>89) Glucose 326 H (70-100) mg/dL POC Whole Bld Glucose 278 H (70 - 100) mg/dL Calcium 8.7 (8.5-10.3) mg/dL Phosphorus 3.3 (2.5-4.6) mg/dL Magnesium 2.2 (1.7-2.8) mg/dL Total Bilirubin 0.4 (0.2-1.0) mg/dL AST 43 H (10-42) IU/L ALT 59 (10-60) IU/L Alkaline Phosphatase 82 (42-121) IU/L Total Protein 5.9 L (6.7-8.2) g/dL Albumin 3.4 (3.2-5.5) g/dL Globulin 2.5 (2.1-4.2) g/dL Albumin/Globulin Ratio 1.4 (1.0-2.2) Prealbumin 18 (18-45) mg/dL Triglycerides 100 ( - 149) mg/dL // Range/Units 16:43 WBC (4.8-10.8) x10^3/uL RBC (4.20-5.40) 10^6/uL Hgb (12.0-16.0) g/dL Hct (37.0-47.0) % MCV (81.0-99.0) fL MCH (27.0-31.0) pg MCHC (32.0-36.0) g/dL RDW (12.0-15.0) % Plt Count (130-450) 10^3/uL MPV (7.9-10.8) fL Neut # (Auto) (1.5-6.6) 10^3/uL Lymph # (Auto) (1.5-3.5) 10^3/uL [place] # (Auto) (0.0-1.0) 10^3/uL Eos # (Auto) (0.0-0.7) 10^3/uL Baso # (Auto) (0.0-0.1) 10^3/uL Absolute Nucleated RBC x10^3/uL Nucleated RBC % /100WBC Sodium (135-145) mmol/L Potassium (3.5-5.0) mmol/L Chloride (101-111) mmol/L Carbon Dioxide (21-32) mmol/L Anion Gap (6-13) BUN (6-20) mg/dL Creatinine (0.4-1.0) mg/dL Estimated GFR (MDRD) (>89) Glucose (70-100) mg/dL POC Whole Bld Glucose 179 H (70 - 100) mg/dL Calcium (8.5-10.3) mg/dL Phosphorus (2.5-4.6) mg/dL Magnesium (1.7-2.8) mg/dL Total Bilirubin (0.2-1.0) mg/dL AST (10-42) IU/L ALT (10-60) IU/L Alkaline Phosphatase (42-121) IU/L Total Protein (6.7-8.2) g/dL Albumin (3.2-5.5) g/dL Globulin (2.1-4.2) g/dL Albumin/Globulin Ratio (1.0-2.2) Prealbumin (18-45) mg/dL Triglycerides ( - 149) mg/dL Assessment/Plan - Problem List (1) Small bowel obstruction Impression: In my opinion she has progressive small bowel obstruction both clinically and by imaging. I have discussed with her and her she will likely need surgery to allow for adequate oral nutrition. She states she and her don't want her going home on tpn. Anesthesia feels she is not a candidate for surgery here. Her surgeon is at [facility]. I recommend transfer to [facility] surgery as possible or when there is bed availability for continued care. I was hopeful she could go home on tpn and follow up with her surgeon at [facility] and have surgery more electively. Her protein and albumin are low. If she is not able to tolerate adequate po she should stay on tpn to limit postop risks with surgery due to malnutrition.
[2021-03-26 13:07] LABS: ESTIMATED AVERAGE GLUCOSE 134 mg/dL (70-100); HEMOGLOBIN A1c% 6.3 % (4.27-6.07)
--- NOTE | 2021-03-26 16:16 | PROVIDER PROGRESS NOTE ---
Assessment/Plan - Problem List (1) Small bowel obstruction Assessment/Plan: She is not in pain. She is able to ambulate which helped her relieve the partial bowel obstruction in the past. NG tube was removed and clear liquids started yesterday. The general surgeon wants this done for 2 days then pureed food will start tomorrow. A PICC line was inserted and she is on TPN for her 3rd day. Continue with TPN for calories. The general surgeon recommends she go home with TPN to build up her nutrition, then recommends she have elective surgery done at [facility] for her recurrent and progressive bowel obstruction, whicis at her anastomotoc site. The pt vehemently refuses to go home with TPN and thinks she can build up her nutrition with protein shakes. Belkis (Nutrition) to discuss with her. (2) Adrenal insufficiency Assessment/Plan: She received several days doses of stress steroids. We will resume her usual p.o. management of daily Cortef (3) Hypokalemia Assessment/Plan: This is probably due to inadequate p.o. intake when she was n.p.o., being on stress dose steroids, and having overall malnutrition. Will replace with IV K riders. Follow BMP daily (4) Gastric cancer Assessment/Plan: As per history. She has what looks like an obstruction at the anastomosis site. She still has a port in her thorax (5) Congestive heart failure Qualifiers: Heart failure type: unspecified Assessment/Plan: She was on Toprol and Entresto and Lasix. Her last LVEF was 55%, increased from a year ago when it was 45%. The Lasix is on hold because she needed IV fluids. The Entresto is not carried here. The metoprolol was given IV when she was npo. We are transitioning back to p.o. meds. She is getting TPN fluids. We did not resume her Lasix yet. (6) Coronary artery disease Assessment/Plan: We will start to transition back to some of her usual cardiac meds (7) Hyperlipidemia Assessment/Plan: We will start to transition back to her usual p.o. meds. The statin may not be necessary if she is malnourished with a low LDL. Will order fasting lipid [panel for a.m. (8) Elevated lipase Assessment/Plan: Resolved. This was a phase reactant. (9) Elevated LFTs Assessment/Plan: Resolved. Etiology unknown - Current Meds Current Meds: Current Medications Generic Name Dose Route Start Last Admin Trade Name Freq PRN Reason Stop Dose Admin Aspirin 81 mg 03/26/21 09:00 03/26/21 08:32 Aspirin Ec 81 Mg Tablet PO 81 mg DAILY DILAN Administration Ferrous Sulfate 300 mg 03/26/21 08:00 03/26/21 08:30 Ferrous Sulfate 300 Mg/5 Ml Udc PO 300 mg DAILYWM DILAN Administration Hydrocortisone 10 mg 03/26/21 08:00 03/26/21 08:31 Hydrocortisone 10 Mg Tablet PO 10 mg DAILYWM DILAN Administration Hydromorphone HCl 1 mg 03/23/21 07:05 03/23/21 09:46 Hydromorphone 1 Mg/Ml Carpuject IVP 1 mg Q2HR PRN Administration PAIN Multivitamins 10 ml/ TRACE 2,011 mls @ 65 mls/hr 03/23/21 19:00 03/25/21 19:36 ELEMENTS 1 ml/ Amino Ac/ IV 65 mls/hr Electrol/Dextrose/Calcium 1900 DILAN Administration Fat Emulsion Intravenous 250 mls @ 21 mls/hr 03/23/21 19:00 03/26/21 07:31 Intralipid 20% IV Infused 1900 [facility] Infusion Insulin Aspart 1 - 5 unit 03/25/21 17:00 03/26/21 12:19 Insulin Aspart 300 Unit/3 Ml Pen SUBQ Not Given 0800,1200,1700,2100 [facility] Protocol Insulin Glargine 10 unit 03/26/21 11:03 03/26/21 11:30 Insulin Glargine 300 Unit/3 Ml Pen SUBQ 10 unit DAILY DILAN Administration Metoprolol Tartrate 25 mg 03/26/21 09:00 03/26/21 08:32 Metoprolol Tartrate 25 Mg Tablet PO Not Given BID [facility] Ondansetron HCl 4 mg 03/22/21 22:39 03/23/21 09:47 Ondansetron 4 Mg/2 Ml Vial IVP 4 mg Q6HR PRN Administration Nausea / Vomiting Sodium Chloride 10 ml 03/23/21 01:00 03/26/21 11:30 Sodium Chloride Flush 0.9% 10 Ml Syringe IVP Not Given 0100,0900,1700 [facility] - Lab Result Fish Bone Diagrams: 03/26/21 05:52 03/26/21 05:52 - Additional Planning My Orders: My Active Orders 03/25/21 16:32 Blood Glucose Checks - Eating [RC] 0800,1200,1700,2100 Initiate Hypoglycemia Protocol [RC] .protocol 03/25/21 17:00 Insulin Aspart [NovoLOG] 1 - 5 unit SUBQ 0800,1200,1700,2100 03/26/21 08:00 Ferrous Sulfate Liquid [Feosol Liquid] 300 mg PO DAILYWM Hydrocortisone [Cortef] 10 mg PO DAILYWM 03/26/21 09:00 Aspirin EC [Ecotrin] 81 mg PO DAILY Metoprolol Tartrate [Lopressor] 25 mg PO BID 03/26/21 11:03 Insulin Glargine [Lantus Solostar] 10 unit SUBQ DAILY 03/28/21 05:00 COMPREHENSIVE METABOLIC PANEL [CHEM] Routine MAGNESIUM [CHEM] Routine PHOSPHORUS [CHEM] Routine PREALBUMIN [CHEM] Routine TRIGLYCERIDES [CHEM] Routine 03/31/21 05:00 COMPREHENSIVE METABOLIC PANEL [CHEM] Routine MAGNESIUM [CHEM] Routine PHOSPHORUS [CHEM] Routine PREALBUMIN [CHEM] Routine TRIGLYCERIDES [CHEM] Routine Subjective - Subjective Patient Reports: Feeling Better, Other (walking in hallway) Objective Vital Signs: Vital Signs - 24 hr 03/25/21 03/25/21 03/25/21 16:51 21:00 23:40 Temperature 36.4 C L 36.4 C L 36.4 C L Heart Rate [ 49 L 47 L Brachial] Heart Rate [ 60 Monitoring electrodes] Respiratory 16 18 16 Rate Blood Pressure Blood Pressure 177/98 H 164/81 H [Left Brachial artery] Blood Pressure 164/93 H [Right Brachial artery] O2 Saturation 99 98 98 03/26/21 03/26/21 03/26/21 03:30 06:54 08:18 Temperature 36.3 C L 36.4 C L 36.5 C Heart Rate [ 59 L 52 L Brachial] Heart Rate [ 61 52 L Monitoring electrodes] Respiratory 18 16 18 Rate Blood Pressure Blood Pressure 152/82 H 155/81 H [Left Brachial artery] Blood Pressure 160/77 H [Right Brachial artery] O2 Saturation 99 98 100 03/26/21 03/26/21 08:32 14:16 Temperature 36.5 C Heart Rate [ 61 Brachial] Heart Rate [ Monitoring electrodes] Respiratory 20 Rate Blood Pressure 155/81 H Blood Pressure [Left Brachial artery] Blood Pressure 164/93 H [Right Brachial artery] O2 Saturation 100 Oxygen O2 Source Room air I&O (Last 24 Hrs): Intake and Output Totals x24h 03/24/21 03/25/21 03/26/21 23:59 23:59 23:59 Intake Total 3824.733 2728.517 2671 Output Total 1300 700 Balance 2524.733 2028.517 2671 General: Alert, Oriented x3 HEENT: Mucous membr. moist/pink, Other (Cachectic) Neck: Supple, No JVD Neuro: Alert, Non Focal Cardiovascular: Regular rate Respiratory: No respiratory distress Abdomen: Soft, Other (Slight bowel sounds L side) Extremities: No edema, Other (Muscle wasting of arms and hands) - Results Results: Laboratory Results WBC 5.1 x10^3/uL (4.8-10.8) 03/26/21 05:52 RBC 3.35 10^6/uL (4.20-5.40) L 03/26/21 05:52 Hgb 10.6 g/dL (12.0-16.0) L 03/26/21 05:52 Hct 32.2 % (37.0-47.0) L 03/26/21 05:52 MCV 96.1 fL (81.0-99.0) 03/26/21 05:52 MCH 31.6 pg (27.0-31.0) H 03/26/21 05:52 MCHC 32.9 g/dL (32.0-36.0) 03/26/21 05:52 RDW 12.6 % (12.0-15.0) 03/26/21 05:52 Plt Count 181 10^3/uL (130-450) 03/26/21 05:52 MPV 10.5 fL (7.9-10.8) 03/26/21 05:52 Neut # (Auto) 4.1 10^3/uL (1.5-6.6) 03/26/21 05:52 Lymph # (Auto) 0.6 10^3/uL (1.5-3.5) L 03/26/21 05:52 Lamar # (Auto) 0.4 10^3/uL (0.0-1.0) 03/26/21 05:52 Eos # (Auto) 0.0 10^3/uL (0.0-0.7) 03/26/21 05:52 Baso # (Auto) 0.0 10^3/uL (0.0-0.1) 03/26/21 05:52 Absolute Nucleated RBC 0.00 x10^3/uL 03/26/21 05:52 Total Counted 100 03/25/21 05:30 Band Neuts % (Manual) 0 % (0-10) 03/25/21 05:30 Abnorm Lymph % (Manual) 0 % 03/25/21 05:30 Nucleated RBC % 0.0 /100WBC 03/26/21 05:52 Neutrophils # (Manual) 4.5 10^3/uL (1.5-6.6) 03/25/21 05:30 Lymphocytes # (Manual) 0.6 10^3/uL (1.5-3.5) L 03/25/21 05:30 Monocytes # (Manual) 0.0 10^3/uL (0.0-1.0) 03/25/21 05:30 Eosinophils # (Manual) 0.0 10^3/uL (0-0.7) 03/25/21 05:30 Basophils # (Manual) 0.0 10^3/uL (0-0.1) 03/25/21 05:30 Differential Comment MANUAL DIFFERENTIAL 03/25/21 05:30 WBC Morphology NORMAL APPEARANCE (NORMAL) 03/25/21 05:30 Platelet Estimate NORMAL (130-450,000) (NORMAL) 03/25/21 05:30 Platelet Morphology NORMAL APPEARANCE (NORMAL) 03/25/21 05:30 RBC Morph Micro Appear NORMAL APPEARANCE (NORMAL) 03/25/21 05:30 Sodium 138 mmol/L (135-145) 03/26/21 05:52 Potassium 3.4 mmol/L (3.5-5.0) L 03/26/21 05:52 Chloride 103 mmol/L (101-111) 03/26/21 05:52 Carbon Dioxide 25 mmol/L (21-32) 03/26/21 05:52 Anion Gap 10.0 (6-13) 03/26/21 05:52 BUN 19 mg/dL (6-20) 03/26/21 05:52 Creatinine 0.5 mg/dL (0.4-1.0) 03/26/21 05:52 Estimated GFR (MDRD) 126 (>89) 03/26/21 05:52 Glucose 326 mg/dL (70-100) H 03/26/21 05:52 POC Whole Bld Glucose 103 mg/dL (70 - 100) H 03/26/21 12:05 Estimat Average Glucose 134 mg/dL (70-100) H 03/26/21 05:52 Hemoglobin A1c % 6.3 % (4.27-6.07) H 03/26/21 05:52 Lactic Acid 1.7 mmol/L (0.5-2.2) 03/23/21 07:12 Calcium 8.7 mg/dL (8.5-10.3) 03/26/21 05:52 Phosphorus 3.3 mg/dL (2.5-4.6) 03/26/21 05:52 Magnesium 2.2 mg/dL (1.7-2.8) 03/26/21 05:52 Total Bilirubin 0.4 mg/dL (0.2-1.0) 03/26/21 05:52 AST 43 IU/L (10-42) H 03/26/21 05:52 ALT 59 IU/L (10-60) 03/26/21 05:52 Alkaline Phosphatase 82 IU/L (42-121) 03/26/21 05:52 Troponin I High Sens 191.1 ng/L (2.3-14.8) H* 03/23/21 11:09 Total Protein 5.9 g/dL (6.7-8.2) L 03/26/21 05:52 Albumin 3.4 g/dL (3.2-5.5) 03/26/21 05:52 Globulin 2.5 g/dL (2.1-4.2) 03/26/21 05:52 Albumin/Globulin Ratio 1.4 (1.0-2.2) 03/26/21 05:52 Prealbumin 18 mg/dL (18-45) 03/26/21 05:52 Triglycerides 100 mg/dL (-149) 03/26/21 05:52 Lipase 47 U/L (22-51) 03/25/21 05:30 Urine Color YELLOW 03/22/21 22:40 Urine Clarity CLEAR (CLEAR) 03/22/21 22:40 Urine pH 6.5 PH (5.0-7.5) 03/22/21 22:40 Ur Specific [place] 1.010 (1.002-1.030) 03/22/21 22:40 Urine Protein NEGATIVE mg/dL (NEGATIVE) 03/22/21 22:40 Urine Glucose (UA) NEGATIVE mg/dL (NEGATIVE) 03/22/21 22:40 Urine Ketones TRACE mg/dL (NEGATIVE) 03/22/21 22:40 Urine Occult Blood NEGATIVE (NEGATIVE) 03/22/21 22:40 Urine Nitrite NEGATIVE (NEGATIVE) 03/22/21 22:40 Urine Bilirubin NEGATIVE (NEGATIVE) 03/22/21 22:40 Urine Urobilinogen 0.2 (NORMAL) E.U./dL (NORMAL) 03/22/21 22:40 Ur Leukocyte Esterase TRACE (NEGATIVE) H 03/22/21 22:40 Urine RBC 0-5 /HPF (0-5) 03/22/21 22:40 Urine WBC 0-3 /HPF (0-5) 03/22/21 22:40 Ur Squamous Epith Cells RARE Squamous (<= Few) 03/22/21 22:40 Urine Bacteria Rare /HPF (None Seen) 03/22/21 22:40 Ur Microscopic Review INDICATED 03/22/21 22:40 Urine Culture Comments INDICATED 03/22/21 22:40 Nasal Adenovirus (PCR) NOT DETECTED 03/22/21 22:20 Nasal B. parapertussis DNA (PCR) NOT DETECTED 03/22/21 22:20 Nasal Coronavir 229E PCR NOT DETECTED 03/22/21 22:20 Nasal Coronavir HKU1 PCR NOT DETECTED 03/22/21 22:20 Nasal Coronavir NL63 PCR NOT DETECTED 03/22/21 22:20 Nasal Coronavir OC43 PCR NOT DETECTED 03/22/21 22:20 Nasal Enterovir/Rhinovir PCR NOT DETECTED 03/22/21 22:20 Nasal Influenza B PCR NOT DETECTED 03/22/21 22:20 Nasal Influenza A PCR NOT DETECTED 03/22/21 22:20 Nasal Parainfluen 1 PCR NOT DETECTED 03/22/21 22:20 Nasal Parainfluen 2 PCR NOT DETECTED 03/22/21 22:20 Nasal Parainfluen 3 PCR NOT DETECTED 03/22/21 22:20 Nasal Parainfluen 4 PCR NOT DETECTED 03/22/21 22:20 Nasal RSV (PCR) NOT DETECTED 03/22/21 22:20 Nasal B.pertussis DNA PCR NOT DETECTED 03/22/21 22:20 Nasal C.pneumoniae (PCR) NOT DETECTED 03/22/21 22:20 Bharat Human Metapneumo PCR NOT DETECTED 03/22/21 22:20 Nasal M.pneumoniae (PCR) NOT DETECTED 03/22/21 22:20 Nasal SARS-CoV-2 (PCR) NOT DETECTED 03/22/21 22:20 - Procedures Procedures: Procedures RESPIRATORY VENTILATION, LESS THAN 24 CONSECUTIVE HOURS (08/07/19)
[2021-03-26] MEDS: FAT EMULSION 20% 250 ML IV SCH (18:34)
[2021-03-26] MEDS: TPN (CLINIMIX E 5/15) 2,000 ML with MULTIVITAMIN 10 ML, TRACE ELEMENTS 1 ML IV SCH ×3 (18:34)
[2021-03-26] MEDS ORDERED: hydrALAZINE INJ 20 MG/ML VIAL IVP ONE (20:41)
[2021-03-27] MEDS: SODIUM CHLORIDE FLUSH 0.9% 10 ML SYRINGE IVP SCH ×3 (00:15→16:28)
[2021-03-27 05:44] LABS: EOSINOPHILS # (AUTO) 0.1 10^3/uL (0.0-0.7); HCT - HEMATOCRIT 34.5 % (37.0-47.0); HGB - HEMOGLOBIN 11.3 g/dL (12.0-16.0); LYMPHOCYTES # (AUTO) 1.4 10^3/uL (1.5-3.5); LYMPHOCYTES % (AUTO) 33.2 %; MEAN CORPUSCULAR HEMOGLOBIN 31.2 pg (27.0-31.0); MEAN CORPUSCULAR HGB CONC 32.8 g/dL (32.0-36.0); MEAN CORPUSCULAR VOLUME 95.3 fL (81.0-99.0); MEAN PLATELET VOLUME 9.9 fL (7.9-10.8); MONOCYTES # (AUTO) 0.4 10^3/uL (0.0-1.0); MONOCYTES % (AUTO) 10.6 %; NEUTROPHILS # (AUTO) 2.2 10^3/uL (1.5-6.6); NEUTROPHILS % (AUTO) 52.7 %; PLT - PLATELET COUNT 182 10^3/uL (130-450); RED BLOOD COUNT 3.62 10^6/uL (4.20-5.40); RED CELL DISTRIBUTION WIDTH 12.8 % (12.0-15.0); WHITE BLOOD COUNT 4.1 x10^3/uL (4.8-10.8)
[2021-03-27 05:54] LABS: CALCIUM 8.3 mg/dL (8.5-10.3); CREATININE 0.5 mg/dL (0.4-1.0); POTASSIUM 3.1 mmol/L (3.5-5.0)
[2021-03-27 06:16] LABS: CHOL/HDL RATIO 2.4 (<4.4); CHOLESTEROL 138 mg/dL; HDL CHOLESTEROL 58 mg/dL; LDL CHOLESTEROL,CALCULATED 54 mg/dL; LDL/HDL RATIO 0.9 (<4.4); TRIGLYCERIDES 130 mg/dL; VLDL CHOLESTEROL 26 mg/dL
[2021-03-27] MEDS: INSULIN ASPART 300 UNIT/3 ML PEN SUBQ SCH ×4 (08:51→20:42)
[2021-03-27] MEDS: INSULIN GLARGINE 300 UNIT/3 ML PEN SUBQ SCH (08:52)
[2021-03-27] MEDS: FERROUS SULFATE 300 MG/5 ML UDC PO SCH (08:54)
[2021-03-27] MEDS: HYDROCORTISONE 10 MG TABLET PO SCH (08:54)
[2021-03-27] MEDS: ASPIRIN EC 81 MG TABLET PO SCH (08:54)
[2021-03-27] MEDS: METOPROLOL TARTRATE 25 MG TABLET PO SCH ×2 (08:55→20:58)
[2021-03-27] MEDS: POTASSIUM CHLOR 10 MEQ/100 ML 10 MEQ/100 ML BAG IV SCH ×4 (08:58→12:10)
[2021-03-27] MEDS: SODIUM CHLORIDE FLUSH 0.9% 10 ML SYRINGE IVP PRN (08:58)
--- NOTE | 2021-03-27 18:57 | PROVIDER PROGRESS NOTE ---
Progress Note March 27, 2021 5 PM She has been walking the hallways in a very determined fashion. Marching through the hallways. Tolerated pured diet yesterday and today. Having bowel movements. Medications are reviewed. She is on Cortef 10 mg daily, insulin and Lantus, Lopressor. Temperature is 36.5. Heart rate is 63. Blood pressure 132/79. Respirations 18. 100% on room air. She is 5 feet 7 inches tall and weighs 51 kg. Slender female in no acute distress. Neck is supple, no goiter Lungs are clear to auscultation and percussion. No increased respiratory effort as she speaks to me or she walks in the hallway. Regular rate and rhythm. Abdomen is soft, slightly bloated but she says it is much improved. Nontender. Normal bowel sounds. Extremities without edema. Neurologically alert, oriented, no gait ataxia. Speech is normal. Lucid. Potassium is 3.1 this morning. A K rider was started as well as her TPN of 2 mEq an hour. Random glucose 161. Lipid panel showed triglycerides 130, cholesterol 138. LDL 54. White cell count 4.1. Hemoglobin 11.3. Platelets 182. Assessment/plan 1. Small bowel obstruction, recurrent. She is tolerated the NG tube being removed on March 25. Clear liquids were March 25. Pured diet yesterday and today. Will advance diet tomorrow to regular diet. PICC line in place with TPN day #4. She does not want to continue TPN. Surgery has recommended she go home with it but she does not want to. Nutrition services a spent some time with her. 2. Adrenal insufficiency being treated with daily Cortef. To continue. No hypotension. 4. Hypokalemia being replaced again today. Recheck tomorrow. 5. History of gastric cancer, status post resection with obstruction of anastomotic site. General surgery feels that she should be evaluated in the outpatient setting for possible reconstructive surgery. She should go back to where she had her surgery at [facility]. 6. Chronic congestive heart failure. On p.o. metoprolol. Still not on Lasix. Possibly resume that at discharge. 7. Hyperlipidemia resolved. Cholesterol is very low and I do not think I will send her home on the statin.
[2021-03-27] MEDS: FAT EMULSION 20% 250 ML IV SCH (19:52)
[2021-03-27] MEDS: TPN (CLINIMIX E 5/15) 2,000 ML with MULTIVITAMIN 10 ML, TRACE ELEMENTS 1 ML IV SCH ×3 (19:53)
[2021-03-28] MEDS: SODIUM CHLORIDE FLUSH 0.9% 10 ML SYRINGE IVP SCH ×3 (01:00→17:35)
[2021-03-28 05:31] LABS: EOSINOPHILS # (AUTO) 0.2 10^3/uL (0.0-0.7); EOSINOPHILS % (AUTO) 3.9 %; HCT - HEMATOCRIT 34.4 % (37.0-47.0); LYMPHOCYTES # (AUTO) 1.7 10^3/uL (1.5-3.5); LYMPHOCYTES % (AUTO) 44.1 %; MEAN CORPUSCULAR VOLUME 96.9 fL (81.0-99.0); MEAN PLATELET VOLUME 10.3 fL (7.9-10.8); MONOCYTES # (AUTO) 0.4 10^3/uL (0.0-1.0); MONOCYTES % (AUTO) 9.7 %; NEUTROPHILS # (AUTO) 1.5 10^3/uL (1.5-6.6); NEUTROPHILS % (AUTO) 38.4 %; PLT - PLATELET COUNT 192 10^3/uL (130-450); RED BLOOD COUNT 3.55 10^6/uL (4.20-5.40); RED CELL DISTRIBUTION WIDTH 12.7 % (12.0-15.0); WHITE BLOOD COUNT 3.8 x10^3/uL (4.8-10.8)
[2021-03-28 05:42] LABS: ALBUMIN 3.1 g/dL (3.2-5.5); ALBUMIN/GLOBULIN RATIO 1.3 (1.0-2.2); BILIRUBIN,TOTAL 0.5 mg/dL (0.2-1.0); CALCIUM 8.1 mg/dL (8.5-10.3); CREATININE 0.6 mg/dL (0.4-1.0); MAGNESIUM 2.2 mg/dL (1.7-2.8); PHOSPHORUS 4.4 mg/dL (2.5-4.6); TOTAL PROTEIN 5.4 g/dL (6.7-8.2)
[2021-03-28] MEDS: HYDROCORTISONE 10 MG TABLET PO SCH (09:24)
[2021-03-28] MEDS: ASPIRIN EC 81 MG TABLET PO SCH (09:24)
[2021-03-28] MEDS: FERROUS SULFATE 300 MG/5 ML UDC PO SCH (09:25)
[2021-03-28] MEDS: INSULIN ASPART 300 UNIT/3 ML PEN SUBQ SCH ×4 (09:25→21:11)
[2021-03-28] MEDS: METOPROLOL TARTRATE 25 MG TABLET PO SCH ×2 (09:27→21:15)
[2021-03-28] MEDS: INSULIN GLARGINE 300 UNIT/3 ML PEN SUBQ SCH (09:27)
[2021-03-28] MEDS: polyethylene glycoL 3350 17 GM PACKET PO SCH (10:37)
--- NOTE | 2021-03-28 17:22 | PROVIDER PROGRESS NOTE ---
Progress Note March 28, 2021 5:13 PM She continues to walk the hallways. Many many laps. While she is having quite a bit of flatus, no successful bowel movement. She ate a regular low residue diet today. Medications reviewed and unchanged Temperature is 36.5. Pulse 57. Blood pressure 134/81. Respirations 16. 100% on room air. 5 feet 7 inches tall, 54 kg Slender, animated, female who looks stated age Neck is supple Lungs are clear to auscultation and percussion Abdomen has hyperactive bowel sounds, bloated distention but is nontender. No rebound or guarding. No masses. Extremities are without clubbing cyanosis or edema BMP is normal this morning. Random glucose 133. CBC shows a white cell count of 3.8, hemoglobin 11. Platelets 192 Assessment/plan 1. Recurrent small bowel obstruction. NG tube removed March 25. Clear liquids started that day and advance to pured diet. Today regular diet with low residue started. PICC line is in place. Today's TPN day #5. Plan: Taper off TPN I discussed the case with her gastric surgeon. Dr. Quincy De Leon @ [phone]. He was unaware that she has had recurrent small bowel obstructions. I reviewed the case with him, described the CT report to him. He says that usually small bowel anastomosis is up at the ligament of Treitz which would be up at her left upper quadrant. The fact that it is being described in the right lower quadrant on CT is puzzling to him. He is asked that I push those films to him and I did so. He asked that the patient see him in follow-up when she gets out of the hospital. He would like to review her anatomy on CT and discuss the case with her and her . He most likely will also order a small bowel follow- through in the outpatient setting. What I have done her discharge, he is asked that I please send him a copy of the discharge summary. His fax number is [phone]. I will hope that she has a bowel movement today so that she can be discharged. While her exam is benign, still has some distention, bloating and copious flatus. 2. Adrenal insufficiency being treated with Cortef. Stable. 3. Hypokalemia has resolved. 4. History of gastric cancer, status post resection with obstruction and anastomotic site on CT. Case discussed with Dr. Garrison as above. 5. Chronic congestive heart failure without exacerbation. Not on Lasix. No shortness of breath. On p.o. metoprolol. 6. Hyperlipidemia. At this time we are not giving her statin since her cholesterol has come in very very low. Most likely this is due to lack of p.o. intake.
--- NOTE | 2021-03-29 08:06 | XRAY Report ---
PROCEDURE: Abdomen 1 View X-Ray INDICATIONS: no BM TECHNIQUE: 1 view of the abdomen were acquired. COMPARISON: CT of abdomen and pelvis dated 03/22/2021 FINDINGS: Surgical changes and devices: Surgical clips are seen in gallbladder fossa, epigastric region, and ri ght lower quadrant abdomen.. Bowel: No pneumoperitoneum. There is no evidence of bowel obstruction. Soft tissues: No masses; visualized solid organ contours appear normal in size. No suspicious abdom inal calcifications. Bones: No suspicious bony abnormalities. IMPRESSION: No evidence of bowel obstruction. No gross free air. Postsurgical changes seen in upper and lower abdomen as above. Reviewed by: Gabriel Bolivar MD on 03/29/2021 8:05 AM PDT Approved by: Gabriel Bolivar MD on 03/29/2021 8:05 AM PDT Station ID: [id number]
[2021-03-29] MEDS: SODIUM CHLORIDE FLUSH 0.9% 10 ML SYRINGE IVP SCH ×2 (08:07→11:18)
[2021-03-29] MEDS: METOPROLOL TARTRATE 25 MG TABLET PO SCH (11:16)
[2021-03-29] MEDS: polyethylene glycoL 3350 17 GM PACKET PO SCH (11:17)
[2021-03-29] MEDS: HYDROCORTISONE 10 MG TABLET PO SCH (11:17)
[2021-03-29] MEDS: FERROUS SULFATE 300 MG/5 ML UDC PO SCH (11:17)
[2021-03-29] MEDS: ASPIRIN EC 81 MG TABLET PO SCH (11:17)
[2021-03-29] MEDS: SODIUM CHLORIDE FLUSH 0.9% 10 ML SYRINGE IVP PRN (11:18)
--- NOTE | 2021-03-29 12:50 | Discharge Plan ---
Discharge Plan Problem Reviewed?: Yes Disposition: Home, Self Care Condition: Fair Diet: Regular (low residue with pureed steamed veggies if need to eat them) Activity Restrictions: No Restrictions Shower Restrictions: No Driving Restrictions: No Health Concerns: You have a history of stomach cancer and you have had a resection with Dr. Quincy De Leon. You have also had a cholecystectomy which is removal of your gallbladder. You presented to the hospital with abdominal pain and we found you to have a small bowel obstruction that was partial. It has taken several days for your bowel to finally relax enough for you to have a bowel movement today. You were initially on no food, then a pured diet, and then a regular diet with low residue.Found you to be moderately malnourished. You also have iron deficiency anemia. Plan of Treatment: I did speak to Dr. De Leon and he would like to see you. I have sent in the CAT scans of your abdomen for him to review where your blockage was. He would like to see you to do further work-up and to see if there is anything he can do. Please do not skip seeing him. You were spoken to nutrition services and they have gone over your diet restrictions. You need to be on a low residue diet, and if you do want to eat your veggies they have to be cooked and then pured. Make sure you take your iron supplements and B12 supplements for your anemia. Care Goals: To return to a normal baseline weight for your size. To not have any recurrence of bowel obstruction. Assessment: And acknowledges care goals and repeats them to me. She also acknowledges the dietary restriction and repeats them to me. She promises to follow-up. No Smoking: If you smoke, Please STOP! Call for help. Follow-up with: FRANCISCO CULLEN MD [Primary Care Provider] - Quincy De Leon MD [Physician No Access] -
[2021-03-29 13:21] VITALS: BP 147/83
--- NOTE | 2021-03-29 15:27 | DISCHARGE SUMMARY ---
"Discharge Summary Admit Date: 03/22/21 Discharge Date: 03/29/21 Discharging Provider: Josefina Carmona MD Primary Care Provider: Luís Mcmullen Code Status: Attempt Resuscitation Condition at Discharge: Fair Discharge Disposition: 01 Home, Self Care - DIAGNOSES Discharge Diagnoses with Status of Each Condition: 1. Small bowel obstruction 2. Elevated lipase 3. Adrenal insufficiency 4. Chronic congestive heart failure, systolic 5. Coronary artery disease 6. Hyperlipidemia 7. Elevated liver enzymes 8. Hypokalemia 9. History of gastric cancer 10. Protein calorie malnutrition - HPI History of Present Illness: Patient is a 60-year-old female with history of stomach cancer status post gastric surgery and chemotherapy which was managed by Dr. Davis. She has since undergone cholecystectomy. She presented to the ED with complaint of abdominal pain which started this morning shortly after having breakfast. She had some oatmeal, eggs and a cup of fruit. She also reported experiencing nausea and vom iting. Currently at bedside she rates her pain 0 out of 10. She was given pain medication in the ED. She was last admitted in December 2020 for same reason. Work- up in the ED included a CT of the abdomen pelvis which showed small bowel obstruction. Further work-up included lipase which was 500. There was no evidence of pancreatitis on CT of the abdomen/pelvis. She reports flatulence. Her last bowel movement was this morning. She denies feeling bloated, abdominal distention, chest pain, dyspnea, fever or chills. She is being admitted for further management. - Past Medical History Cardiovascular: reports: Congestive heart failure, Hypertension, High c holesterol, [place], Other Respiratory: reports: None Neuro: reports: None Endocrine/Autoimmune: reports: Type 2 diabetes GI: reports: Hepatitis, Other : reports: None HEENT: reports: Chronic vision loss Psych: reports: None Musculoskeletal: reports: None Derm: reports: None MRSA Hx?: No - Past Surgical History General: reports: Cholecystectomy, Gastric surgery, Colonoscopy, EGD, Other - CONSULTS | PROCEDURES Consultations: General surgery, Dr. Ken Fischer Procedures: 1. Abdomen pelvis CT with persistent appearance of prominent partial small bowel obstruction with transition point likely at the anastomotic site in the right abdomen. Overall slightly more prominent when compared to prior exam of December 13, 2020. 2. 2 chest x-rays. No acute cardiopulmonary disease. A right PICC line was present on the second film. 3. Abdomen 1 view on March 29 without evidence of bowel obstruction. No gross free air. Postsurgical changes seen in the upper and lower abdomen as above. - HOSPITAL COURSE Hospital Course: The patient had an NG tube placed. Once abdominal discomfort and bloating had resolved NG tube was removed. Her enzymes and lipase were felt to be due to the partial bowel obstruction as well as TPN. That was March 25. Clear liquids were started that day and advance to a pured diet. She had a pured diet for 48 hours at the request of the surgeon. The day before discharge she was placed on a regular diet with low residue. The patient was offered home TPN therapy since that was recommended by general surgery. She was felt to have acute protein calorie malnutrition with a very low prealbumin. However the patient and were not comfortable with having TPN at home. And as such TPN was tapered after 5 days of TPN. Her adrenal insufficiency history was treated with her stable Cortef. Hypokalemia present on admission resolved. Troponins were minimally elevated during her stay on admission. They are high-sensitivity troponins at 138.8, and second one 191.1. They were not felt to be clinically significant. We discussed the case with her thoracic surgeon that did her gastrectomy. That is Dr. Quincy De Leon from [facility]. In discussing the CAT scan he felt that her anastomosis should be up near the ligament of Treitz which would be the left upper quadrant. Having the CT report as in the right lower quadrant was unusual. He asked us to push the films to him so he could review them. He was also very interested in having an upper GI with small bowel follow -through done at his institution and he will follow up with the patient. During her stay her chronic congestive heart failure was without exacerbation. She did not need any Lasix during her stay. At home she is on Lasix every other day and that would be resumed. Also noted was a very low cholesterol during her stay. Triglycerides were 130. LDL 54. Total cholesterol 138. HDL 58. VLDL 26. As such it was opted not to continue her statins in the face of such a low cholesterol with protein calorie malnutrition. During her stay glucose was temporarily elevated and her A1c was 6.3%. By the time of discharge, TPN was stopped, and her hyperglycemia resolved. This patient was very vigorously proactive in trying to get her bowels move. She walked every day, several times a day, in the hallways of the hospital in an effort to help. At discharge she had had a bowel movement that day. Temperature 36.2. Heart rate 63. Blood pressure 147/83. Respirations 16. 100% on room air. She is 5 foot 7 inches tall and weighs 52 kg. A very slender alert female. Neck supple. Lungs are clear. No labored respiration as she walked in the hallways. Regular rate and rhythm. Abdomen benign. Normal bowel sounds no distention. Extremities very thin. Greater than 30 minutes spent coordinating discharge. - ALLERGIES Allergies/Adverse Reactions: Allergies Allergy/AdvReac Type Severity Reaction Status Date / Time No Known Drug Allergies Allergy Verified 03/22/21 18:13 - MEDICATIONS Home Medications: Ambulatory Orders Medication Instructions Recorded Confirmed Atorvastatin [Lipitor] 40 mg PO QPM 09/06/19 03/22/21 Ferrous Sulfate 325 mg PO DAILY 09/06/19 03/22/21 Furosemide 20 mg PO .QOD 10/24/19 03/22/21 Sacubitril/Valsartan [Entresto 49 0.5 tab PO BID 10/24/19 03/22/21 mg-51 mg Tablet] Potassium Chloride 20 meq PO DAILY 05/09/20 03/22/21 Aspirin [Aspirin EC] 1 tab PO DAILY 05/24/20 03/22/21 Hydrocortisone 5 - 10 mg PO BID 05/24/20 03/22/21 Calcium Carbonate 1 tab PO DAILY 12/14/20 03/22/21 Cholecalciferol [Vitamin D3] 1 tab PO DAILY 12/14/20 03/22/21 Cyanocobalamin [Vitamin B-12] 1,000 mcg IM .MONTHLY 12/14/20 03/22/21 L.acid/L.casei/B.bif/B.taniya/Fos 1 cap PO DAILY 12/14/20 03/22/21 [Probiotic Blend Capsule] Metoprolol Succinate [Toprol Xl] 25 mg PO DAILY 12/14/20 03/22/21 - LABS Result Diagrams: 03/28/21 04:50 03/28/21 04:50"
[2021-04-05] MEDS ORDERED: CYANOCOBALAMIN 1,000 MCG/ML VIAL IM ONE (09:00)
== END 2021-03-29 14:00 | disposition home or self-care (01) | DRG 389 ==
LOC: ED 17:47 → MS2 22:39 → ED 23:10
PROVIDERS: ADMIT Internal Medicine; ATTEND Specialist
PROC: 02HV33Z Insertion of Infusion Device into Superior Vena Cava, Percutaneous Approach (ICD-10-PCS; 2021-03-23)
PROC: 3E0336Z Introduction of Nutritional Substance into Peripheral Vein, Percutaneous Approach (ICD-10-PCS; principal; 2021-03-24)
DX: K56.600 Partial intestinal obstruction, unspecified as to cause (principal); E27.40 Unspecified adrenocortical insufficiency; I50.22 Chronic systolic (congestive) heart failure; E46 Unspecified protein-calorie malnutrition; Z68.1 Body mass index [BMI] 19.9 or less, adult; I11.0 Hypertensive heart disease with heart failure; I25.10 Atherosclerotic heart disease of native coronary artery without angina pectoris; E78.5 Hyperlipidemia, unspecified; E87.6 Hypokalemia; Z85.028 Personal history of other malignant neoplasm of stomach; Z92.21 Personal history of antineoplastic chemotherapy; E11.65 Type 2 diabetes mellitus with hyperglycemia; Z90.49 Acquired absence of other specified parts of digestive tract; Z79.899 Other long term (current) drug therapy; F17.210 Nicotine dependence, cigarettes, uncomplicated; Z79.82 Long term (current) use of aspirin; I25.2 Old myocardial infarction; Z98.0 Intestinal bypass and anastomosis status
CPT/HCPCS: 0202U; 36415; 71045; 74018; 74177; 80048; 80053; 80061; 81001; 83036; 83605; 83690; 83735; 84100; 84134; 84478; 84484; 85025; 87086; 93005; 96374; 96375; 99285; A9270; J1170; J1815; J2765; J3490; J7120; Q9967; 81003; 83721

== ENCOUNTER 2021-04-11 09:33 | Outpatient (CLI) | payer OTHER ==
[2021-04-11 10:15] LABS: CALCIUM 8.7 mg/dL (8.5-10.3); CREATININE 0.5 mg/dL (0.4-1.0); POTASSIUM 4.3 mmol/L (3.5-5.0)
== END 2021-04-11 09:34 | disposition home or self-care (01) ==
LOC: LAB 09:33
PROVIDERS: ATTEND Internal Medicine
DX: I50.22 Chronic systolic (congestive) heart failure (principal)
CPT/HCPCS: 36415; 80048

== ENCOUNTER 2021-04-19 10:03 | Outpatient (CLI) | payer OTHER | END 2021-04-19 10:04 | disposition home or self-care (01) | LOC: NS 10:03 | PROVIDERS: ATTEND Physician Assistant | DX: Z71.3 Dietary counseling and surveillance (principal); C16.9 Malignant neoplasm of stomach, unspecified; K56.609 Unspecified intestinal obstruction, unspecified as to partial versus complete obstruction | CPT/HCPCS: 97802 ==

== ENCOUNTER 2021-04-25 10:14 | Outpatient (CLI) | payer OTHER ==
[2021-04-25 10:45] LABS: CALCIUM 8.8 mg/dL (8.5-10.3); CREATININE 0.5 mg/dL (0.4-1.0); POTASSIUM 3.5 mmol/L (3.5-5.0)
== END 2021-04-25 10:15 | disposition home or self-care (01) ==
LOC: LAB 10:14
PROVIDERS: ATTEND Internal Medicine
DX: I50.22 Chronic systolic (congestive) heart failure (principal)
CPT/HCPCS: 36415; 80048

== ENCOUNTER 2021-05-09 08:00 | Outpatient (CLI) | payer OTHER ==
[2021-05-09 11:17] LABS: CALCIUM 8.7 mg/dL (8.5-10.3); CREATININE 0.6 mg/dL (0.4-1.0); POTASSIUM 3.5 mmol/L (3.5-5.0)
== END 2021-05-09 23:59 | disposition home or self-care (01) ==
LOC: LAB 08:00
PROVIDERS: ATTEND Internal Medicine
DX: I50.22 Chronic systolic (congestive) heart failure (principal)
CPT/HCPCS: 36415; 80048

== ENCOUNTER 2021-05-16 10:52 | Outpatient (CLI) | payer OTHER ==
[2021-05-16 11:19] LABS: CALCIUM 8.6 mg/dL (8.5-10.3); CREATININE 0.6 mg/dL (0.4-1.0); POTASSIUM 3.1 mmol/L (3.5-5.0)
== END 2021-05-16 10:53 | disposition home or self-care (01) ==
LOC: LAB 10:52
PROVIDERS: ATTEND Internal Medicine
DX: I50.22 Chronic systolic (congestive) heart failure (principal)
CPT/HCPCS: 36415; 80048

== ENCOUNTER 2021-06-08 06:43 | Outpatient (CLI) | payer OTHER ==
--- NOTE | 2021-06-08 16:19 | Ultrasound Report ---
PROCEDURE: Abdomen Limited INDICATIONS: HIST OF GASTRIC CA TECHNIQUE: Real-time scanning was performed of the abdominal and retroperitoneal organs, with image documentatio n. COMPARISON: None. FINDINGS: Liver: Liver is normal in size and mildly increased in echotexture. There is a right lobe focus of decreased echogenicity measuring 7 x 5 x 8 mm. Gallbladder: Removed. Biliary ducts: Intrahepatic bile ducts are non-dilated. Extrahepatic bile duct caliber measures 8 m m. Normal is 6-7 mm or less in diameter, or 10 mm or less post-cholecystectomy. Pancreas: Visualized portions of the pancreas are sonographically normal. IVC: Intrahepatic inferior vena cava is patent. Miscellaneous: No free abdominal fluid. IMPRESSION: 1. Hepatic cyst. Reviewed by: Yelena Lim MD on 06/08/2021 4:17 PM PDT Approved by: Yelena Lim MD on 06/08/2021 4:17 PM PDT Station ID: [id number]
== END 2021-06-08 06:44 | disposition home or self-care (01) ==
LOC: DI 06:43
PROVIDERS: ATTEND Internal Medicine Hematology & Oncology
DX: C16.3 Malignant neoplasm of pyloric antrum (principal); C16.2 Malignant neoplasm of body of stomach; K76.89 Other specified diseases of liver

== ENCOUNTER 2021-06-13 10:38 | Outpatient (CLI) | payer OTHER ==
[2021-06-13 11:08] LABS: CALCIUM 8.6 mg/dL (8.5-10.3); CREATININE 0.6 mg/dL (0.4-1.0); POTASSIUM 3.6 mmol/L (3.5-5.0)
== END 2021-06-13 10:39 | disposition home or self-care (01) ==
LOC: LAB 10:38
PROVIDERS: ATTEND Internal Medicine
DX: I50.22 Chronic systolic (congestive) heart failure (principal)
CPT/HCPCS: 36415; 80048

== ENCOUNTER 2021-07-11 11:00 | Outpatient (CLI) | payer OTHER ==
[2021-07-11 11:32] LABS: CALCIUM 8.4 mg/dL (8.5-10.3); CREATININE 0.7 mg/dL (0.4-1.0); POTASSIUM 4.5 mmol/L (3.5-5.0)
== END 2021-07-11 11:01 | disposition home or self-care (01) ==
LOC: LAB 11:00
PROVIDERS: ATTEND Internal Medicine
DX: I50.22 Chronic systolic (congestive) heart failure (principal)
CPT/HCPCS: 36415; 80048

== ENCOUNTER 2021-07-25 10:37 | Outpatient (CLI) | payer OTHER ==
[2021-07-25 10:56] LABS: CALCIUM 8.5 mg/dL (8.5-10.3); CREATININE 0.8 mg/dL (0.4-1.0); POTASSIUM 3.9 mmol/L (3.5-5.0)
== END 2021-07-25 10:38 | disposition home or self-care (01) ==
LOC: LAB 10:37
PROVIDERS: ATTEND Internal Medicine
DX: I50.22 Chronic systolic (congestive) heart failure (principal)
CPT/HCPCS: 36415; 80048

== ENCOUNTER 2021-07-27 00:39 | Inpatient (IN) | payer OTHER ==
[2021-07-27 01:29] LABS: BASOPHILS # (AUTO) 0.1 10^3/uL (0.0-0.1); BASOPHILS % (AUTO) 0.4 %; EOSINOPHILS # (AUTO) 0.1 10^3/uL (0.0-0.7); EOSINOPHILS % (AUTO) 0.9 %; HCT - HEMATOCRIT 41.8 % (37.0-47.0); HGB - HEMOGLOBIN 13.3 g/dL (12.0-16.0); LYMPHOCYTES # (AUTO) 2.5 10^3/uL (1.5-3.5); LYMPHOCYTES % (AUTO) 21.6 %; MEAN CORPUSCULAR HEMOGLOBIN 31.6 pg (27.0-31.0); MEAN CORPUSCULAR HGB CONC 31.8 g/dL (32.0-36.0); MEAN CORPUSCULAR VOLUME 99.3 fL (81.0-99.0); MEAN PLATELET VOLUME 11.2 fL (7.9-10.8); MONOCYTES # (AUTO) 0.7 10^3/uL (0.0-1.0); MONOCYTES % (AUTO) 5.8 %; NEUTROPHILS % (AUTO) 70.7 %; PLT - PLATELET COUNT 205 10^3/uL (130-450); RED BLOOD COUNT 4.21 10^6/uL (4.20-5.40); RED CELL DISTRIBUTION WIDTH 13.1 % (12.0-15.0); WHITE BLOOD COUNT 11.4 x10^3/uL (4.8-10.8)
[2021-07-27 01:43] LABS: ALBUMIN 4.6 g/dL (3.2-5.5); ALBUMIN/GLOBULIN RATIO 1.4 (1.0-2.2); BILIRUBIN,TOTAL 0.8 mg/dL (0.2-1.0); CALCIUM 9.3 mg/dL (8.5-10.3); CREATININE 1.1 mg/dL (0.4-1.0); POTASSIUM 4.1 mmol/L (3.5-5.0)
[2021-07-27] MEDS ORDERED: HYDROmorphone 1 MG/ML CARPUJECT IVP STA ×3 (01:53→06:08)
[2021-07-27] MEDS ORDERED: SODIUM CHLORIDE 0.9% 1,000 ML IV STA (01:53)
[2021-07-27] MEDS ORDERED: ONDANSETRON 4 MG/2 ML VIAL IVP STA ×3 (01:53→06:08)
--- NOTE | 2021-07-27 01:58 | ED Physician Documentation ---
PD HPI NVD - Stated complaint Stated Complaint: ABD PX, LOW BACK PX - Chief complaint Chief Complaint: Abd Pain - History obtained from History obtained from: Patient - History of Present Illness Timing - onset: Enter time (1800), Yesterday Timing - duration: Hours Timing - details: Gradual onset, Still present, Waxing and waning Pain level max: 10 Pain level now: 5 Associated symptoms: Abdominal pain, Other (vomiting and back pain) Contributing factors: Other (hx of cancer and sbo). No: Sick contact, Bad food, Travel, Recent antibiotics, Alcohol use, Anticoagulated, Diabetes Improved by: Vomiting, Meds Similar symptoms before: Diagnosis (sbo) Recently seen: Clinic - Additonal information Additional information: 60-year-old female with a history of gastric cancer s/p total gastrectomy, right hemicolectomy, left adrenalectomy in February 2020 with adjuvant chemotherapy and poor tolerance. Has had a PET/CTs preop that was negative. Subsequently had a small bowel obstruction in December and March of this year with conservative management. Had her gallbladder out at [facility] earlier this year. She saw her oncologist yesterday. The patient presents to the emergency department today after she developed acute right upper quadrant pain and vomiting. She took some oxycodone, made her way to the hospital but had some relief and turned around. When her pain worsened again and she devloped vomiting she has come back to the hospital. Her pain persists but at a 5/10 leverl. Review of Systems Constitutional: denies: Fever, Chills, Myalgias Eyes: denies: Decreased vision Ears: denies: Ear pain Nose: denies: Rhinorrhea / runny nose, Congestion Throat: denies: Sore throat Cardiac: denies: Chest pain / pressure, Palpitations, Pedal edema, Calf pain Respiratory: denies: Dyspnea, Cough, Wheezing GI: reports: Abdominal Pain, Nausea, Vomiting. denies: Constipation, Diarrhea : denies: Dysuria, Frequency Skin: denies: Rash Musculoskeletal: reports: Back pain. denies: Neck pain, Extremity pain PD PAST MEDICAL HISTORY - Past Medical History Cardiovascular: Congestive heart failure, Hypertension, High cholesterol, [place], Other Respiratory: None Neuro: None Endocrine/Autoimmune: Type 2 diabetes GI: Hepatitis, Other : None HEENT: Chronic vision loss Psych: None Musculoskeletal: None Derm: None - Past Surgical History Past Surgical History: Yes General: Cholecystectomy, Gastric surgery, Colonoscopy, EGD, Other - Present Medications Home Medications: Ambulatory Orders Medication Instructions Recorded Confirmed Atorvastatin [Lipitor] 40 mg PO QPM 09/06/19 07/27/21 Ferrous Sulfate 325 mg PO DAILY 09/06/19 07/27/21 Sacubitril/Valsartan [Entresto 49 1 tab PO BID 10/24/19 07/27/21 mg-51 mg Tablet] Potassium Chloride 40 meq PO DAILY 05/09/20 07/27/21 Aspirin [Aspirin EC] 1 tab PO DAILY 05/24/20 07/27/21 Hydrocortisone 5 - 10 mg PO BID 05/24/20 07/27/21 Cyanocobalamin [Vitamin B-12] 1,000 mcg IM .MONTHLY 12/14/20 07/27/21 Metoprolol Succinate [Toprol Xl] 25 mg PO DAILY 12/14/20 07/27/21 - Allergies Allergies/Adverse Reactions: Allergies Allergy/AdvReac Type Severity Reaction Status Date / Time No Known Drug Allergies Allergy Verified 07/27/21 00:45 - Social History Does the pt smoke?: Yes Smoking Status: Former smoker Does the pt drink ETOH?: No Does the pt have substance abuse?: No - Immunizations Immunizations are current?: Yes - POLST Patient has POLST: Yes POLST Status: Full Code PD ED PE NORMAL - Vitals Vital signs reviewed: Yes - General General: Alert and oriented X 3, Well developed/nourished, Other (thin female appears in pain with atm manager tone and flattened affect. ) - HEENT HEENT: Atraumatic, PERRL, EOMI - Neck Neck: Supple, no meningeal sign, No bony TTP - Cardiac Cardiac: RRR, No murmur - Respiratory Respiratory: No respiratory distress, Clear bilaterally - Abdomen Abdomen: Normal bowel sounds, Soft, Non distended, No organomegaly, Other (RUQ tenderness is mild without garding ) - Back Back: No CVA TTP, No spinal TTP - Derm Derm: Normal color, Warm and dry, No rash - Extremities Extremities: No deformity, No edema - Neuro Neuro: Alert and oriented X 3, piano technician 2-12 intact, No motor deficit, No sensory deficit, Normal speech Eye Opening: Spontaneous Motor: Obeys Commands Verbal: Oriented GCS Score: 15 - Psych Psych: Normal mood Results - Vitals Vitals: Vital Signs - 24 hr 07/27/21 07/27/21 07/27/21 00:45 02:47 04:00 Temperature 36.9 C Heart Rate 58 L 61 62 Respiratory 18 12 14 Rate Blood Pressure 114/69 142/78 H 155/91 H O2 Saturation 99 100 95 07/27/21 06:00 Temperature Heart Rate 55 L Respiratory 15 Rate Blood Pressure 128/69 O2 Saturation 99 Oxygen O2 Source Room air - Labs Labs: Laboratory Tests 07/27/21 07/27/21 07/27/21 01:25 01:25 04:16 WBC 11.4 H RBC 4.21 Hgb 13.3 Hct 41.8 MCV 99.3 H MCH 31.6 H MCHC 31.8 L RDW 13.1 Plt Count 205 MPV 11.2 H Neut # (Auto) 8.0 H Lymph # (Auto) 2.5 Hubbard # (Auto) 0.7 Eos # (Auto) 0.1 Baso # (Auto) 0.1 Absolute Nucleated RBC 0.00 Nucleated RBC % 0.0 Sodium 135 Potassium 4.1 Chloride 98 L Carbon Dioxide 17 L Anion Gap 20.0 H BUN 39 H Creatinine 1.1 H Estimated GFR (MDRD) 51 L Glucose 165 H Calcium 9.3 Total Bilirubin 0.8 AST 45 H ALT 62 H Alkaline Phosphatase 125 H Total Protein 8.0 Albumin 4.6 Globulin 3.4 Albumin/Globulin Ratio 1.4 Lipase 41 Urine Color Urine Clarity Urine pH Ur Specific [place] Urine Protein Urine Glucose (UA) Urine Ketones Urine Occult Blood Urine Nitrite Urine Bilirubin Urine Urobilinogen Ur Leukocyte Esterase Urine RBC Urine WBC Ur Squamous Epith Cells Urine Bacteria Urine Casts Ur Microscopic Review Urine Culture Comments Nasal Adenovirus (PCR) NOT DETECTED Nasal B. parapertussis DNA (PCR) NOT DETECTED Nasal Coronavir 229E PCR NOT DETECTED Nasal Coronavir HKU1 PCR NOT DETECTED Nasal Coronavir NL63 PCR NOT DETECTED Nasal Coronavir OC43 PCR NOT DETECTED Nasal Enterovir/Rhinovir PCR NOT DETECTED Nasal Influenza B PCR NOT DETECTED Nasal Influenza A PCR NOT DETECTED Nasal Parainfluen 1 PCR NOT DETECTED Nasal Parainfluen 2 PCR NOT DETECTED Nasal Parainfluen 3 PCR NOT DETECTED Nasal Parainfluen 4 PCR NOT DETECTED Nasal RSV (PCR) NOT DETECTED Nasal B.pertussis DNA PCR NOT DETECTED Nasal C.pneumoniae (PCR) NOT DETECTED Bharat Human Metapneumo PCR NOT DETECTED Nasal M.pneumoniae (PCR) NOT DETECTED Nasal SARS-CoV-2 (PCR) NOT DETECTED 07/27/21 04:30 WBC RBC Hgb Hct MCV MCH MCHC RDW Plt Count MPV Neut # (Auto) Lymph # (Auto) Hubbard # (Auto) Eos # (Auto) Baso # (Auto) Absolute Nucleated RBC Nucleated RBC % Sodium Potassium Chloride Carbon Dioxide Anion Gap BUN Creatinine Estimated GFR (MDRD) Glucose Calcium Total Bilirubin AST ALT Alkaline Phosphatase Total Protein Albumin Globulin Albumin/Globulin Ratio Lipase Urine Color YELLOW Urine Clarity CLEAR Urine pH 5.0 Ur Specific [place] 1.010 Urine Protein NEGATIVE Urine Glucose (UA) NEGATIVE Urine Ketones NEGATIVE Urine Occult Blood TRACE-INTA Urine Nitrite NEGATIVE Urine Bilirubin NEGATIVE Urine Urobilinogen 0.2 (NORMAL) Ur Leukocyte Esterase SMALL H Urine RBC 0-5 Urine WBC 4-5 Ur Squamous Epith Cells MANY Squamous H Urine Bacteria Few Urine Casts 0-2 Hyaline Casts Ur Microscopic Review INDICATED Urine Culture Comments NOT INDICATED Nasal Adenovirus (PCR) Nasal B. parapertussis DNA (PCR) Nasal Coronavir 229E PCR Nasal Coronavir HKU1 PCR Nasal Coronavir NL63 PCR Nasal Coronavir OC43 PCR Nasal Enterovir/Rhinovir PCR Nasal Influenza B PCR Nasal Influenza A PCR Nasal Parainfluen 1 PCR Nasal Parainfluen 2 PCR Nasal Parainfluen 3 PCR Nasal Parainfluen 4 PCR Nasal RSV (PCR) Nasal B.pertussis DNA PCR Nasal C.pneumoniae (PCR) Bharat Human Metapneumo PCR Nasal M.pneumoniae (PCR) Nasal SARS-CoV-2 (PCR) - Rads (name of study) CT ab/pel w Radiology: Prelim report reviewed (Impression: 1. High-grade bowel obstruction within the transition point in the retroumbilical region near the site of surgical anastomosis. There is twisting of the bowel and mesentery at the point of transition suggesting presence of an internal hernia or adhesions. There is no bowel perforation), Final report received (2. Gas within the endometerial ca vity. Please see above discussion.), EMP read indepedently, See rad report Procedures - Bedside sono Bedside sono by EMP: With use bedside ultrasound the right kidney is imaged there is no evidence of hydronephrosis and the kidney is sonographically nontender. - IVC sono (time) 0150 Bedside IVC sono: IVC measures (cm) (0.85), IVC collapsed c insp (cm) (complete), Dehydration (est 2 liter deficit) PD MEDICAL DECISION MAKING - ED course Complexity details: reviewed old records, reviewed results, re-evaluated patient, considered differential, d/w patient ED course: 60-year-old female with right upper quadrant abdominal pain and vomiting has had bowel obstructions previously and tonight she has some improvement in her pain with some oral pain medication but when this wore off she began developing nausea and vomiting and pain and has come to the hospital for evaluation. Here in the emergency department her pain is not well localizable and I was able to use a bedside ultrasound to examine her kidney I did not find that to be tender I do not find any evidence of hydronephrosis. I did use the bedside ultrasound to interrogate the inferior vena cava and found her to be dehydrated on the order of 2 L. She has a history of flash pulmonary edema and we are providing a single liter of saline tonight. We are providing some pain relief as well and has nausea relief and a obtaining a CT scan of the abdomen pelvis with contrast. This again shows obstruction and the patient continues to have symptoms. Departure - Departure Disposition: 66 [facility] DC/Xfer Clinical Impression: Small bowel obstruction
[2021-07-27] MEDS ORDERED: IOPAMIDOL-300 100 ML VIAL ONE ×2 (02:09→02:37)
[2021-07-27] MEDS ORDERED: IOPAMIDOL-300 100 ML VIAL IVP ONE (02:54)
[2021-07-27 04:44] LABS: BILIRUBIN,URINE NEGATIVE (NEGATIVE); GLUCOSE, URINE (UA) NEGATIVE (NEGATIVE); KETONES,URINE (UA) NEGATIVE (NEGATIVE); LEUKOCYTE ESTERASE, URINE SMALL (NEGATIVE); NITRITE,URINE NEGATIVE (NEGATIVE); OCCULT BLOOD,URINE TRACE-INTA (NEGATIVE); PROTEIN,URINE NEGATIVE (NEGATIVE); UROBILINOGEN,URINE 0.2 (NORMAL) E.U./dL (NORMAL)
[2021-07-27 04:45] LABS: CLARITY,URINE CLEAR (CLEAR)
[2021-07-27 04:50] LABS: BACTERIA,URINE Few /HPF (None Seen); RBC,URINE 0-5 /HPF (0-5); SQUAMOUS EPITHELIAL CELL,UR MANY Squamous (<= Few)
[2021-07-27 04:51] LABS: CASTS, URINE 0-2 Hyaline Casts /LPF
[2021-07-27 05:15] LABS: B. PARAPERTUSSIS- RESP PCR PAN NOT DETECTED; B. PERTUSSIS- RESP PCR PANEL NOT DETECTED; C. PNEUMONIAE- RESP PCR PANEL NOT DETECTED; CORONAVIRUS 229E-RESP PCR NOT DETECTED; CORONAVIRUS HKU1-RESP PCR NOT DETECTED; CORONAVIRUS NL63-RESP PCR NOT DETECTED; CORONAVIRUS OC43-RESP PCR NOT DETECTED; HUMAN METAPNEUMOVIRUS NOT DETECTED; INFLUENZA A- RESP PCR PANEL NOT DETECTED; INFLUENZA B - RESP PCR PANEL NOT DETECTED; M. PNEUMONIAE- RESP PCR PANEL NOT DETECTED; PARAINFLUENZA VIRUS 1 NOT DETECTED; PARAINFLUENZA VIRUS 2 NOT DETECTED; PARAINFLUENZA VIRUS 3 NOT DETECTED; PARAINFLUENZA VIRUS 4 NOT DETECTED; RHINOVIRUS/ENTEROVIRUS NOT DETECTED; RSV- RESP PCR PANEL NOT DETECTED; SARS-CoV-2 -RESP PCR PANEL NOT DETECTED
[2021-07-27] MEDS ORDERED: DEXAMETHASONE 10 MG/ML VIAL IVP STA (06:08)
--- NOTE | 2021-07-27 08:15 | CT Report ---
PROCEDURE: Abdomen/Pelvis W INDICATIONS: RUQ pain vomiting hx/o sbo CONTRAST: IV CONTRAST: Isovue 300 ml: 90 PO CONTRAST: *NO PO CONTRAST TECHNIQUE: After the administration of intravenous contrast, 5 mm thick sections acquired from the diaphragms to the symphysis. 5 mm thick coronal and sagittal reformats were acquired. For radiation dose reducti on, the following was used: automated exposure control, adjustment of mA and/or kV according to xochilt ent size. COMPARISON: CT abdomen/pelvis 03/22/2021 FINDINGS: Image quality: Excellent. ABDOMEN: Lung bases: Lung bases are clear. Heart size is normal. Postsurgical changes are seen at the gastr oesophageal junction with a moderate hiatal hernia. Solid organs: Liver is normal in size and enhancement. A few subcentimeter hypoattenuating lesions in the liver are too small to characterize but likely represent cysts. Gallbladder is surgically abse nt. Biliary system is non dilated. Pancreas enhances normally. A hypoattenuating lesion in the sple en appears stable and is most likely benign. No adrenal nodules. The left adrenal is not well-visual ized and there are surgical clips in the region of the adrenal. Kidneys demonstrate normal size and e nhancement, without hydronephrosis. Peritoneum and bowel: Multiple dilated loops of small bowel are seen within the central abdomen jeremiah uring up to 4.5 cm in diameter. There is transition to decompressed bowel within the midabdomen poste rior to the umbilicus adjacent to the site of a surgical anastomosis. There is twisting of the mesent kinsey at this level. Some of the small bowel loops in the pelvis appear to be hypoattenuating, and a ve nous obstruction at the present. The superior mesenteric artery appears patent. There is edema within the mesentery below the level of the transition point. Additional surgical changes are seen within t he bowel at the right upper quadrant and gastroesophageal junction. A small amount of free fluid is s een in the pelvis. There is no pneumatosis or pneumoperitoneum. Nodes and vessels: No retroperitoneal or mesenteric adenopathy by size criteria. Aorta and inferior vena cava are normal in size. Miscellaneous: No ventral hernias. PELVIS: Genitourinary: Bladder wall thickness is normal. Gas is noted within the endometrial cavity. A fund al uterine fibroid is present. Miscellaneous: No inguinal hernias or adenopathy. Bones: Degenerative changes are seen in the spine. Chronic appearing compression fractures are seen a t T12 and L1 and possibly at L5. There is trace levoconvex curvature of the spine. IMPRESSION: 1.High-grade small bowel obstruction with transition point in the central abdomen posterior to the um bilicus near the site of a surgical anastomosis. There is swirling of the mesentery at this level. In ferior to this level, there is mesenteric edema and hypoenhancing small bowel, suggesting possible ve nous obstruction. The superior mesenteric artery remains patent. Trace free fluid in the pelvis. No p neumatosis or pneumoperitoneum. 2.Gas is seen within the endometrial cavity, possibly secondary to prior instrumentation versus infec tion or possibly fistula with bowel. Recommend clinical correlation and follow-up. There is no significant discrepancy when compared with the overnight teleradiology report. Reviewed by: Pako Varghese MD on 07/27/2021 8:14 AM PST Approved by: Pako Varghese MD on 07/27/2021 8:14 AM PST Station ID: [id number]
[2021-07-27] MEDS ORDERED: SODIUM CHLORIDE FLUSH 0.9% 10 ML SYRINGE IVP PRN (08:35)
[2021-07-27] MEDS ORDERED: ONDANSETRON 4 MG/2 ML VIAL IVP PRN (08:35)
--- NOTE | 2021-07-27 08:41 | HISTORY & PHYSICAL EXAMINATION ---
Chief Complaint - Chief Complaint Chief Complaint: RUQ abd pain History of Present Illness - Admitted From Admitted From:: [facility] ED - History Obtained From Records Reviewed: yes History obtained from: patient - History of Present Illness HPI Comment/Other: Patient Is a 60-year-old female with history of stomach cancer status post gastric surgery and chemotherapy which was managed by Dr. Glez. She presented to the ED last night with complaint of abdominal pain which started after dinner. She ate apples and had a protein shake for dinner. Shortly after that she became diaphoretic and was experiencing significant right upper quadrant abdominal pain and back pain. It was sharp in nature and came in waves. She rated the pain 8-9 out of 10 at the time. She took a medication for pain Which helped her symptoms. However later in the night the pain returned and appeared worse. She was nauseous and dry heaving but no vomiting. She presented to the ED around 11 PM for evaluation. Her last bowel movement was last night prior to presentation in the ED. Work-up in the ED included a CT of the abdomen/pelvis which showed a high-grade small bowel obstruction with transition point in the central abdomen posterior to the umbilicus near the site of surgical anastomosis. It was described that there was swirling of the mesentery at this level. Inferior to this level there was mesenteric edema and hypoenhancing small bowel, suggesting possible venous obstruction. The superior mesenteric artery remain patent. Trace free fluid in the pelvis. No pneumatosis or pneumoperitoneum. As a result of this findings the patient was presented Dr Fischer with general surgery who recommended admission to the hospitalist service with a surgical consult. 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 Social History Notes: According to records, the patient reports current cigarette smoking, denies alcohol and drug issue. she lives in [facility] - [place] Patient has POLST: Yes POLST Status: Full Code Meds/Allgy - Home Medications Home Medications: Ambulatory Orders Medication Instructions Recorded Confirmed Atorvastatin [Lipitor] 40 mg PO QPM 09/06/19 07/27/21 Ferrous Sulfate 325 mg PO DAILY 09/06/19 07/27/21 Sacubitril/Valsartan [Entresto 49 1 tab PO BID 10/24/19 07/27/21 mg-51 mg Tablet] Potassium Chloride 40 meq PO DAILY 05/09/20 07/27/21 Aspirin [Aspirin EC] 1 tab PO DAILY 05/24/20 07/27/21 Hydrocortisone 5 - 10 mg PO BID 05/24/20 07/27/21 Cyanocobalamin [Vitamin B-12] 1,000 mcg IM .MONTHLY 12/14/20 07/27/21 Metoprolol Succinate [Toprol Xl] 25 mg PO DAILY 12/14/20 07/27/21 - Allergies Allergies/Adverse Reactions: Allergies Allergy/AdvReac Type Severity Reaction Status Date / Time No Known Drug Allergies Allergy Verified 07/27/21 00:45 Review of Systems - Constitutional Constitutional: denies: Fatigue, Fever, Chills - Eyes Eyes: denies: Pain, Dipolpia - Ears, Nose & Throat Ears, Nose & Throat: denies: Ear pain - Cardiovascular Cariovascular: denies: Irregular heart rate, Chest pain, Edema - Respiratory Respiratory: denies: Cough, Sputum production, Wheezing, SOB at rest, SOB with exertion - Gastrointestinal Gastrointestinal: reports: Abdominal pain, Nausea. denies: Abdominal distention, Vomiting - Genitourinary Genitourinary: denies: Dysuria, Frequency, Urgency, Hematuria - Musculoskeletal Musculoskeletal: denies: Muscle pain, Back pain, Muscle aches, Stiffness - Integumentary Integumentary: denies: Rash, Pruritis, Lesions - Neurological Neurological: denies: General weakness, Focal weakness, Headache, Dizziness - Psychiatric Psychiatric: denies: Depression, Anxiety - Endocrine Endocrine: denies: Polyuria, Polydypsia - Hematologic/Lymphatic Hematologic/Lymphatic: denies: Anemia, Bruising, Petechiae Prior Level of Functionality: Patient is normally independent of activities of daily living. Exam - Vital Signs Vital Signs: Vital Signs x48h Temp Pulse Resp BP Pulse Ox 07/27/21 07:59 94 07/27/21 07:02 54 L 15 132/75 H 100 07/27/21 06:00 55 L 15 128/69 99 07/27/21 04:00 62 14 155/91 H 95 07/27/21 02:47 61 12 142/78 H 100 07/27/21 00:45 36.9 C 58 L 18 114/69 99 - Physical Exam General Appearance: positive: Alert, Moderate distress Eyes Bilateral: positive: PERRL, EOMI ENT: positive: Dry mucous membranes Neck: positive: No JVD, Trachea midline Respiratory: positive: Chest non-tender, No respiratory distress, Breath sounds nml. negative: Wheezes, Rales, Rhonchi Cardiovascular: positive: Regular rate & rhythm, No murmur Abdomen: positive: No distention, Tenderness, Guarding, Other (Decreased bowel sounds) Skin: positive: Color nml, No rash, Warm, Dry Extremities: positive: Non-tender, Full ROM, Nml appearance, No pedal edema Neurologic/Psychiatric: positive: Oriented x3, Mood/affect nml Conclusion/Plan - Problem List (1) Small bowel obstruction Conclusion/Plan: Patient made n.p.o. except for sips and chips. IV hydration with D5 plus normal saline. Patient was given 1 L bolus of normal saline in the ED. Administered another 1 L of normal saline over 4 hours in addition to the maintenance fluid. Pain management with Dilaudid as needed. General surgery consult placed. (2) Congestive heart failure Conclusion/Plan: Continue patient's metoprolol tartrate and Entresto. Qualifiers: Heart failure type: unspecified (3) Coronary artery disease Conclusion/Plan: On baby aspirin, atorvastatin, metoprolol and Entresto. We will continue. (4) Hyperlipidemia Conclusion/Plan: Atorvastatin 10 mg p.o. nightly. - Lab Results Fish Bones: 07/28/21 05:33 07/28/21 05:33 Core Measures - Anticipated LOS I expect patient to be DC'd or transferred within 96 hours.: Yes - DVT/VTE - Prophylaxis VTE/DVT Device ordered at admit?: Yes
--- NOTE | 2021-07-27 08:59 | ED Physician Documentation ---
ED Addendum - Addendum Addendum: At change of shift, report to me is the patient has a bowel obstruction and surgery have been consulted and refers it to hospitalist service. Review of prior admissions for similar condition in the last year had shown resolution of the bowel obstruction pattern with nonsurgical interventions and had been on the hospitalist service in the past. I talked with Dr. Avina who was reluctant to have the patient on medicine service and felt it surgical. However he subsequently relented to accept the patient on the hospitalist service. 07/27/21 08:57
[2021-07-27] MEDS: HYDROmorphone 0.5 MG/0.5 ML SYRINGE IVP PRN ×2 (10:15→10:19)
[2021-07-27] MEDS: SODIUM CHLORIDE FLUSH 0.9% 10 ML SYRINGE IVP SCH ×2 (10:15→18:09)
[2021-07-27] MEDS: DEXTROSE 5%-0.45% NACL 1,000 ML IV SCH ×2 (10:16→22:03)
[2021-07-27] MEDS: ENOXAPARIN 40 MG/0.4 ML SYRINGE SUBQ SCH (10:34)
[2021-07-27] MEDS ORDERED: SODIUM CHLORIDE 0.9% 1,000 ML IV ONE (18:02)
[2021-07-27] MEDS: INSULIN REGULAR HUMAN 300 UNIT/3 ML VIAL SUBQ SCH (18:23)
[2021-07-27 18:37] LABS: ALBUMIN 3.9 g/dL (3.2-5.5); ALBUMIN/GLOBULIN RATIO 1.3 (1.0-2.2); BILIRUBIN,TOTAL 0.7 mg/dL (0.2-1.0); CALCIUM 8.9 mg/dL (8.5-10.3); MAGNESIUM 2.4 mg/dL (1.7-2.8)
[2021-07-27 18:50] LABS: BASOPHILS % (AUTO) 0.4 %; HCT - HEMATOCRIT 36.3 % (37.0-47.0); HGB - HEMOGLOBIN 11.7 g/dL (12.0-16.0); LYMPHOCYTES # (AUTO) 0.4 10^3/uL (1.5-3.5); LYMPHOCYTES % (AUTO) 17.5 %; MEAN CORPUSCULAR HEMOGLOBIN 32.1 pg (27.0-31.0); MEAN CORPUSCULAR HGB CONC 32.2 g/dL (32.0-36.0); MEAN CORPUSCULAR VOLUME 99.5 fL (81.0-99.0); MEAN PLATELET VOLUME 10.1 fL (7.9-10.8); MONOCYTES # (AUTO) 0.2 10^3/uL (0.0-1.0); MONOCYTES % (AUTO) 7.2 %; NEUTROPHILS # (AUTO) 1.9 10^3/uL (1.5-6.6); NEUTROPHILS % (AUTO) 74.5 %; PLT - PLATELET COUNT 189 10^3/uL (130-450); RED BLOOD COUNT 3.65 10^6/uL (4.20-5.40); RED CELL DISTRIBUTION WIDTH 13.1 % (12.0-15.0); WHITE BLOOD COUNT 2.5 x10^3/uL (4.8-10.8)
[2021-07-27] MEDS: SACUBITRIL VALSARTAN PO SCH (21:24)
[2021-07-27] MEDS: ATORVASTATIN 40 MG TABLET PO SCH (22:02)
[2021-07-28] MEDS: SODIUM CHLORIDE FLUSH 0.9% 10 ML SYRINGE IVP SCH ×3 (00:13→17:28)
[2021-07-28] MEDS: INSULIN REGULAR HUMAN 300 UNIT/3 ML VIAL SUBQ SCH ×4 (00:13→18:09)
[2021-07-28 06:22] LABS: BASOPHILS % (AUTO) 0.4 %; EOSINOPHILS % (AUTO) 0.6 %; HCT - HEMATOCRIT 30.6 % (37.0-47.0); HGB - HEMOGLOBIN 9.9 g/dL (12.0-16.0); LYMPHOCYTES # (AUTO) 1.1 10^3/uL (1.5-3.5); LYMPHOCYTES % (AUTO) 23.7 %; MEAN CORPUSCULAR HEMOGLOBIN 31.4 pg (27.0-31.0); MEAN CORPUSCULAR HGB CONC 32.4 g/dL (32.0-36.0); MEAN CORPUSCULAR VOLUME 97.1 fL (81.0-99.0); MEAN PLATELET VOLUME 9.9 fL (7.9-10.8); MONOCYTES # (AUTO) 0.5 10^3/uL (0.0-1.0); MONOCYTES % (AUTO) 10.9 %; PLT - PLATELET COUNT 177 10^3/uL (130-450); RED BLOOD COUNT 3.15 10^6/uL (4.20-5.40); RED CELL DISTRIBUTION WIDTH 13.2 % (12.0-15.0); WHITE BLOOD COUNT 4.7 x10^3/uL (4.8-10.8)
[2021-07-28 06:32] LABS: CALCIUM 8.4 mg/dL (8.5-10.3); CREATININE 0.9 mg/dL (0.4-1.0); POTASSIUM 4.2 mmol/L (3.5-5.0)
--- NOTE | 2021-07-28 07:36 | PROVIDER PROGRESS NOTE ---
Assessment/Plan - Problem List (1) Small bowel obstruction Assessment/Plan: She reports no bowel movement or flatulence. However she denies abdominal pain as well. Encourage patient to continue ambulating. She was seen by general surgery: Dr. Lopez who ordered a Gastrografin small bowel follow-through today. Continue IV hydration with normal saline. We will initiate a diet once patient is able to have a bowel movement or flatulence. (3) Congestive heart failure Qualifiers: Heart failure type: unspecified Assessment/Plan: Continue patient's metoprolol tartrate and Entresto. (4) Coronary artery disease Assessment/Plan: On baby aspirin, atorvastatin, metoprolol and Entresto. We will continue. (5) Hyperlipidemia Assessment/Plan: Atorvastatin 10 mg p.o. nightly. - Current Meds Current Meds: Current Medications Generic Name Dose Route Start Last Admin Trade Name Freq PRN Reason Stop Dose Admin Atorvastatin Calcium 40 mg 07/27/21 21:00 07/27/21 22:02 Atorvastatin 40 Mg Tablet PO 40 mg QPM DILAN Administration Enoxaparin Sodium 40 mg 07/27/21 09:00 07/27/21 10:34 Enoxaparin 40 Mg/0.4 Ml Syringe SUBQ 40 mg DAILY DILAN Administration Hydromorphone HCl 0.5 mg 07/27/21 08:35 07/27/21 10:19 Hydromorphone 0.5 Mg/0.5 Ml Syringe IVP 0.5 mg Q2H PRN Administration Pain 8 to 10 Dextrose/Sodium Chloride 1,000 mls @ 100 mls/hr 07/27/21 09:00 07/27/21 22:03 D5.45ns IV 100 mls/hr .Q10H DILAN Administration Insulin Human Regular 1 - 9 unit 07/27/21 18:00 07/28/21 06:46 Insulin Regular Human 300 Unit/3 Ml Vial SUBQ Not Given Q6HR DILAN Protocol Sacubitril- 1 each 07/27/21 21:00 07/27/21 21:24 Valsartan 49 Mg-51 PO Not Given Mg [Entresto] Tab BID DILAN Sodium Chloride 10 ml 07/27/21 09:00 07/28/21 00:13 Sodium Chloride Flush 0.9% 10 Ml Syringe IVP Not Given 0100,0900,1700 DILAN - Lab Result Fish Bone Diagrams: 07/28/21 05:33 07/28/21 05:33 - Additional Planning My Orders: My Active Orders 07/27/21 08:35 Activity Orders [RC] Q2HR IO [RC] IOSHIFT Initiate Bowel Care Protocol [RC] .protocol Initiate Line Care Protocol [RC] QSHIFT Initiate Personal Care Protoco [RC] .protocol Telemetry- [RC] Q4HR Vital Signs [RC] 0800,1600,0000 HYDROmorphone 0.5MG SYRINGE [Dilaudid 0.5MG Syringe] 0.5 mg IVP Q2H PRN Ondansetron Inj [Zofran Inj] 4 mg IVP Q6HR PRN Sodium Chloride Flush 0.9% [Normal Saline Flush 0.9%] 10 ml IVP PRN PRN Code Status [OTHERS] Routine Condition of Patient [OTHERS] Routine DVT Prophylaxis [OTHERS] Routine 07/27/21 08:37 SCDs [RC] QSHIFT 07/27/21 08:40 NPO except Meds [DIET] 07/27/21 09:00 Dextrose 5%-0.45% NaCl [D5.45ns] 1,000 ml IV 100 mls/hr Enoxaparin [Lovenox] 40 mg SUBQ DAILY Sodium Chloride Flush 0.9% [Normal Saline Flush 0.9%] 10 ml IVP 0100,0900,1700 07/27/21 17:50 Initiate Hypoglycemia Protocol [RC] .protocol 07/27/21 18:00 Insulin Regular Human [Humulin R] 1 - 9 unit SUBQ Q6HR 07/27/21 21:00 Atorvastatin [Lipitor] 40 mg PO QPM Patient Own Med [Patient Own Medication] 1 each PO BID 07/28/21 09:00 Aspirin EC [Ecotrin] 81 mg PO DAILY Ferrous Sulfate [Feosol] 325 mg PO DAILY Metoprolol Succinate [Toprol Xl] 25 mg PO DAILY Potassium Chloride Oral Soln [Potassium Chloride] 40 meq PO DAILY 07/29/21 05:00 BMP - BASIC METABOLIC PANEL [CHEM] DAILYLAB CBC - COMP BLD CT W/AUTO DIFF [HEME] DAILYLAB 07/30/21 05:00 BMP - BASIC METABOLIC PANEL [CHEM] DAILYLAB CBC - COMP BLD CT W/AUTO DIFF [HEME] DAILYLAB 07/31/21 05:00 BMP - BASIC METABOLIC PANEL [CHEM] DAILYLAB CBC - COMP BLD CT W/AUTO DIFF [HEME] DAILYLAB 08/01/21 05:00 BMP - BASIC METABOLIC PANEL [CHEM] DAILYLAB CBC - COMP BLD CT W/AUTO DIFF [HEME] DAILYLAB 08/02/21 05:00 BMP - BASIC METABOLIC PANEL [CHEM] DAILYLAB CBC - COMP BLD CT W/AUTO DIFF [HEME] DAILYLAB 08/03/21 05:00 BMP - BASIC METABOLIC PANEL [CHEM] DAILYLAB CBC - COMP BLD CT W/AUTO DIFF [HEME] DAILYLAB Subjective - Subjective Patient Reports: Other (Patient was ambulating [facility] floor today. She denied any abdominal pain. She reports increased bowel sounds and movement. She has not yet had a bowel movement or flatulence. Denies any other complaints.) Objective Vital Signs: Vital Signs - 24 hr 07/27/21 07/27/21 07/27/21 07:59 09:00 09:49 Temperature 36.7 C Heart Rate 55 L Heart Rate [ Brachial] Heart Rate [ 62 Radial] Respiratory 15 Rate Blood Pressure 113/90 H Blood Pressure 141/81 H [Right Brachial artery] O2 Saturation 94 95 99 07/27/21 07/27/21 07/27/21 09:56 11:00 15:45 Temperature 36.9 C Heart Rate 60 Heart Rate [ 58 L Brachial] Heart Rate [ Radial] Respiratory 20 16 16 Rate Blood Pressure Blood Pressure 95/56 L [Right Brachial artery] O2 Saturation 97 07/28/21 07/28/21 07/28/21 00:51 01:52 07:33 Temperature 36.8 C 37.1 C Heart Rate Heart Rate [ 64 68 Brachial] Heart Rate [ Radial] Respiratory 17 16 Rate Blood Pressure Blood Pressure 108/64 97/65 [Right Brachial artery] O2 Saturation 96 100 Oxygen O2 Source Room air Oxygen Flow Rate 2 I&O (Last 24 Hrs): Intake and Output Totals x24h 07/26/21 07/27/21 07/28/21 23:59 23:59 23:59 Intake Total 2816.667 0 Balance 2816.667 0 General: Alert, Oriented x3, No acute distress HEENT: PERRLA, EOMI Neck: Supple, No JVD Neuro: Alert, Non Focal, Oriented Times 3 Cardiovascular: Regular rate Respiratory: Chest non-tender, Wheezes Abdomen: Normal bowel sounds, Soft, No tenderness Extremities: No clubbing, No edema, No tenderness/swelling Skin: No rashes, No breakdown, No significant lesion - Results Results: Laboratory Results WBC 4.7 x10^3/uL (4.8-10.8) L 07/28/21 05:33 RBC 3.15 10^6/uL (4.20-5.40) L 07/28/21 05:33 Hgb 9.9 g/dL (12.0-16.0) L 07/28/21 05:33 Hct 30.6 % (37.0-47.0) L 07/28/21 05:33 MCV 97.1 fL (81.0-99.0) 07/28/21 05:33 MCH 31.4 pg (27.0-31.0) H 07/28/21 05:33 MCHC 32.4 g/dL (32.0-36.0) 07/28/21 05:33 RDW 13.2 % (12.0-15.0) 07/28/21 05:33 Plt Count 177 10^3/uL (130-450) 07/28/21 05:33 MPV 9.9 fL (7.9-10.8) 07/28/21 05:33 Neut # (Auto) 3.0 10^3/uL (1.5-6.6) 07/28/21 05:33 Lymph # (Auto) 1.1 10^3/uL (1.5-3.5) L 07/28/21 05:33 [place] # (Auto) 0.5 10^3/uL (0.0-1.0) 07/28/21 05:33 Eos # (Auto) 0.0 10^3/uL (0.0-0.7) 07/28/21 05:33 Baso # (Auto) 0.0 10^3/uL (0.0-0.1) 07/28/21 05:33 Absolute Nucleated RBC 0.00 x10^3/uL 07/28/21 05:33 Nucleated RBC % 0.0 /100WBC 07/28/21 05:33 Sodium 137 mmol/L (135-145) 07/28/21 05:33 Potassium 4.2 mmol/L (3.5-5.0) 07/28/21 05:33 Chloride 106 mmol/L (101-111) 07/28/21 05:33 Carbon Dioxide 22 mmol/L (21-32) 07/28/21 05:33 Anion Gap 9.0 (6-13) 07/28/21 05:33 BUN 22 mg/dL (6-20) H 07/28/21 05:33 Creatinine 0.9 mg/dL (0.4-1.0) 07/28/21 05:33 Estimated GFR (MDRD) 64 (>89) L 07/28/21 05:33 Glucose 147 mg/dL (70-100) H 07/28/21 05:33 POC Whole Bld Glucose 130 mg/dL (70 - 100) H 07/28/21 06:15 Lactic Acid 1.7 mmol/L (0.5-2.2) 07/28/21 07:03 Calcium 8.4 mg/dL (8.5-10.3) L 07/28/21 05:33 Magnesium 2.4 mg/dL (1.7-2.8) 07/27/21 18:21 Total Bilirubin 0.7 mg/dL (0.2-1.0) 07/27/21 18:21 AST 34 IU/L (10-42) 07/27/21 18:21 ALT 47 IU/L (10-60) 07/27/21 18:21 Alkaline Phosphatase 108 IU/L (42-121) 07/27/21 18:21 Total Protein 7.0 g/dL (6.7-8.2) 07/27/21 18:21 Albumin 3.9 g/dL (3.2-5.5) 07/27/21 18:21 Globulin 3.1 g/dL (2.1-4.2) 07/27/21 18:21 Albumin/Globulin Ratio 1.3 (1.0-2.2) 07/27/21 18:21 Lipase 41 U/L (22-51) 07/27/21 01:25 Urine Color YELLOW 07/27/21 04:30 Urine Clarity CLEAR (CLEAR) 07/27/21 04:30 Urine pH 5.0 PH (5.0-7.5) 07/27/21 04:30 Ur Specific [place] 1.010 (1.002-1.030) 07/27/21 04:30 Urine Protein NEGATIVE mg/dL (NEGATIVE) 07/27/21 04:30 Urine Glucose (UA) NEGATIVE mg/dL (NEGATIVE) 07/27/21 04:30 Urine Ketones NEGATIVE mg/dL (NEGATIVE) 07/27/21 04:30 Urine Occult Blood TRACE-INTA (NEGATIVE) 07/27/21 04:30 Urine Nitrite NEGATIVE (NEGATIVE) 07/27/21 04:30 Urine Bilirubin NEGATIVE (NEGATIVE) 07/27/21 04:30 Urine Urobilinogen 0.2 (NORMAL) E.U./dL (NORMAL) 07/27/21 04:30 Ur Leukocyte Esterase SMALL (NEGATIVE) H 07/27/21 04:30 Urine RBC 0-5 /HPF (0-5) 07/27/21 04:30 Urine WBC 4-5 /HPF (0-5) 07/27/21 04:30 Ur Squamous Epith Cells MANY Squamous (<= Few) H 07/27/21 04:30 Urine Bacteria Few /HPF (None Seen) 07/27/21 04:30 Urine Casts 0-2 Hyaline Casts /LPF 07/27/21 04:30 Ur Microscopic Review INDICATED 07/27/21 04:30 Urine Culture Comments NOT INDICATED 07/27/21 04:30 Nasal Adenovirus (PCR) NOT DETECTED 07/27/21 04:16 Nasal B. parapertussis DNA (PCR) NOT DETECTED 07/27/21 04:16 Nasal Coronavir 229E PCR NOT DETECTED 07/27/21 04:16 Nasal Coronavir HKU1 PCR NOT DETECTED 07/27/21 04:16 Nasal Coronavir NL63 PCR NOT DETECTED 07/27/21 04:16 Nasal Coronavir OC43 PCR NOT DETECTED 07/27/21 04:16 Nasal Enterovir/Rhinovir PCR NOT DETECTED 07/27/21 04:16 Nasal Influenza B PCR NOT DETECTED 07/27/21 04:16 Nasal Influenza A PCR NOT DETECTED 07/27/21 04:16 Nasal Parainfluen 1 PCR NOT DETECTED 07/27/21 04:16 Nasal Parainfluen 2 PCR NOT DETECTED 07/27/21 04:16 Nasal Parainfluen 3 PCR NOT DETECTED 07/27/21 04:16 Nasal Parainfluen 4 PCR NOT DETECTED 07/27/21 04:16 Nasal RSV (PCR) NOT DETECTED 07/27/21 04:16 Nasal B.pertussis DNA PCR NOT DETECTED 07/27/21 04:16 Nasal C.pneumoniae (PCR) NOT DETECTED 07/27/21 04:16 Bharat Human Metapneumo PCR NOT DETECTED 07/27/21 04:16 Nasal M.pneumoniae (PCR) NOT DETECTED 07/27/21 04:16 Nasal SARS-CoV-2 (PCR) NOT DETECTED 07/27/21 04:16 - Procedures Procedures: Procedures INSERTION OF INFUSION DEV INTO SUP VENA CAVA, PERC APPROACH (03/22/21) INTRODUCTION OF NUTRITIONAL INTO PERIPH VEIN, PERC APPROACH (03/22/21) RESPIRATORY VENTILATION, LESS THAN 24 CONSECUTIVE HOURS (08/07/19) ABX Reporting Has patient been on IV antibiotics over the past 48 hours?: No
[2021-07-28] MEDS: DEXTROSE 5%-0.45% NACL 1,000 ML IV SCH ×2 (08:09→18:08)
[2021-07-28] MEDS: ASPIRIN EC 81 MG TABLET PO SCH (08:11)
[2021-07-28] MEDS: FERROUS SULFATE 325 MG TABLET PO SCH (08:11)
[2021-07-28] MEDS: ENOXAPARIN 40 MG/0.4 ML SYRINGE SUBQ SCH (08:11)
[2021-07-28] MEDS: POTASSIUM CHLORIDE 20 MEQ/15 ML UDC PO SCH (08:12)
[2021-07-28] MEDS: METOPROLOL SUCCINATE 25 MG TABLET PO SCH (08:12)
[2021-07-28] MEDS: SACUBITRIL VALSARTAN PO SCH ×2 (08:17→20:09)
--- NOTE | 2021-07-28 09:19 | CONSULTATION NOTE ---
Surgery Consult - Admit Date Hospital Admission Date: 07/27/21 - Consult Date Consult Date: 07/28/21 Requesting Provider: Jessie - Chief Complaint Chief Complaint: abdominal pain - Home Meds/Allergies Home Medications: Patient History Medication Instructions Recorded Confirmed Atorvastatin [Lipitor] 40 mg PO QPM 09/06/19 07/27/21 Ferrous Sulfate 325 mg PO DAILY 09/06/19 07/27/21 Sacubitril/Valsartan [Entresto 49 1 tab PO BID 10/24/19 07/27/21 mg-51 mg Tablet] Potassium Chloride 40 meq PO DAILY 05/09/20 07/27/21 Aspirin [Aspirin EC] 1 tab PO DAILY 05/24/20 07/27/21 Hydrocortisone 5 - 10 mg PO BID 05/24/20 07/27/21 Cyanocobalamin [Vitamin B-12] 1,000 mcg IM .MONTHLY 12/14/20 07/27/21 Metoprolol Succinate [Toprol Xl] 25 mg PO DAILY 12/14/20 07/27/21 Allergies/Adverse Reactions: Allergies Allergy/AdvReac Type Severity Reaction Status Date / Time No Known Drug Allergies Allergy Verified 07/27/21 00:45 - Vital Signs Vital Signs: Last Vital Signs Temp 37.1 C 07/28/21 07:33 Pulse 68 07/28/21 07:33 Resp 16 07/28/21 07:33 BP 97/65 07/28/21 07:33 Pulse Ox 100 07/28/21 07:33 Intake & Output: Intake & Output 07/25/21 07/26/21 07/27/21 07/28/21 23:59 23:59 23:59 23:59 Intake Total 2816.667 1000 Balance 2816.667 1000 - Lab Results Result Diagrams: 07/28/21 05:33 07/28/21 05:33 - Consultation Note Consultation Note: 60 yo female had a total gastrectomy, left adrenalectomy and right hemicolectomy last year at [facility] for [facility] cancer. Also had a lap cholecystectomy.. She has had two episodes of partial obstruction which resolved with conservative ma nagement. On this admission, she ate an apple and a protein shake before the onset of pain. This morning she feels better with less pain and is ambulating in the halls. No BM or flatus yet. No nausea or vomiting since admission. Exam: VS normal Alert, cooperative Abdomen not distended, not tender to palpation, no masses. CT abdomen: high grade small bowel obstruction with transistion point in the central abdomen posterior to the umbilicus near the site of a surgical anastomosis. There is swirling of the mesentery, some mesenteric edema, trace free fluid in the pelvis. Assessment: Partial small bowel obstruction, s/p total gastrectomy, left adrenalectomy, and right hemicolectomy. Lap cholecystectomy more recently. Plan: Gastrografin SBFT today.
--- NOTE | 2021-07-28 13:34 | PROVIDER PROGRESS NOTE ---
Assessment/Plan - Problem List (1) Small bowel obstruction Assessment/Plan: Gastrografin passed into colon after 2 hours and patient had a bowel movement. She has had some cramping abdominal discomfort and nausea but no vomiting. On exam, abdomen is soft and not distended, nontender. Assess: partial SBO Plan: start clears tomorrow as tolerated. - Current Meds Current Meds: Current Medications Generic Name Dose Route Start Last Admin Trade Name Freq PRN Reason Stop Dose Admin Aspirin 81 mg 07/28/21 09:00 07/28/21 08:11 Aspirin Ec 81 Mg Tablet PO 81 mg DAILY DILAN Administration Atorvastatin Calcium 40 mg 07/27/21 21:00 07/27/21 22:02 Atorvastatin 40 Mg Tablet PO 40 mg QPM DILAN Administration Enoxaparin Sodium 40 mg 07/27/21 09:00 07/28/21 08:11 Enoxaparin 40 Mg/0.4 Ml Syringe SUBQ 40 mg DAILY DILAN Administration Ferrous Sulfate 325 mg 07/28/21 09:00 07/28/21 08:11 Ferrous Sulfate 325 Mg Tablet PO 325 mg DAILY DILAN Administration Hydromorphone HCl 0.5 mg 07/27/21 08:35 07/27/21 10:19 Hydromorphone 0.5 Mg/0.5 Ml Syringe IVP 0.5 mg Q2H PRN Administration Pain 8 to 10 Dextrose/Sodium Chloride 1,000 mls @ 100 mls/hr 07/27/21 09:00 07/28/21 08:09 D5.45ns IV 100 mls/hr .Q10H DILAN Administration Insulin Human Regular 1 - 9 unit 07/27/21 18:00 07/28/21 11:18 Insulin Regular Human 300 Unit/3 Ml Vial SUBQ Not Given Q6HR [facility] Protocol Metoprolol Succinate 25 mg 07/28/21 09:00 07/28/21 08:12 Metoprolol Succinate 25 Mg Tablet PO 25 mg DAILY DILAN Administration Sacubitril- 1 each 07/27/21 21:00 07/28/21 08:17 Valsartan 49 Mg-51 PO Not Given Mg [Entresto] Tab BID DILAN Potassium Chloride 40 meq 07/28/21 09:00 07/28/21 08:12 Potassium Chloride 20 Meq/15 Ml Udc PO 40 meq DAILY DILAN Administration Sodium Chloride 10 ml 07/27/21 09:00 07/28/21 08:15 Sodium Chloride Flush 0.9% 10 Ml Syringe IVP Not Given 0100,0900,1700 DILAN - Lab Result Fish Bone Diagrams: 07/28/21 05:33 07/28/21 05:33 - Additional Planning My Orders: My Active Orders 07/28/21 09:29 NPO [DIET] Small Bowel Follow Through [FL] Stat Objective Vital Signs: Vital Signs - 24 hr 07/27/21 07/28/21 07/28/21 15:45 00:51 01:52 Temperature 36.9 C 36.8 C Heart Rate [ 58 L 64 Brachial] Respiratory 16 17 Rate Blood Pressure 95/56 L 108/64 [Right Brachial artery] O2 Saturation 97 96 07/28/21 07:33 Temperature 37.1 C Heart Rate [ 68 Brachial] Respiratory 16 Rate Blood Pressure 97/65 [Right Brachial artery] O2 Saturation 100 Oxygen O2 Source Room air Oxygen Flow Rate 2 I&O (Last 24 Hrs): Intake and Output Totals x24h 07/26/21 07/27/21 07/28/21 23:59 23:59 23:59 Intake Total 2816.667 1000 Balance 2816.667 1000 - Results Results: Laboratory Results WBC 4.7 x10^3/uL (4.8-10.8) L 07/28/21 05:33 RBC 3.15 10^6/uL (4.20-5.40) L 07/28/21 05:33 Hgb 9.9 g/dL (12.0-16.0) L 07/28/21 05:33 Hct 30.6 % (37.0-47.0) L 07/28/21 05:33 MCV 97.1 fL (81.0-99.0) 07/28/21 05:33 MCH 31.4 pg (27.0-31.0) H 07/28/21 05:33 MCHC 32.4 g/dL (32.0-36.0) 07/28/21 05:33 RDW 13.2 % (12.0-15.0) 07/28/21 05:33 Plt Count 177 10^3/uL (130-450) 07/28/21 05:33 MPV 9.9 fL (7.9-10.8) 07/28/21 05:33 Neut # (Auto) 3.0 10^3/uL (1.5-6.6) 07/28/21 05:33 Lymph # (Auto) 1.1 10^3/uL (1.5-3.5) L 07/28/21 05:33 [place] # (Auto) 0.5 10^3/uL (0.0-1.0) 07/28/21 05:33 Eos # (Auto) 0.0 10^3/uL (0.0-0.7) 07/28/21 05:33 Baso # (Auto) 0.0 10^3/uL (0.0-0.1) 07/28/21 05:33 Absolute Nucleated RBC 0.00 x10^3/uL 07/28/21 05:33 Nucleated RBC % 0.0 /100WBC 07/28/21 05:33 Sodium 137 mmol/L (135-145) 07/28/21 05:33 Potassium 4.2 mmol/L (3.5-5.0) 07/28/21 05:33 Chloride 106 mmol/L (101-111) 07/28/21 05:33 Carbon Dioxide 22 mmol/L (21-32) 07/28/21 05:33 Anion Gap 9.0 (6-13) 07/28/21 05:33 BUN 22 mg/dL (6-20) H 07/28/21 05:33 Creatinine 0.9 mg/dL (0.4-1.0) 07/28/21 05:33 Estimated GFR (MDRD) 64 (>89) L 07/28/21 05:33 Glucose 147 mg/dL (70-100) H 07/28/21 05:33 POC Whole Bld Glucose 119 mg/dL (70 - 100) H 07/28/21 11:09 Lactic Acid 1.7 mmol/L (0.5-2.2) 07/28/21 07:03 Calcium 8.4 mg/dL (8.5-10.3) L 07/28/21 05:33 Magnesium 2.4 mg/dL (1.7-2.8) 07/27/21 18:21 Total Bilirubin 0.7 mg/dL (0.2-1.0) 07/27/21 18:21 AST 34 IU/L (10-42) 07/27/21 18:21 ALT 47 IU/L (10-60) 07/27/21 18:21 Alkaline Phosphatase 108 IU/L (42-121) 07/27/21 18:21 Total Protein 7.0 g/dL (6.7-8.2) 07/27/21 18:21 Albumin 3.9 g/dL (3.2-5.5) 07/27/21 18:21 Globulin 3.1 g/dL (2.1-4.2) 07/27/21 18:21 Albumin/Globulin Ratio 1.3 (1.0-2.2) 07/27/21 18:21 Lipase 41 U/L (22-51) 07/27/21 01:25 Urine Color YELLOW 07/27/21 04:30 Urine Clarity CLEAR (CLEAR) 07/27/21 04:30 Urine pH 5.0 PH (5.0-7.5) 07/27/21 04:30 Ur Specific Organ 1.010 (1.002-1.030) 07/27/21 04:30 Urine Protein NEGATIVE mg/dL (NEGATIVE) 07/27/21 04:30 Urine Glucose (UA) NEGATIVE mg/dL (NEGATIVE) 07/27/21 04:30 Urine Ketones NEGATIVE mg/dL (NEGATIVE) 07/27/21 04:30 Urine Occult Blood TRACE-INTA (NEGATIVE) 07/27/21 04:30 Urine Nitrite NEGATIVE (NEGATIVE) 07/27/21 04:30 Urine Bilirubin NEGATIVE (NEGATIVE) 07/27/21 04:30 Urine Urobilinogen 0.2 (NORMAL) E.U./dL (NORMAL) 07/27/21 04:30 Ur Leukocyte Esterase SMALL (NEGATIVE) H 07/27/21 04:30 Urine RBC 0-5 /HPF (0-5) 07/27/21 04:30 Urine WBC 4-5 /HPF (0-5) 07/27/21 04:30 Ur Squamous Epith Cells MANY Squamous (<= Few) H 07/27/21 04:30 Urine Bacteria Few /HPF (None Seen) 07/27/21 04:30 Urine Casts 0-2 Hyaline Casts /LPF 07/27/21 04:30 Ur Microscopic Review INDICATED 07/27/21 04:30 Urine Culture Comments NOT INDICATED 07/27/21 04:30 Nasal Adenovirus (PCR) NOT DETECTED 07/27/21 04:16 Nasal B. parapertussis DNA (PCR) NOT DETECTED 07/27/21 04:16 Nasal Coronavir 229E PCR NOT DETECTED 07/27/21 04:16 Nasal Coronavir HKU1 PCR NOT DETECTED 07/27/21 04:16 Nasal Coronavir NL63 PCR NOT DETECTED 07/27/21 04:16 Nasal Coronavir OC43 PCR NOT DETECTED 07/27/21 04:16 Nasal Enterovir/Rhinovir PCR NOT DETECTED 07/27/21 04:16 Nasal Influenza B PCR NOT DETECTED 07/27/21 04:16 Nasal Influenza A PCR NOT DETECTED 07/27/21 04:16 Nasal Parainfluen 1 PCR NOT DETECTED 07/27/21 04:16 Nasal Parainfluen 2 PCR NOT DETECTED 07/27/21 04:16 Nasal Parainfluen 3 PCR NOT DETECTED 07/27/21 04:16 Nasal Parainfluen 4 PCR NOT DETECTED 07/27/21 04:16 Nasal RSV (PCR) NOT DETECTED 07/27/21 04:16 Nasal B.pertussis DNA PCR NOT DETECTED 07/27/21 04:16 Nasal C.pneumoniae (PCR) NOT DETECTED 07/27/21 04:16 Bharat Human Metapneumo PCR NOT DETECTED 07/27/21 04:16 Nasal M.pneumoniae (PCR) NOT DETECTED 07/27/21 04:16 Nasal SARS-CoV-2 (PCR) NOT DETECTED 07/27/21 04:16 - Procedures Procedures: Procedures INSERTION OF INFUSION DEV INTO SUP VENA CAVA, PERC APPROACH (03/22/21) INTRODUCTION OF NUTRITIONAL INTO PERIPH VEIN, PERC APPROACH (03/22/21) RESPIRATORY VENTILATION, LESS THAN 24 CONSECUTIVE HOURS (08/07/19) ABX Reporting Has patient been on IV antibiotics over the past 48 hours?: No
--- NOTE | 2021-07-28 13:41 | XRAY Report ---
PROCEDURE: Small bowel follow-through INDICATIONS: Dilated loops of bowel, possible small bowel obstruction. COMPARISON: Abdominal CT dated 07/27/2021. CONTRAST: Oral Gastrografin was administered and multiple serial films were obtained. FINDINGS: Small bowel: There is normal transit time of barium through the small bowel with contrast seen in th e large bowel on the 2 hour film. Small bowel loops are distended. Mucosal folds are smooth and of n ormal thickness. No strictures, intraluminal masses, or extrinsic mass effects are noted. IMPRESSION: 1. Small bowel follow-through demonstrates normal transit of Gastrografin through the small bowel to the colon on the 2 hour film. 2. Distended loops of small bowel. Reviewed by: Pollo Rao on 07/28/2021 12:40 PM [facility] Approved by: Pollo Rao on 07/28/2021 12:40 PM [facility] DE JESUS Station ID: [id number]
[2021-07-28] MEDS ORDERED: DIATR MEGLU/DIATRIZOATE SODIUM 120 ML BOTTLE PO ONE (14:30)
[2021-07-28] MEDS: HYDROmorphone 0.5 MG/0.5 ML SYRINGE IVP PRN ×3 (14:59→20:08)
[2021-07-28] MEDS: ATORVASTATIN 40 MG TABLET PO SCH (20:08)
[2021-07-28] MEDS ORDERED: DEXTROSE 5%-0.45% NACL 1,000 ML IV SCH (21:48)
[2021-07-29] MEDS: SODIUM CHLORIDE FLUSH 0.9% 10 ML SYRINGE IVP SCH ×2 (02:03→10:30)
[2021-07-29 06:33] LABS: BASOPHILS % (AUTO) 0.4 %; EOSINOPHILS # (AUTO) 0.1 10^3/uL (0.0-0.7); HCT - HEMATOCRIT 32.5 % (37.0-47.0); HGB - HEMOGLOBIN 10.4 g/dL (12.0-16.0); LYMPHOCYTES # (AUTO) 1.2 10^3/uL (1.5-3.5); LYMPHOCYTES % (AUTO) 26.8 %; MEAN CORPUSCULAR HEMOGLOBIN 31.5 pg (27.0-31.0); MEAN CORPUSCULAR VOLUME 98.5 fL (81.0-99.0); MEAN PLATELET VOLUME 9.4 fL (7.9-10.8); MONOCYTES # (AUTO) 0.3 10^3/uL (0.0-1.0); MONOCYTES % (AUTO) 7.5 %; NEUTROPHILS # (AUTO) 2.8 10^3/uL (1.5-6.6); NEUTROPHILS % (AUTO) 63.1 %; PLT - PLATELET COUNT 164 10^3/uL (130-450); WHITE BLOOD COUNT 4.5 x10^3/uL (4.8-10.8)
[2021-07-29 06:42] LABS: CALCIUM 8.6 mg/dL (8.5-10.3); CREATININE 0.7 mg/dL (0.4-1.0); POTASSIUM 4.1 mmol/L (3.5-5.0)
[2021-07-29] MEDS ORDERED: HYDROCORTISONE 10 MG TABLET PO SCH (09:00)
[2021-07-29] MEDS: FERROUS SULFATE 325 MG TABLET PO SCH (09:05)
[2021-07-29] MEDS: ASPIRIN EC 81 MG TABLET PO SCH (09:05)
[2021-07-29] MEDS: METOPROLOL SUCCINATE 25 MG TABLET PO SCH (09:05)
[2021-07-29] MEDS: ENOXAPARIN 40 MG/0.4 ML SYRINGE SUBQ SCH (09:06)
[2021-07-29] MEDS: POTASSIUM CHLORIDE 20 MEQ/15 ML UDC PO SCH (09:06)
--- NOTE | 2021-07-29 09:36 | PROVIDER PROGRESS NOTE ---
Assessment/Plan - Problem List (1) Small bowel obstruction Assessment/Plan: Has continued to have loose stools after GG SBFT yesterday. No N/V, tolerating clears Exam: abdomen soft, nontender, not distended A: resolving SBO s/p total gastrectomy, left adrenalectomy, right colon resection for gastric CA P: slow advance diet, discharge home if tolerated. Patient should stay on low residue diet after discharge, follow up with oncologist/onc. surgeon - Current Meds Current Meds: Current Medications Generic Name Dose Route Start Last Admin Trade Name Freq PRN Reason Stop Dose Admin Aspirin 81 mg 07/28/21 09:00 07/29/21 09:05 Aspirin Ec 81 Mg Tablet PO 81 mg DAILY DILAN Administration Atorvastatin Calcium 40 mg 07/27/21 21:00 07/28/21 20:08 Atorvastatin 40 Mg Tablet PO 40 mg QPM DILAN Administration Enoxaparin Sodium 40 mg 07/27/21 09:00 07/29/21 09:06 Enoxaparin 40 Mg/0.4 Ml Syringe SUBQ 40 mg DAILY DILAN Administration Ferrous Sulfate 325 mg 07/28/21 09:00 07/29/21 09:05 Ferrous Sulfate 325 Mg Tablet PO 325 mg DAILY DILAN Administration Hydrocortisone 5 mg 07/29/21 09:00 07/29/21 09:05 Hydrocortisone 10 Mg Tablet PO 5 mg BID DILAN Administration Hydromorphone HCl 0.5 mg 07/27/21 08:35 07/28/21 20:08 Hydromorphone 0.5 Mg/0.5 Ml Syringe IVP 0.5 mg Q2H PRN Administration Pain 8 to 10 Metoprolol Succinate 25 mg 07/28/21 09:00 07/29/21 09:05 Metoprolol Succinate 25 Mg Tablet PO 25 mg DAILY DILAN Administration Ondansetron HCl 4 mg 07/27/21 08:35 07/28/21 14:59 Ondansetron 4 Mg/2 Ml Vial IVP 4 mg Q6HR PRN Administration Nausea / Vomiting Sacubitril- 1 each 07/27/21 21:00 07/28/21 20:09 Valsartan 49 Mg-51 PO Not Given Mg [Entresto] Tab BID DILAN Potassium Chloride 40 meq 07/28/21 09:00 07/29/21 09:06 Potassium Chloride 20 Meq/15 Ml Udc PO 40 meq DAILY DILAN Administration Sodium Chloride 10 ml 07/27/21 08:35 07/28/21 17:35 Sodium Chloride Flush 0.9% 10 Ml Syringe IVP 10 ml PRN PRN Administration NEEDED PER PROVIDER ORDERS Sodium Chloride 10 ml 07/27/21 09:00 07/29/21 02:03 Sodium Chloride Flush 0.9% 10 Ml Syringe IVP Not Given 0100,0900,1700 DILAN - Lab Result Fish Bone Diagrams: 07/29/21 06:18 07/29/21 06:18 Objective Vital Signs: Vital Signs - 24 hr 07/28/21 07/28/21 07/29/21 15:34 20:14 00:05 Temperature 37.1 C 36.9 C 36.8 C Heart Rate [ 60 59 L 61 Brachial] Respiratory 16 16 17 Rate Blood Pressure 123/61 114/69 117/66 [Right Brachial artery] O2 Saturation 97 95 100 07/29/21 07/29/21 05:32 07:45 Temperature 36.8 C 37.1 C Heart Rate [ 64 52 L Brachial] Respiratory 17 16 Rate Blood Pressure 127/69 103/58 L [Right Brachial artery] O2 Saturation 98 100 Oxygen O2 Source Room air Oxygen Flow Rate 2 I&O (Last 24 Hrs): Intake and Output Totals x24h 07/27/21 07/28/21 07/29/21 23:59 23:59 23:59 Intake Total 2816.667 2416.666 490 Output Total 200 Balance 2816.667 2216.666 490 - Results Results: Laboratory Results WBC 4.5 x10^3/uL (4.8-10.8) L 07/29/21 06:18 RBC 3.30 10^6/uL (4.20-5.40) L 07/29/21 06:18 Hgb 10.4 g/dL (12.0-16.0) L 07/29/21 06:18 Hct 32.5 % (37.0-47.0) L 07/29/21 06:18 MCV 98.5 fL (81.0-99.0) 07/29/21 06:18 MCH 31.5 pg (27.0-31.0) H 07/29/21 06:18 MCHC 32.0 g/dL (32.0-36.0) 07/29/21 06:18 RDW 13.0 % (12.0-15.0) 07/29/21 06:18 Plt Count 164 10^3/uL (130-450) 07/29/21 06:18 MPV 9.4 fL (7.9-10.8) 07/29/21 06:18 Neut # (Auto) 2.8 10^3/uL (1.5-6.6) 07/29/21 06:18 Lymph # (Auto) 1.2 10^3/uL (1.5-3.5) L 07/29/21 06:18 [place] # (Auto) 0.3 10^3/uL (0.0-1.0) 07/29/21 06:18 Eos # (Auto) 0.1 10^3/uL (0.0-0.7) 07/29/21 06:18 Baso # (Auto) 0.0 10^3/uL (0.0-0.1) 07/29/21 06:18 Absolute Nucleated RBC 0.00 x10^3/uL 07/29/21 06:18 Nucleated RBC % 0.0 /100WBC 07/29/21 06:18 Sodium 137 mmol/L (135-145) 07/29/21 06:18 Potassium 4.1 mmol/L (3.5-5.0) 07/29/21 06:18 Chloride 106 mmol/L (101-111) 07/29/21 06:18 Carbon Dioxide 24 mmol/L (21-32) 07/29/21 06:18 Anion Gap 7.0 (6-13) 07/29/21 06:18 BUN 14 mg/dL (6-20) 07/29/21 06:18 Creatinine 0.7 mg/dL (0.4-1.0) 07/29/21 06:18 Estimated GFR (MDRD) 86 (>89) L 07/29/21 06:18 Glucose 106 mg/dL (70-100) H 07/29/21 06:18 POC Whole Bld Glucose 151 mg/dL (70 - 100) H 07/28/21 17:43 Lactic Acid 1.7 mmol/L (0.5-2.2) 07/28/21 07:03 Calcium 8.6 mg/dL (8.5-10.3) 07/29/21 06:18 Magnesium 2.4 mg/dL (1.7-2.8) 07/27/21 18:21 Total Bilirubin 0.7 mg/dL (0.2-1.0) 07/27/21 18:21 AST 34 IU/L (10-42) 07/27/21 18:21 ALT 47 IU/L (10-60) 07/27/21 18:21 Alkaline Phosphatase 108 IU/L (42-121) 07/27/21 18:21 Total Protein 7.0 g/dL (6.7-8.2) 07/27/21 18:21 Albumin 3.9 g/dL (3.2-5.5) 07/27/21 18:21 Globulin 3.1 g/dL (2.1-4.2) 07/27/21 18:21 Albumin/Globulin Ratio 1.3 (1.0-2.2) 07/27/21 18:21 Lipase 41 U/L (22-51) 07/27/21 01:25 Urine Color YELLOW 07/27/21 04:30 Urine Clarity CLEAR (CLEAR) 07/27/21 04:30 Urine pH 5.0 PH (5.0-7.5) 07/27/21 04:30 Ur Specific [place] 1.010 (1.002-1.030) 07/27/21 04:30 Urine Protein NEGATIVE mg/dL (NEGATIVE) 07/27/21 04:30 Urine Glucose (UA) NEGATIVE mg/dL (NEGATIVE) 07/27/21 04:30 Urine Ketones NEGATIVE mg/dL (NEGATIVE) 07/27/21 04:30 Urine Occult Blood TRACE-INTA (NEGATIVE) 07/27/21 04:30 Urine Nitrite NEGATIVE (NEGATIVE) 07/27/21 04:30 Urine Bilirubin NEGATIVE (NEGATIVE) 07/27/21 04:30 Urine Urobilinogen 0.2 (NORMAL) E.U./dL (NORMAL) 07/27/21 04:30 Ur Leukocyte Esterase SMALL (NEGATIVE) H 07/27/21 04:30 Urine RBC 0-5 /HPF (0-5) 07/27/21 04:30 Urine WBC 4-5 /HPF (0-5) 07/27/21 04:30 Ur Squamous Epith Cells MANY Squamous (<= Few) H 07/27/21 04:30 Urine Bacteria Few /HPF (None Seen) 07/27/21 04:30 Urine Casts 0-2 Hyaline Casts /LPF 07/27/21 04:30 Ur Microscopic Review INDICATED 07/27/21 04:30 Urine Culture Comments NOT INDICATED 07/27/21 04:30 Nasal Adenovirus (PCR) NOT DETECTED 07/27/21 04:16 Nasal B. parapertussis DNA (PCR) NOT DETECTED 07/27/21 04:16 Nasal Coronavir 229E PCR NOT DETECTED 07/27/21 04:16 Nasal Coronavir HKU1 PCR NOT DETECTED 07/27/21 04:16 Nasal Coronavir NL63 PCR NOT DETECTED 07/27/21 04:16 Nasal Coronavir OC43 PCR NOT DETECTED 07/27/21 04:16 Nasal Enterovir/Rhinovir PCR NOT DETECTED 07/27/21 04:16 Nasal Influenza B PCR NOT DETECTED 07/27/21 04:16 Nasal Influenza A PCR NOT DETECTED 07/27/21 04:16 Nasal Parainfluen 1 PCR NOT DETECTED 07/27/21 04:16 Nasal Parainfluen 2 PCR NOT DETECTED 07/27/21 04:16 Nasal Parainfluen 3 PCR NOT DETECTED 07/27/21 04:16 Nasal Parainfluen 4 PCR NOT DETECTED 07/27/21 04:16 Nasal RSV (PCR) NOT DETECTED 07/27/21 04:16 Nasal B.pertussis DNA PCR NOT DETECTED 07/27/21 04:16 Nasal C.pneumoniae (PCR) NOT DETECTED 07/27/21 04:16 Bharat Human Metapneumo PCR NOT DETECTED 07/27/21 04:16 Nasal M.pneumoniae (PCR) NOT DETECTED 07/27/21 04:16 Nasal SARS-CoV-2 (PCR) NOT DETECTED 07/27/21 04:16 - Procedures Procedures: Procedures INSERTION OF INFUSION DEV INTO SUP VENA CAVA, PERC APPROACH (03/22/21) INTRODUCTION OF NUTRITIONAL INTO PERIPH VEIN, PERC APPROACH (03/22/21) RESPIRATORY VENTILATION, LESS THAN 24 CONSECUTIVE HOURS (08/07/19) ABX Reporting Has patient been on IV antibiotics over the past 48 hours?: No
[2021-07-29] MEDS: SACUBITRIL VALSARTAN PO SCH (10:30)
[2021-07-29 12:10] VITALS: BP 109/65
--- NOTE | 2021-07-29 12:28 | DISCHARGE SUMMARY ---
Discharge Summary Admit Date: 07/27/21 Discharge Date: 07/29/21 Discharging Provider: Jeni Barbosahotu Code Status: Attempt Resuscitation Condition at Discharge: Stable Discharge Disposition: 01 Home, Self Care - DIAGNOSES Admission Diagnoses: Small bowel obstruction Congestive heart failure Coronary artery disease Hyperlipidemia Discharge Diagnoses with Status of Each Condition: Small bowel obstruction: Acute. Resolved s/p conservative management Congestive heart failure: Chronic. Stable. Continue home medication Coronary artery disease: Stable. Continued home medication Hyperlipidemia: Chronic. Continue home medication. - HPI History of Present Illness: Patient Is a 60-year-old female with history of stomach cancer status post gastric surgery and chemotherapy which was managed by Dr. Davis. She presented to the ED last night with complaint of abdominal pain which started after dinner. She ate apples and had a protein shake for dinner. Shortly after that she became diaphoretic and was experiencing significant right upper quadrant abdominal pain and back pain. It was sharp in nature and came in waves. She rated the pain 8-9 out of 10 at the time. She took a medication for pain Which helped her symptoms. However later in the night the pain returned and appeared worse. She was nauseous and dry heaving but no vomiting. She presented to the ED around 11 PM for evaluation. Her last bowel movement was last night prior to presentation in the ED. Work-up in the ED included a CT of the abdomen/pelvis which showed a high-grade small bowel obstruction with transition point in the central abdomen posterior to the umbilicus near the site of surgical anastomosis. It was described that there was swirling of the mesentery at this level. Inferior to this level there was mesenteric edema and hypoenhancing small bowel, suggesting possible venous obstruction. The superior mesenteric artery remain patent. Trace free fluid in the pelvis. No pneumatosis or pneumoperitoneum. As a result of this findings the patient was presented Dr Fischer with general surgery who recommended admission to the hospitalist service with a surgical consult. - HOSPITAL COURSE Hospital Course: Mitch was admitted. Made n.p.o. except for sips and chips. IV hydration with D5 plus normal saline and pain management as needed with Dilaudid. General surgery was consulted. After 24 hours the patient had a Gastrografin challenge and small bowel follow-through. Towards the evening of 07/28/2021 patient reported successfully having a bowel movement. She also had frequent bowel movements the following day thus her diet was initiated and advanced as tolerated. This is the patient's fourth admission for small bowel obstruction in the past 7 months. Patient was discharged in stable condition with advised to maintain a soft diet. Given history of stomach cancer with gastrectomy and hemicolectomy she has been advised to eat small frequent meals and avoid large meals. She has been seen by nutrition a couple of times in the past. She expresses she is aware of the diet she is to maintain and intends to do so. She was discharged in stable condition. - ALLERGIES Allergies/Adverse Reactions: Allergies Allergy/AdvReac Type Severity Reaction Status Date / Time No Known Drug Allergies Allergy Verified 07/27/21 00:45 - MEDICATIONS Home Medications: Ambulatory Orders Medication Instructions Recorded Confirmed Atorvastatin [Lipitor] 40 mg PO QPM 09/06/19 07/27/21 Ferrous Sulfate 325 mg PO DAILY 09/06/19 07/27/21 Sacubitril/Valsartan [Entresto 49 1 tab PO BID 10/24/19 07/27/21 mg-51 mg Tablet] Potassium Chloride 40 meq PO DAILY 05/09/20 07/27/21 Aspirin [Aspirin EC] 1 tab PO DAILY 05/24/20 07/27/21 Hydrocortisone 5 - 10 mg PO BID 05/24/20 07/27/21 Cyanocobalamin [Vitamin B-12] 1,000 mcg IM .MONTHLY 12/14/20 07/27/21 Metoprolol Succinate [Toprol Xl] 25 mg PO DAILY 12/14/20 07/27/21 - PHYSICAL EXAM AT DISCHARGE General Appearance: positive: Alert, Mild distress Eyes Bilateral: positive: PERRL, EOMI ENT: positive: No signs of dehydration Neck: positive: No JVD, Trachea midline Cardiovascular: positive: Regular rate & rhythm, No murmur Abdomen: positive: Non-tender, Nml bowel sounds, No distention. negative: Guarding, Rebound Back: positive: Nml inspection Skin: positive: Color nml, No rash, Warm, Dry Extremities: positive: Non-tender, Full ROM, Nml appearance, No pedal edema Neurologic/Psychiatric: positive: Oriented x3, Mood/affect nml - LABS Result Diagrams: 07/29/21 06:18 07/29/21 06:18 - TIME SPENT Time Spent in Discharge (Minutes): 20
--- NOTE | 2021-07-29 12:39 | Discharge Plan ---
Discharge Plan Problem Reviewed?: Yes Disposition: Home, Self Care Condition: Stable Diet: Soft Activity Restrictions: Activity as Tolerated Health Concerns: You were admitted on 07/27/2021 after you presented with abdominal pain. Work-up in the ED included a CT of the abdomen/pelvis which showed a high-grade bowel obstruction. Conservative management was initiated. This included IV hydration with normal saline and pain was management with pain medication as needed. General surgery was consulted and you had a Gastrografin challenge with small bowel follow-through. Later in the day on 07/28/2021 you had a bowel movement. Your diet was advanced as tolerated. You were discharged on 07/29/2021 in Stable condition with instructions to maintain a soft diet. Your history of total gastrectomy you to have frequent small meals. You may follow-up with your primary care physician as needed. No Smoking: If you smoke, Please STOP! Call for help.
--- NOTE | 2021-07-29 16:06 | XRAY Report ---
PROCEDURE: Abdomen 1 View X-Ray INDICATIONS: FOLLOW UP SBFT TECHNIQUE: 1 view of the abdomen were acquired. COMPARISON: FINDINGS: Small bowel follow-through was performed yesterday. Contrast is now within the colon to the level of the rectum. No free air, pneumatosis, or portal venous gas. IMPRESSION: Progression of contrast from yesterday's small bowel follow-through to the rectum. Reviewed by: Pollo Rao on 07/29/2021 3:05 PM [facility] DE JESUS Approved by: Pollo Rao on 07/29/2021 3:[address] [facility] Station ID: [id number]
== END 2021-07-29 14:30 | disposition home or self-care (01) | DRG 389 ==
LOC: ED 00:39 → MS2 08:35
PROVIDERS: ADMIT Internal Medicine; ATTEND Internal Medicine
DX: K56.609 Unspecified intestinal obstruction, unspecified as to partial versus complete obstruction (principal); E89.6 Postprocedural adrenocortical (-medullary) hypofunction; I11.0 Hypertensive heart disease with heart failure; I25.10 Atherosclerotic heart disease of native coronary artery without angina pectoris; I25.2 Old myocardial infarction; I50.9 Heart failure, unspecified; E11.9 Type 2 diabetes mellitus without complications; E78.00 Pure hypercholesterolemia, unspecified; F17.210 Nicotine dependence, cigarettes, uncomplicated; Z20.822 Contact with and (suspected) exposure to COVID-19; Z79.82 Long term (current) use of aspirin; Z79.899 Other long term (current) drug therapy; Z85.028 Personal history of other malignant neoplasm of stomach; Z90.3 Acquired absence of stomach [part of]; Z90.49 Acquired absence of other specified parts of digestive tract; Z92.21 Personal history of antineoplastic chemotherapy
CPT/HCPCS: 0202U; 36415; 74018; 74177; 74250; 80048; 80053; 81001; 83605; 83690; 83735; 85025; 96361; 96374; 96375; 96376; 99284; 99285; A9270; J1170; J1650; J1815; Q9963; Q9967; 81003; 87086

== ENCOUNTER 2021-09-11 08:04 | Outpatient (CLI) | payer OTHER ==
[2021-09-11 08:20] LABS: HCT - HEMATOCRIT 36.7 % (37.0-47.0); HGB - HEMOGLOBIN 11.9 g/dL (12.0-16.0); MEAN CORPUSCULAR HEMOGLOBIN 32.4 pg (27.0-31.0); MEAN CORPUSCULAR HGB CONC 32.4 g/dL (32.0-36.0); MEAN PLATELET VOLUME 9.5 fL (7.9-10.8); NEUTROPHILS # (AUTO) 2.2 10^3/uL (1.5-6.6); NEUTROPHILS % (AUTO) 51.2 %; RED BLOOD COUNT 3.67 10^6/uL (4.20-5.40); RED CELL DISTRIBUTION WIDTH 13.4 % (12.0-15.0); WHITE BLOOD COUNT 4.3 x10^3/uL (4.8-10.8)
[2021-09-11] MEDS ORDERED: IOPAMIDOL-300 50 ML VIAL ONE (08:25)
[2021-09-11] MEDS ORDERED: IOVERSOL 320 100 ML VIAL IVP ONE ×2 (08:25→10:36)
[2021-09-11 08:43] LABS: ALBUMIN 4.1 g/dL (3.2-5.5); ALBUMIN/GLOBULIN RATIO 1.5 (1.0-2.2); BILIRUBIN,TOTAL 1.1 mg/dL (0.2-1.0); CALCIUM 9.2 mg/dL (8.5-10.3); CREATININE 0.6 mg/dL (0.4-1.0); POTASSIUM 3.7 mmol/L (3.5-5.0); TOTAL PROTEIN 6.8 g/dL (6.7-8.2)
[2021-09-11 08:56] LABS: FERRITIN 271.8 ng/mL (11.0-306.8)
[2021-09-11] MEDS ORDERED: IOPAMIDOL-300 50 ML VIAL PO ONE (10:35)
--- NOTE | 2021-09-11 12:03 | CT Report ---
PROCEDURE: Abdomen/Pelvis W INDICATIONS: GASTRIC CA CONTRAST: IV CONTRAST: Optiray 320 ml: 100 PO CONTRAST: Isovue 300 ml50 TECHNIQUE: After the administration of contrast, 5 mm thick sections acquired from the diaphragms to the sym physis. 5 mm thick coronal and sagittal reformats were acquired. For radiation dose reduction, the following was used: automated exposure control, adjustment of mA and/or kV according to patient size . COMPARISON: 07/27/2021 FINDINGS: Image quality: Excellent. ABDOMEN: Lung bases: Lung bases are clear. Heart size is normal. Solid organs: Liver and spleen are normal in size and enhancement. A few subcentimeter hypoattenuat ing lesions in the liver are too small to further characterize but likely represent cysts and are unc hanged compared to the prior CT. Gallbladder is status post cholecystectomy. Biliary system is non d ilated. Pancreas enhances normally. No adrenal nodules on the right. The left adrenal gland is not visualized and there are surgical clips in the region, possible prior resection. Kidneys demonstrate normal size and enhancement, without hydronephrosis. Peritoneum and bowel: Postoperative changes of gastric surgery at the GE junction are seen. Previous ly seen small bowel obstruction has resolved. Contrast has progressed to the rectum in this study. No evidence of recurrent neoplasm or adenopathy. Bowel loops demonstrate normal wall thickness and lukas ashvin. No free fluid or air. Nodes and vessels: No retroperitoneal or mesenteric adenopathy by size criteria. Aorta and inferior vena cava are normal in size. Miscellaneous: No ventral hernias. PELVIS: Genitourinary: Bladder wall thickness is normal. Miscellaneous: No inguinal hernias or adenopathy. Bones: Compression fractures of L1 and L2 are seen, 50% at L1 and 20% at L2. Mild lateral curvature of the lumbar spine is unchanged. These are unchanged compared to prior imaging. No suspicious bony l esions. No vertebral body compression fractures. IMPRESSION: 1. Postoperative changes of gastrectomy with interval resolution of previously seen bowel obstruction . 2. No evidence of local recurrence, adenopathy, or metastatic disease. Reviewed by: Pollo Rao on 09/11/2021 12:01 PM PST Approved by: Pollo Rao on 09/11/2021 12:01 PM PST Station ID: [id number]
--- NOTE | 2021-09-11 13:45 | CT Report ---
PROCEDURE: CHEST W INDICATIONS: GASTRIC CA CONTRAST: IV CONTRAST: Optiray 320 ml: 100 PO CONTRAST: Isovue 300 ml50 TECHNIQUE: After the administration of intravenous contrast, 1 mm axial images were acquired from the pulmonary apices through the posterior costophrenic angles. Axial 5 mm soft tissue kernel reconstructions were performed as well as 8 mm axial MIP and coronal and sagittal 5 mm reformations. For radiation dose reduction, the following was used: automated exposure control, adjustment of mA and/or kV according to patient size. COMPARISON: None. FINDINGS: Image quality: Excellent. Lungs and pleura: No acute air space opacities. No pleural effusions or pneumothorax. Central and peripheral airways are patent and normal in caliber. A 2 mm groundglass opacity posterior to the righ t fissure series 8 image 198 is unchanged and is probably benign. Mediastinum: Heart size is normal. No pericardial effusion. No mediastinal or hilar adenopathy by size criteria. Thoracic aorta and central pulmonary arteries are normal in size. Esophagus is sammi l in caliber. No hiatal hernia. The coronary arteries have atherosclerotic calcifications. Bones and chest wall: No suspicious bony lesions. No vertebral body compression fractures. No axil mitchell or supraclavicular adenopathy by size criteria. Thyroid gland is normal. Abdomen: Postoperative changes of gastrectomy. IMPRESSION: 1. No evidence of metastatic disease to the chest. 2. Coronary artery calcifications. Reviewed by: Pollo Rao on 09/11/2021 1:44 PM PST Approved by: Pollo Rao on 09/11/2021 1:44 PM PST Station ID: [id number]
== END 2021-09-11 08:05 | disposition home or self-care (01) ==
LOC: DI 08:04
PROVIDERS: ATTEND Internal Medicine Hematology & Oncology
DX: C16.2 Malignant neoplasm of body of stomach (principal); C16.3 Malignant neoplasm of pyloric antrum; C77.2 Secondary and unspecified malignant neoplasm of intra-abdominal lymph nodes; I25.10 Atherosclerotic heart disease of native coronary artery without angina pectoris; Z90.3 Acquired absence of stomach [part of]
CPT/HCPCS: 36415; 71260; 74177; 80053; 82607; 82728; 83540; 84466; 85027; Q9967

== ENCOUNTER 2021-11-20 08:14 | Outpatient (CLI) | payer OTHER ==
--- NOTE | 2021-11-20 15:12 | DEXA Report ---
PROCEDURE: Dexa Spine and/or Hip INDICATIONS: POST MENOPAUSAL TECHNIQUE: Dual energy x-ray absorptiometry (DXA) was performed on a RadMit System. Regions measur ed are the AP Spine, femoral neck, and if needed forearm. COMPARISON: None. FINDINGS: Lumbar Spine: Bone Mineral Density 0.953 g/cm/cm,T score -1.9, osteopenic. Left Hip: Bone Mineral Density 0.647 g/cm/cm,T score -2.9, osteoporotic. Left Femoral Neck: Bone Mineral Density 0.723 g/cm/cm, T score -2.3, osteopenic. (T score greater or equal to -1.0: NORMAL) (T score from -1.1 to -2.4: OSTEOPENIA) (T score less than or equal to -2.5 to: OSTEOPOROSIS) Impression: Based on WHO criteria, the patient is osteoporotic. Patients with diagnosis of osteoporosis or osteopenia should have regular bone mineral density assess ment. For those eligible for Medicare, routine testing is allowed once every 2 years. Testing frequ ency can be increased for patients who have rapidly progressing disease or for those who are receivin g medical therapy to restore bone mass. Reviewed by: Marty Solis MD on 11/20/2021 3:10 PM PDT Approved by: Marty Solis MD on 11/20/2021 3:10 PM PDT Station ID: [id number]
== END 2021-11-20 08:15 | disposition home or self-care (01) ==
LOC: DI 08:14
PROVIDERS: ATTEND Physician Assistant
DX: M81.0 Age-related osteoporosis without current pathological fracture (principal); Z78.0 Asymptomatic menopausal state

== ENCOUNTER 2021-12-19 09:25 | Outpatient (CLI) | payer OTHER ==
[2021-12-19 10:07] LABS: ALBUMIN 4.2 g/dL (3.2-5.5); ALBUMIN/GLOBULIN RATIO 1.8 (1.0-2.2); BILIRUBIN,TOTAL 0.7 mg/dL (0.2-1.0); CALCIUM 8.9 mg/dL (8.5-10.3); CREATININE 0.8 mg/dL (0.4-1.0); POTASSIUM 3.7 mmol/L (3.5-5.0); TOTAL PROTEIN 6.6 g/dL (6.7-8.2)
== END 2021-12-19 09:26 | disposition home or self-care (01) ==
LOC: LAB 09:25
PROVIDERS: ATTEND Internal Medicine
DX: E27.49 Other adrenocortical insufficiency (principal)
CPT/HCPCS: 36415; 80053; 82024; 82088; 82533

== ENCOUNTER 2022-04-18 09:20 | Outpatient (CLI) | payer OTHER ==
[2022-04-18 09:33] LABS: HCT - HEMATOCRIT 30.9 % (37.0-47.0); HGB - HEMOGLOBIN 10.5 g/dL (12.0-16.0)
[2022-04-18 09:44] LABS: CREATININE 0.7 mg/dL (0.4-1.0)
[2022-04-18 16:34] LABS: ESTIMATED AVERAGE GLUCOSE 114 mg/dL (70-100); HEMOGLOBIN A1c% 5.6 % (4.27-6.07)
== END 2022-04-18 09:21 | disposition home or self-care (01) ==
LOC: LAB 09:20
PROVIDERS: ATTEND Internal Medicine Endocrinology, Diabetes & Metabolism
DX: E11.9 Type 2 diabetes mellitus without complications (principal)
CPT/HCPCS: 36415; 82565; 83036; 85014; 85018

== ENCOUNTER 2022-05-28 16:34 | Inpatient (IN) | payer OTHER ==
[2022-05-28] MEDS ORDERED: SODIUM CHLORIDE 0.9% 1,000 ML IV STA ×2 (16:57→18:05)
[2022-05-28 17:33] LABS: BASOPHILS % (AUTO) 0.4 %; EOSINOPHILS # (AUTO) 0.1 10^3/uL (0.0-0.7); EOSINOPHILS % (AUTO) 0.5 %; HCT - HEMATOCRIT 41.2 % (37.0-47.0); HGB - HEMOGLOBIN 12.8 g/dL (12.0-16.0); LYMPHOCYTES # (AUTO) 1.7 10^3/uL (1.5-3.5); LYMPHOCYTES % (AUTO) 15.3 %; MEAN CORPUSCULAR HEMOGLOBIN 31.1 pg (27.0-31.0); MEAN CORPUSCULAR HGB CONC 31.1 g/dL (32.0-36.0); MEAN CORPUSCULAR VOLUME 100.2 fL (81.0-99.0); MEAN PLATELET VOLUME 9.6 fL (7.9-10.8); MONOCYTES # (AUTO) 0.6 10^3/uL (0.0-1.0); MONOCYTES % (AUTO) 5.5 %; NEUTROPHILS # (AUTO) 8.6 10^3/uL (1.5-6.6); NEUTROPHILS % (AUTO) 77.8 %; PLT - PLATELET COUNT 267 10^3/uL (130-450); RED BLOOD COUNT 4.11 10^6/uL (4.20-5.40); WHITE BLOOD COUNT 11.1 x10^3/uL (4.8-10.8)
[2022-05-28 17:39] LABS: INR 0.9 (0.8-1.2); PT - PROTHROMBIN TIME 10.6 secs (9.9-12.6)
[2022-05-28 17:43] LABS: ALBUMIN 4.2 g/dL (3.2-5.5); ALBUMIN/GLOBULIN RATIO 1.6 (1.0-2.2); BILIRUBIN,TOTAL 0.8 mg/dL (0.2-1.0); CALCIUM 8.8 mg/dL (8.5-10.3); POTASSIUM 4.5 mmol/L (3.5-5.0); TOTAL PROTEIN 6.9 g/dL (6.7-8.2)
--- NOTE | 2022-05-28 17:53 | XRAY Report ---
PROCEDURE: Chest for Line Placement INDICATIONS: CENTRAL LINE PLACEMENT TECHNIQUE: One view of the chest was acquired. COMPARISON: CT chest 03/18/2022. FINDINGS: Surgical changes and devices: Right-sided central venous line with the catheter tip at the proximal right atrium. Clips in the upper abdomen. Lungs and pleura: No pleural effusions or pneumothorax. Lungs are clear. Mediastinum: Mediastinal contours appear normal. Heart size is normal. Bones and chest wall: No suspicious bony lesions. Overlying soft tissues appear unremarkable. IMPRESSION: Right-sided central venous line with the catheter tip at the proximal right atrium. Reviewed by: Walter Bradshaw MD on 05/28/2022 5:52 PM PDT Approved by: Walter Bradshaw MD on 05/28/2022 5:52 PM PDT Station ID: [id number]
--- NOTE | 2022-05-28 17:56 | ED Physician Documentation ---
History of Present Illness - Stated complaint Stated Complaint: ABD PAIN/D/NO STOMACH - Chief complaint Chief Complaint: Abd Pain - Additonal information Additional information: 61-year-old female was brought to the emergency department for evaluation of nausea and bright red watery stools. Her who provides much of the history reports that this morning she woke up and she was having some abdominal pain. She did take an oxycodone and did not have much relief she took a second oxycodone a number of hours later but then had a watery bowel movement. She then had a second watery bowel movement that was bright red and bloody. She presents to the emergency department hypotensive with initial blood pressures in the 60s over 40s. She is pale and bradycardic with a heart rate in the 40s. It appears sinus. She is minimally responsive. Patient does have a history of distal gastric cancer since 2018. She has had chemotherapy for total of 4 cycles. She did undergo a total gastrectomy and a right hemicolectomy and a left adrenalectomy in February 2020. She has been admitted multiple times for small bowel obstructions in December and July 2021 all of which were managed conservatively Nursing staff immediately tried to access for peripheral IV but were unsuccessful. Given the critical nature a right IJ central line was placed emergently. During this process my colleague also placed a left tibial intraosseous catheter in order to begin IV fluids Review of Systems Unable to obtain: Other (Per chart review and ) GI: reports: Abdominal Swelling, Diarrhea, Bloody / black stool : reports: Reviewed and negative PD PAST MEDICAL HISTORY - Past Medical History Cardiovascular: Congestive heart failure, Hypertension, High cholesterol, [place], Other Respiratory: None Neuro: None Endocrine/Autoimmune: Type 2 diabetes GI: Hepatitis, Other HIM ANALYST: None : None HEENT: Chronic vision loss Psych: None Musculoskeletal: None Derm: None - Past Surgical History Past Surgical History: Yes General: Cholecystectomy, Gastric surgery, Colonoscopy, EGD, Other - Present Medications Home Medications: Ambulatory Orders Medication Instructions Recorded Confirmed Atorvastatin [Lipitor] 40 mg PO QPM 09/06/19 05/28/22 Ferrous Sulfate 325 mg PO DAILY 09/06/19 05/28/22 Sacubitril/Valsartan [Entresto 49 1 tab PO BID 10/24/19 05/28/22 mg-51 mg Tablet] Hydrocortisone 10 mg PO DAILY 05/24/20 05/28/22 Metoprolol Succinate [Toprol Xl] 25 mg PO DAILY 12/14/20 05/28/22 Mecobalamin [B12 Active] 1,000 mcg PO DAILY 09/25/21 05/28/22 - Allergies Allergies/Adverse Reactions: Allergies Allergy/AdvReac Type Severity Reaction Status Date / Time No Known Drug Allergies Allergy Verified 05/28/22 16:47 - Social History Does the pt smoke?: Yes Smoking Status: Never smoker Does the pt drink ETOH?: No Does the pt have substance abuse?: No - Immunizations Immunizations are current?: Yes - POLST Patient has POLST: Yes POLST Status: Full Code PD ED PE EXPANDED - General General: Lethargic, Other (Pale.) - Cardiac Cardiac: Terrence, Other (Sluggish cap refill, pale. Minimally palpable pulses) - Respiratory Respiratory: Clear to ausultation phil. No: Distress, Labored - Abdomen Abdomen: Normal Bowel sounds. No: Tender to palpation - Rectal Rectal: Physician Relations Specialist present, Other (Isra hematochezia) - Derm Derm: Normal color, Warm and dry - Neuro Neuro: CNII-XII intact - GCS Eye Opening: To Voice Motor: Obeys Commands Verbal: Confused Total: 13 Results - Vitals Vitals: Vital Signs - 24 hr 05/28/22 05/28/22 05/28/22 16:47 17:24 17:26 Temperature 36 C L Heart Rate 54 L 54 L 49 L Respiratory 18 Rate Blood Pressure 69/51 L 61/45 L 43/34 L O2 Saturation 100 05/28/22 05/28/22 05/28/22 17:28 17:30 17:32 Temperature Heart Rate 54 L 56 L 51 L Respiratory Rate Blood Pressure 58/35 L 72/61 L 81/54 L O2 Saturation 05/28/22 05/28/22 05/28/22 17:34 17:38 17:40 Temperature Heart Rate 50 L 53 L 51 L Respiratory 14 Rate Blood Pressure 83/62 L 87/59 L 94/57 L O2 Saturation 100 05/28/22 05/28/22 05/28/22 17:57 18:02 18:11 Temperature Heart Rate 61 56 L 62 Respiratory 12 13 13 Rate Blood Pressure 96/72 98/60 103/61 O2 Saturation 100 100 100 05/28/22 05/28/22 05/28/22 18:39 18:43 18:52 Temperature Heart Rate 79 74 66 Respiratory 13 12 12 Rate Blood Pressure 105/66 104/86 H 114/74 O2 Saturation 100 100 100 05/28/22 19:27 Temperature Heart Rate 60 Respiratory 13 Rate Blood Pressure 105/61 O2 Saturation 100 Oxygen O2 Source Room air - EKG (time done) 1921 Rate: Rate (enter#) (60) Rhythm: NSR [place]: LAD Intervals: Normal CT. No: Prolonged QT QRS: Low voltage Ischemia: Normal ST segments Compare to prior EKG: Old EKG unavailable Computer interpretation: Agree with computer - Labs Labs: Laboratory Tests 05/28/22 05/28/22 05/28/22 17:25 17:25 17:25 WBC 11.1 H RBC 4.11 L Hgb 12.8 Hct 41.2 MCV 100.2 H MCH 31.1 H MCHC 31.1 L RDW 13.0 Plt Count 267 MPV 9.6 Neut # (Auto) 8.6 H Lymph # (Auto) 1.7 Dillon # (Auto) 0.6 Eos # (Auto) 0.1 Baso # (Auto) 0.0 Absolute Nucleated RBC 0.00 Nucleated RBC % 0.0 PT 10.6 INR 0.9 Sodium 131 L Potassium 4.5 Chloride 103 Carbon Dioxide 19 L Anion Gap 9.0 BUN 32 H Creatinine 1.0 Estimated GFR (MDRD) 57 L Glucose 245 H Lactic Acid Calcium 8.8 Total Bilirubin 0.8 AST 44 H ALT 63 H Alkaline Phosphatase 85 Troponin I High Sens Total Protein 6.9 Albumin 4.2 Globulin 2.7 Albumin/Globulin Ratio 1.6 Lipase 44 SARS-CoV-2 (PCR) Blood Type Antibody Screen 05/28/22 05/28/22 05/28/22 17:25 17:25 17:25 WBC RBC Hgb Hct MCV MCH MCHC RDW Plt Count MPV Neut # (Auto) Lymph # (Auto) Dillon # (Auto) Eos # (Auto) Baso # (Auto) Absolute Nucleated RBC Nucleated RBC % PT INR Sodium Potassium Chloride Carbon Dioxide Anion Gap BUN Creatinine Estimated GFR (MDRD) Glucose Lactic Acid 2.5 H Calcium Total Bilirubin AST ALT Alkaline Phosphatase Troponin I High Sens 5.9 Total Protein Albumin Globulin Albumin/Globulin Ratio Lipase SARS-CoV-2 (PCR) Blood Type B POSITIVE Antibody Screen NEGATIVE 05/28/22 17:36 WBC RBC Hgb Hct MCV MCH MCHC RDW Plt Count MPV Neut # (Auto) Lymph # (Auto) Dillon # (Auto) Eos # (Auto) Baso # (Auto) Absolute Nucleated RBC Nucleated RBC % PT INR Sodium Potassium Chloride Carbon Dioxide Anion Gap BUN Creatinine Estimated GFR (MDRD) Glucose Lactic Acid Calcium Total Bilirubin AST ALT Alkaline Phosphatase Troponin I High Sens Total Protein Albumin Globulin Albumin/Globulin Ratio Lipase SARS-CoV-2 (PCR) NOT DETECTED Blood Type Antibody Screen - Rads (name of study) CT abd Radiology: Final report received (Severe small bowel obstruction. Transition point in the right abdomen. Mesenteric edema. Small bowel wall thickening and diminished enhancement. These findings could be seen in hypoperfused small bowel. No portal venous gas or pneumoperitoneum.) cxr Radiology: Final report received (Right-sided central venous line with catheter tip at the proximal right atrium) Procedures - Central Line Central Line Preparation: Unable to obtain consent (Emergent procedure hypotension. jeannette-Code), Time out completed, Ultrasound used, Sterile prep and drape Central line location: Right IJ Central line type: Triple lumen Central line aftercare: Chlorhexidine disc placed, Secured, Placement confirmed, No pneumothorax, No complications, Pt tolerated well PD MEDICAL DECISION MAKING - ED course Complexity details: reviewed old records, reviewed results, re-evaluated patient, considered differential, d/w patient, d/w family, d/w heritage consultant (Ramone) ED course: This is a critically ill 61-year-old female who presents to the emergency department for evaluation of abdominal pain and bloody diarrhea. Patient has a history most significant for diabetes and congestive heart failure. She also has a history of gastric cancer since 2019. She has undergone a gastrectomy as well as a right hemicolectomy. She has historically had small bowel obstructions which have been managed conservatively, including [facility] at [facility]. Much of the history was obtained from the patient's who reported that this morning she woke up to her usual state of health but began to have some discomfort in her abdomen. She did take an oxycodone without relief of symptoms therefore several hours later she took a second oxycodone. She began to have some nausea and vomiting. She went to the bathroom and had a watery bowel movement. A bit later she had a second watery bowel movement, however it was bloody and thus was transported immediately to the ER via POV. On presentation she had a blood pressure of about 60/40 as well as a heart rate that was bradycardic in the 40s and was sinus on the monitor. She was minimally responsive and appered to be jeannette-code Nursing staff initially attempted to obtain rapid IV access but were unable to. I then emergently placed a right IJ central venous catheter in order to facilitate work-up, fluid resuscitation and laboratory studies. My colleague Dr. Youssef placed a left tibial intraosseous catheter during the procedure in order to help facilitate fluid resuscitation while we were placing the Right IJ CVL. Her initial labs did not show any leukocytosis or anemia. A type and screen was ordered. She did have a lactate of 2.5. We gave her 2 L crystalloid fluid bolus once the central access was achieved and as her blood pressures improved so did her heart rate. Following the 2 L of crystalloid her heart rate was si nus and in the 80s. She was normotensive. Her initial EKG and troponin were negative. She was also at this point awake and talking. Patient was sent to the CT scanner once hemodynamically stable. It unfortunately showed a severe small bowel obstruction with a transition point in the right abdomen. There was mesenteric edema with small bowel thickening and diminished enhancement. I consulted with our on-call surgeon Dr. Bravo. He came in personally to evaluate the patient. [facility] she would likely require a higher level of care. He personally offered the patient to be transferred to an outlying facility with more appropriate services however the family declined and they wish to remain here at [facility]. Therefore Dr. Bravo wrote a note admitting the patient to the ICU. Dr. Aguilar the [facility] hospital[facility] has also been consulted in the care of this patient. It should be noted that the patient's initial EKG was nonischemic. Her initial troponin was negative. The repeat troponin ordered by Dr. Bravo was elevated in the 90s. Her nonischemic EKG is reassuring and that the elevated troponin could be seen in the setting of a demand ischemia given hypotension/hypoperfusion and bradycardia. The telehealth hospitalist will continue to evaluate and monitor this And he has personally had a telephone conversation with our surgeon. Patient's has remained at the bedside and is aware of the plan and status to admit to the ICU for further management of her small bowel obstruction. If she clinically deteriorates she will require an emergent laparotomy. - Critical Care Time(min): 45 Time Includes: Direct patient care, Review records, Reassess patient, Document care, Coordinate care, Medical consult, Family consult for tx dec Data interpretation: Labs, CXR, Prior EKG Procedures excluded from critical care time: Central IV, Intraosseous Departure - Departure Disposition: 66 [facility] DC/Xfer Clinical Impression: Small bowel obstruction, History of gastric cancer
[2022-05-28] MEDS ORDERED: iohexoL-300 100 ML VIAL ONE (18:03)
[2022-05-28] MEDS ORDERED: MORPHINE 2 MG/ML CARPUJECT IVP STA (18:06)
--- NOTE | 2022-05-28 19:05 | CT Report ---
PROCEDURE: ABDOMEN/PELVIS W INDICATIONS: hypotension, hematochezia CONTRAST: 100ml Omnipaque 300 TECHNIQUE: After the administration of intravenous contrast, 5 mm thick sections acquired from the diaphragms to the symphysis. 5 mm thick coronal and sagittal reformats were acquired. For radiation dose reducti on, the following was used: automated exposure control, adjustment of mA and/or kV according to xochilt ent size. COMPARISON: CT abdomen and pelvis 03/18/2022. FINDINGS: Image quality: Excellent. ABDOMEN: Lung bases: No pleural effusion. Small hiatal hernia. Clips at the gastric cardia. Solid organs: Liver and spleen are normal in size and enhancement. Small hepatic cyst. Gallbladder i s absent. Biliary system is at the upper limits of normal measuring 0.7 cm in this postcholecystecto my patient. Pancreas enhances normally. No right adrenal nodule. Left adrenal is absent. Kidneys d emonstrate normal size and enhancement, without hydronephrosis. Peritoneum and bowel: Multiple dilated loops of small bowel. Transition point in the right paramedian abdomen, (02/26). There is small bowel thickening and diminished small bowel enhancement. There is me senteric edema. No pneumatosis intestinalis is identified. Stomach is mostly absent. Bowel anastomosi s in the right abdomen. Suspect partial colectomy. Nodes and vessels: No retroperitoneal or mesenteric adenopathy by size criteria. Aorta and inferior vena cava are normal in size. No portal venous gas. There is a small focus of gas at the left common femoral vein, (4/80). Small foci of gas in the left groin. This could be due to venous access in the left lower extremity. Miscellaneous: No ventral hernias. PELVIS: Genitourinary: Bladder wall thickness is normal. Uterus is unremarkable. Miscellaneous: No inguinal hernias or adenopathy. Bones: No suspicious bony lesions. T12 compression fractures unchanged. IMPRESSION: 1. Severe small bowel obstruction. Transition point in the right abdomen. 2. Mesenteric edema. Small bowel wall thickening and diminished enhancement. These findings could be seen in hypoperfused small bowel. 3. No portal venous gas, or pneumoperitoneum. Results were communicated to Dr. Natasha Mercado at 05/28/2022 7:00 PM PDT. Reviewed by: Walter Bradshaw MD on 05/28/2022 7:03 PM PDT Approved by: Walter Bradshaw MD on 05/28/2022 7:03 PM PDT Station ID: [id number]
[2022-05-28] MEDS ORDERED: ONDANSETRON 4 MG/2 ML VIAL IVP STA (19:12)
[2022-05-28] MEDS ORDERED: PROCHLORPERAZINE 10 MG/2 ML VIAL IVP STA (19:33)
[2022-05-28] MEDS ORDERED: HYDROmorphone 0.5 MG/0.5 ML SYRINGE IVP PRN (20:17)
[2022-05-28] MEDS ORDERED: ONDANSETRON 4 MG/2 ML VIAL IVP PRN (20:17)
--- NOTE | 2022-05-28 20:39 | SURGERY HX AND PHYSICAL(T) ---
Surgical History & Physical - Chief Complaint/HPI Chief Complaint: Abdominal pain, Nausea, Bloody diarrhea History of Present Illness: Janett is a 61 year old female who was well until earlier today when after eating Hummus she developed generalized abdominal pain. It is described as cramping and has lasted all day. She had two diarrheal episodes today, the second was bloody and she asked her to bring her to the ED. In the ED she was found to be hypotensive and dehydrated. Her blood pressure responded to two liters of saline boluses and her abdominal discomfort was managed with a small dose of opioid. A CT scan was performed and read as consistent with a severe small bowel obstruction. General Surgery was asked to assist in her assessment and management. Janett has a history of anemia identified in 2019 and was admitted to this facility for evaluation but was transferred to [place] when she suffered a cardiac arrest. While there and after her resuscitation, the gastric cancer was diagnosed. She was ultimately referred to [facility] where she unde rwent a near total gastrectomy and partial colectomy as well as a right adrenalectomy. Following her surgical recovery, she received chemotherapy for her gastric cancer. She has been deemed cancer free for over a year. During that time she has had 2 episodes of abdominal pain the first thought due to a SBO and managed with medical treatment and the second found to be cholecystitis treated at [facility] with cholecystectomy. She was eating frequent small meals normally without abdominal pain, constipation, or rectal bleeding until today. She denies unexpected weight loss. She is accompanied by her who has assisted in this history. At the time of my evaluation she was resting comfortably but still exhibited mild intermittent abdominal cramping. - PMH/PSH/Social Hx Does the pt have a hx of MRSA?: No Neurological History: None Eyes, Ears, Nose, Throat: Chronic vision loss Cardiovascular: Congestive heart failure, Hypertension, High cholesterol, [place], Other Respiratory: None Skin: None Endocrine/Autoimmune: Type 2 diabetes, Other (Adrenal insufficiency) Gastrointestinal: Hepatitis, Other ACUPUNCTURE PHYSICIAN: None Urinary: None Musculoskeletal: None Blood Disorders: None Psychiatric: None General: Cholecystectomy, Bowel surgery, Gastric surgery, Colonoscopy, EGD, Other Smoking Status: Never smoker Does the pt drink ETOH?: No Does the pt have substance abuse?: No - Home Meds and Allergies Home Medications: Atorvastatin [Lipitor] 40 mg PO QPM 09/06/19 Ferrous Sulfate 325 mg PO DAILY 09/06/19 Sacubitril/Valsartan [Entresto 49 mg-51 mg Tablet] 1 tab PO BID 10/24/19 Hydrocortisone 10 mg PO DAILY 05/24/20 Metoprolol Succinate [Toprol Xl] 25 mg PO DAILY 12/14/20 Mecobalamin [B12 Active] 1,000 mcg PO DAILY 09/25/21 Allergies/Adverse Reactions: Allergies Allergy/AdvReac Type Severity Reaction Status Date / Time No Known Drug Allergies Allergy Verified 05/28/22 16:47 - Review of Systems Gastrointestinal: Nausea, Vomiting, Abdominal pain, Diarrhea, Hematochechezia - Vital Signs Heart Rate: 80 Blood Pressure: 86/73 Temperature: 96.8 F Respiratory Rate: 21 O2 Saturation: 100 Weight (kg): 56.699 kg Height: 1.7 m - Physical Exam General Appearance: positive: Moderate distress Eyes Bilatera: positive: PERRL, EOMI ENT: positive: Pharynx nml, Dry mucous membranes Neck: positive: Nml inspection, Thyroid nml, Other (Right IJ in place) Respiratory: positive: No respiratory distress, Breath sounds nml Cardiovascular: positive: Regular rate & rhythm Peripheral Pulses: positive: 1+ Abdomen: positive: Other (Mild distension with tympanic percussion note; No peritoneal signs; The abdomen is soft is all quadrants without guarding) Rectal: positive: Other (Blood on exam gloved finger) Extremities: positive: Non-tender, Full ROM, Nml appearance Neurologic/Psychiatric: positive: Oriented x3 - Patient Review Patient Review: Problems were reviewed with the patient during this visit. Medications were reviewed with the patient during this visit. Allergies were reviewed this patient during this visit. Pertinent Tests Reviewed: All pertitent test for this patient were reviewed. - Assessment & Plan Assessment and Plan: Image: 1) CXR - Right IJ in good position; No pulmonary issues identified 2) CT Abd/Pelvis - Absent stomach; Dilated small bowel without free fluid, pneumatosis, or free air; Normal caliber small bowel in pelvis Assessment: 1) SBO - no clinical, lab, or image evidence of bowel ischemia 2) Adrenal insufficiency - stable on meds 3) History of CHF - stable on meds 4) HTN - stable on meds 5) Gastric cancer - no evidence of recurrence evident in records 6) Hypotension - resolving with hydration - likely due to third space in small bowel distension Plan: 1) Admit to ICU for IV fluids, hydration, and analgesics as needed 2) I asked that the family give us guidance regarding Code status. As of now, she is a full code. 3) I explained to the that she may require an exploratory laparotomy if her conditions worsens or does not improve. I also explained that we are a small hospital without the resources of a larger facility like [facility] and that I would be happy to transfer his to a [facility] if they would be more comfortable there. He was adamant that he would like his to receive treatment at this facility. 4) Valeri 5) Labs in am 6) Per hospital policy, a telehospitalist consult was placed by the ED staff.
[2022-05-28 20:59] LABS: PT - PROTHROMBIN TIME 11.4 secs (9.9-12.6)
[2022-05-28] MEDS ORDERED: methylPREDNISolone SUCCINATE 40 MG/ML VIAL IVP SCH (21:00)
[2022-05-28] MEDS ORDERED: SODIUM CHLORIDE 0.9% 1,000 ML IV ONE (21:01)
--- NOTE | 2022-05-28 21:07 | PROVIDER PROGRESS NOTE ---
Footwear Sales Representative Note - Footwear Sales Representative Note Footwear Sales Representative Note: Brief Consult note : I was called to assist with a consult on Ms Rowland, patient was discussed with ER team, due to her complex history I recommended higher level of care, family and patient spoke with surgery team, and at this time due to previous care received at [facility] patient and family feel more comfortable being here and refused transfer to higher level of care, as per notes even the surgeon offered them higher over care, family refused and wants to stay here. I have briefly reviewed the chart. Patient does have a history of distal gastric cancer since 2018. She has had chemotherapy for total of 4 cycles. She did undergo a total gastrectomy and a right hemicolectomy and a left adrenalectomy in February 2020. She has been admitted multiple times for small bowel obstructions in December and July 2021 all of which were managed conservatively. Patient has a complex medical history which includes, hx of CHF, DM, total gastrectomy as well right hemicolectomy and left adrenalectomy, patient when discussed with ER is stable, EKG as per ER is NSR with no pauses or higher degree of blocks seen, on presentation was hypotensive and bradycardic which have improved post fluid resuscitation. I have reviewed patients labs and imaging data as per chart review. CT abd Radiology: Final report received (Severe small bowel obstruction. Transition point in the right abdomen. Mesenteric edema. Small bowel wall thickening and diminished enhancement. These findings could be seen in hypoperfused small bowel. No portal venous gas or pneumoperitoneum.) Patient primary admitted to surgery team, and we will be available for co- management with any medical issues, I am slightly concerned as there is small bowel thickening, it will be helpful to get more information regarding tumor and management as one of the concern is there infiltration or tumor mass recurrence causing SBO. If there are any concerns overnight please reach out to us, in the interim patient will be seen by my colleague in am and full consult to be done in am. Patient will need to be resumed on steroid in am due to hx of adrenal insufficiency, would recommend repeat lactate in 6 hours and call us if any changes to baseline condition. Thank you for having us involved and our team will follow patient along with you. Home medications Medication Instructions Recorded Confirmed Atorvastatin [Lipitor] 40 mg PO QPM 09/06/19 05/28/22 Ferrous Sulfate 325 mg PO DAILY 09/06/19 05/28/22 Sacubitril/Valsartan [Entresto 49 1 tab PO BID 10/24/19 05/28/22 mg-51 mg Tablet] Hydrocortisone 10 mg PO DAILY 05/24/20 05/28/22 Metoprolol Succinate [Toprol Xl] 25 mg PO DAILY 12/14/20 05/28/22 Mecobalamin [B12 Active] 1,000 mcg PO DAILY 09/25/21 05/28/22 05/28/22 05/28/22 05/28/22 17:25 17:25 17:25 WBC 11.1 H RBC 4.11 L Hgb 12.8 Hct 41.2 MCV 100.2 H MCH 31.1 H MCHC 31.1 L RDW 13.0 Plt Count 267 MPV 9.6 Neut # (Auto) 8.6 H Lymph # (Auto) 1.7 Benton # (Auto) 0.6 Eos # (Auto) 0.1 Baso # (Auto) 0.0 Absolute Nucleated RBC 0.00 Nucleated RBC % 0.0 PT 10.6 INR 0.9 Sodium 131 L Potassium 4.5 Chloride 103 Carbon Dioxide 19 L Anion Gap 9.0 BUN 32 H Creatinine 1.0 Estimated GFR (MDRD) 57 L Glucose 245 H Lactic Acid Calcium 8.8 Total Bilirubin 0.8 AST 44 H ALT 63 H Alkaline Phosphatase 85 Troponin I High Sens Total Protein 6.9 Albumin 4.2 Globulin 2.7 Albumin/Globulin Ratio 1.6 Lipase 44 Blood Type Antibody Screen 05/28/22 05/28/22 05/28/22 17:25 17:25 17:25 WBC RBC Hgb Hct MCV MCH MCHC RDW Plt Count MPV Neut # (Auto) Lymph # (Auto) Benton # (Auto) Eos # (Auto) Baso # (Auto) Absolute Nucleated RBC Nucleated RBC % PT INR Sodium Potassium Chloride Carbon Dioxide Anion Gap BUN Creatinine Estimated GFR (MDRD) Glucose Lactic Acid 2.5 H Calcium Total Bilirubin AST ALT Alkaline Phosphatase Troponin I High Sens 5.9 Total Protein Albumin Globulin Albumin/Globulin Ratio Lipase Blood Type B POSITIVE Antibody Screen NEGATIVE
[2022-05-28] MEDS: LACTATED RINGERS 1,000 ML IV SCH (21:55)
--- NOTE | 2022-05-28 22:02 | PROVIDER PROGRESS NOTE ---
Enrobing Machine Feeder Note - Enrobing Machine Feeder Note Enrobing Machine Feeder Note: Addendum: Patients troponins Are elevated. Had a nice talk with the surgeon. I had a nice talk with the patients . Patient does have history of cardiac arrest two to three years ago was transferred to [facility] and during the wake up after cardiac arrest was diagnosed with gastric cancer. Patient has completed her chemotherapy was last seen by her oncologist and was cleared and was informed that her cancer is in remission. Patient also from my discussion from the had nonischemic cardiomyopathy and with their last visit with the primary rn admissions was told the patients LVF has improved and now it's back to normal range. We also spoke about the quote status and patient wants to be full code. I believe her troponins are elevated likely from type 2 DE and this is not classical for acute plaque rupture. Patient was hypertensive, her lactic acid is elevated and I believe this is the reason why her high sensitivity troponin is elevated. Patient does take a baby aspirin her last dose was this morning she has absolutely no chest pain at this time her telemetry shows sinus rhythm and we have not seen any concerning arrhythmias. I would continue to monitor closely in the ICU, agree withholding interested at this time as well as the beta nora as she was hypotensive, trend troponins, and would update an equilibrium tomorrow morning to look at the F and to look for any wall motion abnormality. I would also ask the traveling secretary in the morning if she can obtain records from the outside hospital and outside physicians. All of this was discussed in detail with the primary surgeon. I appreciate being involved in care of the patient and please call me or by covering physician if any questions or concerns overnight Repeat EKG if any chest pain or any arrhythmias noted on Telemetry, trend troponins, check echocardiogram in am.
--- NOTE | 2022-05-28 22:13 | PROVIDER PROGRESS NOTE ---
Progress Note The patient remains with stable VS in the ED. Her abdomen is soft but the cramping persists. Her troponin went from 5.9 to 94.7 over 3 hours. She is not having chest pain. I discussed this with the tele-hospitalist and we think it is likely due to demand ischemia especially since her tells us that she does not have CAD and her CHF resolved earlier this year. The plan has not changed - She will be managed in the ICU tonight by the tele-hospitalit and myself. If her SBO is not improved by tomorrow, a gastrografin study of the sma ll bowel will be performed. If she develops evidence of impending bowel ischemia, exploratory laparotomy will be offered. Both the patient and her have decided to keep her status as Full Code at this point in time. Juan Pack MD, FACS General Surgery
[2022-05-28] MEDS: SODIUM CHLORIDE FLUSH 0.9% 10 ML SYRINGE IVP PRN (23:07)
[2022-05-28] MEDS: HEPARIN 5,000 UNIT/ML VIAL SUBQ SCH (23:08)
[2022-05-29] MEDS ORDERED: iohexoL-300 100 ML VIAL IVP ONE (00:05)
[2022-05-29] MEDS: methylPREDNISolone SUCCINATE 40 MG/ML VIAL IVP SCH ×4 (00:35→18:00)
[2022-05-29] MEDS: LACTATED RINGERS 1,000 ML IV SCH ×4 (04:10→18:52)
[2022-05-29] MEDS: SODIUM CHLORIDE FLUSH 0.9% 10 ML SYRINGE IVP SCH ×3 (04:55→18:00)
[2022-05-29] MEDS: SODIUM CHLORIDE FLUSH 0.9% 10 ML SYRINGE IVP PRN ×3 (04:55→11:55)
[2022-05-29 05:20] LABS: BASOPHILS % (AUTO) 0.5 %; HCT - HEMATOCRIT 32.1 % (37.0-47.0); HGB - HEMOGLOBIN 10.3 g/dL (12.0-16.0); LYMPHOCYTES # (AUTO) 0.2 10^3/uL (1.5-3.5); LYMPHOCYTES % (AUTO) 5.7 %; MEAN CORPUSCULAR HGB CONC 32.1 g/dL (32.0-36.0); MEAN CORPUSCULAR VOLUME 99.7 fL (81.0-99.0); MEAN PLATELET VOLUME 9.4 fL (7.9-10.8); MONOCYTES # (AUTO) 0.2 10^3/uL (0.0-1.0); MONOCYTES % (AUTO) 4.9 %; NEUTROPHILS # (AUTO) 3.6 10^3/uL (1.5-6.6); NEUTROPHILS % (AUTO) 88.7 %; PLT - PLATELET COUNT 169 10^3/uL (130-450); RED BLOOD COUNT 3.22 10^6/uL (4.20-5.40); WHITE BLOOD COUNT 4.1 x10^3/uL (4.8-10.8)
[2022-05-29 05:35] LABS: ALBUMIN 3.1 g/dL (3.2-5.5); ALBUMIN/GLOBULIN RATIO 1.5 (1.0-2.2); BILIRUBIN,TOTAL 0.5 mg/dL (0.2-1.0); CALCIUM 7.8 mg/dL (8.5-10.3); CREATININE 0.6 mg/dL (0.4-1.0); POTASSIUM 3.9 mmol/L (3.5-5.0); TOTAL PROTEIN 5.2 g/dL (6.7-8.2)
--- NOTE | 2022-05-29 07:56 | PROVIDER PROGRESS NOTE ---
Subjective - General Admit Date: 05/28/22 - Review of Systems General: positive: No symptoms (Her abdominal pain has resolved. She has no nausea or vomiting. She has not yet passed flatus) Pulmonary: positive: No symptoms Cardiovascular: positive: No symptoms Gastrointestinal: positive: Other Genitourinary: positive: No symptoms Musculoskeletal: positive: No symptoms Skin: positive: No symptoms Psychiatric: positive: No symptoms Objective - Patient Data Vital Signs: Vital Signs x48h Temp Pulse Resp BP Pulse Ox 05/29/22 07:47 98.8 F 05/29/22 07:00 64 17 121/79 99 05/29/22 05:00 88 10 L 104/63 95 05/29/22 03:00 86 12 110/68 97 05/29/22 02:00 87 14 115/62 96 05/29/22 01:00 87 14 102/53 L 97 05/29/22 00:00 86 16 92/49 L 97 Weight: Weight 05/27/22 05/28/22 05/29/22 23:59 23:59 23:59 Weight (kg) 57.5 kg 57.5 kg Intake & Output: Intake and Output Totals x24h 05/27/22 05/28/22 05/29/22 23:59 23:59 23:59 Intake Total 3000 937.5 Output Total 565 531 Balance 2435 406.5 - Lab Results Lab Results: 05/29/22 05:00 05/29/22 05:00 Other Lab Results: Lab Results x24hrs 05/29/22 05/29/22 05/29/22 Range/Units 06:16 05:00 05:00 WBC 4.1 L (4.8-10.8) x10^3/uL RBC 3.22 L (4.20-5.40) 10^6/uL Hgb 10.3 L (12.0-16.0) g/dL Hct 32.1 L (37.0-47.0) % MCV 99.7 H (81.0-99.0) fL MCH 32.0 H (27.0-31.0) pg MCHC 32.1 (32.0-36.0) g/dL RDW 13.0 (12.0-15.0) % Plt Count 169 (130-450) 10^3/uL MPV 9.4 (7.9-10.8) fL Neut # (Auto) 3.6 (1.5-6.6) 10^3/uL Lymph # (Auto) 0.2 L (1.5-3.5) 10^3/uL Roberts # (Auto) 0.2 (0.0-1.0) 10^3/uL Eos # (Auto) 0.0 (0.0-0.7) 10^3/uL Baso # (Auto) 0.0 (0.0-0.1) 10^3/uL Absolute Nucleated RBC 0.00 x10^3/uL Nucleated RBC % 0.0 /100WBC PT (9.9-12.6) secs INR (0.8-1.2) Sodium 133 L (135-145) mmol/L Potassium 3.9 (3.5-5.0) mmol/L Chloride 112 H (101-111) mmol/L Carbon Dioxide 20 L (21-32) mmol/L Anion Gap 1.0 L (6-13) BUN 22 H (6-20) mg/dL Creatinine 0.6 (0.4-1.0) mg/dL Estimated GFR (MDRD) 102 (>89) Glucose 162 H (70-100) mg/dL POC Whole Bld Glucose 152 H (70 - 100) mg/dL Lactic Acid (0.5-2.2) mmol/L Calcium 7.8 L (8.5-10.3) mg/dL Total Bilirubin 0.5 (0.2-1.0) mg/dL AST 46 H (10-42) IU/L ALT 57 (10-60) IU/L Alkaline Phosphatase 75 (42-121) IU/L Troponin I High Sens (2.3-14.8) ng/L Total Protein 5.2 L (6.7-8.2) g/dL Albumin 3.1 L (3.2-5.5) g/dL Globulin 2.1 (2.1-4.2) g/dL Albumin/Globulin Ratio 1.5 (1.0-2.2) Lipase (22-51) U/L Nasal Screen MRSA (PCR) (NEGATIVE) SARS-CoV-2 (PCR) Blood Type Antibody Screen 05/28/22 05/28/22 05/28/22 Range/Units 23:57 22:25 20:46 WBC (4.8-10.8) x10^3/uL RBC (4.20-5.40) 10^6/uL Hgb (12.0-16.0) g/dL Hct (37.0-47.0) % MCV (81.0-99.0) fL MCH (27.0-31.0) pg MCHC (32.0-36.0) g/dL RDW (12.0-15.0) % Plt Count (130-450) 10^3/uL MPV (7.9-10.8) fL Neut # (Auto) (1.5-6.6) 10^3/uL Lymph # (Auto) (1.5-3.5) 10^3/uL Roberts # (Auto) (0.0-1.0) 10^3/uL Eos # (Auto) (0.0-0.7) 10^3/uL Baso # (Auto) (0.0-0.1) 10^3/uL Absolute Nucleated RBC x10^3/uL Nucleated RBC % /100WBC PT 11.4 (9.9-12.6) secs INR 1.0 (0.8-1.2) Sodium (135-145) mmol/L Potassium (3.5-5.0) mmol/L Chloride (101-111) mmol/L Carbon Dioxide (21-32) mmol/L Anion Gap (6-13) BUN (6-20) mg/dL Creatinine (0.4-1.0) mg/dL Estimated GFR (MDRD) (>89) Glucose (70-100) mg/dL POC Whole Bld Glucose 111 H (70 - 100) mg/dL Lactic Acid (0.5-2.2) mmol/L Calcium (8.5-10.3) mg/dL Total Bilirubin (0.2-1.0) mg/dL AST (10-42) IU/L ALT (10-60) IU/L Alkaline Phosphatase (42-121) IU/L Troponin I High Sens (2.3-14.8) ng/L Total Protein (6.7-8.2) g/dL Albumin (3.2-5.5) g/dL Globulin (2.1-4.2) g/dL Albumin/Globulin Ratio (1.0-2.2) Lipase (22-51) U/L Nasal Screen MRSA (PCR) NEGATIVE (NEGATIVE) SARS-CoV-2 (PCR) Blood Type Antibody Screen 05/28/22 05/28/22 05/28/22 Range/Units 20:46 17:36 17:25 WBC (4.8-10.8) x10^3/uL RBC (4.20-5.40) 10^6/uL Hgb (12.0-16.0) g/dL Hct (37.0-47.0) % MCV (81.0-99.0) fL MCH (27.0-31.0) pg MCHC (32.0-36.0) g/dL RDW (12.0-15.0) % Plt Count (130-450) 10^3/uL MPV (7.9-10.8) fL Neut # (Auto) (1.5-6.6) 10^3/uL Lymph # (Auto) (1.5-3.5) 10^3/uL Roberts # (Auto) (0.0-1.0) 10^3/uL Eos # (Auto) (0.0-0.7) 10^3/uL Baso # (Auto) (0.0-0.1) 10^3/uL Absolute Nucleated RBC x10^3/uL Nucleated RBC % /100WBC PT (9.9-12.6) secs INR (0.8-1.2) Sodium (135-145) mmol/L Potassium (3.5-5.0) mmol/L Chloride (101-111) mmol/L Carbon Dioxide (21-32) mmol/L Anion Gap (6-13) BUN (6-20) mg/dL Creatinine (0.4-1.0) mg/dL Estimated GFR (MDRD) (>89) Glucose (70-100) mg/dL POC Whole Bld Glucose (70 - 100) mg/dL Lactic Acid (0.5-2.2) mmol/L Calcium (8.5-10.3) mg/dL Total Bilirubin (0.2-1.0) mg/dL AST (10-42) IU/L ALT (10-60) IU/L Alkaline Phosphatase (42-121) IU/L Troponin I High Sens 94.7 H* 5.9 (2.3-14.8) ng/L Total Protein (6.7-8.2) g/dL Albumin (3.2-5.5) g/dL Globulin (2.1-4.2) g/dL Albumin/Globulin Ratio (1.0-2.2) Lipase (22-51) U/L Nasal Screen MRSA (PCR) (NEGATIVE) SARS-CoV-2 (PCR) NOT DETECTED Blood Type Antibody Screen 05/28/22 05/28/22 05/28/22 Range/Units 17:25 17:25 17:25 WBC (4.8-10.8) x10^3/uL RBC (4.20-5.40) 10^6/uL Hgb (12.0-16.0) g/dL Hct (37.0-47.0) % MCV (81.0-99.0) fL MCH (27.0-31.0) pg MCHC (32.0-36.0) g/dL RDW (12.0-15.0) % Plt Count (130-450) 10^3/uL MPV (7.9-10.8) fL Neut # (Auto) (1.5-6.6) 10^3/uL Lymph # (Auto) (1.5-3.5) 10^3/uL Roberts # (Auto) (0.0-1.0) 10^3/uL Eos # (Auto) (0.0-0.7) 10^3/uL Baso # (Auto) (0.0-0.1) 10^3/uL Absolute Nucleated RBC x10^3/uL Nucleated RBC % /100WBC PT (9.9-12.6) secs INR (0.8-1.2) Sodium 131 L (135-145) mmol/L Potassium 4.5 (3.5-5.0) mmol/L Chloride 103 (101-111) mmol/L Carbon Dioxide 19 L (21-32) mmol/L Anion Gap 9.0 (6-13) BUN 32 H (6-20) mg/dL Creatinine 1.0 (0.4-1.0) mg/dL Estimated GFR (MDRD) 57 L (>89) Glucose 245 H (70-100) mg/dL POC Whole Bld Glucose (70 - 100) mg/dL Lactic Acid 2.5 H (0.5-2.2) mmol/L Calcium 8.8 (8.5-10.3) mg/dL Total Bilirubin 0.8 (0.2-1.0) mg/dL AST 44 H (10-42) IU/L ALT 63 H (10-60) IU/L Alkaline Phosphatase 85 (42-121) IU/L Troponin I High Sens (2.3-14.8) ng/L Total Protein 6.9 (6.7-8.2) g/dL Albumin 4.2 (3.2-5.5) g/dL Globulin 2.7 (2.1-4.2) g/dL Albumin/Globulin Ratio 1.6 (1.0-2.2) Lipase 44 (22-51) U/L Nasal Screen MRSA (PCR) (NEGATIVE) SARS-CoV-2 (PCR) Blood Type B POSITIVE Antibody Screen NEGATIVE 05/28/22 05/28/22 Range/Units 17:25 17:25 WBC 11.1 H (4.8-10.8) x10^3/uL RBC 4.11 L (4.20-5.40) 10^6/uL Hgb 12.8 (12.0-16.0) g/dL Hct 41.2 (37.0-47.0) % MCV 100.2 H (81.0-99.0) fL MCH 31.1 H (27.0-31.0) pg MCHC 31.1 L (32.0-36.0) g/dL RDW 13.0 (12.0-15.0) % Plt Count 267 (130-450) 10^3/uL MPV 9.6 (7.9-10.8) fL Neut # (Auto) 8.6 H (1.5-6.6) 10^3/uL Lymph # (Auto) 1.7 (1.5-3.5) 10^3/uL Roberts # (Auto) 0.6 (0.0-1.0) 10^3/uL Eos # (Auto) 0.1 (0.0-0.7) 10^3/uL Baso # (Auto) 0.0 (0.0-0.1) 10^3/uL Absolute Nucleated RBC 0.00 x10^3/uL Nucleated RBC % 0.0 /100WBC PT 10.6 (9.9-12.6) secs INR 0.9 (0.8-1.2) Sodium (135-145) mmol/L Potassium (3.5-5.0) mmol/L Chloride (101-111) mmol/L Carbon Dioxide (21-32) mmol/L Anion Gap (6-13) BUN (6-20) mg/dL Creatinine (0.4-1.0) mg/dL Estimated GFR (MDRD) (>89) Glucose (70-100) mg/dL POC Whole Bld Glucose (70 - 100) mg/dL Lactic Acid (0.5-2.2) mmol/L Calcium (8.5-10.3) mg/dL Total Bilirubin (0.2-1.0) mg/dL AST (10-42) IU/L ALT (10-60) IU/L Alkaline Phosphatase (42-121) IU/L Troponin I High Sens (2.3-14.8) ng/L Total Protein (6.7-8.2) g/dL Albumin (3.2-5.5) g/dL Globulin (2.1-4.2) g/dL Albumin/Globulin Ratio (1.0-2.2) Lipase (22-51) U/L Nasal Screen MRSA (PCR) (NEGATIVE) SARS-CoV-2 (PCR) Blood Type Antibody Screen AM Troponin pending - Current Medications Current Medications: Current Medications Generic Name Dose Route Start Last Admin Trade Name Freq PRN Reason Stop Dose Admin Heparin Sodium (Porcine) 5,000 unit 05/28/22 21:00 05/28/22 23:08 Heparin 5,000 Unit/Ml Vial SUBQ 5,000 unit BID DILAN Administration Hydromorphone HCl 0.5 mg 05/28/22 20:17 05/28/22 21:53 Hydromorphone 0.5 Mg/0.5 Ml Syringe IVP 0.5 mg Q2H PRN Administration Pain 8 to 10 Methylprednisolone 40 mg 05/29/22 00:00 05/29/22 05:49 Methylprednisolone Succinate 40 Mg/Ml Vial IVP 40 mg Q6H DILAN Administration Sodium Chloride 10 ml 05/29/22 01:00 05/29/22 04:55 Sodium Chloride Flush 0.9% 10 Ml Syringe IVP 10 ml [id number],1700 DILAN Administration Sodium Chloride 10 ml 05/28/22 20:17 05/29/22 04:55 Sodium Chloride Flush 0.9% 10 Ml Syringe IVP 20 ml PRN PRN Administration NEEDED PER PROVIDER ORDERS - Physical Exam General Appearance: positive: No acute distress, Alert Eyes Bilateral: positive: Normal inspection ENT: positive: Pharynx nml, No signs of dehydration Neck: positive: Nml inspection Respiratory: positive: Chest non-tender, No respiratory distress, Breath sounds nml Cardiovascular: positive: Regular rate & rhythm, No murmur Abdomen: positive: Non-tender, No organomegaly, Nml bowel sounds, No distention ABX Reporting Has patient been on IV antibiotics over the past 48 hours?: No Impression/Plan - Problem List Problem List: Assessment: 1) SBO - clinically improved with resolution of nausea, abdominal distension, and abdominal pain. 2) Elevated troponin - am labs pending. No chest pain or hemodynamic stability over the evening Plan: 1) Portable abdominal x-ray this morning. If there is less small bowel distension and gas in the colon, a diet will be started. Otherwise she will get a gastrografin small bowel study 2) May sit at bedside and dangle; May ambulate 3) Awaiting am troponin. Appreciate Medical Hospitalist Input
--- NOTE | 2022-05-29 08:26 | PROVIDER PROGRESS NOTE ---
Assessment/Plan - Problem List (1) Small bowel obstruction Assessment/Plan: Continue management as per Gen Surg: iv fluids, bowel rest to include NPO except sips and meds, no ng tube was placed due to her abnormal upper intestinal anatomy (total gastrectomy) (2) Adrenal insufficiency Assessment/Plan: Suspect that she presented hypotensive was partly due to adrenal insufficiency, and her oral cortisone dose was inadequate for the sytress she was under. Recommend 2-3 days of stress dose steroids: If she will have surgery she needs Hydrocortisone 2100 mg iv tid If no surgery then OK to use 2 to 3 times her oral dose and give it orally. I will order this for today. (3) Cardiomyopathy Assessment/Plan: This patient has history of a cardiac arrest, Dx with a Non-ischemic cardiomyopathy(I42.8) with normal coronary arteries, then was successfully treated with B-blockers, Entresto and she has had recovery to a normal ejection fraction as per the Echo done here in 2019. Her medications need to continue indefinitely to maintain her normal EF. Will not resume her Toprol or Entresto currently because of the hypotension and soft blood pressure today. I will order resumption of these in the next few days when appropriate. (4) Elevated troponin Assessment/Plan: Troponin was first 5 then went up to 94. This is most likely related to her hypotension causing type II MN (demand ischemia). Will order next troponin and follow troponin until it peaks. Since her EKG is normal, no need for an Echocardiogram unless she is to undergo invasive procedure/surgery, which would be done for pre-op clearance. (5) Leukopenia Assessment/Plan: Her first WBC was 11, the next dropped to 4. This is concerning in that she may have developed a fulminant infection, but alternative explanation, since she is clinically improved today, is a drop in WBC due to hemo-dilution, since she has received 5 L of fluid or more now. Follow CBC daily Recheck her lactic acid level today Empiric antibiotic decision will be left up to the surgeon (6) Shock Assessment/Plan: Resolved. The ED provider documented that she presented with blood pressure of 60/40 and heart rate of 40 and was nearly unresponsive. Sternal rub was tried, IO IV access needed to be inserted in the ED. With aggressive crystalloid resuscitation her blood pressure improved, she became more awake. She never needed to get CPR. Due to the presentation in shock, she was admitted to the ICU. I suspect that her ingestion of oxycodone twice led to the low blood pressure and probably adrenal insufficiency/crisis added to the hypotension as well I suspect that episode of shock caused the elevated troponins (type II MN, from demand ischemia). Will obtain an Echocardiogram to establish LVEF, since she will need to proceed to surgery with general anesthesia, during this admission (7) History of gastric cancer Assessment/Plan: Per records, this is ion remission. She underwent surgery and chemo. - Current Meds Current Meds: Current Medications Generic Name Dose Route Start Last Admin Trade Name Freq PRN Reason Stop Dose Admin Heparin Sodium (Porcine) 5,000 unit 05/28/22 21:00 05/28/22 23:08 Heparin 5,000 Unit/Ml Vial SUBQ 5,000 unit BID DILAN Administration Hydromorphone HCl 0.5 mg 05/28/22 20:17 05/28/22 21:53 Hydromorphone 0.5 Mg/0.5 Ml Syringe IVP 0.5 mg Q2H PRN Administration Pain 8 to 10 Lactated Ringer's 1,000 mls @ 125 mls/hr 05/29/22 07:54 05/29/22 07:59 Lr IV 125 mls/hr .Q8H DILAN Administration Methylprednisolone 40 mg 05/29/22 00:00 05/29/22 05:49 Methylprednisolone Succinate 40 Mg/Ml Vial IVP 40 mg Q6H DILAN Administration Sodium Chloride 10 ml 05/29/22 01:00 05/29/22 04:55 Sodium Chloride Flush 0.9% 10 Ml Syringe IVP 10 ml 0100,0900,1700 DILAN Administration Sodium Chloride 10 ml 05/28/22 20:17 05/29/22 04:55 Sodium Chloride Flush 0.9% 10 Ml Syringe IVP 20 ml PRN PRN Administration NEEDED PER PROVIDER ORDERS - Lab Result Fish Bone Diagrams: 05/29/22 05:00 05/29/22 05:00 - Additional Planning My Orders: My Active Orders 05/29/22 09:00 Hydrocortisone [Cortef] 10 mg PO BID 05/30/22 05:00 BMP - BASIC METABOLIC PANEL [CHEM] DAILYLAB CBC - COMP BLD CT W/AUTO DIFF [HEME] DAILYLAB 05/31/22 05:00 BMP - BASIC METABOLIC PANEL [CHEM] DAILYLAB CBC - COMP BLD CT W/AUTO DIFF [HEME] DAILYLAB 06/01/22 05:00 BMP - BASIC METABOLIC PANEL [CHEM] DAILYLAB CBC - COMP BLD CT W/AUTO DIFF [HEME] DAILYLAB Subjective - Subjective Patient Reports: Feeling Better (No abd pain, is passing gas) Objective Vital Signs: Vital Signs - 24 hr 05/28/22 05/28/22 05/28/22 16:47 17:24 17:26 Temperature 36 C L Heart Rate 54 L 54 L 49 L Heart Rate [ Brachial] Respiratory 18 Rate Blood Pressure 69/51 L 61/45 L 43/34 L Blood Pressure [Left Brachial artery] O2 Saturation 100 05/28/22 05/28/22 05/28/22 17:28 17:30 17:32 Temperature Heart Rate 54 L 56 L 51 L Heart Rate [ Brachial] Respiratory Rate Blood Pressure 58/35 L 72/61 L 81/54 L Blood Pressure [Left Brachial artery] O2 Saturation 05/28/22 05/28/22 05/28/22 17:34 17:38 17:40 Temperature Heart Rate 50 L 53 L 51 L Heart Rate [ Brachial] Respiratory 14 Rate Blood Pressure 83/62 L 87/59 L 94/57 L Blood Pressure [Left Brachial artery] O2 Saturation 100 05/28/22 05/28/22 05/28/22 17:57 18:02 18:11 Temperature Heart Rate 61 56 L 62 Heart Rate [ Brachial] Respiratory 12 13 13 Rate Blood Pressure 96/72 98/60 103/61 Blood Pressure [Left Brachial artery] O2 Saturation 100 100 100 05/28/22 05/28/22 05/28/22 18:39 18:43 18:52 Temperature Heart Rate 79 74 66 Heart Rate [ Brachial] Respiratory 13 12 12 Rate Blood Pressure 105/66 104/86 H 114/74 Blood Pressure [Left Brachial artery] O2 Saturation 100 100 100 05/28/22 05/28/22 05/28/22 19:27 20:20 20:50 Temperature Heart Rate 60 80 66 Heart Rate [ Brachial] Respiratory 13 21 15 Rate Blood Pressure 105/61 86/73 L 94/60 Blood Pressure [Left Brachial artery] O2 Saturation 100 100 100 05/28/22 05/28/22 05/28/22 20:54 21:33 22:30 Temperature 36 C L 36.6 C Heart Rate 80 65 Heart Rate [ 74 Brachial] Respiratory 21 17 17 Rate Blood Pressure 86/73 L 105/61 Blood Pressure 97/54 L [Left Brachial artery] O2 Saturation 100 97 99 05/28/22 05/29/22 05/29/22 23:00 00:00 01:00 Temperature Heart Rate Heart Rate [ 72 86 87 Brachial] Respiratory 19 16 14 Rate Blood Pressure Blood Pressure 112/66 92/49 L 102/53 L [Left Brachial artery] O2 Saturation 100 97 97 05/29/22 05/29/22 05/29/22 02:00 03:00 05:00 Temperature Heart Rate Heart Rate [ 87 86 88 Brachial] Respiratory 14 12 10 L Rate Blood Pressure Blood Pressure 115/62 110/68 104/63 [Left Brachial artery] O2 Saturation 96 97 95 05/29/22 05/29/22 07:00 07:47 Temperature 37.1 C Heart Rate Heart Rate [ 64 Brachial] Respiratory 17 Rate Blood Pressure Blood Pressure 121/79 [Left Brachial artery] O2 Saturation 99 Oxygen O2 Source Room air I&O (Last 24 Hrs): Intake and Output Totals x24h 05/27/22 05/28/22 05/29/22 23:59 23:59 23:59 Intake Total 3000 1507.5 Output Total 565 696 Balance 2435 811.5 General: Alert, Oriented x3, No acute distress HEENT: Mucous membr. moist/pink Neck: Supple, No JVD Neuro: Alert, Non Focal Cardiovascular: Regular rate, No murmurs Respiratory: No respiratory distress, Breath sounds nml Abdomen: Soft, No tenderness, Other (Diminished bowel sound) Extremities: No edema, No tenderness/swelling - Results Results: Laboratory Results WBC 4.1 x10^3/uL (4.8-10.8) L 05/29/22 05:00 RBC 3.22 10^6/uL (4.20-5.40) L 05/29/22 05:00 Hgb 10.3 g/dL (12.0-16.0) L 05/29/22 05:00 Hct 32.1 % (37.0-47.0) L 05/29/22 05:00 MCV 99.7 fL (81.0-99.0) H 05/29/22 05:00 MCH 32.0 pg (27.0-31.0) H 05/29/22 05:00 MCHC 32.1 g/dL (32.0-36.0) 05/29/22 05:00 RDW 13.0 % (12.0-15.0) 05/29/22 05:00 Plt Count 169 10^3/uL (130-450) 05/29/22 05:00 MPV 9.4 fL (7.9-10.8) 05/29/22 05:00 Neut # (Auto) 3.6 10^3/uL (1.5-6.6) 05/29/22 05:00 Lymph # (Auto) 0.2 10^3/uL (1.5-3.5) L 05/29/22 05:00 [place] # (Auto) 0.2 10^3/uL (0.0-1.0) 05/29/22 05:00 Eos # (Auto) 0.0 10^3/uL (0.0-0.7) 05/29/22 05:00 Baso # (Auto) 0.0 10^3/uL (0.0-0.1) 05/29/22 05:00 Absolute Nucleated RBC 0.00 x10^3/uL 05/29/22 05:00 Nucleated RBC % 0.0 /100WBC 05/29/22 05:00 PT 11.4 secs (9.9-12.6) 05/28/22 20:46 INR 1.0 (0.8-1.2) 05/28/22 20:46 Sodium 133 mmol/L (135-145) L 05/29/22 05:00 Potassium 3.9 mmol/L (3.5-5.0) 05/29/22 05:00 Chloride 112 mmol/L (101-111) H 05/29/22 05:00 Carbon Dioxide 20 mmol/L (21-32) L 05/29/22 05:00 Anion Gap 1.0 (6-13) L 05/29/22 05:00 BUN 22 mg/dL (6-20) H 05/29/22 05:00 Creatinine 0.6 mg/dL (0.4-1.0) 05/29/22 05:00 Estimated GFR (MDRD) 102 (>89) 05/29/22 05:00 Glucose 162 mg/dL (70-100) H 05/29/22 05:00 POC Whole Bld Glucose 152 mg/dL (70 - 100) H 05/29/22 06:16 Lactic Acid 2.5 mmol/L (0.5-2.2) H 05/28/22 17:25 Calcium 7.8 mg/dL (8.5-10.3) L 05/29/22 05:00 Total Bilirubin 0.5 mg/dL (0.2-1.0) 05/29/22 05:00 AST 46 IU/L (10-42) H 05/29/22 05:00 ALT 57 IU/L (10-60) 05/29/22 05:00 Alkaline Phosphatase 75 IU/L (42-121) 05/29/22 05:00 Troponin I High Sens 45.5 ng/L (2.3-14.8) H* 05/29/22 05:00 Total Protein 5.2 g/dL (6.7-8.2) L 05/29/22 05:00 Albumin 3.1 g/dL (3.2-5.5) L 05/29/22 05:00 Globulin 2.1 g/dL (2.1-4.2) 05/29/22 05:00 Albumin/Globulin Ratio 1.5 (1.0-2.2) 05/29/22 05:00 Lipase 44 U/L (22-51) 05/28/22 17:25 Nasal Screen MRSA (PCR) NEGATIVE (NEGATIVE) 05/28/22 22:25 SARS-CoV-2 (PCR) NOT DETECTED 05/28/22 17:36 Blood Type B POSITIVE 05/28/22 17:25 Antibody Screen NEGATIVE 05/28/22 17:25 - Procedures Procedures: Procedures INSERTION OF INFUSION DEV INTO SUP VENA CAVA, PERC APPROACH (03/22/21) INTRODUCTION OF NUTRITIONAL INTO PERIPH VEIN, PERC APPROACH (03/22/21) RESPIRATORY VENTILATION, LESS THAN 24 CONSECUTIVE HOURS (08/07/19)
--- NOTE | 2022-05-29 08:28 | XRAY Report ---
PROCEDURE: Abdomen 1 View X-Ray INDICATIONS: FU SBO TECHNIQUE: One view of the abdomen acquired. COMPARISON: CT abdomen pelvis 05/28/2022 FINDINGS: Surgical changes and devices: None. Bowel: Bowel gas pattern is demonstrated dilated fluid-filled loops of bowel although improved corry red to prior exam. Soft tissues: No suspicious abdominal calcifications. Visualized solid organ contours appear normal in size. Bones: No suspicious bony lesions. IMPRESSION: Improved appearance of previously noted dilated fluid-filled loops of small bowel consistent with par tial small bowel obstruction. Reviewed by: Yelena Lim MD on 05/29/2022 8:26 AM PDT Approved by: Yelena Lim MD on 05/29/2022 8:26 AM PDT Station ID: [id number]
[2022-05-29] MEDS ORDERED: HYDROCORTISONE 10 MG TABLET PO SCH (09:00)
--- NOTE | 2022-05-29 09:13 | PROVIDER PROGRESS NOTE ---
Progress Note Patient's KUB shows resolution of her SBO with gas in the proximal and distal colon. OK to start a diet. Troponin down to 45. Juan Pack MD, FACS General Surgery Service
[2022-05-29] MEDS: HEPARIN 5,000 UNIT/ML VIAL SUBQ SCH ×2 (10:00→20:35)
--- NOTE | 2022-05-29 16:06 | PROVIDER PROGRESS NOTE ---
Progress Note Janett has had an uneventful day. She is taking oral liquids without emesis or nausea and has no abdominal pain. She passed a small shadi colored bowel motion that had a little blood in it early this afternoon. Her abdomen is soft, non- distended, and without tympany or tenderness. Assessment/Plan: 1) PSBO - clinically resolved although we are awaiting more robust lower GI activity 2) Blood in stool. This may be due to excoriation of internal hemorrhoidal veins as she has no rectal pain. She will require a GI work-up (CS) if the bleeding persists as her bowel activity increases. The timing of the work-up will depend on the severity of the blood loss. 3) Elevated troponin - ECHO is being performed this afternoon 4) Labs in am
--- NOTE | 2022-05-29 17:27 | PHARMACY PROGRESS NOTE ---
- Best Possible Medication History Admit Date and Time: 05/28/222016 Processed by: Nursing Medication History completed: Yes As the person ultimately responsible for medication therapy, providers are able to order a medication from an existing home medication list in [facility] via the "Reconcile Routine" prior to Confirmation of that medication by senior support engineer. Such practice is discouraged except when the physician, in their clinical judgment, deems that a medical need exists for a medication without regard to previous use.
[2022-05-30] MEDS: methylPREDNISolone SUCCINATE 40 MG/ML VIAL IVP SCH ×3 (00:26→12:24)
[2022-05-30] MEDS: SODIUM CHLORIDE FLUSH 0.9% 10 ML SYRINGE IVP SCH ×2 (00:26→09:57)
[2022-05-30] MEDS: LACTATED RINGERS 1,000 ML IV SCH (03:26)
[2022-05-30] MEDS: SODIUM CHLORIDE FLUSH 0.9% 10 ML SYRINGE IVP PRN ×3 (05:28→05:29)
[2022-05-30 05:47] LABS: HCT - HEMATOCRIT 27.5 % (37.0-47.0); HGB - HEMOGLOBIN 8.8 g/dL (12.0-16.0); LYMPHOCYTES # (AUTO) 0.4 10^3/uL (1.5-3.5); MEAN CORPUSCULAR HEMOGLOBIN 31.8 pg (27.0-31.0); MEAN CORPUSCULAR VOLUME 99.3 fL (81.0-99.0); MEAN PLATELET VOLUME 10.1 fL (7.9-10.8); MONOCYTES # (AUTO) 0.2 10^3/uL (0.0-1.0); MONOCYTES % (AUTO) 3.4 %; NEUTROPHILS # (AUTO) 4.2 10^3/uL (1.5-6.6); PLT - PLATELET COUNT 151 10^3/uL (130-450); RED BLOOD COUNT 2.77 10^6/uL (4.20-5.40); RED CELL DISTRIBUTION WIDTH 13.5 % (12.0-15.0); WHITE BLOOD COUNT 4.8 x10^3/uL (4.8-10.8)
[2022-05-30 05:55] LABS: CALCIUM 8.1 mg/dL (8.5-10.3); CREATININE 0.6 mg/dL (0.4-1.0); POTASSIUM 3.9 mmol/L (3.5-5.0)
--- NOTE | 2022-05-30 08:56 | PROVIDER PROGRESS NOTE ---
Subjective - General Admit Date: 05/28/22 - Review of Systems General: positive: No symptoms (Her abdominal pain has resolved. She has no nausea or vomiting. She has not yet passed flatus), Appetite (Tolerating a diet) Pulmonary: positive: No symptoms Cardiovascular: positive: No symptoms Gastrointestinal: positive: No symptoms, Other (Had several normal, non-bloody bowel motions yesterday; No abdominal pain; No nausea) Genitourinary: positive: No symptoms Musculoskeletal: positive: No symptoms Skin: positive: No symptoms Psychiatric: positive: No symptoms Objective - Patient Data Vital Signs: Vital Signs x48h Temp Pulse Resp BP Pulse Ox 05/30/22 08:00 98.3 F 80 18 116/76 98 05/30/22 07:09 71 11 L 110/65 95 05/30/22 05:11 70 12 112/68 96 05/30/22 04:00 68 12 118/76 99 05/30/22 02:00 77 13 116/71 94 05/30/22 01:00 71 11 L 111/69 95 Weight: Weight 05/28/22 05/29/22 05/30/22 23:59 23:59 23:59 Weight (kg) 57.5 kg 57.5 kg 59 kg Intake & Output: Intake and Output Totals x24h 05/28/22 05/29/22 05/30/22 23:59 23:59 23:59 Intake Total 3000 4289.583 1022.916 Output Total 565 1216 Balance 2435 3073.583 1022.916 - Lab Results Lab Results: 05/30/22 05:30 05/30/22 05:30 Other Lab Results: Lab Results x24hrs 05/30/22 05/30/22 05/30/22 Range/Units 08:01 05:30 05:30 WBC 4.8 (4.8-10.8) x10^3/uL RBC 2.77 L (4.20-5.40) 10^6/uL Hgb 8.8 L (12.0-16.0) g/dL Hct 27.5 L (37.0-47.0) % MCV 99.3 H (81.0-99.0) fL MCH 31.8 H (27.0-31.0) pg MCHC 32.0 (32.0-36.0) g/dL RDW 13.5 (12.0-15.0) % Plt Count 151 (130-450) 10^3/uL MPV 10.1 (7.9-10.8) fL Neut # (Auto) 4.2 (1.5-6.6) 10^3/uL Lymph # (Auto) 0.4 L (1.5-3.5) 10^3/uL [place] # (Auto) 0.2 (0.0-1.0) 10^3/uL Eos # (Auto) 0.0 (0.0-0.7) 10^3/uL Baso # (Auto) 0.0 (0.0-0.1) 10^3/uL Absolute Nucleated RBC 0.00 x10^3/uL Nucleated RBC % 0.0 /100WBC Sodium 137 (135-145) mmol/L Potassium 3.9 (3.5-5.0) mmol/L Chloride 107 (101-111) mmol/L Carbon Dioxide 24 (21-32) mmol/L Anion Gap 6.0 (6-13) BUN 21 H (6-20) mg/dL Creatinine 0.6 (0.4-1.0) mg/dL Estimated GFR (MDRD) 102 (>89) Glucose 176 H (70-100) mg/dL POC Whole Bld Glucose 149 H (70 - 100) mg/dL Lactic Acid (0.5-2.2) mmol/L Calcium 8.1 L (8.5-10.3) mg/dL Troponin I High Sens (2.3-14.8) ng/L 05/29/22 05/29/22 05/29/22 Range/Units 20:35 16:33 11:26 WBC (4.8-10.8) x10^3/uL RBC (4.20-5.40) 10^6/uL Hgb (12.0-16.0) g/dL Hct (37.0-47.0) % MCV (81.0-99.0) fL MCH (27.0-31.0) pg MCHC (32.0-36.0) g/dL RDW (12.0-15.0) % Plt Count (130-450) 10^3/uL MPV (7.9-10.8) fL Neut # (Auto) (1.5-6.6) 10^3/uL Lymph # (Auto) (1.5-3.5) 10^3/uL [place] # (Auto) (0.0-1.0) 10^3/uL Eos # (Auto) (0.0-0.7) 10^3/uL Baso # (Auto) (0.0-0.1) 10^3/uL Absolute Nucleated RBC x10^3/uL Nucleated RBC % /100WBC Sodium (135-145) mmol/L Potassium (3.5-5.0) mmol/L Chloride (101-111) mmol/L Carbon Dioxide (21-32) mmol/L Anion Gap (6-13) BUN (6-20) mg/dL Creatinine (0.4-1.0) mg/dL Estimated GFR (MDRD) (>89) Glucose (70-100) mg/dL POC Whole Bld Glucose 153 H 141 H 161 H (70 - 100) mg/dL Lactic Acid (0.5-2.2) mmol/L Calcium (8.5-10.3) mg/dL Troponin I High Sens (2.3-14.8) ng/L 05/29/22 05/29/22 Range/Units 08:46 08:46 WBC (4.8-10.8) x10^3/uL RBC (4.20-5.40) 10^6/uL Hgb (12.0-16.0) g/dL Hct (37.0-47.0) % MCV (81.0-99.0) fL MCH (27.0-31.0) pg MCHC (32.0-36.0) g/dL RDW (12.0-15.0) % Plt Count (130-450) 10^3/uL MPV (7.9-10.8) fL Neut # (Auto) (1.5-6.6) 10^3/uL Lymph # (Auto) (1.5-3.5) 10^3/uL [place] # (Auto) (0.0-1.0) 10^3/uL Eos # (Auto) (0.0-0.7) 10^3/uL Baso # (Auto) (0.0-0.1) 10^3/uL Absolute Nucleated RBC x10^3/uL Nucleated RBC % /100WBC Sodium (135-145) mmol/L Potassium (3.5-5.0) mmol/L Chloride (101-111) mmol/L Carbon Dioxide (21-32) mmol/L Anion Gap (6-13) BUN (6-20) mg/dL Creatinine (0.4-1.0) mg/dL Estimated GFR (MDRD) (>89) Glucose (70-100) mg/dL POC Whole Bld Glucose (70 - 100) mg/dL Lactic Acid 2.8 H (0.5-2.2) mmol/L Calcium (8.5-10.3) mg/dL Troponin I High Sens 35.0 H* (2.3-14.8) ng/L - Current Medications Current Medications: Current Medications Generic Name Dose Route Start Last Admin Trade Name Freq PRN Reason Stop Dose Admin Heparin Sodium (Porcine) 5,000 unit 05/28/22 21:00 05/29/22 20:35 Heparin 5,000 Unit/Ml Vial SUBQ 5,000 unit BID DILAN Administration Hydromorphone HCl 0.5 mg 05/28/22 20:17 05/28/22 21:53 Hydromorphone 0.5 Mg/0.5 Ml Syringe IVP 0.5 mg Q2H PRN Administration Pain 8 to 10 Lactated Ringer's 1,000 mls @ 125 mls/hr 05/29/22 07:54 05/30/22 05:33 Lr IV 125 mls/hr .Q8H DILAN Infusion Methylprednisolone 40 mg 05/29/22 00:00 05/30/22 05:29 Methylprednisolone Succinate 40 Mg/Ml Vial IVP 40 mg Q6H DILAN Administration Sodium Chloride 10 ml 05/29/22 01:00 05/30/22 00:26 Sodium Chloride Flush 0.9% 10 Ml Syringe IVP 10 ml 0100,0900,1700 DILAN Administration Sodium Chloride 10 ml 05/28/22 20:17 05/30/22 05:29 Sodium Chloride Flush 0.9% 10 Ml Syringe IVP 10 ml PRN PRN Administration NEEDED PER PROVIDER ORDERS Sodium Chloride 20 ml 05/29/22 05:57 05/30/22 05:28 Sodium Chloride Flush 0.9% 10 Ml Syringe IVP 20 ml PRN PRN Administration After Blood Draw - Physical Exam General Appearance: positive: No acute distress, Alert Eyes Bilateral: positive: Normal inspection ENT: positive: Pharynx nml, No signs of dehydration Neck: positive: Nml inspection Respiratory: positive: No respiratory distress, Breath sounds nml Cardiovascular: positive: Regular rate & rhythm Abdomen: positive: Non-tender, No organomegaly, Nml bowel sounds, No distention Skin: positive: Color nml Extremities: positive: Full ROM ABX Reporting Has patient been on IV antibiotics over the past 48 hours?: No Impression/Plan - Problem List Problem List: Assessment: 1) Partial SBO - resolved 2) Dehydration - resolved 3) Transient elevated troponin - related to her hypovolemia; ECHO normal 4) Anemia - chronic Plan: 1) Ambulate in hallway 2) IV to saline lock 3) If tolerates breakfast and lunch, will discharge to home later today
[2022-05-30] MEDS ORDERED: LACTATED RINGERS 1,000 ML IV SCH (09:09)
--- NOTE | 2022-05-30 09:55 | Discharge Plan ---
Discharge Plan Problem Reviewed?: Yes Disposition: Home, Self Care Condition: Good Prescriptions: polyethylene glycoL 3350 [Miralax] 17 gm PO DAILY PRN #238 gm PRN Reason: Constipation Diet: Soft Activity Restrictions: No Restrictions Assessment: Partial, recurrent small bowel obstruction resolved with bowel rest Dehydration resolved with IV fluids Additional Instructions or Follow Up instructions: Follow up with your PCP in 7-10 days and your oncologist next year as scheduled Diet: Resume your usual diet Meds: Resume your usual medications; Use Miralax as needed for constipation Activity: As tolerated; No restrictions No Smoking: If you smoke, Please STOP! Call for help.
[2022-05-30] MEDS: HEPARIN 5,000 UNIT/ML VIAL SUBQ SCH (09:57)
--- NOTE | 2022-05-30 10:06 | DISCHARGE SUMMARY ---
"Discharge Summary Admit Date: 05/28/22 Discharge Date: 05/30/22 Discharging Provider: Juan Pack MD Code Status: Attempt Resuscitation Condition at Discharge: Good Discharge Disposition: 01 Home, Self Care - DIAGNOSES Admission Diagnoses: Abdominal cramps Partial, recurrent SBO Hypotension Dehydration Discharge Diagnoses with Status of Each Condition: Partial, recurrent small bowel obstruction - resolved with bowel rest Hypotension/Dehydration - resolved with IV fluids - HPI History of Present Illness: Janett is a 61 year old female who was well until earlier today when after eating Hummus she developed generalized abdominal pain. It is described as cramping and has lasted all day. She had two diarrheal episodes today, the second was bloody and she asked her to bring her to the ED. In the ED she was found to be hypotensive and dehydrated. Her blood pressure responded to two liters of saline boluses and her abdominal discomfort was managed with a small dose of opioid. A CT scan was performed and read as consistent with a severe small bowel obstruction. General Surgery was asked to assist in her assessment and management. Janett has a history of anemia identified in 2019 and was admitted to this facility for evaluation but was transferred to [place] when she suffered a ca rdiac arrest. While there and after her resuscitation, the gastric cancer was diagnosed. She was ultimately referred to where she underwent a near total gastrectomy and partial colectomy as well as a right adrenalectomy. Following her surgical recovery, she received chemotherapy for her gastric cancer. She has been deemed cancer free for over a year. During that time she has had 2 episodes of abdominal pain the first thought due to a SBO and managed with medical treatment and the second found to be cholecystitis treated at [facility] with cholecystectomy. She was eating frequent small meals normally without abdominal pain, constipation, or rectal bleeding until today. She denies unexpected weight loss. She is accompanied by her who has assisted in this history. At the time of my evaluation she was resting comfortably but still exhibited mild intermittent abdominal cramping. - CONSULTS | PROCEDURES Consultations: Medical Hospitalist Service - HOSPITAL COURSE Hospital Course: Janett was admitted to the hospital ICU for management of her abdominal cramps, dehydration, hypotension, small bowel obstruction, and elevated troponin. As she has had a total gastrectomy and was not vomiting, an NGT was not deemed necessary. A right IJ line was placed and her hypotension resolved with 3 liters of saline and her troponins trended towards normal. Within 4-6 hours her abdominal pain and abdominal distension resolved and she passed gas and stool from the rectum. The stool initially was tinged with a small amount of blood but eventually became normal in appearance. Because of her history of CHF, which her claims was deemed resolved over a year ago, an ECHO cardiogram was performed and indicated a normal right and left ventricle and an EF of 60- 65%. Her VS remained normal, she was started on a clear liquid diet and this was advanced to her normal post-gastrectomy diet without issue. Because of her history of adrenal insufficiency, she was maintained on IV solucortef while NPO. At the time of discharge, she was without abdominal distension or abdominal pain, she was tolerating a diet, she was passing stool ad flatus from the rectum, and she was ambulatory. Assessment/Plan: 1) Recurrent, partial small bowel obstruction - resolved. I explained to the patient and the that this is likely due to post-op adhesive disease and that recurrence is likely sometime in the future. Operative intervention is usu ally reserved for complete obstruction or signs/symptoms of bowel ischemia. 2) Adrenal insufficiency - continue to take her home steroids as usual 3) History of CHF - no evidence of this entity during this admission. continue meds as usual 4) Chronic hypertension - Continue meds as usual 5) Chronic iron deficient anemia - Continue iron supplementation and B12 as usual 6) Constipation - use Miralax as needed 7) FU PCP in 7-10 days - ALLERGIES Allergies/Adverse Reactions: Allergies Allergy/AdvReac Type Severity Reaction Status Date / Time No Known Drug Allergies Allergy Verified 05/28/22 16:47 - MEDICATIONS Home Medications: Ambulatory Orders Medication Instructions Recorded Confirmed Atorvastatin [Lipitor] 40 mg PO QPM 09/06/19 05/28/22 Ferrous Sulfate 325 mg PO DAILY 09/06/19 05/28/22 Sacubitril/Valsartan [Entresto 49 1 tab PO BID 10/24/19 05/28/22 mg-51 mg Tablet] Hydrocortisone 10 mg PO DAILY 05/24/20 05/28/22 Metoprolol Succinate [Toprol Xl] 25 mg PO DAILY 12/14/20 05/28/22 Mecobalamin [B12 Active] 1,000 mcg PO DAILY 09/25/21 05/28/22 polyethylene glycoL 3350 [Miralax] 17 gm PO DAILY PRN #238 gm 05/30/22 - PHYSICAL EXAM AT DISCHARGE General Appearance: positive: No acute distress, Alert Eyes Bilateral: positive: Normal inspection Neck: positive: Nml inspection Respiratory: positive: Chest non-tender, No respiratory distress, Breath sounds nml Cardiovascular: positive: Regular rate & rhythm Peripheral Pulses: positive: 2+ Abdomen: positive: Non-tender, No organomegaly, Nml bowel sounds, No distention Skin: positive: Color nml Extremities: positive: Full ROM Neurologic/Psychiatric: positive: Oriented x3 - LABS Result Diagrams: 05/30/22 05:30 05/30/22 05:30 - DIAGNOSTIC IMAGING Diagnostic Imaging Results: See rad report - FOLLOW UP Follow Up: PCP at [facility] in 7-10 days"
[2022-05-30 13:39] VITALS: BP 108/70
== END 2022-05-30 12:40 | disposition home or self-care (01) | DRG 388 ==
LOC: ED 16:34 → ICU 20:17
PROVIDERS: ADMIT Surgery; ATTEND Surgery
DX: K56.600 Partial intestinal obstruction, unspecified as to cause (principal); I21.A1 Myocardial infarction type 2; E27.40 Unspecified adrenocortical insufficiency; I42.8 Other cardiomyopathies; K92.1 Melena; I95.9 Hypotension, unspecified; E86.0 Dehydration; Z85.028 Personal history of other malignant neoplasm of stomach; Z90.3 Acquired absence of stomach [part of]; I11.0 Hypertensive heart disease with heart failure; I50.9 Heart failure, unspecified; D50.9 Iron deficiency anemia, unspecified; Z20.822 Contact with and (suspected) exposure to COVID-19; Z90.49 Acquired absence of other specified parts of digestive tract; I25.2 Old myocardial infarction; E11.9 Type 2 diabetes mellitus without complications; D72.819 Decreased white blood cell count, unspecified
CPT/HCPCS: 36415; 36556; 74018; 74177; 80048; 80053; 83605; 83690; 84484; 85025; 85610; 86850; 86900; 86901; 87040; 87150; 87635; 93306; 96361; 96374; 96375; 99285; 99291; J1170; J7120; Q9967

== ENCOUNTER 2022-07-20 15:13 | Inpatient (IN) | payer OTHER ==
[2022-07-20 15:53] LABS: BASOPHILS % (AUTO) 0.5 %; EOSINOPHILS # (AUTO) 0.1 10^3/uL (0.0-0.7); EOSINOPHILS % (AUTO) 2.1 %; HCT - HEMATOCRIT 31.3 % (37.0-47.0); HGB - HEMOGLOBIN 11.1 g/dL (12.0-16.0); LYMPHOCYTES % (AUTO) 22.6 %; MEAN CORPUSCULAR HEMOGLOBIN 30.7 pg (27.0-31.0); MEAN CORPUSCULAR HGB CONC 35.5 g/dL (32.0-36.0); MEAN CORPUSCULAR VOLUME 86.7 fL (81.0-99.0); MONOCYTES # (AUTO) 0.5 10^3/uL (0.0-1.0); MONOCYTES % (AUTO) 10.3 %; NEUTROPHILS # (AUTO) 2.8 10^3/uL (1.5-6.6); NEUTROPHILS % (AUTO) 64.3 %; PLT - PLATELET COUNT 173 10^3/uL (130-450); RED BLOOD COUNT 3.61 10^6/uL (4.20-5.40); RED CELL DISTRIBUTION WIDTH 11.6 % (12.0-15.0); WHITE BLOOD COUNT 4.4 x10^3/uL (4.8-10.8)
[2022-07-20 15:54] LABS: BILIRUBIN,URINE NEGATIVE (NEGATIVE); GLUCOSE, URINE (UA) NEGATIVE (NEGATIVE); KETONES,URINE (UA) 40 mg/dL (NEGATIVE); LEUKOCYTE ESTERASE, URINE SMALL (NEGATIVE); NITRITE,URINE NEGATIVE (NEGATIVE); OCCULT BLOOD,URINE SMALL (NEGATIVE); PROTEIN,URINE NEGATIVE (NEGATIVE); UROBILINOGEN,URINE 0.2 (NORMAL) E.U./dL (NORMAL)
[2022-07-20 16:04] LABS: CLARITY,URINE CLEAR (CLEAR)
[2022-07-20 16:05] LABS: BACTERIA,URINE Rare /HPF (None Seen); SQUAMOUS EPITHELIAL CELL,UR FEW Squamous (<= Few)
[2022-07-20 16:06] LABS: ALBUMIN 4.2 g/dL (3.2-5.5); ALBUMIN/GLOBULIN RATIO 1.5 (1.0-2.2); CALCIUM 8.4 mg/dL (8.5-10.3); CREATININE 0.7 mg/dL (0.4-1.0); POTASSIUM 3.5 mmol/L (3.5-5.0)
[2022-07-20] MEDS ORDERED: LIDOCAINE VISCOUS 2% 15 ML UDC MM STA (16:19)
[2022-07-20] MEDS ORDERED: MAG HYDROX/AL HYDROX/SIMETH 30 ML UDC PO STA (16:19)
[2022-07-20] MEDS ORDERED: SUCRALFATE 1 GM/10 ML UDC PO STA (16:19)
--- NOTE | 2022-07-20 16:23 | ED Physician Documentation ---
History of Present Illness - Stated complaint Stated Complaint: NAUSEA - Chief complaint Chief Complaint: Abd Pain - History obtained from History obtained from: Patient, Family - History of Present Illness Timing: How many days ago (2) - Additonal information Additional information: Janett Ovalles, Is a 61-year-old female who is a survivor of gastric cancer. She had her stomach removed in February 2020, along with right hemicolectomy and left adrenalectomy. She has been discontinued on chemotherapy. She has had issues previously with bowel obstruction multiple times. most recently with critical illness in May of this year.2021. 2 days ago she began to have hiccups and nausea. She has had burping as well. She does not have a stomach. She denies vomiting associated with this and she has not had relief of the nausea with Compazine. She does not have distention of her lower abdomen she is still producing stool normally and she is passing gas. Review of Systems Constitutional: denies: Fever Eyes: denies: Decreased vision Ears: denies: Ear pain Nose: denies: Rhinorrhea / runny nose, Congestion Throat: denies: Sore throat Cardiac: denies: Chest pain / pressure, Palpitations Respiratory: denies: Dyspnea, Cough GI: reports: Nausea. denies: Abdominal Pain, Vomiting, Constipation, Diarrhea : denies: Dysuria, Frequency Skin: denies: Rash Musculoskeletal: denies: Neck pain, Back pain, Extremity pain Neurologic: denies: Generalized weakness, Focal weakness, Numbness PD PAST MEDICAL HISTORY - Past Medical History Cardiovascular: Congestive heart failure, Hypertension, High cholesterol, [place], Other Respiratory: None Neuro: None Endocrine/Autoimmune: Type 2 diabetes GI: Hepatitis, Other [employer]: None : None HEENT: Chronic vision loss Psych: None Musculoskeletal: None Derm: None - Past Surgical History Past Surgical History: Yes General: Cholecystectomy, Gastric surgery, Colonoscopy, EGD, Other - Present Medications Home Medications: Ambulatory Orders Medication Instructions Recorded Confirmed Atorvastatin [Lipitor] 40 mg PO QPM 09/06/19 05/28/22 Ferrous Sulfate 325 mg PO DAILY 09/06/19 05/28/22 Sacubitril/Valsartan [Entresto 49 1 tab PO BID 10/24/19 05/28/22 mg-51 mg Tablet] Hydrocortisone 10 mg PO DAILY 05/24/20 05/28/22 Metoprolol Succinate [Toprol Xl] 25 mg PO DAILY 12/14/20 05/28/22 Mecobalamin [B12 Active] 1,000 mcg PO DAILY 09/25/21 05/28/22 polyethylene glycoL 3350 [Miralax] 17 gm PO DAILY PRN #238 gm 05/30/22 - Allergies Allergies/Adverse Reactions: Allergies Allergy/AdvReac Type Severity Reaction Status Date / Time No Known Drug Allergies Allergy Verified 07/20/22 15:22 - Social History Does the pt smoke?: Yes Smoking Status: Former smoker Does the pt drink ETOH?: No Does the pt have substance abuse?: No - Immunizations Immunizations are current?: Yes - POLST Patient has POLST: Yes POLST Status: Full Code PD ED PE NORMAL - Vitals Vital signs reviewed: Yes (hypertensive ) - General General: Alert and oriented X 3, No acute distress, Well developed/nourished, Other (thin 61 y/o female masked and quiet. Does not appear in distress. Has infrequent hiccups. ) - HEENT HEENT: Atraumatic, PERRL, EOMI - Neck Neck: Supple, no meningeal sign, No bony TTP - Cardiac Cardiac: RRR, No murmur - Respiratory Respiratory: No respiratory distress, Clear bilaterally - Abdomen Abdomen: Normal bowel sounds, Soft, Non tender, Non distended, No organomegaly - Back Back: No CVA TTP, No spinal TTP - Derm Derm: Normal color, Warm and dry, No rash - Extremities Extremities: No deformity, No edema - Neuro Neuro: Alert and oriented X 3, manager mass 2-12 intact, No motor deficit, No sensory deficit, Normal speech Eye Opening: Spontaneous Motor: Obeys Commands Verbal: Oriented GCS Score: 15 - Psych Psych: Normal mood, Normal affect Results - Vitals Vitals: Vital Signs - 24 hr 07/20/22 07/20/22 07/20/22 15:22 16:16 18:00 Temperature 36.5 C Heart Rate 65 69 65 Respiratory 18 10 L 18 Rate Blood Pressure 146/95 H 118/76 146/102 H O2 Saturation 98 97 100 Oxygen O2 Source Room air - Labs Labs: Laboratory Tests 07/20/22 07/20/22 07/20/22 15:40 15:40 15:45 WBC 4.4 L RBC 3.61 L Hgb 11.1 L Hct 31.3 L MCV 86.7 MCH 30.7 MCHC 35.5 RDW 11.6 L Plt Count 173 MPV 9.0 Neut # (Auto) 2.8 Lymph # (Auto) 1.0 L [place] # (Auto) 0.5 Eos # (Auto) 0.1 Baso # (Auto) 0.0 Absolute Nucleated RBC 0.00 Nucleated RBC % 0.0 Sodium Potassium Chloride Carbon Dioxide Anion Gap BUN Creatinine Estimated GFR (MDRD) Glucose Calcium Total Bilirubin AST ALT Alkaline Phosphatase Total Protein Albumin Globulin Albumin/Globulin Ratio Lipase TSH Urine Color YELLOW Urine Clarity CLEAR Urine pH 6.0 Ur Specific [place] 1.025 Urine Protein NEGATIVE Urine Glucose (UA) NEGATIVE Urine Ketones 40 H Urine Occult Blood SMALL H Urine Nitrite NEGATIVE Urine Bilirubin NEGATIVE Urine Urobilinogen 0.2 (NORMAL) Ur Leukocyte Esterase SMALL H Urine RBC 11-25 H Urine WBC 6-10 H Ur Squamous Epith Cells FEW Squamous Urine Bacteria Rare Ur Microscopic Review INDICATED Urine Culture Comments INDICATED Urine Sodium 107.0 07/20/22 07/20/22 15:45 15:45 WBC RBC Hgb Hct MCV MCH MCHC RDW Plt Count MPV Neut # (Auto) Lymph # (Auto) [place] # (Auto) Eos # (Auto) Baso # (Auto) Absolute Nucleated RBC Nucleated RBC % Sodium 106 L* Potassium 3.5 Chloride 74 L* Carbon Dioxide 20 L Anion Gap 12.0 BUN 12 Creatinine 0.7 Estimated GFR (MDRD) 85 L Glucose 146 H Calcium 8.4 L Total Bilirubin 1.0 AST 40 ALT 44 Alkaline Phosphatase 82 Total Protein 7.0 Albumin 4.2 Globulin 2.8 Albumin/Globulin Ratio 1.5 Lipase 38 TSH 3.78 Urine Color Urine Clarity Urine pH Ur Specific [place] Urine Protein Urine Glucose (UA) Urine Ketones Urine Occult Blood Urine Nitrite Urine Bilirubin Urine Urobilinogen Ur Leukocyte Esterase Urine RBC Urine WBC Ur Squamous Epith Cells Urine Bacteria Ur Microscopic Review Urine Culture Comments Urine Sodium Procedures - IVC sono (time) 1600 Bedside IVC sono: IVC measures (cm) (1.56), Euvolemia PD MEDICAL DECISION MAKING - ED course Complexity details: reviewed old records, reviewed results, re-evaluated patient, considered differential, d/w patient, d/w family, d/w end user consultant ([place] hospitalist here recommends urine spot sodium to match the serum sodium and serum and urine osmolality. ) ED course: 61-year-old female s/p gastrectomy has developed burping and nausea. She has not had improvement with Compazine. She has had prior issues with bowel obstruction multiple times and she has had critical illness previously. Today she does not have signs of bowel obstruction. She has only a remnant of her stomach left and she is given viscous lidocaine and Mylanta. The patient ultimately is found to have significant hyponatremia and an infusion of 3% saline at 15 mL an hour is begun. The patient will have replacement of her usual cortisone dose. Blood work indicates a likely cortisol deficiency consistent with the patient's history of adrenalectomy and regular cortisone replacement. At shift change the care of the patient is turned over to Dr. Youssef anticipating continued care throughout the night and admission when a bed becomes available.
[2022-07-20] MEDS ORDERED: SODIUM CHLORIDE 0.9% 500 ML IV STA (16:42)
[2022-07-20] MEDS ORDERED: SODIUM CHLORIDE 3% HYPERTONIC 100 ML IV SCH ×2 (17:00→23:45)
[2022-07-20] MEDS ORDERED: HYDROCORTISONE SUCCINATE 100 MG/2 ML VIAL IVP STA (19:31)
[2022-07-20 20:34] LABS: B. PARAPERTUSSIS- RESP PCR PAN NOT DETECTED; B. PERTUSSIS- RESP PCR PANEL NOT DETECTED; C. PNEUMONIAE- RESP PCR PANEL NOT DETECTED; CORONAVIRUS 229E-RESP PCR NOT DETECTED; CORONAVIRUS HKU1-RESP PCR NOT DETECTED; CORONAVIRUS NL63-RESP PCR NOT DETECTED; CORONAVIRUS OC43-RESP PCR NOT DETECTED; HUMAN METAPNEUMOVIRUS NOT DETECTED; INFLUENZA A- RESP PCR PANEL NOT DETECTED; INFLUENZA B - RESP PCR PANEL NOT DETECTED; M. PNEUMONIAE- RESP PCR PANEL NOT DETECTED; PARAINFLUENZA VIRUS 1 NOT DETECTED; PARAINFLUENZA VIRUS 2 NOT DETECTED; PARAINFLUENZA VIRUS 3 NOT DETECTED; PARAINFLUENZA VIRUS 4 NOT DETECTED; RHINOVIRUS/ENTEROVIRUS NOT DETECTED; RSV- RESP PCR PANEL NOT DETECTED; SARS-CoV-2 -RESP PCR PANEL NOT DETECTED
[2022-07-20 20:49] LABS: CALCIUM 8.3 mg/dL (8.5-10.3); CREATININE 0.5 mg/dL (0.4-1.0); POTASSIUM 3.9 mmol/L (3.5-5.0)
[2022-07-20] MEDS ORDERED: SODIUM CHLORIDE 3% HYPERTONIC 500 ML IV SCH (23:45)
[2022-07-21 00:33] LABS: CALCIUM 8.5 mg/dL (8.5-10.3); CREATININE 0.5 mg/dL (0.4-1.0); POTASSIUM 4.2 mmol/L (3.5-5.0)
[2022-07-21] MEDS ORDERED: SODIUM CHLORIDE 0.9% 1,000 ML IV STA (03:19)
[2022-07-21 06:40] LABS: ALBUMIN 3.9 g/dL (3.2-5.5); ALBUMIN/GLOBULIN RATIO 1.5 (1.0-2.2); BILIRUBIN,TOTAL 1.3 mg/dL (0.2-1.0); CALCIUM 8.3 mg/dL (8.5-10.3); CREATININE 0.5 mg/dL (0.4-1.0); MAGNESIUM 1.5 mg/dL (1.7-2.8); POTASSIUM 3.8 mmol/L (3.5-5.0); TOTAL PROTEIN 6.5 g/dL (6.7-8.2)
--- NOTE | 2022-07-21 07:35 | ED Physician Documentation ---
ED Addendum - Addendum Addendum: 07/21/22 07:33 The patient remained interactive appropriately with nursing staff and conversant with me when I talked with her briefly. Her sodium level was slowly increased overnight from the initial 106 to now 110 over the course of approximately 11 hours. Her hypertonic saline infusion finished during the night and we switched to normal saline as pharmacy techs are not present to resupply the hypertonic. At this point we will see how this does and decide in consultation with hospitalist likely whether to continue with the normal saline versus hypertonic. The patient is scheduled to get a repeat potassium level at 9 AM. Verbal report is given to the oncoming emergency physician.
[2022-07-21] MEDS: HYDROCORTISONE 10 MG TABLET PO SCH (08:14)
[2022-07-21] MEDS: METOPROLOL SUCCINATE 25 MG TABLET PO SCH (08:46)
[2022-07-21] MEDS: SODIUM CHLORIDE 0.9% 1,000 ML IV SCH ×2 (09:45→14:36)
[2022-07-21] MEDS ORDERED: oxyCODONE 5 MG TABLET PO PRN (11:28)
[2022-07-21] MEDS ORDERED: ONDANSETRON ODT 4 MG TABLET TL PRN (11:28)
[2022-07-21] MEDS ORDERED: SODIUM CHLORIDE FLUSH 0.9% 10 ML SYRINGE IVP PRN (11:28)
[2022-07-21] MEDS ORDERED: ONDANSETRON 4 MG/2 ML VIAL IVP PRN (11:28)
[2022-07-21] MEDS ORDERED: ACETAMINOPHEN 325 MG TABLET PO PRN (11:28)
--- NOTE | 2022-07-21 11:39 | HISTORY & PHYSICAL EXAMINATION ---
History of Present Illness - Admitted From Admitted From:: Home via private vehicle - History Obtained From Records Reviewed: [facility] History obtained from: Kathy Mercado And Tayo Ojeda Exam Limitations: None - History of Present Illness HPI Comment/Other: Patient presented to the emergency room on the afternoon of July 20 complaining of nausea with abdominal bloating and increased flatulence and increased burping for 2 days. She also has hiccups. Compazine at home was not working. There is no fever, no chills. No emesis. No diarrhea. She is still having flatus, and is passing stool. Recent admission May 28 through May 30, 2022 under the care of general surgery. She presented with abdominal cramping, nausea, diarrhea. The second bowel movement was bloody. In the ED she was hypotensive and dehydrated. She received 2 L of saline boluses and abdominal pain was managed with small doses of opioid. CT showed severe small bowel obstruction. The bowel obstruction resolved without surgical intervention and she was discharged. She was admitted in this facility with severe anemia in 2018. During that admission she had an [place] and was transferred to [facility] with [facility], where she suffered a cardiac arrest. While there and after her resuscitation, gastric cancer was diagnosed. She was transferred to [facility] where she underwent a near total gastrectomy, partial colectomy as well as a right adrenalectomy. She received chemotherapy. She was deemed cancer free in 2020. Still getting frequent follow-ups with [place] [facility], Dr. Bentley. She had 2 episodes of abdominal pain managed to small bowel obstruction. However during the second 1 she was found to have cholecystitis and treated at [facility] with a cholecystectomy. Her May 2022 admission would have been her third admission for bowel obstruction. Her last oncology note was from March [address]22. Dr. Davis writes: ONCOLOGY HISTORY: 1. Distal gastric cancer since 2019. Moderately differentiated. EUS and biopsy x2 confirmation. Unable to do T staging. a. PET/CT scan negative for distant metastasis in 09/2019. b. Neoadjuvant chemotherapy with FLOT (5FU, Leukovorin, Oxaliplatin, Taxotere) x4 cycles. Poor tolerance. c. Total gastrectomy, right hemicolectomy and left adrenalectomy in 02/2020. yp1,ypN0. MMR intact d. Adjuvant chemotherapy with FLOT x4 cycles done in 05/2020. 2. hx of Cardiomyopathy with global LV EF down to 30% in 2019. a. hx of Recurrent flash pulmonary edema. Seeing senior software qa analyst. 3. Severe anemia due to iron deficiency and GI bleed in 07/2019. a. Persistent anemia post gastric cancer treatment. 4. Vitamin B12 deficiency due to gastrectomy and right hemicolectomy. a. Ongoing borderline level with monthly injections 1000mcg IM. Oral B12 added 09/2021. Level 800s. 5. Adrenal insufficiency. Currently taking hydrocortisone supplement. 6. Small bowel obstruction in 12/2020, 03/2021, 07/2021 with conservative management and resolution. ASSESSMENT/PLAN: 1. Gastric cancer: Admitted 12/2020, 03/2021, 07/2021 for small bowel obstruction. Doing well without further obstruction symptoms or signs of recurrence. Normal small bowel follow through 07/28/21. Most recent CT CAP 09/11/2021 and 03/18/22 sh ows previous small bowel obstruction resolved, no evidence of cancer recurrence or metastatic disease. It has been 2 years since surgery. a. Followup 6 mo labs/office visit and CT scans prior per routine surveillance; then q6m ov; but CT q12m upto 5 years. b. Genetic testing. She does have a family history of gastric cancer in her sister. Has 1 biological son. Refer to genetic counselor for further inherited gene mutation testing. 2. Vitamin B12 deficiency: S/p gastrectomy and right hemicolectomy. Levels remaining low (200s) despite monthly B12 injections, now much improved (800s) with addition of daily oral B12 1000mcg. She may have adequate intrinsic factor production and terminal ileum absorption for oral supplement without injection. a. Continue oral B12 1000mcg/day. Trial off B12 injections, hold since 12/2021. levels are good. 3. Macrocytic anemia with mild leukopenia: Unclear Etiology. Currently normal Iron studies normal, Folate/B12, Zinc and copper. No alcohol intake. Normal bili making hemolysis less likely. a. Low reticulocyte count. Potentially due to previous chemotherapy lingering effects. Continue to monitor. 4. Malnutrition: Wt Is improving now at 57 kg which she is 4 KG higher than 6 months ago. Eating much better. Previously had feeding tube. 6. Diabetes/Adrenal insufficiency: Medical management per testing lead in [facility]. 7. Osteoporosis with L1, L2 Compression Fracture: No associated pain. DEXA 11/20/21 with osteoporosis. a. Considering other endocrine disorders, referred to testing lead for any add'l work up for contributing factors and management. When she presented to the emergency room she came via private vehicle. Temperature was 36.5. Heart rate 65. Blood pressure 146/95, respirations 18, 98% on room air. She is 53.6 kg. She was alert, oriented. A benign physical exam with regards to heart, lung, abdomen. White cell count was 4.4, hemoglobin 11.1. Platelets 173. However sodium was 106. In the EMR, her sodiums have been low normal. Potassium 3.5. BUN 12, creatinine 0.7. Random glucose 146. TSH is 3.78. She does take hydrocortisone, 10 mg in the morning. Unfortunately the hospital has been short staffed, and we have no Medr beds. As such the patient stayed in the emergency room throughout the . The case was discussed extensively between Dr. Ojeda and myself. We went over the clinical treatment of severe hyponatremia. We discussed not raising the sodium more than 6 to 8 mEq in 24 hours. The careful use of hypertonic saline. The possible causes of hyponatremia in this female. And that she is on steroid use. We have opted just resume her usual steroids and not give her stress dose steroids. It is now 11:30 in the morning on the and we are having some discharges and bring her to the patient in early, before staffing is necessarily ready. We are trying to offload the ER. In the ER she has received 3, 100 mL aliquots of hypertonic saline. She is also received hydrocortisone 10 mg IV push once on the . This morning she received p.o. She also has received 1500 cc of normal saline. Spot urine sodium is 107. Serum and urine osmolality are pending. With his treatment her sodium has gone from 106 starting at 15: 45-112 at 905 this morning. She is now admitted to the hospitalist service for further care. History - Past Medical History Cardiovascular: reports: Congestive heart failure, Hypertension, High cholesterol, W[place], Other (cardiac arrest 2019 w [place]) Respiratory: reports: None Neuro: reports: None Endocrine/Autoimmune: reports: Type 2 diabetes, Other (adrenal insufficiency) GI: reports: Hepatitis, Cholelithiasis, Other (gastric cancer w resection and chemo, protein calorie malnutrition) HORSE RACE TIMER: reports: Other () : reports: None HEENT: reports: Chronic vision loss Psych: reports: None Musculoskeletal: reports: Osteoarthritis, Osteoporosis Derm: reports: None MRSA Hx?: No Other Past Medical History: Vitamin B12 deficiency - Past Surgical History General: reports: Cholecystectomy, Gastric surgery, Colonoscopy, EGD, Other (kenzie wel resection) - Family & Social History Family History: Mother: (both had no siginificant medical problem), Father: Family History Comment/Other: pt reports her parents both did not have any significant medical problem. Dad at age 96. Mom at age 83. 1 sister is healthy. Lives in [facility]. Did have a history of unknown type of gastric cancer as well. 2 children are completely healthy Living arrangement: At home Living Situation: With spouse/s.o. Social History Notes: Started smoking approximately 1980 and quit half a pack per day in 1998. No history of alcohol abuse. Born and raised in [facility].No history of recreational substance abuse. Met her [place] has come to the [facility]. She has lived here for over 20 years. Most recently she is lived on [facility] after living in [place]. She and her live in their own home. - Substance History Use: Uses substance without health or social issues: NONE - POLST Patient has POLST: Yes POLST Status: Full Code Meds/Allgy - Home Medications Home Medications: Ambulatory Orders Medication Instructions Recorded Confirmed Atorvastatin [Lipitor] 40 mg PO QPM 09/06/19 07/21/22 Ferrous Sulfate 325 mg PO DAILY 09/06/19 07/21/22 Sacubitril/Valsartan [Entresto 49 1 tab PO BID 10/24/19 07/21/22 mg-51 mg Tablet] Hydrocortisone 10 mg PO DAILY 05/24/20 07/21/22 Metoprolol Succinate [Toprol Xl] 25 mg PO DAILY 12/14/20 07/21/22 Mecobalamin [B12 Active] 1,000 mcg PO DAILY 09/25/21 07/21/22 Ascorbic Acid [Vitamin C] 500 mg PO DAILY 07/21/22 07/21/22 Aspirin Chewable [St Mehrdad 81 mg PO DAILY 07/21/22 07/21/22 Aspirin] Cholecalciferol (Vitamin D3) 25 mcg PO DAILY 07/21/22 07/21/22 [Vitamin D3] Lactobacillus Combination No.4 1 each PO DAILY 07/21/22 07/21/22 [Probiotic] - Allergies Allergies/Adverse Reactions: Allergies Allergy/AdvReac Type Severity Reaction Status Date / Time No Known Drug Allergies Allergy Verified 07/20/22 15:22 Review of Systems - Constitutional Constitutional: reports: Weight loss (She was 59 kg last month.) - Eyes Eyes: reports: Vision loss (As she ages). denies: Pain, Blurred vision - Ears, Nose & Throat Ears, Nose & Throat: denies: Hearing loss, Hearing aids, Nasal obstruction, Nasal congestion, Sore throat, Hoarseness - Cardiovascular Cariovascular: reports: Exertional dyspnea, Decr. exercise tolerance. denies: Irregular heart rate, Palpitations - Respiratory Respiratory: denies: Cough, Sputum production, Wheezing - Gastrointestinal Gastrointestinal: reports: Nausea, Bloating, Poor appetite - Genitourinary Genitourinary: denies: Dysuria, Frequency, Urgency, Hematuria, Incontinence - Musculoskeletal Musculoskeletal: denies: Muscle pain, Back pain, Muscle aches, Stiffness - Integumentary Integumentary: denies: Rash, Pruritis, Lesions - Neurological Neurological: denies: General weakness, Focal weakness, Headache, Memory problem s, Incoordination - Psychiatric Psychiatric: reports: Depression - Endocrine Endocrine: reports: Intolerance to cold. denies: Polyuria, Polydypsia, Polyphagia - Hematologic/Lymphatic Hematologic/Lymphatic: reports: Anemia. denies: Bruising, Petechiae, Blood clots Prior Level of Functionality: Still independent with activities of daily living. Dresses her self, feed herself. Still able to drive a car. No use of durable medical equipment. She lives in her own home with her and has a few steps to get in and out of her house that she does without any issue Exam - Vital Signs Reviewed Vital Signs: Yes Vital Signs: Vital Signs x48h Temp Pulse Resp BP Pulse Ox 07/21/22 09:00 78 13 117/78 99 07/21/22 07:00 36.5 C 81 17 139/85 H 94 07/21/22 05:46 66 15 123/85 H 100 - Physical Exam General Appearance: positive: No acute distress, Alert, Other (Thin Cachectic Upper Sorbian female who looks fatigued, older than stated age) Eyes Bilateral: positive: PERRL, EOMI ENT: positive: Pharynx nml, No signs of dehydration Neck: positive: No JVD, Trachea midline. negative: Lymphadenopathy (L) Respiratory: positive: No respiratory distress. negative: Wheezes, Rales, Rhonchi Cardiovascular: positive: Regular rate & rhythm. negative: Gallop/S4, Friction rub Peripheral Pulses: positive: 1+ Abdomen: positive: Non-tender, No organomegaly, Nml bowel sounds, No distention Skin: positive: Warm, Dry Extremities: positive: Full ROM, No pedal edema, Other (Overall quite thin, reduced muscle mass) Neurologic/Psychiatric: positive: Oriented x3, CN's nml (2-12), Motor nml Conclusion/Plan - Problem List (1) Hyponatremia Conclusion/Plan: Most likely related to mild diarrhea she describes, plus adrenal disease. She does not describe significant fluid shifts other than the mild diarrhea. She is not a cirrhotic, she does not have congestive heart failure. She does not describe water intoxication with excessive water intake. Plan: Reviewed the serum osmolality and urine osmolality when it is available. Spot urine sodium shows excessive loss of sodium through her urine. Continue slow replacement. I will check her sodium later on this afternoon. If it stable or slightly increased will resume hypertonic saline at 100 mL. (2) Adrenal insufficiency Conclusion/Plan: Case discussed with the ER providers multiple times over the last day. We have discussed rapidity of sodium replacement, pitfalls, and whether to do stress dose steroids or not. I have called the Endocrinology office of Dr. Devang Garcia at [phone]. They do not have someone registered occupational therapist today so a message was left for an urgent call back on 12 in the morning. at this time I plan on giving her her usual dose of steroids. . (3) Cardiomyopathy Conclusion/Plan: She does not have any orthopnea, JVD, crackles on exam. No leg edema. Medication list has her on Entresto, Toprol. No diuretic at this time. She appears to be euvolemic. Plan: Resume medication tomorrow. Watch blood pressure. We will find out who her senior software qa analyst is and note that. Qualifiers: Cardiomyopathy type: ischemic Qualified Code(s): I25.5 - Ischemic cardiomyopathy (4) Protein-calorie malnutrition, severe Conclusion/Plan: She has lost about 7 kg in the last month and review of the medical record. Nutrition services to see the patient in the morning. We will consider giving her clear protein boost. (5) Diabetes Conclusion/Plan: Diet controlled. Not on medication for diabetes. In the ER she has been 92, 104, 108. Check A1c, no insulin orders at this time Qualifiers: Diabetes mellitus type: type 2 Diabetes mellitus mcfp insulin use: without rodent exterminator use Diabetes mellitus complication status: without complication Qualified Code(s): E11.9 - Type 2 diabetes mellitus without complications - Lab Results Lab results reviewed: Yes Rick Bones: 07/20/22 15:45 07/21/22 09:05 Core Measures - Anticipated LOS I expect patient to be DC'd or transferred within 96 hours.: Yes - DVT/VTE - Prophylaxis VTE/DVT Prophylaxis med ordered at admit?: Yes
[2022-07-21] MEDS: ENOXAPARIN 40 MG/0.4 ML SYRINGE SUBQ SCH (12:35)
--- NOTE | 2022-07-21 14:55 | PHARMACY PROGRESS NOTE ---
- Best Possible Medication History Admit Date and Time: 07/21/22 1128 Processed by: Pharmacy Medication History completed: Yes Patient Interview: Completed Secondary Source(s): Pharmacy records, Insurance records As the person ultimately responsible for medication therapy, providers are able to order a medication from an existing home medication list in [facility] via the "Reconcile Routine" prior to Confirmation of that medication by air support operations operator. Such practice is discouraged except when the physician, in their clinical judgment, deems that a medical need exists for a medication without regard to previous use.
[2022-07-21] MEDS: SODIUM CHLORIDE FLUSH 0.9% 10 ML SYRINGE IVP SCH (17:02)
[2022-07-21 18:33] LABS: CREATININE 0.6 mg/dL (0.4-1.0); POTASSIUM 3.5 mmol/L (3.5-5.0)
[2022-07-21] MEDS ORDERED: SODIUM CHLORIDE 0.9% 1,000 ML IV SCH (19:13)
[2022-07-22] MEDS: SODIUM CHLORIDE FLUSH 0.9% 10 ML SYRINGE IVP SCH ×2 (04:08→08:20)
[2022-07-22 08:06] LABS: CALCIUM 8.4 mg/dL (8.5-10.3); CREATININE 0.5 mg/dL (0.4-1.0); POTASSIUM 3.3 mmol/L (3.5-5.0)
[2022-07-22] MEDS: METOPROLOL SUCCINATE 25 MG TABLET PO SCH (08:19)
[2022-07-22] MEDS: HYDROCORTISONE 10 MG TABLET PO SCH (08:19)
[2022-07-22] MEDS: ENOXAPARIN 40 MG/0.4 ML SYRINGE SUBQ SCH (08:19)
--- NOTE | 2022-07-22 10:36 | DISCHARGE SUMMARY ---
Discharge Summary Admit Date: 07/21/22 Discharge Date: 07/22/22 Discharging Provider: Josefina Carmona MD Primary Care Provider: Marina Schaefer [facility] Clinic Code Status: Do Not Attempt Resuscitation Condition at Discharge: Stable Discharge Disposition: 01 Home, Self Care - DIAGNOSES Discharge Diagnoses with Status of Each Condition: 1. Hyponatremia 2. Adrenal insufficiency 3. Ischemic cardiomyopathy 4. Severe protein calorie malnutrition 5. Type 2 diabetes mellitus, controlled, without long-term use of insulin 6. Hypokalemia - HPI History of Present Illness: Please see detailed dictated history and physical. The patient was here less than 2 midnights. - HOSPITAL COURSE Hospital Course: When she was transferred from the emergency room to [facility] sodium had gone to 108 at midnight to 112 at 9 in the morning. I was contacted to admit the patien t and at 6 in the evening she was 118. By then she was only on normal saline. Normal saline rate was reduced from 200 cc an hour in the ER to 100 cc an hour on [facility]. On the morning of discharge sodium had come up to 126 and she had a potassium of 3.3. As such patient is stable for discharge. She has no more nausea. Her main concern is malnutrition. She is very fixated that her diabetes must be controlled by a low-carb low calorie diet. She is lost 4 kg between last month and this month. Nutrition services has been working with her for years now and is reassured her that diabetes is not a problem right now. Her malnutrition is. She has been strongly encouraged to make sure she increases her caloric intake, especially with protein, to increase her weight. Her had many questions about vitamin B12 supplementation and potassium supplementation. These were instructions from the oncologist that he was questioning. I explained that maybe he should speak to the oncologist about those questions. At discharge the patient is a thin Telugu female, alert and oriented. Eating breakfast, sitting up in her chair, and already able to have gotten up to the bathroom by herself. Temperature is 36.6. Heart rate 85. Blood pressure 122/84. 100% on room air. Lungs are clear to auscultation and percussion. No labored respiration. She is regular rate and rhythm. The abdomen is soft, scaphoid, and there is evidence of cachexia with reduced muscle mass, thin body, and scaphoid abdomen. Normal bowel sounds. She is discharged in stable condition. Asked to follow-up with her primary care provider for continuity of care. I have asked her to follow-up with her endo crinologist to make sure that her adrenal insufficiency is addressed. All we did was give her hypertonic saline and normal saline and her usual maintenance dose of steroids. My suspicion that is her fluid intake - ALLERGIES Allergies/Adverse Reactions: Allergies Allergy/AdvReac Type Severity Reaction Status Date / Time No Known Drug Allergies Allergy Verified 07/20/22 15:22 - MEDICATIONS Home Medications: Ambulatory Orders Medication Instructions Recorded Confirmed Atorvastatin [Lipitor] 40 mg PO QPM 09/06/19 07/21/22 Ferrous Sulfate 325 mg PO DAILY 09/06/19 07/21/22 Sacubitril/Valsartan [Entresto 49 1 tab PO BID 10/24/19 07/21/22 mg-51 mg Tablet] Hydrocortisone 10 mg PO DAILY 05/24/20 07/21/22 Metoprolol Succinate [Toprol Xl] 25 mg PO DAILY 12/14/20 07/21/22 Mecobalamin [B12 Active] 1,000 mcg PO DAILY 09/25/21 07/21/22 Ascorbic Acid [Vitamin C] 500 mg PO DAILY 07/21/22 07/21/22 Aspirin Chewable [St Mehrdad 81 mg PO DAILY 07/21/22 07/21/22 Aspirin] Cholecalciferol (Vitamin D3) 25 mcg PO DAILY 07/21/22 07/21/22 [Vitamin D3] Lactobacillus Combination No.4 1 each PO DAILY 07/21/22 07/21/22 [Probiotic] - LABS Result Diagrams: 07/20/22 15:45 07/22/22 07:53
--- NOTE | 2022-07-22 10:53 | Discharge Plan ---
Discharge Plan Problem Reviewed?: Yes Disposition: Home, Self Care Condition: Fair Prescriptions: Potassium Chloride Oral Soln [Potassium Chloride] 20 meq PO 0800 #450 ml Diet: Regular Activity Restrictions: No Restrictions Health Concerns: You came to our emergency room because you were having some nausea and weakness. Unfortunately you have a long complicated medical history where you have an ischemic cardiomyopathy after cardiac arrest in 2019, diet-controlled diabetes, and a gastrectomy for cancer in 2019. Your stomach has been removed and you malabsorb certain vitamins. When we evaluated you in the emergency room we found you to have a low sodium to 106. While people can have low sodiums and feel comfortable, 106 can actually give you seizures. You do have adrenal insufficiency and we postulate that part of the problem is a too restrictive diet, and lack of absorption of the hydrocortisone. We gently and slowly elevated your sodium. You cannot raise sodium too quickly. If you do it results in something called central pontine myelinolysis which is a type of brain damage to the nerves. It took us 3 days between the emergency room and [facility] to elevate your sodium to 126. Normal sodium is 135. Although you have been low in the past at 131 and 133, this is the lowest you have ever been. You are now stable for discharge. Your potassium is on the low side at 3.3 on the morning of discharge and you were given some potassium. You relate to us that your has questions about potassium supplementation and vitamin B12 supplementation. You stated that you were instructed on how to take medicines by Dr. Davis Plan of Treatment: 1. I have given you oral potassium to take over the next few days. You will have lots of potassium left over just in case you need some down the road. If you were ever given a potassium tablet or capsule, it is okay to take that. All you have to do is dissolved in water or applesauce and swallow it that way. 2. As for questions about your vitamin B12 supplementation, B12 can be absorbed underneath the tongue or through injection or by mouth through your small bowel. You still have intrinsic factor left in your small bowel. So you could be taking vitamin B12 through any of the ways it can be delivered. 3. Please see Dr. Bentley in follow-up when you are regularly scheduled 4. Please see your laundry supervisor in follow-up. They will need to check your sodium and potassium. They may need to adjust your steroid medication on the basis of your sodium and potassium. I did leave a message for them to call me on the morning of discharge. They have no one paraprofessional education assistant on the weekends. I call them July 21. I left a message for them to call me July 22 and as of discharge they have not returned my phone call. When they do call, I will update them on your case. 5. If you cannot get into see your laundry supervisor, please go to the [facility] to have your blood drawn there. They would need to do a BMP. Care Goals: To have normal sodium and potassium levels through home management Assessment: Patient is alert, oriented, making her own decisions. Sometimes I have to speak slowly because of Austrian/Frisian language barrier. However she does speak Austrian and states that she understands what I am saying and repeats my instructions back. No Smoking: If you smoke, Please STOP! Call for help. Follow-up with: ERNESTINA YIN ARNP [Primary Care Provider] -
[2022-07-22] MEDS ORDERED: POTASSIUM CHLORIDE 20 MEQ/15 ML UDC PO SCH (11:00)
[2022-07-22 11:40] VITALS: BP 124/80
[2022-07-22 16:08] LABS: OSMOLALITY 225 mOsmol/kg (275-295); OSMOLALITY URINE 557 mOsmol/kg (.)
--- NOTE | 2022-08-01 15:26 | ED Physician Documentation ---
ED Addendum - Addendum Addendum: Note for 07/21/22 Patient received in signout.She has been boarding in the emergency department for the treatment of hyponatremia. She was admitted to the hospitalist service during the earlier portion of my shift. Dr. Ojeda had spoken to Dr. Carmona already yesterday But there were no beds so she was already aware of the patient And placed orders.
--- NOTE | 2022-08-01 15:27 | ED Physician Documentation ---
Departure - Departure Disposition: [facility] DC/Xfer Clinical Impression: Nausea, Hyponatremia Condition: Fair Discharge Date/Time: 07/21/22 13:00
== END 2022-07-22 13:49 | disposition home or self-care (01) | DRG 640 ==
LOC: ED 15:13 → MS2 07-21 11:28
PROVIDERS: ADMIT Specialist; ATTEND Specialist
DX: E87.1 Hypo-osmolality and hyponatremia (principal); E43 Unspecified severe protein-calorie malnutrition; E27.40 Unspecified adrenocortical insufficiency; Z68.1 Body mass index [BMI] 19.9 or less, adult; I25.5 Ischemic cardiomyopathy; E11.9 Type 2 diabetes mellitus without complications; E87.6 Hypokalemia; Z85.028 Personal history of other malignant neoplasm of stomach; Z90.49 Acquired absence of other specified parts of digestive tract; Z87.891 Personal history of nicotine dependence; I11.0 Hypertensive heart disease with heart failure; I50.9 Heart failure, unspecified; I25.2 Old myocardial infarction; E78.00 Pure hypercholesterolemia, unspecified; Z20.822 Contact with and (suspected) exposure to COVID-19
CPT/HCPCS: 36415; 80048; 80053; 81001; 83690; 83735; 83930; 83935; 84295; 84300; 84443; 85025; 87086; 87633; 96361; 96374; 99284; 99285; A9270; J1650; 81003

== ENCOUNTER 2022-07-31 11:13 | Outpatient (CLI) | payer OTHER | END 2022-07-31 11:14 | disposition home or self-care (01) | LOC: LAB 11:13 | PROVIDERS: ATTEND Internal Medicine Endocrinology, Diabetes & Metabolism | DX: E27.49 Other adrenocortical insufficiency (principal) | CPT/HCPCS: 36415; 82533; 84295 ==

== ENCOUNTER 2022-10-24 05:57 | Inpatient (IN) | payer OTHER ==
[2022-10-24] MEDS ORDERED: ONDANSETRON 4 MG/2 ML VIAL IVP STA (06:20)
--- NOTE | 2022-10-24 06:20 | ED Physician Documentation ---
History of Present Illness - Stated complaint Stated Complaint: ABD PX/NAUSEA - Additonal information Additional information: Patient is 62-year-old female presenting to the emergency department with chief complaints of abdominal pain with associated nausea vomiting. Past medical significant for CHF, CAD, type 2 diabetes, gastric cancer status post Gastrectomy with bypass, small bowel obstruction and hospitalization for hyponatremia. Reports abdominal pain with nausea vomiting that began yesterday. Last p.o. intake was yesterday at 5 PM.Denies fever or chest pain. Review of Systems Constitutional: denies: Fever Eyes: denies: Loss of vision Ears: denies: Loss of hearing Nose: denies: Rhinorrhea / runny nose Throat: denies: Dental pain / toothache Cardiac: denies: Chest pain / pressure GI: reports: Abdominal Pain, Nausea, Vomiting, Diarrhea PD PAST MEDICAL HISTORY - Past Medical History Cardiovascular: Congestive heart failure, Hypertension, High cholesterol, PR, Other (cardiac arrest 2019 w PR) Respiratory: None Neuro: None Endocrine/Autoimmune: Type 2 diabetes, Other (adrenal insufficiency) GI: Hepatitis, Cholelithiasis, Other (gastric cancer w resection and chemo, protein calorie malnutrition) 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 () : None HEENT: Chronic vision loss Psych: None Musculoskeletal: Osteoarthritis, Osteoporosis Derm: None - Past Surgical History Past Surgical History: Yes General: Cholecystectomy, Gastric surgery, Colonoscopy, EGD, Other (bowel resection) - Present Medications Home Medications: Ambulatory Orders Medication Instructions Recorded Confirmed Atorvastatin [Lipitor] 40 mg PO QPM 09/06/19 10/24/22 Ferrous Sulfate 325 mg PO DAILY 09/06/19 10/24/22 Sacubitril/Valsartan [Entresto 49 1 tab PO BID 10/24/19 10/24/22 mg-51 mg Tablet] Hydrocortisone 20 mg PO UD 05/24/20 10/24/22 Metoprolol Succinate [Toprol Xl] 25 mg PO DAILY 12/14/20 10/24/22 Mecobalamin [B12 Active] 1,000 mcg PO DAILY 09/25/21 10/24/22 Ascorbic Acid [Vitamin C] 500 mg PO DAILY 07/21/22 10/24/22 Aspirin Chewable [St Mehrdad 81 mg PO DAILY 07/21/22 10/24/22 Aspirin] Cholecalciferol (Vitamin D3) 25 mcg PO DAILY 07/21/22 10/24/22 [Vitamin D3] Lactobacillus Combination No.4 1 each PO DAILY 07/21/22 10/24/22 [Probiotic] Potassium Chloride Oral Soln 20 meq PO 0800 #450 ml 07/22/22 10/24/22 [Potassium Chloride] - Allergies Allergies/Adverse Reactions: Allergies Allergy/AdvReac Type Severity Reaction Status Date / Time No Known Drug Allergies Allergy Verified 10/24/22 06:22 - Social History Does the pt smoke?: Yes Smoking Status: Former smoker Does the pt drink ETOH?: No Does the pt have substance abuse?: No - Immunizations Immunizations are current?: Yes - POLST Patient has POLST: Yes POLST Status: Full Code PD ED PE NORMAL - Vitals Vital signs reviewed: Yes - General General: Other (Patient laying on gurney moaning) - HEENT HEENT: Atraumatic, PERRL - Neck Neck: Supple, no meningeal sign - Cardiac Cardiac: RRR - Respiratory Respiratory: No respiratory distress - Abdomen Abdomen: Normal bowel sounds - Female Female : Deferred - Rectal Rectal: Deferred - Derm Derm: Normal color - Extremities Extremities: No deformity Results - Vitals Vitals: Vital Signs - 24 hr 10/24/22 10/24/22 10/24/22 06:05 06:44 07:38 Temperature 36.1 C L Heart Rate 51 L 77 87 Respiratory 20 19 14 Rate Blood Pressure 106/63 108/84 H 121/79 O2 Saturation 94 100 98 10/24/22 10/24/22 10/24/22 08:24 08:30 09:21 Temperature 37.1 C Heart Rate 81 79 88 Respiratory 11 L 18 13 Rate Blood Pressure 116/66 151/78 H O2 Saturation 99 92 100 10/24/22 10/24/22 10:33 11:17 Temperature Heart Rate 82 97 Respiratory 21 14 Rate Blood Pressure 130/78 107/71 O2 Saturation 98 100 Oxygen O2 Source Room air - EKG (time done) 0630 EKG releavant findings:: EKG personally interpreted by author of this note. Relevant findings are: Sinus rhythm with rate 82 bpm. Normal axis. Normal VT, QRS, QTc intervals. No ST segment elevations. Diffuse ST depressions noted in the precordial and inferior leads. ST depressions are new finding in comparison to previous 05/28/2022. - Labs Labs: Laboratory Tests 10/24/22 10/24/22 10/24/22 06:21 06:27 06:48 WBC 5.3 RBC 4.28 Hgb 13.6 Hct 43.4 MCV 101.4 H MCH 31.8 H MCHC 31.3 L RDW 13.1 Plt Count 241 MPV 10.6 Neut # (Auto) 3.9 Lymph # (Auto) 1.1 L Pratt # (Auto) 0.2 Eos # (Auto) 0.1 Baso # (Auto) 0.0 Absolute Nucleated RBC 0.00 Nucleated RBC % 0.0 PT INR VBG pH VBG pCO2 VBG pO2 VBG HCO3 VBG Total CO2 VBG O2 Saturation VBG Base Excess Sodium Potassium Chloride Carbon Dioxide Anion Gap BUN Creatinine Estimated GFR (MDRD) Glucose Lactic Acid 4.6 H* Calcium Total Bilirubin AST ALT Alkaline Phosphatase Troponin I High Sens 4.3 Total Protein Albumin Globulin Albumin/Globulin Ratio Lipase Urine Color Urine Clarity Urine pH Ur Specific [place] Urine Protein Urine Glucose (UA) Urine Ketones Urine Occult Blood Urine Nitrite Urine Bilirubin Urine Urobilinogen Ur Leukocyte Esterase Ur Microscopic Review Urine Culture Comments SARS-CoV-2 (PCR) 10/24/22 10/24/22 10/24/22 06:48 06:48 06:54 WBC RBC Hgb Hct MCV MCH MCHC RDW Plt Count MPV Neut # (Auto) Lymph # (Auto) Pratt # (Auto) Eos # (Auto) Baso # (Auto) Absolute Nucleated RBC Nucleated RBC % PT 10.6 INR 0.9 VBG pH VBG pCO2 VBG pO2 VBG HCO3 VBG Total CO2 VBG O2 Saturation VBG Base Excess Sodium 134 L Potassium 3.8 Chloride 102 Carbon Dioxide 15 L Anion Gap 17.0 H BUN 32 H Creatinine 1.2 H Estimated GFR (MDRD) 46 L Glucose 182 H Lactic Acid Calcium 9.4 Total Bilirubin 1.0 AST 91 H ALT 153 H Alkaline Phosphatase 92 Troponin I High Sens Total Protein 7.6 Albumin 4.7 Globulin 2.9 Albumin/Globulin Ratio 1.6 Lipase 45 Urine Color Urine Clarity Urine pH Ur Specific [place] Urine Protein Urine Glucose (UA) Urine Ketones Urine Occult Blood Urine Nitrite Urine Bilirubin Urine Urobilinogen Ur Leukocyte Esterase Ur Microscopic Review Urine Culture Comments SARS-CoV-2 (PCR) NOT DETECTED 10/24/22 10/24/22 07:30 09:15 WBC RBC Hgb Hct MCV MCH MCHC RDW Plt Count MPV Neut # (Auto) Lymph # (Auto) Pratt # (Auto) Eos # (Auto) Baso # (Auto) Absolute Nucleated RBC Nucleated RBC % PT INR VBG pH 7.271 L VBG pCO2 32.5 L VBG pO2 32.8 VBG HCO3 14.6 L VBG Total CO2 15.6 L VBG O2 Saturation 58.5 L VBG Base Excess -11.2 L Sodium Potassium Chloride Carbon Dioxide Anion Gap BUN Creatinine Estimated GFR (MDRD) Glucose Lactic Acid Calcium Total Bilirubin AST ALT Alkaline Phosphatase Troponin I High Sens Total Protein Albumin Globulin Albumin/Globulin Ratio Lipase Urine Color DARK YELLOW Urine Clarity CLEAR Urine pH 5.0 Ur Specific [place] 1.025 Urine Protein NEGATIVE Urine Glucose (UA) NEGATIVE Urine Ketones TRACE Urine Occult Blood NEGATIVE Urine Nitrite NEGATIVE Urine Bilirubin NEGATIVE Urine Urobilinogen 0.2 (NORMAL) Ur Leukocyte Esterase NEGATIVE Ur Microscopic Review NOT INDICATED Urine Culture Comments NOT INDICATED SARS-CoV-2 (PCR) PD Medical Decision Making - ED course Complexity details: reviewed old records ED course: Patient is a 62-year-old female with past medical significant for partial gastrectomy and bypass secondary to gastric carcinoma and small bowel obstruction presenting to the emergency department with acute abdominal pain. Patient moderately distressed on arrival but otherwise hemodynamically stable. Distention and diffuse tenderness without peritoneal indications on exam. I have ordered for IV access. Patient's initial labs do demonstrate an elevation in lactic acid which is concerning for recurrent small bowel obstruction. I have ordered medication for pain control. I will be signing out to the oncoming physician. I have deferred decision for fluid resuscitation to the oncoming physician given the patient's history of critical hyponatremia as her comprehensive metabolic panel is pending at this time. Departure - Departure Disposition: ED Transfer to [facility] Clinical Impression: Small bowel obstruction, Small bowel ischemia Condition: Critical Discharge Date/Time: 10/24/22 12:23
[2022-10-24] MEDS ORDERED: fentaNYL 100 MCG/2 ML VIAL IVP PRN ×2 (06:21→15:36)
[2022-10-24 06:33] LABS: BASOPHILS % (AUTO) 0.6 %; EOSINOPHILS # (AUTO) 0.1 10^3/uL (0.0-0.7); EOSINOPHILS % (AUTO) 0.9 %; HCT - HEMATOCRIT 43.4 % (37.0-47.0); HGB - HEMOGLOBIN 13.6 g/dL (12.0-16.0); LYMPHOCYTES # (AUTO) 1.1 10^3/uL (1.5-3.5); LYMPHOCYTES % (AUTO) 20.9 %; MEAN CORPUSCULAR HEMOGLOBIN 31.8 pg (27.0-31.0); MEAN CORPUSCULAR HGB CONC 31.3 g/dL (32.0-36.0); MEAN CORPUSCULAR VOLUME 101.4 fL (81.0-99.0); MEAN PLATELET VOLUME 10.6 fL (7.9-10.8); MONOCYTES # (AUTO) 0.2 10^3/uL (0.0-1.0); MONOCYTES % (AUTO) 4.2 %; NEUTROPHILS # (AUTO) 3.9 10^3/uL (1.5-6.6); PLT - PLATELET COUNT 241 10^3/uL (130-450); RED BLOOD COUNT 4.28 10^6/uL (4.20-5.40); RED CELL DISTRIBUTION WIDTH 13.1 % (12.0-15.0); WHITE BLOOD COUNT 5.3 x10^3/uL (4.8-10.8)
[2022-10-24] MEDS ORDERED: iohexoL-300 100 ML VIAL ONE (06:42)
[2022-10-24 07:03] LABS: INR 0.9 (0.8-1.2); PT - PROTHROMBIN TIME 10.6 secs (9.9-12.6)
[2022-10-24 07:10] LABS: ALBUMIN 4.7 g/dL (3.2-5.5); ALBUMIN/GLOBULIN RATIO 1.6 (1.0-2.2); CALCIUM 9.4 mg/dL (8.5-10.3); CREATININE 1.2 mg/dL (0.4-1.0); POTASSIUM 3.8 mmol/L (3.5-5.0); TOTAL PROTEIN 7.6 g/dL (6.7-8.2)
[2022-10-24] MEDS ORDERED: HYDROmorphone 1 MG/ML CARPUJECT IVP STA ×2 (07:33→10:55)
[2022-10-24] MEDS ORDERED: DROPERIDOL 5 MG/2 ML VIAL IVP STA (07:47)
[2022-10-24 07:49] LABS: BILIRUBIN,URINE NEGATIVE (NEGATIVE); GLUCOSE, URINE (UA) NEGATIVE (NEGATIVE); KETONES,URINE (UA) TRACE mg/dL (NEGATIVE); LEUKOCYTE ESTERASE, URINE NEGATIVE (NEGATIVE); NITRITE,URINE NEGATIVE (NEGATIVE); OCCULT BLOOD,URINE NEGATIVE (NEGATIVE); PROTEIN,URINE NEGATIVE (NEGATIVE); UROBILINOGEN,URINE 0.2 (NORMAL) E.U./dL (NORMAL)
[2022-10-24 07:51] LABS: CLARITY,URINE CLEAR (CLEAR)
[2022-10-24] MEDS ORDERED: iohexoL-300 100 ML VIAL IVP ONE (08:13)
[2022-10-24] MEDS ORDERED: PIPERACILLIN/TAZOBACTAM 4.5 GM in SODIUM CHLORIDE 0.9% MINIBAG 100 ML IV STA (08:32)
[2022-10-24] MEDS ORDERED: SODIUM CHLORIDE 0.9% 1,000 ML IV STA ×2 (08:37)
--- NOTE | 2022-10-24 08:38 | CT Report ---
PROCEDURE: ABDOMEN/PELVIS W INDICATIONS: SBO CONTRAST: 100ml Omnipaque 300 TECHNIQUE: After the administration of intravenous contrast, 5 mm thick sections acquired from the diaphragms to the symphysis. 5 mm thick coronal and sagittal reformats were acquired. For radiation dose reducti on, the following was used: automated exposure control, adjustment of mA and/or kV according to xochilt ent size. COMPARISON: 09/16/2022 FINDINGS: Image quality: Excellent. ABDOMEN: Lung bases: Lung bases are clear. Heart size is normal. Solid organs: Liver and spleen are normal in size and enhancement. Gallbladder is absent. Biliary system is non dilated. Pancreas enhances normally. No adrenal nodules. Kidneys demonstrate normal size and enhancement, without hydronephrosis. Peritoneum and bowel: There is significant distention of the small bowel, with 2 transition points wi thin the mid abdomen with associated mesenteric swirling (). Long segment of significant bowel wa ll edema with poor enhancement. Large bowel is decompressed. Prior gastric bypass. Nodes and vessels: No retroperitoneal or mesenteric adenopathy by size criteria. Aorta and inferior vena cava are normal in size. Miscellaneous: No ventral hernias. PELVIS: Genitourinary: Bladder wall thickness is normal. Miscellaneous: No inguinal hernias or adenopathy. Bones: Osteoporosis. Compression deformities of the L1, T12, T11 and T10 vertebral bodies are similar to prior. IMPRESSION: Closed-loop bowel obstruction with findings of bowel ischemia. Internal hernia/volvulus is suspected given swirling mesentery. Dr. Jaden Diaz spoke with the ER provider regarding these findings on 10/24/2022 at 8:32 AM. Reviewed by: Jaden Diaz on 10/24/2022 8:36 AM PDT Approved by: Jaden Diaz on 10/24/2022 8:36 AM PDT Station ID: [id number]
[2022-10-24 09:21] LABS: VBG BASE EXCESS -11.2 mmol/L (-2 - +2); VBG HCO3 14.6 mmol/L (23-28); VBG OXYGEN SATURATION 58.5 % (60-80); VBG PCO2 32.5 mmHg (41-51); VBG PH 7.271 (7.31-7.41); VBG PO2 32.8 mmHg (25-47); VBG TOTAL CO2 15.6 mmol/L (24-29)
[2022-10-24] MEDS ORDERED: MIDAZOLAM 2 MG/2 ML VIAL ONE (11:26)
[2022-10-24] MEDS ORDERED: fentaNYL 100 MCG/2 ML VIAL ONE (11:27)
[2022-10-24] MEDS ORDERED: SODIUM CHLORIDE FLUSH 0.9% 10 ML SYRINGE IVP PRN (12:01)
[2022-10-24] MEDS ORDERED: metroNIDAZOLE 500 MG/100 ML 500 MG/100 ML BAG IV ONE (12:01)
[2022-10-24] MEDS ORDERED: NOREPINEPHRINE/0.9 % NS 8 MG/250 ML BAG IV ONE (12:20)
[2022-10-24] MEDS ORDERED: SODIUM CHLORIDE 0.9% 10 ML VIAL IVP ONE (12:25)
[2022-10-24] MEDS ORDERED: CEFAZOLIN 2G/50ML 0.9% NS 2 GM/50 ML BAG IV ONE (12:30)
--- NOTE | 2022-10-24 12:45 | ED Physician Documentation ---
ED Addendum - Addendum Addendum: 10/24/22 12:37 This patient was signed out to me by Dr. Schaefer at change of shift, pending final results of CT scan and also, labs. The patient had presented to the emergency department with nausea vomiting and increasing abdominal pain that had started yesterday. She has a complicated abdominal history which includes gastric cancer, gastrectomy, and gastric bypass, as well as cholecystectomy and multiple subsequent small bowel obstructions. The patient had had minimal output per rectum over the last 24 hours. I did go and evaluate the patient who appeared quite ill and very uncomfortable. She had responded somewhat to IV analgesia, but was still very nauseated. The patient was given Dilaudid and a dose of droperidol here. Her labs were fairly unremarkable, With the exception of a lactic acid level of over 4, but her CT scan showed findings concerning for small bowel obstruction in a closed-loop fashion with possible volvulus and definite ischemia. The patient was started on Zosyn and I did speak with Dr. Granados, her on-call surgeon, who was very willing to take the patient to the OR, but needed to have a bed available With certainty, as the patient will most definitely need to stay in the hospital after surgery. As we did not have an appropriate level of care bed available open, request was made the patient be urgently transferred instead. I did speak with multiple facilities, including [facility], as well as checking with [facility] on multiple other facilities but nobody had a bed. In the meantime, Dr. Talley was able to work with the nursing permanent mold supervisor to open up a bed for this patient, and she did agree to accept the patient after all and take her to the operating room. NG tube had been placed and the patient's comfort level was improved after this and medications. She is agreeable to the plan. Final impression: 1. Small bowel obstruction 2. Small bowel ischemia 3. Volvulus Disposition: Admit to surgery in critical condition.
[2022-10-24] MEDS ORDERED: metroNIDAZOLE 500 MG/100 ML 500 MG/100 ML BAG ONE (13:18)
[2022-10-24] MEDS ORDERED: ONDANSETRON 4 MG/2 ML VIAL IVP ONE (13:20)
[2022-10-24] MEDS ORDERED: ROCURONIUM 50 MG/5 ML VIAL IVP ONE (13:20)
[2022-10-24] MEDS ORDERED: SUCCINYLCHOLINE 200 MG/10 ML VIAL IVP ONE (13:20)
[2022-10-24] MEDS ORDERED: PROPOFOL 200 MG/20 ML VIAL IVP ONE (13:20)
[2022-10-24] MEDS ORDERED: ePHEDrine 50 MG/ML VIAL IVP ONE (13:20)
[2022-10-24] MEDS ORDERED: ceFAZolin 1 GM VIAL ONE (13:29)
[2022-10-24] MEDS ORDERED: HYDROCORTISONE SUCCINATE 100 MG/2 ML VIAL ONE (13:29)
[2022-10-24] MEDS ORDERED: BUPIVACAINE 0.25%-EPI 1:200000 PF 30 ML VIAL SUBQ ONE ×2 (13:33)
[2022-10-24] MEDS ORDERED: LIDOCAINE MPF 2%-EPI 1:200000 20 ML VIAL SUBQ ONE ×2 (13:35)
[2022-10-24 13:37] LABS: BASOPHILS % (AUTO) 0.8 %; EOSINOPHILS % (AUTO) 1.6 %; HCT - HEMATOCRIT 29.8 % (37.0-47.0); HGB - HEMOGLOBIN 9.5 g/dL (12.0-16.0); LYMPHOCYTES # (AUTO) 0.5 10^3/uL (1.5-3.5); LYMPHOCYTES % (AUTO) 20.7 %; MEAN CORPUSCULAR HEMOGLOBIN 31.9 pg (27.0-31.0); MEAN CORPUSCULAR HGB CONC 31.9 g/dL (32.0-36.0); MEAN PLATELET VOLUME 10.1 fL (7.9-10.8); MONOCYTES # (AUTO) 0.2 10^3/uL (0.0-1.0); MONOCYTES % (AUTO) 6.4 %; NEUTROPHILS # (AUTO) 1.8 10^3/uL (1.5-6.6); NEUTROPHILS % (AUTO) 70.5 %; PLT - PLATELET COUNT 176 10^3/uL (130-450); RED BLOOD COUNT 2.98 10^6/uL (4.20-5.40); RED CELL DISTRIBUTION WIDTH 13.1 % (12.0-15.0); WHITE BLOOD COUNT 2.5 x10^3/uL (4.8-10.8)
[2022-10-24 13:38] LABS: RBC MORPHOLOGY (MULTIPLE) 1+ ANISOCYTOSIS (NORMAL); SLIDE REVIEW? Indicated
[2022-10-24 13:41] LABS: ALBUMIN/GLOBULIN RATIO 1.6 (1.0-2.2); BILIRUBIN,TOTAL 0.6 mg/dL (0.2-1.0); CALCIUM 7.3 mg/dL (8.5-10.3); CREATININE 0.6 mg/dL (0.4-1.0); TOTAL PROTEIN 4.9 g/dL (6.7-8.2)
[2022-10-24 13:52] LABS: ABG PCO2 41 mmHg (34-45); ABG PH 7.23 (7.35-7.45); ABG PO2 311 mmHg (80-100)
[2022-10-24 13:53] LABS: ABG BASE EXCESS -10.1 mmol/L (-2.0-3.0); ABG HCO3 16.9 mmol/L (22.0-26.0); ABG OXYGEN SATURATION 95 % (94-98); ABG TCO2 18.1 MMOL/L (21.0-29.0)
[2022-10-24] MEDS ORDERED: PHENOL THROAT SPRAY 177 ML MM PRN (14:37)
--- NOTE | 2022-10-24 14:49 | PROVIDER PROGRESS NOTE ---
Progress Note H&P on paper in chart.
[2022-10-24] MEDS ORDERED: SUGAMMADEX 200 MG/2 ML VIAL IVP ONE (14:50)
--- NOTE | 2022-10-24 14:52 | OPERATIVE REPORT ---
Operative Report - General Admit Date: 10/24/22 Procedure Date: 10/24/22 Planned Procedure: exploratory laparotomy Pre-Op Diagnosis: small bowel obstruction Procedure Performed: exploratory laparotomy with lysis of adhesions Post Op Diagnosis: small bowel obstruction - Procedure Note Primary Surgeon: Dr. Airam Talley Secondary Surgeon: Dr. Tayo Hernández Anesthesia Technique: General ET tube, Local Pathology: none Estimated Blood Loss (mL): 20 Indications: Patient has chronic abdominal pain. She presented with a 24-hour history of acutely worsened abdominal pain. Her pain is sharp and constant in nature. It is associated with nausea and vomiting. CT scan done in the emergency department is consistent with an acute small bowel obstruction, concerning for closed-loop obstruction with ischemia. For this, I was called. I discussed the findings with the patient and her . We discussed the risks, benefits, and alternatives of exploratory laparotomy with possible bowel resection and possible ostomy.Risks include but are not limited to bleeding, infection, damage to surrounding structures, and the need for further surgeries or procedures. The patient and her voiced understanding, their questions were answered, and they wish to proceed. A consent was signed by the patient in the emergency department. Findings: 1.Small bowel obstruction 2.Lead point had adhesions and jejunostomy site in the right mid abdomen 3.Viable bowel Complications: None - Other Other Information/Narrative: Patient was taken to the operative suite. General anesthesia was induced and the patient was prepped and draped in the usual sterile fashion. Prior to prepping, Trammell catheter and arterial line were placed. The patient had 2 large-bore IVs with good peripheral access. I asked Dr. Tayo Hernández to assist with the case due to the patient's complex surgical history. Once the patient was prepped and draped, an incision was planned along the midline. A 10 cm incision centered about the umbilicus was made using a 10 blade scalpel. The incision was carried down through the skin and subcutaneous tissues through the fascia. The fascia was opened and chylous ascites was noted. A moderate amount of chylous fluid was suctioned free from the abdomen the bowel. Chronically dilated but viable throughout. An adhesion was noted in the right mid abdomen at the site of the patient's previous jejunostomy. The bowel was dissected free from the abdominal wall in this location. There was a second adhesion at adjacent to this that was also taken down. The bowel was then run from proximal to distal from the esophago-jejeunal anastomosis to the ileocolic anastomosis. The proximal bowel was definitely di lated, and had a chylous appearance. However, the bowel was clearly viable throughout. In the location where the bowel had been adherent to the abdominal wall at the site of the patient's previous jejunostomy, 2 Lembert sutures were placed to reinforce the bowel. Was no enterotomy. The abdomen was then irrigated with 2 L of warm normal saline. 2, 0 PDS sutures were used to close the midline incision starting at the superior and inferior aspect in a running fashion. The subcutaneous tissues were irrigated with warm normal saline, and then the skin edges were reapproximated with a skin stapler. A sterile dressing was placed. Trammell catheter, art line, and central line were in place at the end of the procedure. She was extubated and transferred to the ICU in guarded condition. No complications.
[2022-10-24] MEDS ORDERED: SODIUM CHLORIDE 0.9% 600 ML IV ONE (14:58)
[2022-10-24] MEDS ORDERED: LACTATED RINGERS 1,000 ML IV ONE (14:58)
--- NOTE | 2022-10-24 15:35 | ANESTHESIA ---
Pre-Anesthesia VS, & Labs - Diagnosis SBO - Procedure Exploratory laparotomy Vital Signs: Temp Pulse Resp BP Pulse Ox O2 Flow Rate 36.6 C 92 14 134/69 H 100 10/24/22 15:15 10/24/22 15:15 10/24/22 15:15 10/24/22 15:15 10/24/22 15:15 Height: 5 ft 2 in Weight (kg): 55.9 kg Body Mass Index: 22.5 BMI Classification: Normal - NPO >8 hours, Other (full stomach due to bowel obstruction) - Is Patient ?: No - Lab Results Current Lab Results: Laboratory Tests 10/24/22 15:02: POC Whole Bld Glucose 145 H 10/24/22 13:50: Lactic Acid 0.7 10/24/22 13:40: Blood Type B POSITIVE, Antibody Screen NEGATIVE 10/24/22 13:35: Bld Gas Analysis Time 1335, Sample Site A-LINE, ABG pH 7.23 L, ABG pCO2 41, ABG pO2 311 H*, ABG HCO3 16.9 L, ABG Total CO2 18.1 L, ABG O2 Saturation 95, ABG Base Excess -10.1 L, Salvador Test NOT APPLICABLE 10/24/22 13:20: WBC 2.5 L, RBC 2.98 L, Hgb 9.5 L, Hct 29.8 L, MCV 100.0 H, MCH 31.9 H, MCHC 31.9 L, RDW 13.1, Plt Count 176, MPV 10.1, Neut # (Auto) 1.8, Lymph # (Auto) 0.5 L, Richardson # (Auto) 0.2, Eos # (Auto) 0.0, Baso # (Auto) 0.0, Absolute Nucleated RBC 0.00, Nucleated RBC % 0.0, Manual Slide Review Indicated, RBC Morph Micro Appear 1+ ANISOCYTOSIS 10/24/22 13:20: Sodium 136, Potassium 4.0, Chloride 112 H, Carbon Dioxide 18 L, Anion Gap 6.0, BUN 24 H, Creatinine 0.6, Estimated GFR (MDRD) 102, Glucose 156 H , Calcium 7.3 L, Total Bilirubin 0.6, AST 48 H, ALT 92 H, Alkaline Phosphatase 63, Total Protein 4.9 L, Albumin 3.0 L, Globulin 1.9 L, Albumin/Globulin Ratio 1.6 10/24/22 09:15: VBG pH 7.271 L, VBG pCO2 32.5 L, VBG pO2 32.8, VBG HCO3 14.6 L, VBG Total CO2 15.6 L, VBG O2 Saturation 58.5 L, VBG Base Excess -11.2 L 10/24/22 06:48: Sodium 134 L, Potassium 3.8, Chloride 102, Carbon Dioxide 15 L, Anion Gap 17.0 H, BUN 32 H, Creatinine 1.2 H, Estimated GFR (MDRD) 46 L, Glucose 182 H, Calcium 9.4, Total Bilirubin 1.0, AST 91 H, ALT 153 H, Alkaline Phosphatase 92, Total Protein 7.6, Albumin 4.7, Globulin 2.9, Albumin/Globulin Ratio 1.6, Lipase 45 10/24/22 06:48: PT 10.6, INR 0.9 10/24/22 06:48: Troponin I High Sens 4.3 10/24/22 06:27: WBC 5.3, RBC 4.28, Hgb 13.6, Hct 43.4, MCV 101.4 H, MCH 31.8 H, MCHC 31.3 L, RDW 13.1, Plt Count 241, MPV 10.6, Neut # (Auto) 3.9, Lymph # (Auto) 1.1 L, Richardson # (Auto) 0.2, Eos # (Auto) 0.1, Baso # (Auto) 0.0, Absolute Nucleated RBC 0.00, Nucleated RBC % 0.0 10/24/22 06:21: Lactic Acid 4.6 H* Fish Bones: 10/24/22 13:20 10/24/22 13:20 Home Medications and Allergies Active Medications Acetaminophen (Acetaminophen 325 Mg Tablet) 650 mg PO Q4HR PRN PRN Reason: Pain 1 to 4, or Fever Enoxaparin Sodium (Enoxaparin 40 Mg/0.4 Ml Syringe) 40 mg SUBQ DAILY DILAN Famotidine (Famotidine 20 Mg/2 Ml Vial) 20 mg IVP BID DILAN Hydromorphone HCl (Hydromorphone 0.5 Mg/0.5 Ml Syringe) 0.5 mg IVP Q2H PRN PRN Reason: Pain 8 to 10 Acetaminophen (Acetaminophen) 1,000 mg in 100 mls @ 400 mls/hr IV Q6HR DILAN Lactated Ringer's (Lr) 1,000 mls @ 100 mls/hr IV .Q10H DILAN Ondansetron HCl (Ondansetron 4 Mg/2 Ml Vial) 4 mg IVP Q6HR PRN PRN Reason: Nausea / Vomiting Oxycodone HCl (Oxycodone 5 Mg Tablet) 5 mg PO Q4HR PRN PRN Reason: Pain 5 to 7 Phenol/Menthol (Phenol Throat Rodanthe 177 Ml) 2 sprays MM Q4HR PRN PRN Reason: Mouth Sore Pain Sodium Chloride (Sodium Chloride Flush 0.9% 10 Ml Syringe) 10 ml IVP 0100,0900,1700 DILAN Sodium Chloride (Sodium Chloride Flush 0.9% 10 Ml Syringe) 10 ml IVP PRN PRN PRN Reason: NEEDED PER PROVIDER ORDERS Atorvastatin [Lipitor] 40 mg PO QPM 09/06/19 Ferrous Sulfate 325 mg PO DAILY 09/06/19 Sacubitril/Valsartan [Entresto 49 mg-51 mg Tablet] 1 tab PO BID 10/24/19 Hydrocortisone 20 mg PO UD 05/24/20 Metoprolol Succinate [Toprol Xl] 25 mg PO DAILY 12/14/20 Mecobalamin [B12 Active] 1,000 mcg PO DAILY 09/25/21 Ascorbic Acid [Vitamin C] 500 mg PO DAILY 07/21/22 Aspirin Chewable [St Mehrdad Aspirin] 81 mg PO DAILY 07/21/22 Cholecalciferol (Vitamin D3) [Vitamin D3] 25 mcg PO DAILY 07/21/22 Lactobacillus Combination No.4 [Probiotic] 1 each PO DAILY 07/21/22 Allergies/Adverse Reactions: Allergies Allergy/AdvReac Type Severity Reaction Status Date / Time No Known Drug Allergies Allergy Verified 10/24/22 06:22 Anes History & Medical History - Anesthetic History Anesthesia Complications: reports: No previous complications Family history of Anesthesia Complications: Denies Family history of Malignant Hyperthermia: Denies - Medical History Cardiovascular: reports: Congestive heart failure, Hypertension, High cholesterol, [place], Other (cardiac arrest 2019 w SC) Pulmonary: reports: None Gastrointestinal: reports: Hepatitis, Cholelithiasis, Other (gastric cancer w resection and chemo, protein calorie malnutrition) Urinary: reports: None Neuro: reports: None Musculoskeletal: reports: Osteoarthritis, Osteoporosis Endocrine/Autoimmune: reports: Type 2 diabetes, Other (adrenal insufficiency) Blood Disorders: reports: None Skin: reports: None Smoking Status: Former smoker History of Cancer?: Yes (gastric cancer) - Surgical History General: reports: Cholecystectomy, Gastric surgery, Colonoscopy, EGD, Other (bowel resection) Other Past Surgical History: port placement Exam General: Alert, Severe distress Dental: WNL Mouth Openin Fingerbreadth Neck Mobility: Normal Mallampati classification: II Thyromental Distance: 4-6 cm Respiratory: Lungs clear Cardiovascular: Regular rate Plan Anesthesia Type: General Consent for Procedure(s) Verified and Reviewed: Yes Code Status: Attempt Resuscitation ASA classification: 4-Incapacitating disease Is this case an emergency?: Yes
[2022-10-24] MEDS ORDERED: MORPHINE 2 MG/ML CARPUJECT IVP PRN (15:36)
[2022-10-24] MEDS ORDERED: METOCLOPRAMIDE 10 MG/2 ML VIAL IVP PRN (15:36)
[2022-10-24] MEDS ORDERED: ePHEDrine 50 MG/ML VIAL IVP PRN (15:36)
[2022-10-24] MEDS ORDERED: ONDANSETRON 4 MG/2 ML VIAL IVP PRN (15:36)
[2022-10-24] MEDS ORDERED: HYDROmorphone 0.5 MG/0.5 ML SYRINGE IVP PRN (15:36)
[2022-10-24] MEDS ORDERED: ATROPINE ABBOJECT 1 MG/10 ML SYRINGE IVP PRN (15:36)
[2022-10-24] MEDS ORDERED: NALOXONE 0.4 MG/ML VIAL IVP PRN (15:36)
[2022-10-24] MEDS ORDERED: LACTATED RINGERS 1,000 ML IV SCH (16:00)
--- NOTE | 2022-10-24 16:01 | XRAY Report ---
PROCEDURE: Chest for Line Placement INDICATIONS: CL PLACEMENT TECHNIQUE: One view of the chest was acquired. COMPARISON: Chest CT, 09/16/2022. Chest x-ray, 05/28/2022. FINDINGS: Surgical changes and devices: There is a right IJ central line with the tip projecting to the area o f right atrium. A nasogastric tube is present with the tip. The stomach.. Lungs and pleura: No pleural effusions or pneumothorax. Lungs are clear. Mediastinum: Mediastinal contours appear normal. Heart size is normal. Bones and chest wall: Multiple surgical clips in upper abdomen. No suspicious bony lesions. Overlyin g soft tissues appear unremarkable. IMPRESSION: 1. Right IJ central line tip projects to the area of the right atrium. 2. A nasogastric tube is noted with the tip in the stomach. Reviewed by: Marty Solis MD on 10/24/2022 2:59 PM AKDT Approved by: Marty Solis MD on 10/24/2022 2:59 PM AKDT Station ID: [id number]
--- NOTE | 2022-10-24 16:29 | PHARMACY PROGRESS NOTE ---
- Best Possible Medication History Admit Date and Time: 10/24/22 1130 Processed by: Nursing As the person ultimately responsible for medication therapy, providers are able to order a medication from an existing home medication list in [facility] via the "Reconcile Routine" prior to Confirmation of that medication by software support representative. Such practice is discouraged except when the physician, in their clinical judgment, deems that a medical need exists for a medication without regard to previous use.
--- NOTE | 2022-10-24 16:35 | ANESTHESIA POST OP EVALUATION ---
Anesthesia Post Eval - Post Anesthesia Eval Vitals: Last Vital Signs Temp 36.4 C L 10/24/22 15:55 Pulse 95 10/24/22 15:55 Resp 10 L 10/24/22 15:55 BP 128/87 H 10/24/22 15:55 Pulse Ox 97 10/24/22 15:55 O2 Flow Rate CV Function Including HR & BP: Stable Pain Control: Satisfactory Nausea & Vomiting: Negative Mental Status: Baseline Respiratory Status: Airway Patent Hydration Status: Satisfactory Anesthesia Complications: None
[2022-10-24] MEDS: LACTATED RINGERS 1,000 ML IV SCH (16:48)
[2022-10-24] MEDS: HYDROmorphone 0.5 MG/0.5 ML SYRINGE IVP PRN (16:49)
--- NOTE | 2022-10-24 16:54 | ANESTHESIA PROCEDURE NOTE ---
Anesth Central Line Template - Central Line Central Line Preparation: Unable to obtain consent, Time out completed, Ultra sound used, Sterile prep and drape Central line location: Right IJ Central line type: Triple lumen Central line catheter tip site resides: Atrium, right Central line aftercare: Chlorhexidine disc placed, Secured, Placement confirmed, No pneumothorax, No complications, Bundle checklist complete, Pt tolerated well (R IJ CVL placed in the OR while pt under anesthesia for exploratory laparotomy. US guidance. Sterile technique maintained. Guidewire threaded easily. Pt tolerated well. No complications. Placement confirmed in R Atrium via CXR)
[2022-10-24] MEDS ORDERED: SODIUM CHLORIDE FLUSH 0.9% 10 ML SYRINGE IVP SCH (17:00)
--- NOTE | 2022-10-24 17:59 | PROVIDER PROGRESS NOTE ---
Progress Note Post op note: Pain controlled. No n/v. Patient remains somnolent after surgery. in room. Good UOP. Off pressors since end of surgery. Low NG output. mild tachycardia, low 100s, otherwise vss. non-labored breathing on RA abdomen soft with appropriate ttp. Shadowing on dressing. No c/c/e Home medications restarted. Plan to remove gutierres in AM if UOP is good overnight. Increase activity tomorrow AM. Dr. Hernández will assume surgical care in AM at 0700.
[2022-10-24] MEDS: SODIUM CHLORIDE FLUSH 0.9% 10 ML SYRINGE IVP SCH (18:17)
[2022-10-24] MEDS: ACETAMINOPHEN 1,000 MG/100 ML 1,000 MG/100 ML BAG IV SCH (18:17)
[2022-10-24] MEDS: FAMOTIDINE 20 MG/2 ML VIAL IVP SCH (20:40)
[2022-10-24] MEDS: ATORVASTATIN 40 MG TABLET PO SCH (21:00)
[2022-10-25] MEDS: ACETAMINOPHEN 1,000 MG/100 ML 1,000 MG/100 ML BAG IV SCH ×4 (00:03→17:59)
[2022-10-25] MEDS: SODIUM CHLORIDE FLUSH 0.9% 10 ML SYRINGE IVP SCH ×3 (00:04→17:59)
[2022-10-25] MEDS: LACTATED RINGERS 1,000 ML IV SCH ×2 (03:49→12:04)
[2022-10-25] MEDS: SODIUM CHLORIDE FLUSH 0.9% 10 ML SYRINGE IVP PRN ×2 (04:25→20:17)
[2022-10-25 04:41] LABS: BASOPHILS % (AUTO) 0.6 %; EOSINOPHILS % (AUTO) 0.3 %; HCT - HEMATOCRIT 27.1 % (37.0-47.0); HGB - HEMOGLOBIN 8.7 g/dL (12.0-16.0); LYMPHOCYTES % (AUTO) 10.8 %; MEAN CORPUSCULAR HEMOGLOBIN 32.5 pg (27.0-31.0); MEAN CORPUSCULAR HGB CONC 32.1 g/dL (32.0-36.0); MEAN CORPUSCULAR VOLUME 101.1 fL (81.0-99.0); MEAN PLATELET VOLUME 9.3 fL (7.9-10.8); MONOCYTES % (AUTO) 4.5 %; NEUTROPHILS % (AUTO) 83.5 %; PLT - PLATELET COUNT 152 10^3/uL (130-450); RED BLOOD COUNT 2.68 10^6/uL (4.20-5.40); RED CELL DISTRIBUTION WIDTH 13.5 % (12.0-15.0); VBG PH 7.349 (7.31-7.41); WHITE BLOOD COUNT 3.5 x10^3/uL (4.8-10.8)
[2022-10-25 04:42] LABS: CALCIUM, IONIZED 1.06 mmol/L (1.15-1.33)
[2022-10-25 04:47] LABS: ABNORMAL LYMPHS % (MANUAL) 0 %
[2022-10-25 04:54] LABS: CALCIUM 7.2 mg/dL (8.5-10.3); CREATININE 0.7 mg/dL (0.4-1.0); MAGNESIUM 1.6 mg/dL (1.7-2.8); PHOSPHORUS 4.1 mg/dL (2.5-4.6); POTASSIUM 3.5 mmol/L (3.5-5.0)
[2022-10-25] MEDS ORDERED: MAGNESIUM SULFATE 2 GRAM 2 GM/50 ML BAG IV ONE (05:06)
[2022-10-25] MEDS: POTASSIUM CHLOR 20 MEQ/100 ML 20 MEQ/100 ML BAG IV SCH ×2 (05:55→07:29)
[2022-10-25 05:56] LABS: BAND NEUTROPHILS % (MANUAL) 18 %; EOSINOPHILS # (MANUAL) 0.1 10^3/uL (0-0.7); LYMPHOCYTES # (MANUAL) 0.4 10^3/uL (1.5-3.5); LYMPHOCYTES % (MANUAL) 11 %; METAMYELOCYTES % (MANUAL) 1 %; MONOCYTES # (MANUAL) 0.1 10^3/uL (0.0-1.0); NEUTROPHILS # (MANUAL) 2.8 10^3/uL (1.5-6.6); PLATELET ESTIMATE, MANUAL NORMAL (130-450,000) (NORMAL); RBC MORPHOLOGY (MULTIPLE) NORMAL APPEARANCE (NORMAL); WBC MORPHOLOGY (MULTIPLE) 2+ TOXIC GRANULATION (NORMAL)
[2022-10-25 05:57] LABS: DIFFERENTIAL COMMENT MANUAL DIFFERENTIAL
[2022-10-25] MEDS ORDERED: CALCIUM GLUC 1,000MG/50ML-NACL 1,000 MG/50 ML BAG IV ONE (06:00)
[2022-10-25] MEDS: HYDROCORTISONE 10 MG TABLET PO SCH (09:14)
[2022-10-25] MEDS: FAMOTIDINE 20 MG/2 ML VIAL IVP SCH ×2 (09:14→20:16)
[2022-10-25] MEDS: ENOXAPARIN 40 MG/0.4 ML SYRINGE SUBQ SCH (09:14)
[2022-10-25] MEDS: METOPROLOL SUCCINATE 25 MG TABLET PO SCH (09:17)
[2022-10-25] MEDS: HYDROmorphone 0.5 MG/0.5 ML SYRINGE IVP PRN (09:45)
[2022-10-25 10:43] LABS: MAGNESIUM 2.3 mg/dL (1.7-2.8)
[2022-10-25 10:54] LABS: CALCIUM, IONIZED 1.15 mmol/L (1.15-1.33); VBG PH 7.328 (7.31-7.41)
[2022-10-25] MEDS: ONDANSETRON 4 MG/2 ML VIAL IVP PRN (10:54)
--- NOTE | 2022-10-25 12:14 | CONSULTATION NOTE ---
Referring Provider Name of Referring Provider:: Airam Talley MD Consult Date: 10/25/22 Chief Complaint - Chief Complaint Chief Complaint: postop managment History of Present Illness - Admitted From Admitted From:: home - History Obtained From Records Reviewed: [facility] History obtained from: Dr. Talley and chart Exam Limitations: none - History of Present Illness HPI Comment/Other: This is a [place] female who had a distal gastric cancer since 2018, moderately differentiated. She had a total gastrectomy and right hemicolectomy and left adrenalectomy in February 2020. She completed adjuvant chemotherapy with 4 cycles and completed that by May 2020. 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 She had flash pulmonary edema and saw rn home care for that. She has persistent anemia and had a GI bleed in July 2019. She has a vitamin B12 deficiency due to the gastrectomy and right hemicolectomy. She is on hydrocortisone supplement for adrenal insufficiency. Her most frequent and common complication of all of this has been small bowel obstructions for which she was hospitalized in December 2020, March 2021, July 2021, and most recently May 2022. All of them were resolved with conservative management. Her most recent hospitalization in July 2022 was due to hyponatremia and adrenal insufficiency. She came to the emergency room October 24 in the assembler fitter hours complaining of abdominal pain with nausea and vomiting. It had begun the day before and her last p.o. intake was a day before. She did not have any fever or chills. White cell count was normal. Vital signs were relatively normal. However CT of the abdomen showed significant distention of the small bowel with 2 transition points within the mid abdomen and associated mesenteric swirling. There was a long segment of significant bowel wall edema with poor enhancement. The large bowel was decompressed. General surgery was consulted and felt that the patient needed to go to the operating room. Intraoperatively she was found to have a small bowel obstruction from adhesions and jejunostomy site in the right mid abdomen. Once there was adhesiolysis, bowel became pink and viable. She has been in the ICU since transfer from PACU on October 24. She is Extubated. She has bowel sounds. She is very sleepy, and she is sore at her operative site but pain is controlled. There is been no emesis. General surgery has asked that i please consult on the patient and co-manage with regards to her congestive heart failure, and any other medical issues. Her last echocardiogram was done May 2022. Left ventricle size is normal, left ventricular wall thickness was normal. Her ejection fraction was 60 to 65% with grade 1 diastolic dysfunction. The right ventricle is normal in size and function. No significant vascular disease. This morning she tells me that she is achy. She is just really tired. She had gotten out of bed and walked around this morning before she got back in bed. She is passing gas. Denies any chest pain. Cough, shortness of breath. History - Past Medical History Cardiovascular: reports: Congestive heart failure, Hypertension, High cholesterol, VT, Other (cardiac arrest 2019 w VT) Respiratory: reports: None Neuro: reports: None Endocrine/Autoimmune: reports: Type 2 diabetes, Other (adrenal insufficiency) GI: reports: Hepatitis, Cholelithiasis, Other (gastric cancer w resection and chemo, protein calorie malnutrition) GORING CUTTER: reports: Other () : reports: None HEENT: reports: Chronic vision loss Psych: reports: None Musculoskeletal: reports: Osteoarthritis, Osteoporosis Derm: reports: None MRSA Hx?: No - Past Surgical History General: reports: Cholecystectomy, Gastric surgery, Colonoscopy, EGD, Other (bowel resection) Other past surgical history: port placement - Family & Social History Family History: Mother: (both had no siginificant medical problem), Father: Family History Comment/Other: pt reports her parents both did not have any significant medical problem. Dad at age 96. Mom at age 83. 1 sister is healthy. Lives in [facility]. Did have a history of unknown type of gastric cancer as well. 2 children are completely healthy Living Situation: With spouse/s.o. Social History Notes: Started smoking approximately 1980 and quit half a pack per day in 1998. No history of alcohol abuse. Born and raised in [facility].No history of recreational substance abuse. Met her [employer] has come to the [facility]. She has lived here for over 20 years. Most recently she is lived on [facility] after living in [place]. She and her live in their own home. - Substance History Use: Uses substance without health or social issues: NONE - POLST Patient has POLST: Yes POLST Status: Full Code Meds/Allgy - Home Medications Home Medications: Ambulatory Orders Medication Instructions Recorded Confirmed Atorvastatin [Lipitor] 40 mg PO QPM 09/06/19 10/24/22 Ferrous Sulfate 325 mg PO DAILY 09/06/19 10/24/22 Sacubitril/Valsartan [Entresto 49 1 tab PO BID 10/24/19 10/24/22 mg-51 mg Tablet] Hydrocortisone 20 mg PO UD 05/24/20 10/24/22 Metoprolol Succinate [Toprol Xl] 25 mg PO DAILY 12/14/20 10/24/22 Mecobalamin [B12 Active] 1,000 mcg PO DAILY 09/25/21 10/24/22 Ascorbic Acid [Vitamin C] 500 mg PO DAILY 07/21/22 10/24/22 Aspirin Chewable [St Mehrdad 81 mg PO DAILY 07/21/22 10/24/22 Aspirin] Cholecalciferol (Vitamin D3) 25 mcg PO DAILY 07/21/22 10/24/22 [Vitamin D3] Lactobacillus Combination No.4 1 each PO DAILY 07/21/22 10/24/22 [Probiotic] Potassium Chloride Oral Soln 20 meq PO 0800 #450 ml 07/22/22 10/24/22 [Potassium Chloride] - Allergies Allergies/Adverse Reactions: Allergies Allergy/AdvReac Type Severity Reaction Status Date / Time No Known Drug Allergies Allergy Verified 10/24/22 06:22 Review of Systems - Constitutional Constitutional: reports: Fatigue, Poor appetite - Eyes Eyes: denies: Pain, Irritation, Vision loss - Ears, Nose & Throat Ears, Nose & Throat: reports: Hearing loss, Sore throat, Hoarseness (because of ET tube that was pulled). denies: Ear pain, Tinnitus, Vertigo - Cardiovascular Cariovascular: denies: Irregular heart rate, Palpitations, Exertional dyspnea, Decr. exercise tolerance - Respiratory Respiratory: denies: Cough, Sputum production, Wheezing - Gastrointestinal Gastrointestinal: reports: Abdominal pain, Abdominal distention (but all of that is gone since she woke up after surgery) - Genitourinary Genitourinary: denies: Dysuria, Frequency, Urgency - Musculoskeletal Musculoskeletal: reports: Stiffness. denies: Muscle pain, Back pain, Muscle aches - Integumentary Integumentary: denies: Rash, Pruritis, Lesions, Dryness - Neurological Neurological: reports: General weakness. denies: Focal weakness, Headache, Dizziness - Psychiatric Psychiatric: denies: Depression, Anxiety - Endocrine Endocrine: denies: Polyuria, Polydypsia, Polyphagia, Intolerance to cold - Hematologic/Lymphatic Hematologic/Lymphatic: denies: Blood clots Exam - Vital Signs Reviewed Vital Signs: Yes Vital Signs: Vital Signs x48h Temp Pulse Resp BP Pulse Ox 10/25/22 12:00 80 16 111/70 95 10/25/22 11:00 75 12 99/61 97 10/25/22 10:00 99 13 102/72 97 10/25/22 09:00 37.6 C 89 9 L 115/70 95 10/25/22 08:00 88 12 98/60 97 10/25/22 07:00 90 11 L 95/59 L 97 10/25/22 06:00 92 11 L 100/68 97 10/25/22 05:00 37.2 C 91 11 L 103/70 96 - Physical Exam General Appearance: positive: Alert, Mild distress (From incisional painAnd appears very fatigued), Other (Smiles slightly and says that she feels much better than when she got admitted) Eyes Bilateral: positive: PERRL, EOMI ENT: positive: No signs of dehydration Neck: positive: No JVD. negative: Stiff neck Respiratory: positive: No respiratory distress, Other (Shallow, unlabored respiration. I encouraged to do incentive spirometry to avoid getting pneumonia). negative: Wheezes, Rales, Rhonchi Cardiovascular: positive: Regular rate & rhythm, Systolic murmur Peripheral Pulses: positive: 1+ Abdomen: positive: No organomegaly, Tenderness (Over incision. But no rebound or guarding), Abnml bowel sounds (Very faint and hypoactive but definitely present) Skin: positive: Warm, Dry Extremities: positive: Non-tender, Full ROM Neurologic/Psychiatric: positive: Oriented x3, CN's nml (2-12), Motor nml Conclusion/Plan - Problem List (1) Small bowel obstruction Conclusion/Plan: Status post adhesiolysis with exploratory lap. Postoperative day #1. She has been successfully extubated since right after surgery. Pressure has been maintained without needing pressor agents. She is breathing on her own and oxygenating adequately. The bandage is covering her wound but bandages dry, no wetness or bleeding. Plan: Postoperative management per general surgery instructions I will stop the IV acetaminophen tomorrow. She can then continue p.o. (2) History of cardiomyopathy in adulthood Conclusion/Plan: Her ejection fraction appears to have improved tremendously from 2019 to the most recent echo in May of last year. She has no evidence of crackles, JVD, or pedal edema. She takes Entresto and Toprol at home. She is on the soft side with her blood pressure and is between 95 systolic 211 systolic. Before she went to the OR she was 128/88. Plan: We will I do think it is a good idea to resume her usual medications, I do not think her Entresto should be resumed right now. The most I would resume is her metoprolol to avoid rebound tachycardia. (3) Type 2 diabetes mellitus Conclusion/Plan: Her home med list does not have her on any medication. Glucose yesterday was 182. This morning it is 126. Plan: Hemoglobin A1c tomorrow. Sliding scale, low-dose, 9 eating. Qualifiers: Diabetes mellitus penitentiary insulin use: without penitentiary use Diabetes mellitus complication status: without complication Qualified Code(s): E11.9 - Type 2 diabetes mellitus without complications (4) Adrenal insufficiency Conclusion/Plan: She received stress dose steroids prior to surgery. Her home medicines are 20 mg of hydrocortisone later in the afternoon, and 10 mg in the morning. General surgery has already ordered Cortef 10 mg 8 in the morning. I will have pharmacy verify that she takes the 20 in the evening. Resume her usual home meds. (5) Acute blood loss anemia Conclusion/Plan: Hemoglobin on admission was 13.6. Right after surgery she was 9.5. This morning she is 8.7. Anticipated in view of her surgery. No transfusion unless below 7 g of hemoglobin. We will continue to monitor daily. - Lab Results Lab results reviewed: Yes Fish Bones: 10/25/22 04:30 10/25/22 10:00
--- NOTE | 2022-10-25 18:23 | PROVIDER PROGRESS NOTE ---
Subjective - General Admit Date: 10/24/22 Procedure Date: 10/24/22 Post Op Days: 1 - Review of Systems Wound/Incisions: positive: Dressing dry and intact General: positive: No symptoms HEENT: positive: No symptoms Pulmonary: positive: No symptoms Cardiovascular: positive: No symptoms Gastrointestinal: positive: Abdominal pain. negative: Nausea, Vomiting, Flatus Musculoskeletal: positive: No symptoms Psychiatric: positive: No symptoms Objective - Patient Data Reviewed Vital Signs: Yes Vital Signs: Vital Signs x48h Temp Pulse Resp BP Pulse Ox 10/25/22 18:00 77 20 108/67 98 10/25/22 17:00 37.1 C 78 13 103/82 H 100 10/25/22 16:00 77 11 L 101/71 97 10/25/22 15:00 74 14 104/66 96 10/25/22 14:00 76 12 96/68 94 10/25/22 13:00 37.8 C 75 12 105/67 94 10/25/22 12:00 80 16 111/70 95 10/25/22 11:00 75 12 99/61 97 Weight: Weight 10/23/22 10/24/22 10/25/22 23:59 23:59 23:59 Weight (kg) 61.2 kg 63 kg Intake & Output: Intake and Output Totals x24h 10/23/22 10/24/22 10/25/22 23:59 23:59 23:59 Intake Total 2220 2445 Output Total 649 475 Balance 1571 1970 - Lab Results Lab Results: 10/25/22 04:30 10/25/22 10:00 Other Lab Results: Lab Results x24hrs 10/25/22 10/25/22 10/25/22 Range/Units 10:45 10:00 04:30 WBC (4.8-10.8) x10^3/uL RBC (4.20-5.40) 10^6/uL Hgb (12.0-16.0) g/dL Hct (37.0-47.0) % MCV (81.0-99.0) fL MCH (27.0-31.0) pg MCHC (32.0-36.0) g/dL RDW (12.0-15.0) % Plt Count (130-450) 10^3/uL MPV (7.9-10.8) fL Neut # (Auto) Lymph # (Auto) [place] # (Auto) Eos # (Auto) Baso # (Auto) Absolute Nucleated RBC Total Counted Band Neuts % (Manual) (0 - 10) % Abnorm Lymph % (Manual) % Metamyelocytes % ( - 0) % Nucleated RBC % Neutrophils # (Manual) (1.5-6.6) 10^3/uL Lymphocytes # (Manual) (1.5-3.5) 10^3/uL Monocytes # (Manual) (0.0-1.0) 10^3/uL Eosinophils # (Manual) (0-0.7) 10^3/uL Basophils # (Manual) (0-0.1) 10^3/uL Differential Comment WBC Morphology (NORMAL) Platelet Estimate (NORMAL) RBC Morph Micro Appear (NORMAL) VBG pH 7.328 7.349 (7.31-7.41) Ionized Calcium 1.15 1.06 L (1.15-1.33) mmol/L Sodium (135-145) mmol/L Potassium 4.0 (3.5-5.0) mmol/L Chloride (101-111) mmol/L Carbon Dioxide (21-32) mmol/L Anion Gap (6-13) BUN (6-20) mg/dL Creatinine (0.4-1.0) mg/dL Estimated GFR (MDRD) (>89) Glucose (70-100) mg/dL Calcium (8.5-10.3) mg/dL Phosphorus (2.5-4.6) mg/dL Magnesium 2.3 (1.7-2.8) mg/dL Nasal Screen MRSA (PCR) (NEGATIVE) 10/25/22 10/25/22 10/24/22 Range/Units 04:30 04:30 17:08 WBC 3.5 L (4.8-10.8) x10^3/uL RBC 2.68 L (4.20-5.40) 10^6/uL Hgb 8.7 L (12.0-16.0) g/dL Hct 27.1 L (37.0-47.0) % MCV 101.1 H (81.0-99.0) fL MCH 32.5 H (27.0-31.0) pg MCHC 32.1 (32.0-36.0) g/dL RDW 13.5 (12.0-15.0) % Plt Count 152 (130-450) 10^3/uL MPV 9.3 (7.9-10.8) fL Neut # (Auto) Not Reportable Lymph # (Auto) Not Reportable [place] # (Auto) Not Reportable Eos # (Auto) Not Reportable Baso # (Auto) Not Reportable Absolute Nucleated RBC Not Reportable Total Counted 100 Band Neuts % (Manual) 18 H (0 - 10) % Abnorm Lymph % (Manual) 0 % Metamyelocytes % 1 H ( - 0) % Nucleated RBC % Not Reportable Neutrophils # (Manual) 2.8 (1.5-6.6) 10^3/uL Lymphocytes # (Manual) 0.4 L (1.5-3.5) 10^3/uL Monocytes # (Manual) 0.1 (0.0-1.0) 10^3/uL Eosinophils # (Manual) 0.1 (0-0.7) 10^3/uL Basophils # (Manual) 0.0 (0-0.1) 10^3/uL Differential Comment MANUAL DIFFERENTIAL WBC Morphology 2+ TOXIC GRANULATION (NORMAL) Platelet Estimate NORMAL (130-450,000) (NORMAL) RBC Morph Micro Appear NORMAL APPEARANCE (NORMAL) VBG pH (7.31-7.41) Ionized Calcium (1.15-1.33) mmol/L Sodium 136 (135-145) mmol/L Potassium 3.5 (3.5-5.0) mmol/L Chloride 111 (101-111) mmol/L Carbon Dioxide 20 L (21-32) mmol/L Anion Gap 5.0 L (6-13) BUN 19 (6-20) mg/dL Creatinine 0.7 (0.4-1.0) mg/dL Estimated GFR (MDRD) 85 L (>89) Glucose 126 H (70-100) mg/dL Calcium 7.2 L (8.5-10.3) mg/dL Phosphorus 4.1 (2.5-4.6) mg/dL Magnesium 1.6 L (1.7-2.8) mg/dL Nasal Screen MRSA (PCR) NEGATIVE (NEGATIVE) - Current Medications Current Medications: Current Medications Generic Name Dose Route Start Last Admin Trade Name Freq PRN Reason Stop Dose Admin Atorvastatin Calcium 40 mg 10/24/22 21:00 10/24/22 21:00 Atorvastatin 40 Mg Tablet PO Not Given QPM [facility] Enoxaparin Sodium 40 mg 10/25/22 09:00 10/25/22 09:14 Enoxaparin 40 Mg/0.4 Ml Syringe SUBQ 40 mg DAILY DILAN Administration Famotidine 20 mg 10/24/22 21:00 10/25/22 09:14 Famotidine 20 Mg/2 Ml Vial IVP 20 mg BID DILAN Administration Hydrocortisone 10 mg 10/25/22 08:00 10/25/22 09:14 Hydrocortisone 10 Mg Tablet PO 10 mg 0800 [facility] Administration Hydromorphone HCl 0.5 mg 10/24/22 14:26 10/25/22 09:45 Hydromorphone 0.5 Mg/0.5 Ml Syringe IVP 0.5 mg Q2H PRN Administration Pain 8 to 10 Acetaminophen 1,000 mg in 100 mls @ 400 mls/hr 10/24/22 18:00 10/25/22 17:59 Acetaminophen IV 400 mls/hr Q6HR DILAN Administration Lactated Ringer's 1,000 mls @ 100 mls/hr 10/24/22 15:00 10/25/22 12:04 Lr IV 100 mls/hr .Q10H DILAN Administration Metoprolol Succinate 25 mg 10/25/22 09:00 10/25/22 09:17 Metoprolol Succinate 25 Mg Tablet PO 25 mg DAILY DILAN Administration Ondansetron HCl 4 mg 10/24/22 14:26 10/25/22 10:54 Ondansetron 4 Mg/2 Ml Vial IVP 4 mg Q6HR PRN Administration Nausea / Vomiting Sodium Chloride 10 ml 10/24/22 17:00 10/25/22 17:59 Sodium Chloride Flush 0.9% 10 Ml Syringe IVP 10 ml 0100,0900,1700 DILAN Administration Sodium Chloride 10 ml 10/24/22 14:26 10/25/22 04:25 Sodium Chloride Flush 0.9% 10 Ml Syringe IVP 30 ml PRN PRN Administration NEEDED PER PROVIDER ORDERS - Physical Exam Wound/Incisions: positive: Dressing dry and intact General Appearance: positive: No acute distress Eyes Bilateral: positive: No lid inflammation, Conjunctivae nml, No scleral icterus Neck: positive: Trachea midline Respiratory: positive: Chest non-tender Cardiovascular: positive: Regular rate & rhythm Abdomen: positive: Nml bowel sounds Extremities: positive: Non-tender, Nml appearance Neurologic/Psychiatric: positive: Oriented x3, Motor nml, Sensation nml, Mood/affect nml ABX Reporting Has patient been on IV antibiotics over the past 48 hours?: Yes Impression/Plan - Problem List Problem List: Day 1 s/p exploratory laparotomy with adhesiolysis 1) FEN Continue IVF. Removed NG as not functional. 2) Pain Controlled with current regimen. 3) Heme Will watch as she appears to be pancytopenic and maybe as a result of lack of intrinsic factor 4) Activity Encourage as much ambulation as possible. She is doing very well. With continued improvement I expect that she will be transfered to floor.
[2022-10-25] MEDS: ATORVASTATIN 40 MG TABLET PO SCH (20:16)
[2022-10-26] MEDS: LACTATED RINGERS 1,000 ML IV SCH ×2 (00:04→08:35)
[2022-10-26] MEDS: ACETAMINOPHEN 1,000 MG/100 ML 1,000 MG/100 ML BAG IV SCH ×4 (00:04→22:44)
[2022-10-26] MEDS: INSULIN REGULAR HUMAN 300 UNIT/3 ML VIAL SUBQ SCH ×3 (00:25→12:33)
[2022-10-26] MEDS ORDERED: SODIUM CHLORIDE FLUSH 0.9% 10 ML SYRINGE IVP PRN (00:28)
[2022-10-26] MEDS: HYDROmorphone 0.5 MG/0.5 ML SYRINGE IVP PRN ×2 (03:58→10:31)
[2022-10-26] MEDS: SODIUM CHLORIDE FLUSH 0.9% 10 ML SYRINGE IVP SCH ×3 (04:04→17:27)
[2022-10-26 04:59] LABS: BASOPHILS % (AUTO) 0.7 %; EOSINOPHILS # (AUTO) 0.1 10^3/uL (0.0-0.7); EOSINOPHILS % (AUTO) 3.4 %; HCT - HEMATOCRIT 23.8 % (37.0-47.0); HGB - HEMOGLOBIN 7.2 g/dL (12.0-16.0); LYMPHOCYTES # (AUTO) 0.8 10^3/uL (1.5-3.5); LYMPHOCYTES % (AUTO) 18.8 %; MEAN CORPUSCULAR HEMOGLOBIN 31.6 pg (27.0-31.0); MEAN CORPUSCULAR HGB CONC 30.3 g/dL (32.0-36.0); MEAN CORPUSCULAR VOLUME 104.4 fL (81.0-99.0); MEAN PLATELET VOLUME 10.2 fL (7.9-10.8); MONOCYTES # (AUTO) 0.2 10^3/uL (0.0-1.0); MONOCYTES % (AUTO) 4.3 %; NEUTROPHILS % (AUTO) 72.6 %; PLT - PLATELET COUNT 135 10^3/uL (130-450); RED BLOOD COUNT 2.28 10^6/uL (4.20-5.40); RED CELL DISTRIBUTION WIDTH 13.5 % (12.0-15.0); WHITE BLOOD COUNT 4.1 x10^3/uL (4.8-10.8)
[2022-10-26 05:14] LABS: CALCIUM, IONIZED 1.14 mmol/L (1.15-1.33); VBG PH 7.342 (7.31-7.41)
[2022-10-26 05:25] LABS: CALCIUM 7.5 mg/dL (8.5-10.3); CREATININE 0.8 mg/dL (0.4-1.0); PHOSPHORUS 2.9 mg/dL (2.5-4.6); POTASSIUM 3.6 mmol/L (3.5-5.0)
[2022-10-26] MEDS ORDERED: POTASSIUM CHLOR 20 MEQ/100 ML 20 MEQ/100 ML BAG IV ONE (05:46)
[2022-10-26] MEDS ORDERED: DEXTROSE 50% ABBOJECT 25 GM/50 ML SYRINGE IVP ONE (05:47)
[2022-10-26] MEDS: ONDANSETRON 4 MG/2 ML VIAL IVP PRN ×2 (05:55→22:44)
[2022-10-26] MEDS ORDERED: POTASSIUM CHLOR 10 MEQ/100 ML 10 MEQ/100 ML BAG IV SCH (06:00)
[2022-10-26] MEDS: DEXTROSE 5% 1,000 ML IV SCH ×2 (06:05→16:51)
[2022-10-26] MEDS: METOPROLOL SUCCINATE 25 MG TABLET PO SCH (08:36)
[2022-10-26] MEDS: ENOXAPARIN 40 MG/0.4 ML SYRINGE SUBQ SCH (08:36)
[2022-10-26] MEDS: HYDROCORTISONE 10 MG TABLET PO SCH (08:36)
[2022-10-26] MEDS: FAMOTIDINE 20 MG/2 ML VIAL IVP SCH ×2 (08:36→20:53)
--- NOTE | 2022-10-26 11:27 | PROVIDER PROGRESS NOTE ---
Subjective - General Admit Date: 10/24/22 Procedure Date: 10/24/22 Post Op Days: 2 - Review of Systems Wound/Incisions: positive: Dressing dry and intact General: positive: No symptoms HEENT: positive: No symptoms Pulmonary: positive: No symptoms Cardiovascular: positive: No symptoms Gastrointestinal: positive: Abdominal pain (More pelvic.). negative: Nausea, Vomiting, Flatus Musculoskeletal: positive: No symptoms Psychiatric: positive: No symptoms Objective - Patient Data Reviewed Vital Signs: Yes Vital Signs: Vital Signs x48h Temp Pulse Resp BP Pulse Ox 10/26/22 11:11 36.8 C 71 10 L 108/66 95 10/26/22 08:11 37.1 C 68 13 105/69 94 10/26/22 04:00 36.9 C 76 12 106/58 L 95 Weight: Weight 10/24/22 10/25/22 10/26/22 23:59 23:59 23:59 Weight (kg) 61.2 kg 63 kg 62 kg Intake & Output: Intake and Output Totals x24h 10/24/22 10/25/22 10/26/22 23:59 23:59 23:59 Intake Total 2220 3695.000 1008.333 Output Total 649 475 350 Balance 1571 3220.000 658.333 - Lab Results Lab Results: 10/26/22 04:10 10/26/22 08:10 Other Lab Results: Lab Results x24hrs 10/26/22 10/26/22 10/26/22 Range/Units 08:10 07:56 06:30 WBC (4.8-10.8) x10^3/uL RBC (4.20-5.40) 10^6/uL Hgb (12.0-16.0) g/dL Hct (37.0-47.0) % MCV (81.0-99.0) fL MCH (27.0-31.0) pg MCHC (32.0-36.0) g/dL RDW (12.0-15.0) % Plt Count (130-450) 10^3/uL MPV (7.9-10.8) fL Neut # (Auto) (1.5-6.6) 10^3/uL Lymph # (Auto) (1.5-3.5) 10^3/uL [place] # (Auto) (0.0-1.0) 10^3/uL Eos # (Auto) (0.0-0.7) 10^3/uL Baso # (Auto) (0.0-0.1) 10^3/uL Absolute Nucleated RBC x10^3/uL Nucleated RBC % /100WBC VBG pH (7.31-7.41) Ionized Calcium (1.15-1.33) mmol/L Sodium (135-145) mmol/L Potassium 3.9 (3.5-5.0) mmol/L Chloride (101-111) mmol/L Carbon Dioxide (21-32) mmol/L Anion Gap (6-13) BUN (6-20) mg/dL Creatinine (0.4-1.0) mg/dL Estimated GFR (MDRD) (>89) Glucose (70-100) mg/dL POC Whole Bld Glucose 97 94 (70 - 100) mg/dL Calcium (8.5-10.3) mg/dL Phosphorus (2.5-4.6) mg/dL Magnesium (1.7-2.8) mg/dL 10/26/22 10/26/22 10/26/22 Range/Units 06:12 05:46 04:10 WBC 4.1 L (4.8-10.8) x10^3/uL RBC 2.28 L (4.20-5.40) 10^6/uL Hgb 7.2 L (12.0-16.0) g/dL Hct 23.8 L (37.0-47.0) % MCV 104.4 H (81.0-99.0) fL MCH 31.6 H (27.0-31.0) pg MCHC 30.3 L (32.0-36.0) g/dL RDW 13.5 (12.0-15.0) % Plt Count 135 (130-450) 10^3/uL MPV 10.2 (7.9-10.8) fL Neut # (Auto) 3.0 (1.5-6.6) 10^3/uL Lymph # (Auto) 0.8 L (1.5-3.5) 10^3/uL [place] # (Auto) 0.2 (0.0-1.0) 10^3/uL Eos # (Auto) 0.1 (0.0-0.7) 10^3/uL Baso # (Auto) 0.0 (0.0-0.1) 10^3/uL Absolute Nucleated RBC 0.00 x10^3/uL Nucleated RBC % 0.0 /100WBC VBG pH (7.31-7.41) Ionized Calcium (1.15-1.33) mmol/L Sodium (135-145) mmol/L Potassium (3.5-5.0) mmol/L Chloride (101-111) mmol/L Carbon Dioxide (21-32) mmol/L Anion Gap (6-13) BUN (6-20) mg/dL Creatinine (0.4-1.0) mg/dL Estimated GFR (MDRD) (>89) Glucose (70-100) mg/dL POC Whole Bld Glucose 115 H 56 L* (70 - 100) mg/dL Calcium (8.5-10.3) mg/dL Phosphorus (2.5-4.6) mg/dL Magnesium (1.7-2.8) mg/dL 10/26/22 10/26/22 10/26/22 Range/Units 04:10 04:10 00:11 WBC (4.8-10.8) x10^3/uL RBC (4.20-5.40) 10^6/uL Hgb (12.0-16.0) g/dL Hct (37.0-47.0) % MCV (81.0-99.0) fL MCH (27.0-31.0) pg MCHC (32.0-36.0) g/dL RDW (12.0-15.0) % Plt Count (130-450) 10^3/uL MPV (7.9-10.8) fL Neut # (Auto) (1.5-6.6) 10^3/uL Lymph # (Auto) (1.5-3.5) 10^3/uL [place] # (Auto) (0.0-1.0) 10^3/uL Eos # (Auto) (0.0-0.7) 10^3/uL Baso # (Auto) (0.0-0.1) 10^3/uL Absolute Nucleated RBC x10^3/uL Nucleated RBC % /100WBC VBG pH 7.342 (7.31-7.41) Ionized Calcium 1.14 L (1.15-1.33) mmol/L Sodium 134 L (135-145) mmol/L Potassium 3.6 (3.5-5.0) mmol/L Chloride 109 (101-111) mmol/L Carbon Dioxide 19 L (21-32) mmol/L Anion Gap 6.0 (6-13) BUN 16 (6-20) mg/dL Creatinine 0.8 (0.4-1.0) mg/dL Estimated GFR (MDRD) 73 L (>89) Glucose 71 (70-100) mg/dL POC Whole Bld Glucose 73 (70 - 100) mg/dL Calcium 7.5 L (8.5-10.3) mg/dL Phosphorus 2.9 (2.5-4.6) mg/dL Magnesium 2.0 (1.7-2.8) mg/dL 10/25/22 Range/Units 20:23 WBC (4.8-10.8) x10^3/uL RBC (4.20-5.40) 10^6/uL Hgb (12.0-16.0) g/dL Hct (37.0-47.0) % MCV (81.0-99.0) fL MCH (27.0-31.0) pg MCHC (32.0-36.0) g/dL RDW (12.0-15.0) % Plt Count (130-450) 10^3/uL MPV (7.9-10.8) fL Neut # (Auto) (1.5-6.6) 10^3/uL Lymph # (Auto) (1.5-3.5) 10^3/uL [place] # (Auto) (0.0-1.0) 10^3/uL Eos # (Auto) (0.0-0.7) 10^3/uL Baso # (Auto) (0.0-0.1) 10^3/uL Absolute Nucleated RBC x10^3/uL Nucleated RBC % /100WBC VBG pH (7.31-7.41) Ionized Calcium (1.15-1.33) mmol/L Sodium (135-145) mmol/L Potassium (3.5-5.0) mmol/L Chloride (101-111) mmol/L Carbon Dioxide (21-32) mmol/L Anion Gap (6-13) BUN (6-20) mg/dL Creatinine (0.4-1.0) mg/dL Estimated GFR (MDRD) (>89) Glucose (70-100) mg/dL POC Whole Bld Glucose 94 (70 - 100) mg/dL Calcium (8.5-10.3) mg/dL Phosphorus (2.5-4.6) mg/dL Magnesium (1.7-2.8) mg/dL - Current Medications Current Medications: Current Medications Generic Name Dose Route Start Last Admin Trade Name Freq PRN Reason Stop Dose Admin Atorvastatin Calcium 40 mg 10/24/22 21:00 10/25/22 20:16 Atorvastatin 40 Mg Tablet PO 40 mg QPM DILAN Administration Enoxaparin Sodium 40 mg 10/25/22 09:00 10/26/22 08:36 Enoxaparin 40 Mg/0.4 Ml Syringe SUBQ Not Given DAILY DILAN Famotidine 20 mg 10/24/22 21:00 10/26/22 08:36 Famotidine 20 Mg/2 Ml Vial IVP 20 mg BID DILAN Administration Hydrocortisone 10 mg 10/25/22 08:00 10/26/22 08:36 Hydrocortisone 10 Mg Tablet PO 10 mg 0800 DILAN Administration Hydromorphone HCl 0.5 mg 10/24/22 14:26 10/26/22 10:31 Hydromorphone 0.5 Mg/0.5 Ml Syringe IVP 0.5 mg Q2H PRN Administration Pain 8 to 10 Acetaminophen 1,000 mg in 100 mls @ 400 mls/hr 10/24/22 18:00 10/26/22 06:14 Acetaminophen IV 10/26/22 18:00 Infused Q6HR DILAN Infusion Lactated Ringer's 1,000 mls @ 100 mls/hr 10/24/22 15:00 10/26/22 08:35 Lr IV Not Given .Q10H DILAN Dextrose 1,000 mls @ 100 mls/hr 10/26/22 06:00 10/26/22 07:00 D5w IV 100 mls/hr .Q10H DILAN Infusion Insulin Human Regular 1 - 5 unit 10/26/22 00:00 10/26/22 06:08 Insulin Regular Human 300 Unit/3 Ml Vial SUBQ Not Given Q6HR [facility] Protocol Metoprolol Succinate 25 mg 10/25/22 09:00 10/26/22 08:36 Metoprolol Succinate 25 Mg Tablet PO 25 mg DAILY DILAN Administration Ondansetron HCl 4 mg 10/24/22 14:26 10/26/22 05:55 Ondansetron 4 Mg/2 Ml Vial IVP 4 mg Q6HR PRN Administration Nausea / Vomiting Sodium Chloride 10 ml 10/24/22 17:00 10/26/22 08:36 Sodium Chloride Flush 0.9% 10 Ml Syringe IVP 10 ml 0100,0900,1700 DILAN Administration Sodium Chloride 10 ml 10/24/22 14:26 10/25/22 20:17 Sodium Chloride Flush 0.9% 10 Ml Syringe IVP 30 ml PRN PRN Administration NEEDED PER PROVIDER ORDERS Sodium Chloride 20 ml 10/26/22 00:28 10/26/22 04:04 Sodium Chloride Flush 0.9% 10 Ml Syringe IVP 20 ml PRN PRN Administration After Blood Draw - Physical Exam Wound/Incisions: positive: Dressing dry and intact General Appearance: positive: No acute distress Eyes Bilateral: positive: No lid inflammation, Conjunctivae nml, No scleral icterus Neck: positive: Trachea midline Respiratory: positive: Chest non-tender, No respiratory distress, Breath sounds nml Cardiovascular: positive: Regular rate & rhythm, No murmur Abdomen: positive: Nml bowel sounds (Excellent bowel sounds.), Tenderness (Minimal.). negative: Guarding, Rebound Skin: positive: Color nml, Warm, Dry Extremities: positive: Non-tender, Nml appearance. negative: Lizzeth's sign/cords Neurologic/Psychiatric: positive: Oriented x3, Motor nml, Sensation nml, Mood/affect nml ABX Reporting Has patient been on IV antibiotics over the past 48 hours?: No Impression/Plan - Problem List Problem List: Day 2 s/p exploratory laparotomy with adhesiolysis 1) FEN Continue IVF. No need for significant change. Will check labs in AM. 2) Pain Controlled with current regimen. 3) Heme Will watch as she appears to be pancytopenic and maybe as a result of lack of intrinsic factor (see below). 4) Activity Encourage as much ambulation as possible. She is doing very well. 5) Macrocytic anemia Patient does not have a stomach (which is where intrinsic factor is made) so no intrinsic factor. Intrinsic factor allows for the absorption of Vitamin B12. 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 There is no natural way for her to absorb vitamin B12 - I want to be clear that megadoses of vitamin B12 ORALLY will have NO EFFECT. This patient must have vitamin B12 injections FOR THE REST OF HER LIFE. I explained that I would be restarting the injections today. In order to compensate for her decreased absorptive surface, I will also start her on a multivitamin for the other vitamins that can be absorbed normally. All of the above discussed with patient and . Patient to be transferred to floor.
[2022-10-26] MEDS ORDERED: CYANOCOBALAMIN 1,000 MCG/ML VIAL IM ONE (11:34)
--- NOTE | 2022-10-26 12:26 | PROVIDER PROGRESS NOTE ---
Subjective - Prog Note Date Prog Note Date: 10/26/22 Prog Note Time: 12:22 - Subjective Pt reports feeling: Improved Subjective: She is tired. Not sleeping well. Understandably so because she is in an ICU bed with frequent vital signs. She is passing gas, and had brownish-reddish stool on postop day 0. 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 Does not feel that she is actively GI bleeding. She has had no further brownish-reddish stools since postop day 0. She is passing gas. More than anything she complains of dry mouth. Denies chest pain, shortness of breath. I had physical therapy evaluated yesterday. She walked 200 feet and PT feels that she is doing well. Just encouraged her to walk, and she does need any formal exercises or rehab from them. Current Medications - Current Medications Current Medications: Active Medications Acetaminophen (Acetaminophen 325 Mg Tablet) 650 mg PO Q4HR PRN PRN Reason: Pain 1 to 4, or Fever Atorvastatin Calcium (Atorvastatin 40 Mg Tablet) 40 mg PO QPM [facility] Last Admin: 10/25/22 20:16 Dose: 40 mg Enoxaparin Sodium (Enoxaparin 40 Mg/0.4 Ml Syringe) 40 mg SUBQ DAILY [facility] Last Admin: 10/26/22 08:36 Dose: Not Given Famotidine (Famotidine 20 Mg/2 Ml Vial) 20 mg IVP BID [facility] Last Admin: 10/26/22 08:36 Dose: 20 mg Hydrocortisone (Hydrocortisone 10 Mg Tablet) 10 mg PO 0800 [facility] Last Admin: 10/26/22 08:36 Dose: 10 mg Hydromorphone HCl (Hydromorphone 0.5 Mg/0.5 Ml Syringe) 0.5 mg IVP Q2H PRN PRN Reason: Pain 8 to 10 Last Admin: 10/26/22 10:31 Dose: 0.5 mg Acetaminophen (Acetaminophen) 1,000 mg in 100 mls @ 400 mls/hr IV Q6HR [facility] Stop: 10/26/22 18:00 Last Admin: 10/26/22 12:21 Dose: 400 mls/hr Lactated Ringer's (Lr) 1,000 mls @ 100 mls/hr IV .Q10H [facility] Last Admin: 10/26/22 08:35 Dose: Not Given Dextrose (D5w) 1,000 mls @ 100 mls/hr IV .Q10H [facility] Last Infusion: 10/26/22 07:00 Dose: 100 mls/hr Insulin Human Regular (Insulin Regular Human 300 Unit/3 Ml Vial) 1 - 5 unit SUBQ Q6HR [facility]; Protocol Last Admin: 10/26/22 06:08 Dose: Not Given Metoprolol Succinate (Metoprolol Succinate 25 Mg Tablet) 25 mg PO DAILY [facility] Last Admin: 10/26/22 08:36 Dose: 25 mg Multivitamins/Minerals (Multivitamin W/Minerals Tablet) 1 tab PO DAILYWM [facility] Ondansetron HCl (Ondansetron 4 Mg/2 Ml Vial) 4 mg IVP Q6HR PRN PRN Reason: Nausea / Vomiting Last Admin: 10/26/22 05:55 Dose: 4 mg Oxycodone HCl (Oxycodone 5 Mg Tablet) 5 mg PO Q4HR PRN PRN Reason: Pain 5 to 7 Phenol/Menthol (Phenol Throat [place] 177 Ml) 2 sprays MM Q4HR PRN PRN Reason: Mouth Sore Pain Sodium Chloride (Sodium Chloride Flush 0.9% 10 Ml Syringe) 10 ml IVP 0100,0900,1700 [facility] Last Admin: 10/26/22 08:36 Dose: 10 ml Sodium Chloride (Sodium Chloride Flush 0.9% 10 Ml Syringe) 10 ml IVP PRN PRN PRN Reason: NEEDED PER PROVIDER ORDERS Last Admin: 10/25/22 20:17 Dose: 30 ml Sodium Chloride (Sodium Chloride Flush 0.9% 10 Ml Syringe) 20 ml IVP PRN PRN PRN Reason: After Blood Draw Last Admin: 10/26/22 04:04 Dose: 20 ml Atorvastatin [Lipitor] 40 mg PO QPM 09/06/19 Ferrous Sulfate 325 mg PO DAILY 09/06/19 Sacubitril/Valsartan [Entresto 49 mg-51 mg Tablet] 1 tab PO BID 10/24/19 Hydrocortisone 20 mg PO UD 05/24/20 Metoprolol Succinate [Toprol Xl] 25 mg PO DAILY 12/14/20 Mecobalamin [B12 Active] 1,000 mcg PO DAILY 09/25/21 Ascorbic Acid [Vitamin C] 500 mg PO DAILY 07/21/22 Aspirin Chewable [[place] Mehrdad Aspirin] 81 mg PO DAILY 07/21/22 Cholecalciferol (Vitamin D3) [Vitamin D3] 25 mcg PO DAILY 07/21/22 Lactobacillus Combination No.4 [Probiotic] 1 each PO DAILY 07/21/22 Objective - Vital Signs/Intake & Output Reviewed Vital Signs: Yes Vital Signs: Vital Signs x48h Temp Pulse Resp BP Pulse Ox 10/26/22 11:11 36.8 C 71 10 L 108/66 95 10/26/22 08:11 37.1 C 68 13 105/69 94 Intake & Output: Intake & Output 10/23/22 10/24/22 10/25/22 10/26/22 23:59 23:59 23:59 23:59 Intake Total 2220 3695.000 1248.333 Output Total 649 475 350 Balance 1571 3220.000 898.333 - Objective General Appearance: positive: Alert (fatigued appearing burkinan female, lucid speech, oriented x 3) Eyes Bilateral: positive: PERRL, EOMI ENT: positive: Dry mucous membranes Neck: positive: No JVD. negative: Stiff neck Respiratory: positive: No respiratory distress. negative: Wheezes, Rales, Rhonchi Cardiovascular: positive: Regular rate & rhythm, Systolic murmur Abdomen: positive: Tenderness (over her incision but not elsewhere.), Abnml bowel sounds (hypoactive). negative: Guarding, Rebound Skin: positive: Warm, Dry Extremities: positive: Full ROM, No pedal edema Neurologic/Psychiatric: positive: Oriented x3, CN's nml (2-12), Motor nml (walking in hallway) - Lab Results Fish Bones: 10/26/22 04:10 10/26/22 08:10 Other Labs: Lab Results x24hrs 10/26/22 10/26/22 10/26/22 Range/Units 11:15 08:10 07:56 WBC (4.8-10.8) x10^3/uL RBC (4.20-5.40) 10^6/uL Hgb (12.0-16.0) g/dL Hct (37.0-47.0) % MCV (81.0-99.0) fL MCH (27.0-31.0) pg MCHC (32.0-36.0) g/dL RDW (12.0-15.0) % Plt Count (130-450) 10^3/uL MPV (7.9-10.8) fL Neut # (Auto) (1.5-6.6) 10^3/uL Lymph # (Auto) (1.5-3.5) 10^3/uL [place] # (Auto) (0.0-1.0) 10^3/uL Eos # (Auto) (0.0-0.7) 10^3/uL Baso # (Auto) (0.0-0.1) 10^3/uL Absolute Nucleated RBC x10^3/uL Nucleated RBC % /100WBC VBG pH (7.31-7.41) Ionized Calcium (1.15-1.33) mmol/L Sodium (135-145) mmol/L Potassium 3.9 (3.5-5.0) mmol/L Chloride (101-111) mmol/L Carbon Dioxide (21-32) mmol/L Anion Gap (6-13) BUN (6-20) mg/dL Creatinine (0.4-1.0) mg/dL Estimated GFR (MDRD) (>89) Glucose (70-100) mg/dL POC Whole Bld Glucose 86 97 (70 - 100) mg/dL Calcium (8.5-10.3) mg/dL Phosphorus (2.5-4.6) mg/dL Magnesium (1.7-2.8) mg/dL 10/26/22 10/26/22 10/26/22 Range/Units 06:30 06:12 05:46 WBC (4.8-10.8) x10^3/uL RBC (4.20-5.40) 10^6/uL Hgb (12.0-16.0) g/dL Hct (37.0-47.0) % MCV (81.0-99.0) fL MCH (27.0-31.0) pg MCHC (32.0-36.0) g/dL RDW (12.0-15.0) % Plt Count (130-450) 10^3/uL MPV (7.9-10.8) fL Neut # (Auto) (1.5-6.6) 10^3/uL Lymph # (Auto) (1.5-3.5) 10^3/uL [place] # (Auto) (0.0-1.0) 10^3/uL Eos # (Auto) (0.0-0.7) 10^3/uL Baso # (Auto) (0.0-0.1) 10^3/uL Absolute Nucleated RBC x10^3/uL Nucleated RBC % /100WBC VBG pH (7.31-7.41) Ionized Calcium (1.15-1.33) mmol/L Sodium (135-145) mmol/L Potassium (3.5-5.0) mmol/L Chloride (101-111) mmol/L Carbon Dioxide (21-32) mmol/L Anion Gap (6-13) BUN (6-20) mg/dL Creatinine (0.4-1.0) mg/dL Estimated GFR (MDRD) (>89) Glucose (70-100) mg/dL POC Whole Bld Glucose 94 115 H 56 L* (70 - 100) mg/dL Calcium (8.5-10.3) mg/dL Phosphorus (2.5-4.6) mg/dL Magnesium (1.7-2.8) mg/dL 10/26/22 10/26/22 10/26/22 Range/Units 04:10 04:10 04:10 WBC 4.1 L (4.8-10.8) x10^3/uL RBC 2.28 L (4.20-5.40) 10^6/uL Hgb 7.2 L (12.0-16.0) g/dL Hct 23.8 L (37.0-47.0) % MCV 104.4 H (81.0-99.0) fL MCH 31.6 H (27.0-31.0) pg MCHC 30.3 L (32.0-36.0) g/dL RDW 13.5 (12.0-15.0) % Plt Count 135 (130-450) 10^3/uL MPV 10.2 (7.9-10.8) fL Neut # (Auto) 3.0 (1.5-6.6) 10^3/uL Lymph # (Auto) 0.8 L (1.5-3.5) 10^3/uL [place] # (Auto) 0.2 (0.0-1.0) 10^3/uL Eos # (Auto) 0.1 (0.0-0.7) 10^3/uL Baso # (Auto) 0.0 (0.0-0.1) 10^3/uL Absolute Nucleated RBC 0.00 x10^3/uL Nucleated RBC % 0.0 /100WBC VBG pH 7.342 (7.31-7.41) Ionized Calcium 1.14 L (1.15-1.33) mmol/L Sodium 134 L (135-145) mmol/L Potassium 3.6 (3.5-5.0) mmol/L Chloride 109 (101-111) mmol/L Carbon Dioxide 19 L (21-32) mmol/L Anion Gap 6.0 (6-13) BUN 16 (6-20) mg/dL Creatinine 0.8 (0.4-1.0) mg/dL Estimated GFR (MDRD) 73 L (>89) Glucose 71 (70-100) mg/dL POC Whole Bld Glucose (70 - 100) mg/dL Calcium 7.5 L (8.5-10.3) mg/dL Phosphorus 2.9 (2.5-4.6) mg/dL Magnesium 2.0 (1.7-2.8) mg/dL 10/26/22 10/25/22 Range/Units 00:11 20:23 WBC (4.8-10.8) x10^3/uL RBC (4.20-5.40) 10^6/uL Hgb (12.0-16.0) g/dL Hct (37.0-47.0) % MCV (81.0-99.0) fL MCH (27.0-31.0) pg MCHC (32.0-36.0) g/dL RDW (12.0-15.0) % Plt Count (130-450) 10^3/uL MPV (7.9-10.8) fL Neut # (Auto) (1.5-6.6) 10^3/uL Lymph # (Auto) (1.5-3.5) 10^3/uL [place] # (Auto) (0.0-1.0) 10^3/uL Eos # (Auto) (0.0-0.7) 10^3/uL Baso # (Auto) (0.0-0.1) 10^3/uL Absolute Nucleated RBC x10^3/uL Nucleated RBC % /100WBC VBG pH (7.31-7.41) Ionized Calcium (1.15-1.33) mmol/L Sodium (135-145) mmol/L Potassium (3.5-5.0) mmol/L Chloride (101-111) mmol/L Carbon Dioxide (21-32) mmol/L Anion Gap (6-13) BUN (6-20) mg/dL Creatinine (0.4-1.0) mg/dL Estimated GFR (MDRD) (>89) Glucose (70-100) mg/dL POC Whole Bld Glucose 73 94 (70 - 100) mg/dL Calcium (8.5-10.3) mg/dL Phosphorus (2.5-4.6) mg/dL Magnesium (1.7-2.8) mg/dL ABX Reporting Has patient been on IV antibiotics over the past 48 hours?: Yes Assessment/Plan - Problem List (1) Small bowel obstruction Impression: Status post adhesiolysis with exploratory lap. Postoperative day #2. She has been successfully extubated since right after surgery. Pressure has been maintained without needing pressor agents. She is breathing on her own and oxygenating adequately. The bandage is covering her wound but bandages dry, no wetness or bleeding. Plan: Postoperative management per general surgery instructions I will stop the IV acetaminophen tomorrow. She can then continue p.o. (2) History of cardiomyopathy in adulthood/Postop hypotension. Conclusion/Plan: Her ejection fraction appears to have improved tremendously from 2019 to the most recent echo in May of last year. Her exam has been consistent in that she does not have crackles, JVD, or pedal edema. She takes Entresto and Toprol at home. On postop day 1 her systolic was in the 90s. As of today systolic has been 113, 106, 108. I am continuing her metoprolol 25 mg a day. I am assuming that her postoperative hypotension is due to fluid shifts. And what surgery saw and her bowel with venous congestion. She is also suddenly dropped her h emoglobin and surgery does not feel it is a GI bleed but more of a redistribution of the severe venous congestion he was seen in the bowel. Plan: Continue to hold Entresto. Recheck hemoglobin hematocrit. If she drops below 7, transfuse 2 units of blood (3) Type 2 diabetes mellitus with hypoglycemia today. Conclusion/Plan: Her home med list does not have her on any medication. Random glucose was 182 on postop day 0. On postop day 1 she was 126. Today is postop day 2 and her glucose was 54. She received half an amp of D50 and glucose bumped up to the 90s. A1c is 5.6%. It was her admission note from the ER that stated she was a diabetic. But she has no medications and her A1c is very well controlled. She denies any history of diabetes. I am controlling her glucose by sliding scale regular insulin, and so far she has not needed any. Plan: I am going to start her on clear liquids today. Encourage things like popsicles with sugar in them. Change insulin to lispro since she is now eating. 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 I spoke to pharmacy because I couldn't understand their reconciled medication list. She takes 20 mg milligrams of cortisone as directed plus 10 mg in the morning. Pharmacy said that that is a typo error. She only takes 10 mg in the morning and that is it. He will corect the way the medicine is written in the EMR. As such I will continue her on the 10 mg p.o. every morning without changes (5) Acute blood loss anemia Conclusion/Plan: Hemoglobin on admission was 13.6. Right after surgery she was 9.5. POD #1 she was 8.7 and today on POD #2 she is 7.2. I discussed the case with general surgery and they said they only had a 50 cc blood loss with a very simple adhesiolysis. He thinks that she was massively and passively venous congested due to the adhesions blocking bowel circulation. 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 Now that her bowel anatomy is reequilibrated and he wonders if she sloughed off some of her bowel lining. Not really bowel ischemia. He would like her transfused if she drops below 7. I will recheck her this afternoon and transfuse 2 units. That is if she is below 7. No transfusion unless below 7 g of hemoglobin. We will continue to monitor daily. (6) History of gastrectomy and Tennille-en-Y. We were discussing with the patient and her her vitamin supplements. With the gastrectomy she is lost area that actually makes intrinsic factor. 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 So she would have significant B12 deficiencies that most likely only be treated through IM injection. Right now she is on oral supplementation. Plan: Change back to IM injection of B12 on a monthly basis. Initially she really required IM injection on a weekly basis for 3 to 4 injections and then go to once a month. She should also have her iron watched regularly. And trace minerals such as zinc and magnesium watched.
[2022-10-26] MEDS: MULTIVITAMIN W/MINERALS TABLET PO SCH (12:32)
[2022-10-26 12:38] LABS: ESTIMATED AVERAGE GLUCOSE 114 mg/dL (70-100); HEMOGLOBIN A1c% 5.6 % (4.27-6.07)
[2022-10-26 15:06] LABS: HCT - HEMATOCRIT 22.8 % (37.0-47.0); MEAN CORPUSCULAR HEMOGLOBIN 31.7 pg (27.0-31.0); MEAN CORPUSCULAR HGB CONC 30.7 g/dL (32.0-36.0); MEAN CORPUSCULAR VOLUME 103.2 fL (81.0-99.0); MEAN PLATELET VOLUME 9.5 fL (7.9-10.8); RED BLOOD COUNT 2.21 10^6/uL (4.20-5.40); RED CELL DISTRIBUTION WIDTH 13.1 % (12.0-15.0)
[2022-10-26] MEDS: INSULIN LISPRO 300 UNIT/3 ML PEN SUBQ SCH ×2 (17:26→22:44)
[2022-10-26] MEDS: ATORVASTATIN 40 MG TABLET PO SCH (20:53)
[2022-10-26] MEDS: ACETAMINOPHEN 325 MG TABLET PO PRN (20:59)
[2022-10-26] MEDS: oxyCODONE 5 MG TABLET PO PRN (21:00)
[2022-10-27] MEDS: SODIUM CHLORIDE FLUSH 0.9% 10 ML SYRINGE IVP SCH ×3 (00:17→18:15)
[2022-10-27] MEDS: SODIUM CHLORIDE FLUSH 0.9% 10 ML SYRINGE IVP PRN ×2 (00:17→05:32)
[2022-10-27] MEDS: oxyCODONE 5 MG TABLET PO PRN (02:32)
[2022-10-27 04:55] LABS: BASOPHILS % (AUTO) 0.3 %; CALCIUM, IONIZED 1.1 mmol/L (1.15-1.33); EOSINOPHILS # (AUTO) 0.2 10^3/uL (0.0-0.7); HCT - HEMATOCRIT 28.9 % (37.0-47.0); HGB - HEMOGLOBIN 9.3 g/dL (12.0-16.0); LYMPHOCYTES # (AUTO) 1.1 10^3/uL (1.5-3.5); LYMPHOCYTES % (AUTO) 27.9 %; MEAN CORPUSCULAR HEMOGLOBIN 31.1 pg (27.0-31.0); MEAN CORPUSCULAR HGB CONC 32.2 g/dL (32.0-36.0); MEAN CORPUSCULAR VOLUME 96.7 fL (81.0-99.0); MEAN PLATELET VOLUME 9.6 fL (7.9-10.8); MONOCYTES # (AUTO) 0.2 10^3/uL (0.0-1.0); MONOCYTES % (AUTO) 5.8 %; NEUTROPHILS # (AUTO) 2.3 10^3/uL (1.5-6.6); NEUTROPHILS % (AUTO) 60.7 %; PLT - PLATELET COUNT 131 10^3/uL (130-450); RED BLOOD COUNT 2.99 10^6/uL (4.20-5.40); RED CELL DISTRIBUTION WIDTH 15.4 % (12.0-15.0); VBG PH 7.373 (7.31-7.41); WHITE BLOOD COUNT 3.8 x10^3/uL (4.8-10.8)
[2022-10-27 05:08] LABS: CALCIUM 7.6 mg/dL (8.5-10.3); CREATININE 0.6 mg/dL (0.4-1.0); MAGNESIUM 1.9 mg/dL (1.7-2.8); PHOSPHORUS 3.2 mg/dL (2.5-4.6); POTASSIUM 3.5 mmol/L (3.5-5.0)
[2022-10-27] MEDS: ONDANSETRON 4 MG/2 ML VIAL IVP PRN (05:32)
[2022-10-27] MEDS: INSULIN LISPRO 300 UNIT/3 ML PEN SUBQ SCH ×2 (08:00→12:13)
[2022-10-27] MEDS: HYDROCORTISONE 10 MG TABLET PO SCH (08:17)
[2022-10-27] MEDS: ENOXAPARIN 40 MG/0.4 ML SYRINGE SUBQ SCH (08:18)
[2022-10-27] MEDS: MULTIVITAMIN W/MINERALS TABLET PO SCH (08:18)
[2022-10-27] MEDS: DEXTROSE 5% 1,000 ML IV SCH ×2 (08:19→18:15)
[2022-10-27] MEDS: METOPROLOL SUCCINATE 25 MG TABLET PO SCH (08:19)
[2022-10-27] MEDS: FAMOTIDINE 20 MG/2 ML VIAL IVP SCH (08:19)
[2022-10-27] MEDS ORDERED: DICYCLOMINE 10 MG CAPSULE PO PRN (12:19)
--- NOTE | 2022-10-27 13:03 | PROVIDER PROGRESS NOTE ---
Subjective - General Admit Date: 10/24/22 Procedure Date: 10/24/22 Post Op Days: 3 - Review of Systems Wound/Incisions: positive: Dressing dry and intact General: positive: No symptoms, Fatigue HEENT: positive: No symptoms Pulmonary: positive: No symptoms Cardiovascular: positive: No symptoms Gastrointestinal: positive: Abdominal pain (Still has it and I explained it is expected postoperatively.), Flatus (But not bloody.) Musculoskeletal: positive: No symptoms Psychiatric: positive: No symptoms Objective - Patient Data Reviewed Vital Signs: Yes Vital Signs: Vital Signs x48h Temp Pulse Resp BP Pulse Ox 10/27/22 11:41 36.9 C 56 L 16 145/68 H 96 10/27/22 08:54 37.0 C 57 L 16 131/70 H 94 Weight: Weight 10/25/22 10/26/22 10/27/22 23:59 23:59 23:59 Weight (kg) 63 kg 62 kg 61 kg Intake & Output: Intake and Output Totals x24h 10/25/22 10/26/22 10/27/22 23:59 23:59 23:59 Intake Total 3695.000 2600.666 2020 Output Total 475 650 375 Balance 3220.000 0911.421 8940 - Lab Results Lab Results: 10/27/22 04:47 10/27/22 04:47 Other Lab Results: Lab Results x24hrs 10/27/22 10/27/22 10/27/22 Range/Units 11:38 07:37 04:47 WBC 3.8 L (4.8-10.8) x10^3/uL RBC 2.99 L (4.20-5.40) 10^6/uL Hgb 9.3 L (12.0-16.0) g/dL Hct 28.9 L (37.0-47.0) % MCV 96.7 (81.0-99.0) fL MCH 31.1 H (27.0-31.0) pg MCHC 32.2 (32.0-36.0) g/dL RDW 15.4 H (12.0-15.0) % Plt Count 131 (130-450) 10^3/uL MPV 9.6 (7.9-10.8) fL Neut # (Auto) 2.3 (1.5-6.6) 10^3/uL Lymph # (Auto) 1.1 L (1.5-3.5) 10^3/uL Power # (Auto) 0.2 (0.0-1.0) 10^3/uL Eos # (Auto) 0.2 (0.0-0.7) 10^3/uL Baso # (Auto) 0.0 (0.0-0.1) 10^3/uL Absolute Nucleated RBC 0.00 x10^3/uL Nucleated RBC % 0.0 /100WBC VBG pH (7.31-7.41) Ionized Calcium (1.15-1.33) mmol/L Sodium (135-145) mmol/L Potassium (3.5-5.0) mmol/L Chloride (101-111) mmol/L Carbon Dioxide (21-32) mmol/L Anion Gap (6-13) BUN (6-20) mg/dL Creatinine (0.4-1.0) mg/dL Estimated GFR (MDRD) (>89) Glucose (70-100) mg/dL POC Whole Bld Glucose 127 H 108 H (70 - 100) mg/dL Estimat Average Glucose (70-100) mg/dL Hemoglobin A1c % (4.27-6.07) % Calcium (8.5-10.3) mg/dL Phosphorus (2.5-4.6) mg/dL Magnesium (1.7-2.8) mg/dL Blood Type Antibody Screen Crossmatch IS Only 10/27/22 10/27/22 10/27/22 Range/Units 04:47 04:47 00:03 WBC (4.8-10.8) x10^3/uL RBC (4.20-5.40) 10^6/uL Hgb (12.0-16.0) g/dL Hct (37.0-47.0) % MCV (81.0-99.0) fL MCH (27.0-31.0) pg MCHC (32.0-36.0) g/dL RDW (12.0-15.0) % Plt Count (130-450) 10^3/uL MPV (7.9-10.8) fL Neut # (Auto) (1.5-6.6) 10^3/uL Lymph # (Auto) (1.5-3.5) 10^3/uL Power # (Auto) (0.0-1.0) 10^3/uL Eos # (Auto) (0.0-0.7) 10^3/uL Baso # (Auto) (0.0-0.1) 10^3/uL Absolute Nucleated RBC x10^3/uL Nucleated RBC % /100WBC VBG pH 7.373 (7.31-7.41) Ionized Calcium 1.10 L (1.15-1.33) mmol/L Sodium 132 L (135-145) mmol/L Potassium 3.5 (3.5-5.0) mmol/L Chloride 105 (101-111) mmol/L Carbon Dioxide 23 (21-32) mmol/L Anion Gap 4.0 L (6-13) BUN 12 (6-20) mg/dL Creatinine 0.6 (0.4-1.0) mg/dL Estimated GFR (MDRD) 102 (>89) Glucose 120 H (70-100) mg/dL POC Whole Bld Glucose 98 (70 - 100) mg/dL Estimat Average Glucose (70-100) mg/dL Hemoglobin A1c % (4.27-6.07) % Calcium 7.6 L (8.5-10.3) mg/dL Phosphorus 3.2 (2.5-4.6) mg/dL Magnesium 1.9 (1.7-2.8) mg/dL Blood Type Antibody Screen Crossmatch IS Only 10/26/22 10/26/22 10/26/22 Range/Units 22:16 21:24 16:29 WBC (4.8-10.8) x10^3/uL RBC (4.20-5.40) 10^6/uL Hgb (12.0-16.0) g/dL Hct (37.0-47.0) % MCV (81.0-99.0) fL MCH (27.0-31.0) pg MCHC (32.0-36.0) g/dL RDW (12.0-15.0) % Plt Count (130-450) 10^3/uL MPV (7.9-10.8) fL Neut # (Auto) (1.5-6.6) 10^3/uL Lymph # (Auto) (1.5-3.5) 10^3/uL Power # (Auto) (0.0-1.0) 10^3/uL Eos # (Auto) (0.0-0.7) 10^3/uL Baso # (Auto) (0.0-0.1) 10^3/uL Absolute Nucleated RBC x10^3/uL Nucleated RBC % /100WBC VBG pH (7.31-7.41) Ionized Calcium (1.15-1.33) mmol/L Sodium (135-145) mmol/L Potassium (3.5-5.0) mmol/L Chloride (101-111) mmol/L Carbon Dioxide (21-32) mmol/L Anion Gap (6-13) BUN (6-20) mg/dL Creatinine (0.4-1.0) mg/dL Estimated GFR (MDRD) (>89) Glucose (70-100) mg/dL POC Whole Bld Glucose 83 70 108 H (70 - 100) mg/dL Estimat Average Glucose (70-100) mg/dL Hemoglobin A1c % (4.27-6.07) % Calcium (8.5-10.3) mg/dL Phosphorus (2.5-4.6) mg/dL Magnesium (1.7-2.8) mg/dL Blood Type Antibody Screen Crossmatch IS Only 10/26/22 10/26/22 10/24/22 Range/Units 14:53 04:10 13:40 WBC 4.0 L (4.8-10.8) x10^3/uL RBC 2.21 L (4.20-5.40) 10^6/uL Hgb 7.0 L* (12.0-16.0) g/dL Hct 22.8 L (37.0-47.0) % MCV 103.2 H (81.0-99.0) fL MCH 31.7 H (27.0-31.0) pg MCHC 30.7 L (32.0-36.0) g/dL RDW 13.1 (12.0-15.0) % Plt Count 123 L (130-450) 10^3/uL MPV 9.5 (7.9-10.8) fL Neut # (Auto) (1.5-6.6) 10^3/uL Lymph # (Auto) (1.5-3.5) 10^3/uL Power # (Auto) (0.0-1.0) 10^3/uL Eos # (Auto) (0.0-0.7) 10^3/uL Baso # (Auto) (0.0-0.1) 10^3/uL Absolute Nucleated RBC x10^3/uL Nucleated RBC % /100WBC VBG pH (7.31-7.41) Ionized Calcium (1.15-1.33) mmol/L Sodium (135-145) mmol/L Potassium (3.5-5.0) mmol/L Chloride (101-111) mmol/L Carbon Dioxide (21-32) mmol/L Anion Gap (6-13) BUN (6-20) mg/dL Creatinine (0.4-1.0) mg/dL Estimated GFR (MDRD) (>89) Glucose (70-100) mg/dL POC Whole Bld Glucose (70 - 100) mg/dL Estimat Average Glucose 114 H (70-100) mg/dL Hemoglobin A1c % 5.6 (4.27-6.07) % Calcium (8.5-10.3) mg/dL Phosphorus (2.5-4.6) mg/dL Magnesium (1.7-2.8) mg/dL Blood Type B POSITIVE Antibody Screen NEGATIVE Crossmatch IS Only See Detail - Current Medications Current Medications: Current Medications Generic Name Dose Route Start Last Admin Trade Name Freq PRN Reason Stop Dose Admin Acetaminophen 650 mg 10/24/22 14:26 10/26/22 20:59 Acetaminophen 325 Mg Tablet PO 650 mg Q4HR PRN Administration Pain 1 to 4, or Fever Atorvastatin Calcium 40 mg 10/24/22 21:00 10/26/22 20:53 Atorvastatin 40 Mg Tablet PO 40 mg QPM DILAN Administration Enoxaparin Sodium 40 mg 10/25/22 09:00 10/27/22 08:18 Enoxaparin 40 Mg/0.4 Ml Syringe SUBQ 40 mg DAILY DILAN Administration Famotidine 20 mg 10/24/22 21:00 10/27/22 08:19 Famotidine 20 Mg/2 Ml Vial IVP 20 mg BID DILAN Administration Hydrocortisone 10 mg 10/25/22 08:00 10/27/22 08:17 Hydrocortisone 10 Mg Tablet PO 10 mg 0800 DILAN Administration Hydromorphone HCl 0.5 mg 10/24/22 14:26 10/26/22 10:31 Hydromorphone 0.5 Mg/0.5 Ml Syringe IVP 0.5 mg Q2H PRN Administration Pain 8 to 10 Dextrose 1,000 mls @ 100 mls/hr 10/26/22 06:00 10/27/22 08:19 D5w IV 100 mls/hr .Q10H DILAN Administration Insulin Human Lispro 1 - 5 unit 10/26/22 17:00 10/27/22 12:13 Insulin Lispro 300 Unit/3 Ml Pen SUBQ Not Given 0800,1200,1700,2100 [facility] Protocol Metoprolol Succinate 25 mg 10/27/22 08:16 10/27/22 08:19 Metoprolol Succinate 25 Mg Tablet PO Not Given DAILY DILAN Multivitamins/Minerals 1 tab 10/26/22 12:00 10/27/22 08:18 Multivitamin W/Minerals Tablet PO 1 tab DAILYWM DILAN Administration Ondansetron HCl 4 mg 10/24/22 14:26 10/27/22 05:32 Ondansetron 4 Mg/2 Ml Vial IVP 4 mg Q6HR PRN Administration Nausea / Vomiting Oxycodone HCl 5 mg 10/24/22 14:26 10/27/22 02:32 Oxycodone 5 Mg Tablet PO 5 mg Q4HR PRN Administration Pain 5 to 7 Sodium Chloride 10 ml 10/24/22 17:00 10/27/22 08:20 Sodium Chloride Flush 0.9% 10 Ml Syringe IVP 10 ml 0100,0900,1700 DILAN Administration Sodium Chloride 10 ml 10/24/22 14:26 10/27/22 05:32 Sodium Chloride Flush 0.9% 10 Ml Syringe IVP 10 ml PRN PRN Administration NEEDED PER PROVIDER ORDERS Sodium Chloride 20 ml 10/26/22 00:28 10/26/22 04:04 Sodium Chloride Flush 0.9% 10 Ml Syringe IVP 20 ml PRN PRN Administration After Blood Draw - Physical Exam Wound/Incisions: positive: Healing well (Dressing removed - jaylyn in place.) General Appearance: positive: No acute distress, Alert (But appears tired.) Eyes Bilateral: positive: No lid inflammation, Conjunctivae nml, No scleral icterus ENT: positive: No signs of dehydration Neck: positive: Other (Rash under IJ dressing.) Respiratory: positive: Chest non-tender, No respiratory distress, Breath sounds nml Cardiovascular: positive: Regular rate & rhythm, No murmur Abdomen: positive: Nml bowel sounds, Tenderness (Very mild.) Skin: positive: Color nml, Other (Rash in neck under IJ dressing.) Extremities: positive: Non-tender, Nml appearance Neurologic/Psychiatric: positive: Oriented x3, Motor nml, Sensation nml, Mood/affect nml (Tired appearing.) ABX Reporting Has patient been on IV antibiotics over the past 48 hours?: No Impression/Plan - Problem List Problem List: Day 3 s/p exploratory laparotomy with adhesiolysis 1) FEN General diet. Heplock IV. 2) Pain Switch to all orals with IV only for breakthrough. 3) Heme Good response to transfusion. 4) Activity Encourage as much ambulation as possible. She is doing very well. 5) Macrocytic anemia Patient has been started on Vitamin B12 injections and should continue for the rest of her life. 6) Diabetes The patient is NOT diabetic by any definition that I can see currently. Her HgbA1C is under 6. She has not required insulin or oral hypoglycemics. She has had the equivalent of gastric bypass and this has been show that it treats diabetes. So in conclusion at this point I would state that she is not diabetic and this diagnosis should not "follow her." 7) Nutrition I would treat her just as though she had a gastric bypass but mindful of the fact that she does not make intrinsic factor (she has no st omach). So I would make sure that she is on a MVI with minerals, Vitamin B12 injection weekly, calcium and Vitamin D, iron supplement, Vitamin C. Patient has been transferred to floor.
[2022-10-27] MEDS: FERROUS GLUCONATE 324 MG TABLET PO SCH (14:58)
[2022-10-27] MEDS: CALCIUM CARBONATE CHEW 500 MG TABLET PO SCH ×2 (14:58→20:12)
[2022-10-27] MEDS: ATORVASTATIN 40 MG TABLET PO SCH (20:12)
[2022-10-27] MEDS: ACETAMINOPHEN 325 MG TABLET PO PRN (20:12)
[2022-10-28] MEDS: SODIUM CHLORIDE FLUSH 0.9% 10 ML SYRINGE IVP SCH ×2 (03:41→08:26)
[2022-10-28] MEDS: DEXTROSE 5% 1,000 ML IV SCH (03:41)
[2022-10-28 06:38] LABS: BASOPHILS % (AUTO) 0.3 %; EOSINOPHILS # (AUTO) 0.1 10^3/uL (0.0-0.7); EOSINOPHILS % (AUTO) 3.9 %; HCT - HEMATOCRIT 31.2 % (37.0-47.0); HGB - HEMOGLOBIN 10.4 g/dL (12.0-16.0); LYMPHOCYTES % (AUTO) 30.6 %; MEAN CORPUSCULAR HEMOGLOBIN 31.3 pg (27.0-31.0); MEAN CORPUSCULAR HGB CONC 33.3 g/dL (32.0-36.0); MEAN PLATELET VOLUME 9.6 fL (7.9-10.8); MONOCYTES # (AUTO) 0.3 10^3/uL (0.0-1.0); MONOCYTES % (AUTO) 8.1 %; NEUTROPHILS # (AUTO) 1.7 10^3/uL (1.5-6.6); NEUTROPHILS % (AUTO) 56.1 %; PLT - PLATELET COUNT 141 10^3/uL (130-450); RED BLOOD COUNT 3.32 10^6/uL (4.20-5.40); RED CELL DISTRIBUTION WIDTH 14.4 % (12.0-15.0); WHITE BLOOD COUNT 3.1 x10^3/uL (4.8-10.8)
[2022-10-28 06:47] LABS: CALCIUM 7.9 mg/dL (8.5-10.3); CREATININE 0.6 mg/dL (0.4-1.0); POTASSIUM 3.3 mmol/L (3.5-5.0)
[2022-10-28] MEDS: MULTIVITAMIN W/MINERALS TABLET PO SCH (08:25)
[2022-10-28] MEDS: CALCIUM CARBONATE CHEW 500 MG TABLET PO SCH (08:25)
[2022-10-28] MEDS: FERROUS GLUCONATE 324 MG TABLET PO SCH (08:26)
[2022-10-28] MEDS: HYDROCORTISONE 10 MG TABLET PO SCH (08:26)
[2022-10-28] MEDS: ENOXAPARIN 40 MG/0.4 ML SYRINGE SUBQ SCH (08:26)
[2022-10-28] MEDS: METOPROLOL SUCCINATE 25 MG TABLET PO SCH (08:30)
[2022-10-28] MEDS ORDERED: ASCORBIC ACID 500 MG TABLET PO SCH (09:00)
[2022-10-28] MEDS ORDERED: POTASSIUM CHLOR 10 MEQ/100 ML 10 MEQ/100 ML BAG IV SCH (09:00)
[2022-10-28] MEDS ORDERED: CHOLECALCIFEROL 5,000 UNIT CAPSULE PO SCH (09:00)
--- NOTE | 2022-10-28 09:10 | Discharge Plan ---
Discharge Plan Problem Reviewed?: Yes Disposition: Home, Self Care Condition: Good Diet: Regular Activity Restrictions: Additional Comments (No lifting >15 pounds for 6 weeks.) Shower Restrictions: No Driving Restrictions: Yes (While on pain medication.) Weight Bearing: Full Weight Additional Instructions or Follow Up instructions: Patient should have Vitamin B12 shot weekly (again she has NO intrinsic factor AND Tennille-en-Y anatomy with a cecal resection - she CANNOT absorb vitamin B12. Also other vitamins should be supplemented - treat her just like a gastric bypass (MVI, calcium with vitamin D, iron, vitamin C) Also she is NOT diabetic. Remove that diagnosis from her chart. No Smoking: If you smoke, Please STOP! Call for help. Follow-up with: Herlinda Talley MD [Provider Admit Priv/Credential] -
--- NOTE | 2022-10-28 09:15 | DISCHARGE SUMMARY ---
Discharge Summary Admit Date: 10/24/22 Discharge Date: 10/28/22 Discharging Provider: Tayo Hernández MD Code Status: Attempt Resuscitation Condition at Discharge: Good Discharge Disposition: 01 Home, Self Care - DIAGNOSES Admission Diagnoses: Adhesive small bowel obstruction Discharge Diagnoses with Status of Each Condition: Resolved. Diabetes - she does NOT have this Vitamin B12 deficiency - she chart for diagnosis resulting in anemia Leukocytopenia - HPI History of Present Illness: Patient with history of gastric cancer resected with a Tennille-en-Y reconstruction. Also adrenalectomy, cecectomy. Numerous presentations to ED with abdominal pain and bowel obstruction that resolved "somewhat." This time much more acutely ill. Surgical findings were adhesions at likely site of previous feeding tube site. Venous congestion-chylous ascites. Surgery curative. - CONSULTS | PROCEDURES Procedures: Exploratory laparotomy and adhesiolysis. - HOSPITAL COURSE Hospital Course: Uncomplicated - required 2 units transfusion for symptomatic anemia. - ALLERGIES Allergies/Adverse Reactions: Allergies Allergy/AdvReac Type Severity Reaction Status Date / Time No Known Drug Allergies Allergy Verified 10/24/22 06:22 - MEDICATIONS Home Medications: Ambulatory Orders Medication Instructions Recorded Confirmed Atorvastatin [Lipitor] 40 mg PO QPM 09/06/19 10/24/22 Ferrous Sulfate 325 mg PO DAILY 09/06/19 10/24/22 Sacubitril/Valsartan [Entresto 49 1 tab PO BID 10/24/19 10/24/22 mg-51 mg Tablet] Hydrocortisone 10 mg PO DAILY 05/24/20 10/26/22 Metoprolol Succinate [Toprol Xl] 25 mg PO DAILY 12/14/20 10/24/22 Mecobalamin [B12 Active] 1,000 mcg PO DAILY 09/25/21 10/24/22 Ascorbic Acid [Vitamin C] 500 mg PO DAILY 07/21/22 10/24/22 Aspirin Chewable [St Mehrdad 81 mg PO DAILY 07/21/22 10/24/22 Aspirin] Cholecalciferol (Vitamin D3) 25 mcg PO DAILY 07/21/22 10/24/22 [Vitamin D3] Lactobacillus Combination No.4 1 each PO DAILY 07/21/22 10/24/22 [Probiotic] Potassium Chloride Oral Soln 20 meq PO 0800 #450 ml 07/22/22 10/24/22 [Potassium Chloride] - PHYSICAL EXAM AT DISCHARGE General Appearance: positive: No acute distress Eyes Bilateral: positive: No lid inflammation, Conjunctivae nml, No scleral icterus ENT: positive: No signs of dehydration Neck: positive: Trachea midline Respiratory: positive: Chest non-tender, No respiratory distress, Breath sounds nml Cardiovascular: positive: Regular rate & rhythm, No murmur Abdomen: positive: Nml bowel sounds, Tenderness (Minimal.) Skin: positive: Color nml, No rash, Warm, Dry Extremities: positive: Non-tender, Nml appearance. negative: Lizzeth's sign/cords Neurologic/Psychiatric: positive: Oriented x3, Motor nml, Sensation nml, Mood/affect nml - LABS Result Diagrams: 10/28/22 06:23 10/28/22 06:23 - QUALITY (Female Hip Fx Only) Was patient sent home on osteoporosis medication?: No - FOLLOW UP Follow Up: Dr. Edith Talley call to make appointment. - TIME SPENT Time Spent in Discharge (Minutes): 30
--- NOTE | 2022-10-28 09:23 | Discharge Plan ---
Discharge Plan Problem Reviewed?: Yes Disposition: Home, Self Care Condition: Good Prescriptions: oxyCODONE [Roxicodone] 5 mg PO Q4HR PRN #12 tab PRN Reason: Pain 5 to 7 Activity Restrictions: Additional Comments (No lifting >15 pounds for 6 weeks.) Shower Restrictions: No Driving Restrictions: Yes (While on pain medication.) Weight Bearing: Full Weight Additional Instructions or Follow Up instructions: Patient should have Vitamin B12 shot weekly (again she has NO intrinsic factor AND Tennille-en-Y anatomy with a cecal resection - she CANNOT absorb vitamin B12. Also other vitamins should be supplemented - treat her just like a gastric bypass (MVI, calcium with vitamin D, iron, vitamin C) Also she is NOT diabetic. Remove that diagnosis from her chart. No Smoking: If you smoke, Please STOP! Call for help. Follow-up with: Herlinda Talley MD [Provider Admit Priv/Credential] -
[2022-10-28] MEDS ORDERED: POTASSIUM CHLORIDE 20 MEQ TABLET PO ONE (10:00)
[2022-10-28 10:36] VITALS: BP 113/72
== END 2022-10-28 10:30 | disposition home or self-care (01) | DRG 336 ==
LOC: ED 05:57 → ICU 11:30 → MS2 10-26 10:31
PROVIDERS: ADMIT Surgery; ATTEND Surgery
PROC: 0DNA0ZZ Release Jejunum, Open Approach (ICD-10-PCS; principal; 2022-10-24 11:15)
PROC: 30233N1 Transfusion of Nonautologous Red Blood Cells into Peripheral Vein, Percutaneous Approach (ICD-10-PCS; 2022-10-26)
DX: K56.50 Intestinal adhesions [bands], unspecified as to partial versus complete obstruction (principal); D62 Acute posthemorrhagic anemia; E89.6 Postprocedural adrenocortical (-medullary) hypofunction; I50.30 Unspecified diastolic (congestive) heart failure; E53.8 Deficiency of other specified B group vitamins; I11.0 Hypertensive heart disease with heart failure; E78.00 Pure hypercholesterolemia, unspecified; I25.2 Old myocardial infarction; H54.7 Unspecified visual loss; M19.90 Unspecified osteoarthritis, unspecified site; M81.0 Age-related osteoporosis without current pathological fracture; I25.10 Atherosclerotic heart disease of native coronary artery without angina pectoris; I95.81 Postprocedural hypotension; E11.649 Type 2 diabetes mellitus with hypoglycemia without coma; Z20.822 Contact with and (suspected) exposure to COVID-19; Z80.0 Family history of malignant neoplasm of digestive organs; Z85.028 Personal history of other malignant neoplasm of stomach; Z86.79 Personal history of other diseases of the circulatory system; Z87.891 Personal history of nicotine dependence; Z90.49 Acquired absence of other specified parts of digestive tract; Z92.21 Personal history of antineoplastic chemotherapy; Z93.4 Other artificial openings of gastrointestinal tract status
CPT/HCPCS: 36415; 74177; 80048; 80053; 81003; 82330; 82803; 83036; 83605; 83690; 83735; 84100; 84132; 84484; 85025; 85027; 85610; 86850; 86900; 86901; 86920; 87150; 87635; 93005; 96365; 96375; 97161; 97166; 99285; A9270; J0131; J0330; J0690; J1170; J1650; J7120; P9016; Q9967; 81001; 87086

== ENCOUNTER 2022-11-18 12:17 | Outpatient (CLI) | payer OTHER | END 2022-11-18 12:18 | disposition home or self-care (01) | LOC: LAB 12:17 | PROVIDERS: ATTEND Internal Medicine Endocrinology, Diabetes & Metabolism | DX: K91.2 Postsurgical malabsorption, not elsewhere classified (principal); Z90.3 Acquired absence of stomach [part of] | CPT/HCPCS: 36415; 82306; 82310; 83970 ==

== ENCOUNTER 2023-01-20 09:11 | Outpatient (CLI) | payer OTHER ==
[2023-01-20 09:45] LABS: ALBUMIN 4.4 g/dL (3.2-5.5); ALBUMIN/GLOBULIN RATIO 1.6 (1.0-2.2); ALKALINE PHOSPHATASE 82 IU/L (42-121); ALT ALANINE AMINOTRANSFERASE 98 IU/L (10-60); AST ASPARTATE AMINOTRANSFERASE 55 IU/L (10-42); BILIRUBIN,TOTAL 0.8 mg/dL (0.2-1.0); BUN - BLOOD UREA NITROGEN 22 mg/dL (6-20); CALCIUM 8.7 mg/dL (8.5-10.3); CARBON DIOXIDE - CO2 26 mmol/L (21-32); CHLORIDE 105 mmol/L (101-111); CHOL/HDL RATIO 1.5 (<4.4); CHOLESTEROL 143 mg/dL; CREATININE 0.7 mg/dL (0.4-1.0); GFR - MDRD 85 (>89); GLUCOSE 109 mg/dL (70-100); HDL CHOLESTEROL 94 mg/dL; LDL CHOLESTEROL,CALCULATED 37 mg/dL; LDL/HDL RATIO 0.4 (<4.4); POTASSIUM 4.2 mmol/L (3.5-5.0); SODIUM 137 mmol/L (135-145); TOTAL PROTEIN 7.1 g/dL (6.7-8.2); TRIGLYCERIDES 58 mg/dL; VLDL CHOLESTEROL 12 mg/dL
== END 2023-01-20 09:12 | disposition home or self-care (01) ==
LOC: LAB 09:11
PROVIDERS: ATTEND Nurse Practitioner
DX: E78.5 Hyperlipidemia, unspecified (principal); I42.8 Other cardiomyopathies
CPT/HCPCS: 36415; 80053; 80061; 83721